=== PATIENT | female | born 1935 | race Caucasian/White ===

== ENCOUNTER 2017-12-25 15:22 | Inpatient (IN) | payer MEDICARE ==
[~2017-12-25] VITALS: Ht 167.6 cm; Wt 95.1 kg
[2017-12-25 15:54] VITALS: BP 116/55; PULSE 72; RESP 16; TEMP 98.3; O2SAT 95
[2017-12-25 17:12] LABS: AUTOMATED NEUTROPHIL # 6.8 TH/MM3 (1.8-7.7); BASOPHIL # 0.1 TH/MM3 (0-0.2); BASOPHIL % 1.2 % (0.0-2.0); EOSINOPHIL # 0.3 TH/MM3 (0-0.4); EOSINOPHIL % 3.4 % (0.0-4.0); HEMATOCRIT 27.4 % (35.0-46.0); HEMOGLOBIN 8.7 GM/DL (11.6-15.3); LYMPH % 16.3 % (9.0-44.0); LYMPHOCYTE # 1.5 TH/MM3 (1.0-4.8); MEAN CORPUSCULAR HEMOGLOBIN 26.4 PG (27.0-34.0); MEAN CORPUSCULAR HGB CONC 31.8 % (32.0-36.0); MEAN PLATELET VOLUME 8.1 FL (7.0-11.0); MONO % 7.1 % (0.0-8.0); MONOCYTE # 0.7 TH/MM3 (0-0.9); PLATELET COUNT 542 TH/MM3 (150-450); RED CELL DISTRIBUTION WIDTH 16.1 % (11.6-17.2); WHITE BLOOD COUNT 9.4 TH/MM3 (4.0-11.0)
[2017-12-25 17:21] LABS: INTERNATIONAL NORMALIZED RATIO 1.3 RATIO; PROTHROMBIN TIME - PATIENT 12.8 SEC (9.8-11.6)
[2017-12-25 17:23] LABS: ALBUMIN 2.5 GM/DL (3.4-5.0); ALT (GPT) 22 U/L (10-53); AST (GOT) 25 U/L (15-37); BICARBONATE 31.3 MEQ/L (21.0-32.0); BLOOD UREA NITROGEN 21 MG/DL (7-18); CHLORIDE 102 MEQ/L (98-107); CREATININE 0.85 MG/DL (0.50-1.00); GLOMERULAR FILTRATION RATE 64 ML/MIN (>89); GLUCOSE,RANDOM 144 MG/DL (74-106); SODIUM (NA) 140 MEQ/L (136-145)
[2017-12-25 17:26] LABS: ALKALINE PHOSPHATASE 79 U/L (45-117); TOTAL BILIRUBIN ADULT 0.3 MG/DL (0.2-1.0); TOTAL PROTEIN 7.2 GM/DL (6.4-8.2)
--- NOTE | 2017-12-25 17:28 | RADRPT ---
EXAM DATE/TIME: 12/25/2017 16:51 [facility] COMPARISON: No previous studies available for comparison. INDICATIONS : Non healing discolored foot and ankle post surgery 12/04/2017. MEDICAL HISTORY : None. SURGICAL HISTORY : None. ENCOUNTER: Initial ACUITY: 4 - 6 days PAIN SCORE: 7/10 LOCATION: Left foot and ankle FINDINGS: Prominent plantar calcaneal spur is noted. Hardware is noted within the distal tibia and fibula. Mild degenerative changes are noted involving the first metatarsophalangeal joint. There is no acute frac ture or dislocation. CONCLUSION: 1. No acute fracture or dislocation. 2. Mild degenerative changes involving the first metatarsophalangeal joint. 3. Prominent plantar calcaneal spur. Wilmer Estes MD on December 25, 2017 at 17:23 Board Certified Radiologist. This report was verified electronically.
--- NOTE | 2017-12-25 17:31 | RADRPT ---
EXAM DATE/TIME: 12/25/2017 16:59 [facility] COMPARISON: FOOT LEFT COMPLETE ([id number]), December 25, 2017, 16:51. INDICATIONS : Non healing and discolored left foot and ankle post op 12/04/2017. MEDICAL HISTORY : None. SURGICAL HISTORY : None. ENCOUNTER: Initial ACUITY: 4 - 6 days PAIN SCORE: 8/10 LOCATION: Left foot and ankle FINDINGS: A posterior malleolar fracture of the distal tibia is identified. Extensive hardware is noted within the distal tibia and fibula status post ORIF. Prominent plantar calcaneal spur is noted. CONCLUSION: 1. Posterior malleolar fracture of the distal tibia. 2. Prominent plantar calcaneal spur. Wilmer Estes MD on December 25, 2017 at 17:25 Board Certified Radiologist. This report was verified electronically.
--- NOTE | 2017-12-25 17:41 | PD ---
HPI Chief Complaint: Skin Problem Time Seen by Provider: 15:58 Travel History International Travel<30 days: No Contact w/Intl Traveler<30days: No Traveled to known affect area: No History of Present Illness HPI The patient is a 82-year-old female who presents to emergency department for evaluation of wounds to the left ankle and left foot. The patient is from [place], [place], recently fractured her ankle with possible dislocation. The patient was seen in the hospital in [place] where she underwent surgery. The patient was then discharged to a rehabilitation center. While in the rehabilitation center was noted the patient had some black skin changes to the dorsal aspect as well as the medial plantar surface of the foot and over the heel of the left foot. The patient was seen by her orthopedic surgeon who recommended she follow-up with plastic surgery for possible debridement. The patient was scheduled to see a plastic surgeon on January 02 in [place], [place], but the family did not want to wait until then. Therefore, the sign the patient out of her rehabilitation center during to [place], [place] to see a plastic surgeon. The patient does not have a local primary. He does note subjective fevers, denies any drainage from the wounds on the foot. PFSH Past Medical History Narrative Medical Anemia, paroxysmal atrial fibrillation, coronary artery disease, hypertension, hyperlipidemia Hx Anticoagulant Therapy: Yes (ELIQUPAULA ASA) Past Surgical History Narrative Surgical Left ankle surgery, left knee surgery, cholecystectomy, appendectomy, cystocele surgery, rectocele surgery, back surgery, previous stent placement Social History Tobacco Use: No Allergies-Medications Reported Meds & Prescriptions Reported Meds & Active Scripts Active Reported Torsemide 20 Mg Tab 20 Mg PO DAILY Pravastatin 20 Mg Tab 20 Mg PO DAILY Potassium Chloride ER (Potassium Chloride) 10 Meq Tab 10 Meq PO DAILY Hydrocodone-Acetaminophen 5-325 mg Tab 2 Tab PO Q4H PRN Metoprolol Tartrate 50 Mg Tab 50 Mg PO BID Lisinopril 40 Mg Tab 40 Mg PO DAILY Levothyroxine (Levothyroxine Sodium) 150 Mcg Tab 150 Mcg PO DAILY Gabapentin 600 Mg Tab 600 Mg PO HS Gabapentin 300 Mg Cap 300 Mg PO DAILY Eliquis (Apixaban) 5 Mg Tab 5 Mg PO BID Colace (Docusate Sodium) 100 Mg Capsule 100 Mg PO HS Aspirin EC (Aspirin) 81 Mg Tabdr 81 Mg PO DAILY Amlodipine (Amlodipine Besylate) 10 Mg Tab 10 Mg PO DAILY Review of Systems Except as stated in HPI: all other systems reviewed are Neg General / Constitutional: Positive: Fever Cardiovascular: No: Chest Pain or Discomfort Respiratory: No: Shortness of Breath Gastrointestinal: No: Nausea, Vomiting, Abdominal Pain Musculoskeletal: Positive: Edema, Pain Skin: Positive Other (As noted in the history of present illness) Neurologic: No: Paresthesia, Sensory Disturbance Physical Exam Narrative GENERAL: Awake, alert, pleasant 82-year-old female who appears her stated age and is in no acute respiratory distress. SKIN: Focused skin assessment warm/dry. HEAD: Atraumatic. Normocephalic. EYES: No injection or drainage. 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 ENT: No nasal bleeding or discharge. Mucous membranes pink and moist. NECK: Trachea midline. No JVD. CARDIOVASCULAR: Regular rate and rhythm. No murmur appreciated. RESPIRATORY: No accessory muscle use. Clear to auscultation. Breath sounds equal bilaterally. GASTROINTESTINAL: Abdomen soft, non-tender, nondistended. MUSCULOSKELETAL: The left lower extremity initially had a splint in place. This was removed. The patient does have surgical scar noted over the lateral aspect left ankle. There was some black eschar, dry, no weeping over the dorsal aspect left foot, medial plantar surface of the foot, as well as the heel. There is no drainage or surrounding erythema, there is mild edema of the left foot. Positive dorsalis pedal pulse Via Doppler. Well-healed scar of the anterior aspect of the left knee. NEUROLOGICAL: Awake and alert. No obvious cranial nerve deficits. Motor grossly within normal limits. Normal speech. Nonfocal. PSYCHIATRIC: Appropriate mood and affect; insight and judgment normal. Data Data Last Documented VS Vital Signs Date Time Temp Pulse Resp B/P (MAP) Pulse Ox O2 Delivery O2 Flow Rate FiO2 12/25/17 15:54 98.3 72 16 116/55 (75) 95 Orders Orders Sepsis Workup Initiated (12/25/17 ) Complete Blood Count With Diff (12/25/17 16:10) Comprehensive Metabolic Panel (12/25/17 16:10) Prothrombin Time / Inr (Pt) (12/25/17 16:10) Act Partial Throm Time (Ptt) (12/25/17 16:10) Lactic Acid Sepsis Protocol (12/25/17 16:10) Urinalysis - C+S If Indicated (12/25/17 16:10) Blood Culture (12/25/17 16:10) Blood Glucose (12/25/17 16:10) Ecg Monitoring (12/25/17 16:10) Iv Access Insert/Monitor (12/25/17 16:10) Oximetry (12/25/17 16:10) Oxygen Administration (12/25/17 16:10) Foot, Complete ([id number]) (12/25/17 ) Ankle, Limited (Ap&Lat) (12/25/17 ) Consult Podiatry (12/25/17 ) (Hub Use Only)Inp Phy Cons/Ref (12/25/17 ) Place In Observation (12/25/17 ) Vital Signs (Adult) Q4H (12/25/17 18:46) Activity Oob With Assistance (12/25/17 18:46) Manager Transfer / Telemetry .CONTINUOUS (12/25/17 18:46) Diet Heart Healthy (12/25/17 Dinner) Basic Metabolic Panel (Bmp) (12/26/17 06:00) Complete Blood Count With Diff (12/26/17 06:00) Arterial Segmt Dopp Ltd Patti (12/25/17 ) Admit Order (Ed Use Only) (12/25/17 18:51) Labs Laboratory Tests Test 12/25/17 16:35 12/25/17 17:26 White Blood Count 9.4 TH/MM3 Red Blood Count 3.30 MIL/MM3 Hemoglobin 8.7 GM/DL Hematocrit 27.4 % Mean Corpuscular Volume 83.0 FL Mean Corpuscular Hemoglobin 26.4 PG Mean Corpuscular Hemoglobin Concent 31.8 % Red Cell Distribution Width 16.1 % Platelet Count 542 TH/MM3 Mean Platelet Volume 8.1 FL Neutrophils (%) (Auto) 72.0 % Lymphocytes (%) (Auto) 16.3 % Monocytes (%) (Auto) 7.1 % Eosinophils (%) (Auto) 3.4 % Basophils (%) (Auto) 1.2 % Neutrophils # (Auto) 6.8 TH/MM3 Lymphocytes # (Auto) 1.5 TH/MM3 Monocytes # (Auto) 0.7 TH/MM3 Eosinophils # (Auto) 0.3 TH/MM3 Basophils # (Auto) 0.1 TH/MM3 CBC Comment DIFF FINAL Differential Comment Prothrombin Time 12.8 SEC Prothromb Time International Ratio 1.3 RATIO Activated Partial Thromboplast Time 27.6 SEC Blood Urea Nitrogen 21 MG/DL Creatinine 0.85 MG/DL Random Glucose 144 MG/DL Total Protein 7.2 GM/DL Albumin 2.5 GM/DL Calcium Level 9.0 MG/DL Alkaline Phosphatase 79 U/L Aspartate Amino Transf (AST/SGOT) 25 U/L Alanine Aminotransferase (ALT/SGPT) 22 U/L Total Bilirubin 0.3 MG/DL Sodium Level 140 MEQ/L Potassium Level 4.1 MEQ/L Chloride Level 102 MEQ/L Carbon Dioxide Level 31.3 MEQ/L Anion Gap 7 MEQ/L Estimat Glomerular Filtration Rate 64 ML/MIN Lactic Acid Level 1.6 mmol/L Urine Color YELLOW Urine Turbidity CLEAR Urine pH 5.5 Urine Specific [place] 1.012 Urine Protein NEG mg/dL Urine Glucose (UA) NEG mg/dL Urine Ketones NEG mg/dL Urine Occult Blood NEG Urine Nitrite NEG Urine Bilirubin NEG Urine Urobilinogen LESS THAN 2.0 MG/DL Urine Leukocyte Esterase SMALL Urine RBC LESS THAN 1 /hpf Urine WBC 4 /hpf Urine Squamous Epithelial Cells 3 /hpf Urine Transitional Epithelial Cells 1 /hpf Urine Hyaline Casts 3 /lpf Urine Mucus FEW /lpf Microscopic Urinalysis Comment CATH-CULT NOT IND MDM Medical Decision Making Medical Screen Exam Complete: Yes Emergency Medical Condition: Yes Medical Record Reviewed: Yes Interpretation(s) Laboratory Tests Test 12/25/17 16:35 12/25/17 17:26 White Blood Count 9.4 TH/MM3 Red Blood Count 3.30 MIL/MM3 Hemoglobin 8.7 GM/DL Hematocrit 27.4 % Mean Corpuscular Volume 83.0 FL Mean Corpuscular Hemoglobin 26.4 PG Mean Corpuscular Hemoglobin Concent 31.8 % Red Cell Distribution Width 16.1 % Platelet Count 542 TH/MM3 Mean Platelet Volume 8.1 FL Neutrophils (%) (Auto) 72.0 % Lymphocytes (%) (Auto) 16.3 % Monocytes (%) (Auto) 7.1 % Eosinophils (%) (Auto) 3.4 % Basophils (%) (Auto) 1.2 % Neutrophils # (Auto) 6.8 TH/MM3 Lymphocytes # (Auto) 1.5 TH/MM3 Monocytes # (Auto) 0.7 TH/MM3 Eosinophils # (Auto) 0.3 TH/MM3 Basophils # (Auto) 0.1 TH/MM3 CBC Comment DIFF FINAL Differential Comment Prothrombin Time 12.8 SEC Prothromb Time International Ratio 1.3 RATIO Activated Partial Thromboplast Time 27.6 SEC Blood Urea Nitrogen 21 MG/DL Creatinine 0.85 MG/DL Random Glucose 144 MG/DL Total Protein 7.2 GM/DL Albumin 2.5 GM/DL Calcium Level 9.0 MG/DL Alkaline Phosphatase 79 U/L Aspartate Amino Transf (AST/SGOT) 25 U/L Alanine Aminotransferase (ALT/SGPT) 22 U/L Total Bilirubin 0.3 MG/DL Sodium Level 140 MEQ/L Potassium Level 4.1 MEQ/L Chloride Level 102 MEQ/L Carbon Dioxide Level 31.3 MEQ/L Anion Gap 7 MEQ/L Estimat Glomerular Filtration Rate 64 ML/MIN Lactic Acid Level 1.6 mmol/L Last Impressions Foot X-Ray 12/25/17 0000 Signed Impressions: Service Date/Time: Monday, December 25, 2017 16:51 - CONCLUSION: 1. No acute fracture or dislocation. 2. Mild degenerative changes involving the first metatarsophalangeal joint. 3. Prominent plantar calcaneal spur. Wilmer Estes MD Ankle X-Ray 12/25/17 0000 Signed Impressions: Service Date/Time: Monday, December 25, 2017 16:59 - CONCLUSION: 1. Posterior malleolar fracture of the distal tibia. 2. Prominent plantar calcaneal spur. Wilmer Estes MD Differential Diagnosis Differential diagnosis includes postoperative complication, dry gangrene, wet gangrene, cellulitis, abscess, fracture blister complication, infected hardware. Narrative Course IV was established, labs are drawn and sent, and the patient was placed on cardiac telemetry monitoring and continuous pulse oximetry monitoring. X-ray of the left ankle and foot was obtained. Lactic acid, CBC, blood culture were sent to lab. I did discuss the patient with the on-call plastic surgeon, Dr. Anne. Dr. Lal recommends consultation with podiatry as it is inferior to the knee. I did discuss the patient with Dr. Cifuentes, who states she will evaluate the patient in the emergency department. I did have a discussion with the family at bedside regarding podiatry evaluation the possibility of outpatient versus inpatient treatment. The patient's white count is unremarkable. Lactic acid is normal. I discussed the patient with kick press setter after the kick press setter examined the patient. She requested PATTI to evaluate vascular status. It is after 6 PM, therefore, patient will be 23 hour observation to obtain arterial brachial index to evaluate neurovascular status. Consult has been placed with kick press setter. I discussed the patient with medicine who agrees with 23 hour observation. Physician Communication Physician Communication I discussed the patient with Dr. Aguayo who agrees with 23 hour observation. Diagnosis Primary Impression: Postoperative complication Qualified Codes: L76.82 - Other postprocedural complications of skin and subcutaneous tissue Admitting Information Admitting Physician Requests: Observation Condition: Stable Benny Sanchez MD Dec 25, 2017 17:41
[2017-12-25] MEDS ORDERED: PRAV20TA2 PO (17:45)
[2017-12-25] MEDS ORDERED: GABA600T PO (17:45)
[2017-12-25] MEDS ORDERED: POTA10TA2 PO (17:45)
[2017-12-25] MEDS ORDERED: LISI40TA PO (17:45)
[2017-12-25] MEDS ORDERED: COLA100C5 PO (17:45)
[2017-12-25] MEDS ORDERED: APIX5TAB PO (17:45)
[2017-12-25] MEDS ORDERED: METO50TA PO (17:45)
[2017-12-25] MEDS ORDERED: GABA300C5 PO (17:45)
[2017-12-25] MEDS ORDERED: HYDR-3516 PO (17:45)
[2017-12-25] MEDS ORDERED: LEVO150T7 PO (17:45)
[2017-12-25] MEDS ORDERED: TORS20TA PO (17:45)
[2017-12-25] MEDS ORDERED: AMLO10TA2 PO (17:45)
[2017-12-25] MEDS ORDERED: ASPI81TA23 PO (17:45)
[2017-12-25 18:21] LABS: BILIRUBIN, URINE NEG (NEG); BLOOD, URINE NEG (NEG); GLUCOSE,URINE NEG (NEG); HYALINE CAST, URINE 3 /lpf (RARE); KETONE, URINE NEG (NEG); MUCUS URINE FEW /lpf (OCC); NITRITE,URINE NEG (NEG); PH, URINE 5.5 (5.0-8.5); SQUAMOUS EPITHELIAL CELL URINE 3 /hpf (0-5); TRANSITIONAL EPI CELLS, URINE 1 /hpf; URINE COLOR YELLOW (YELLW/STRAW); URINE LEUKOCYTE ESTERASE SMALL (NEG)
[2017-12-25 18:54] VITALS: BP 158/70; PULSE 78; RESP 19; O2SAT 95
--- NOTE | 2017-12-25 20:46 | HHI.HP ---
[facility] Service [facility] ([place], [place])ists Primary Care Physician Non-Staff Admission Diagnosis Postoperative complication, rule out eschar versus infection Diagnoses: Travel History International Travel<30 Days: No Contact w/Intl Traveler <30 Da: No Traveled to Known Affected Are: No History of Present Illness 82-year-old female with a past medical history significant for atrial fibrillation, anticoagulated on Eliquis, hypertension, hyperlipidemia, hypothyroidism, CAD and CHF (no recent echo) presents to the emergency department for evaluation of left ankle and heel wounds. The patient is status post tib/fib fracture with repair on 12/04/[address] Morales in [place]. She was placed in a splint following the procedure and has been compliant with nonweightbearing. The patient reports that one week ago she was seen in the office in follow-up in the splint was removed revealing left ankle, heel and foot areas of black eschar. Plastic surgery was consulted however the patient does not have an appointment until 01/02. She was seen again in clinic today and the decision was made between the physician, the patient's daughter and the patient to come to the emergency department for further evaluation, wound care and placement. The patient denies any pain to the wounds. She describes her left ankle is having a dull ache which is relieved with by mouth medication. She is participating in physical therapy. She denies any chest pain or shortness of breath. No abdominal pain. No nausea/vomiting/diarrhea. No weakness. No focal deficits. Review of Systems Except as stated in HPI: all other systems reviewed are Neg Past Family Social History Past Medical History Atrial fibrillation anticoagulated on Eliquis Hypertension Hyperlipidemia Hypothyroidism CAD CHF Past Surgical History Cardiac catheterization with stent placement 1 Perineal repair Pacemaker placement for bradycardia Left knee replacement Left tib/fib repair L3 to L5 fusion Right Achilles repair Cholecystectomy Reported Medications Reported Meds & Active Scripts Active Reported Torsemide 20 Mg Tab 20 Mg PO DAILY Pravastatin 20 Mg Tab 20 Mg PO DAILY Potassium Chloride ER (Potassium Chloride) 10 Meq Tab 10 Meq PO DAILY Hydrocodone-Acetaminophen 5-325 mg Tab 2 Tab PO Q4H PRN Metoprolol Tartrate 50 Mg Tab 50 Mg PO BID Lisinopril 40 Mg Tab 40 Mg PO DAILY Levothyroxine (Levothyroxine Sodium) 150 Mcg Tab 150 Mcg PO DAILY Gabapentin 600 Mg Tab 600 Mg PO HS Gabapentin 300 Mg Cap 300 Mg PO DAILY Eliquis (Apixaban) 5 Mg Tab 5 Mg PO BID Colace (Docusate Sodium) 100 Mg Capsule 100 Mg PO HS Aspirin EC (Aspirin) 81 Mg Tabdr 81 Mg PO DAILY Amlodipine (Amlodipine Besylate) 10 Mg Tab 10 Mg PO DAILY Allergies: Coded Allergies: Tetracyclic Antidepressants (Verified Allergy, Unknown, Hives, 12/25/17) Family History Both parents with diabetes mellitus Social History Remote history of tobacco. Occasional alcohol. Denies illicit drugs. Physical Exam Vital Signs Vital Signs Date Time Temp Pulse Resp B/P (MAP) Pulse Ox O2 Delivery O2 Flow Rate FiO2 12/25/17 18:54 78 19 158/70 (99) 95 Room Air 12/25/17 15:54 98.3 72 16 116/55 (75) 95 Physical Exam GENERAL: female sitting up in bed SKIN: Areas of black eschar on the left heel, plantar surface of left foot and left ankle. Neurovascularly intact with dopplerable dorsalis pedis pulse. HEAD: Atraumatic. Normocephalic. No temporal or scalp tenderness. EYES: Pupils equal round and reactive. Extraocular motions intact. No scleral icterus. No injection or drainage. ENT: Nose without bleeding, purulent drainage or septal hematoma. Throat without erythema, tonsillar hypertrophy or exudate. Uvula midline. Airway patent. NECK: Trachea midline. No JVD or lymphadenopathy. Supple, nontender, no meningeal signs. CARDIOVASCULAR: Regular rate and rhythm without murmurs, gallops, or rubs. RESPIRATORY: Clear to auscultation. Breath sounds equal bilaterally. No wheezes , rales, or rhonchi. GASTROINTESTINAL: Abdomen soft, non-tender, nondistended. No hepato-splenomegaly , or palpable masses. No guarding. MUSCULOSKELETAL: Extremities without clubbing, cyanosis, or edema. No joint tenderness, effusion, or edema noted. No calf tenderness. NEUROLOGICAL: Awake and alert. Cranial nerves II through XII intact. Motor and sensory grossly within normal limits. Normal speech. Laboratory Laboratory Tests Test 12/25/17 16:35 12/25/17 17:26 White Blood Count 9.4 Red Blood Count 3.30 Hemoglobin 8.7 Hematocrit 27.4 Mean Corpuscular Volume 83.0 Mean Corpuscular Hemoglobin 26.4 Mean Corpuscular Hemoglobin Concent 31.8 Red Cell Distribution Width 16.1 Platelet Count 542 Mean Platelet Volume 8.1 Neutrophils (%) (Auto) 72.0 Lymphocytes (%) (Auto) 16.3 Monocytes (%) (Auto) 7.1 Eosinophils (%) (Auto) 3.4 Basophils (%) (Auto) 1.2 Neutrophils # (Auto) 6.8 Lymphocytes # (Auto) 1.5 Monocytes # (Auto) 0.7 Eosinophils # (Auto) 0.3 Basophils # (Auto) 0.1 CBC Comment DIFF FINAL Differential Comment Prothrombin Time 12.8 Prothromb Time International Ratio 1.3 Activated Partial Thromboplast Time 27.6 Blood Urea Nitrogen 21 Creatinine 0.85 Random Glucose 144 Total Protein 7.2 Albumin 2.5 Calcium Level 9.0 Alkaline Phosphatase 79 Aspartate Amino Transf (AST/SGOT) 25 Alanine Aminotransferase (ALT/SGPT) 22 Total Bilirubin 0.3 Sodium Level 140 Potassium Level 4.1 Chloride Level 102 Carbon Dioxide Level 31.3 Anion Gap 7 Estimat Glomerular Filtration Rate 64 Lactic Acid Level 1.6 Urine Color YELLOW Urine Turbidity CLEAR Urine pH 5.5 Urine Specific [place] 1.012 Urine Protein NEG Urine Glucose (UA) NEG Urine Ketones NEG Urine Occult Blood NEG Urine Nitrite NEG Urine Bilirubin NEG Urine Urobilinogen LESS THAN 2.0 Urine Leukocyte Esterase SMALL Urine RBC LESS THAN 1 Urine WBC 4 Urine Squamous Epithelial Cells 3 Urine Transitional Epithelial Cells 1 Urine Hyaline Casts 3 Urine Mucus FEW Microscopic Urinalysis Comment CATH-CULT NOT IND Date/Time Source Procedure Growth Status 12/25/17 16:35 Blood Peripheral Aerobic Blood Culture Pending Received 12/25/17 16:35 Blood Peripheral Anaerobic Blood Culture Pending Received Result Diagram: 12/25/17 1635 12/25/17 1635 Caprini VTE Risk Assessment Caprini VTE Risk Assessment: Mod/High Risk (score >= 2) Caprini Risk Assessment Model Point Value = 1 Point Value = 2 Point Value = 3 Point Value = 5 Age 41-60 Minor surgery BMI > 25 kg/m2 Swollen legs Varicose veins or History of unexplained or recurrent spontaneous Oral contraceptives or hormone replacement Sepsis (< 1 month) Serious lung disease, including pneumonia (< 1 month) Abnormal pulmonary function Acute myocardial infarction Congestive heart failure (< 1 month) History of inflammatory bowel disease Medical patient at bed rest Age 61-74 Arthroscopic surgery Major open surgery (> 45 min) Laparoscopic surgery (> 45 min) Malignancy Confined to bed (> 72 hours) Immobilizing plaster cast Central venous access Age >= 75 History of VTE Family history of VTE Factor V Leiden Prothrombin [id number] Lupus anticoagulant Anticardiolipin antibodies Elevated serum homocysteine Heparin-induced thrombocytopenia Other congenital or acquired thrombophilia Stroke (< 1 month) Elective arthroplasty Hip, pelvis, or leg fracture Acute spinal cord injury (< 1 month) Prophylaxis Regimen Total Risk Factor Score Risk Level Prophylaxis Regimen 0-1 Low Early ambulation 2 Moderate Order ONE of the following: *Sequential Compression Device (SCD) *Heparin 5000 units SQ BID 3-4 Higher Order ONE of the following medications: *Heparin 5000 units SQ TID *Enoxaparin/Lovenox 40 mg SQ daily (WT < 150 kg, CrCl > 30 mL/min) *Enoxaparin/Lovenox 30 mg SQ daily (WT < 150 kg, CrCl > 10-29 mL/min) *Enoxaparin/Lovenox 30 mg SQ BID (WT < 150 kg, CrCl > 30 mL/min) AND/OR *Sequential Compression Device (SCD) 5 or more Highest Order ONE of the following medications: *Heparin 5000 units SQ TID (Preferred with Epidurals) *Enoxaparin/Lovenox 40 mg SQ daily (WT < 150 kg, CrCl > 30 mL/min) *Enoxaparin/Lovenox 30 mg SQ daily (WT < 150 kg, CrCl > 10-29 mL/min) *Enoxaparin/Lovenox 30 mg SQ BID (WT < 150 kg, CrCl > 30 mL/min) AND *Sequential Compression Device (SCD) Assessment and Plan Assessment and Plan Assessment/plan: 1. Post surgical wounds status post splinting Podiatry consulted, appreciate recommendations JINNY pending PT Wound care consulted Case management consulted to assist with placement as patient is nonweightbearing and unable to care for herself 2. Atrial fibrillation Continue home medications Continue anticoagulation with ELiquis 3. Hypertension/hyperlipidemia/CAD/CHF Continue home medications FEN Heart healthy diet Electrolytes: monitor and replete prn Cece Hernandez MD Dec 25, 2017 20:46
[2017-12-25 21:50] VITALS: BP 139/63; PULSE 67; RESP 16; TEMP 97.5; O2SAT 96
[2017-12-25] MEDS: METOPROLOL TARTRATE 50 MG TAB PO SCH (22:12)
[2017-12-25] MEDS: GABAPENTIN 300 MG CAP PO SCH (22:12)
[2017-12-25] MEDS: APIXABAN 5 MG TABLET PO SCH (22:12)
[2017-12-25] MEDS: ACETAMINOPHEN/HYDROcodone 325 MG/7.5 MG TAB PO PRN (22:13)
--- NOTE | 2017-12-25 22:48 | PD.CONS ---
History of Present Illness Service Foot and Ankle Surgery/Podiatry Consult Requested By Dr. Sanchez Reason for Consult Left Lower Extremity Eschar Primary Care Physician Diagnoses: History of Present Illness Podiatry consulted for 82-year-old female with past medical history significant for atrial fibrillation, anticoagulated on Eliquis, hypertension, hyperlipidemia , hypothyroidism, CAD and CHF for evaluation of left ankle and heel ulcerations. Patient states she is status post fracture repair by orthopedic surgeon in [place]. States she was placed in a cast/posterior splint following the surgery and has been compliant with nonweightbearing. States his splint was never removed and once it was removed and in the office revealed a nonhealing left ankle/heel and foot eschar. Patient was concerned that she was unable to secure a plastic surgery follow-up until January 02 therefore decision was made by her and her daughters to present to the emergency department for further evaluation, wound care recommendations, and placement. Patient denies any pain, denies any nausea vomiting fevers or chills. Review of Systems Constitutional: DENIES: Fatigue, Fever Ears, nose, mouth, throat: DENIES: Tinnitus Respiratory: DENIES: Cough, Wheezing Cardiovascular: DENIES: Chest pain Gastrointestinal: DENIES: Abdominal pain Musculoskeletal: DENIES: Joint pain Past Family Social History Allergies: Coded Allergies: Tetracyclic Antidepressants (Verified Allergy, Unknown, Hives, 12/25/17) Past Medical History as per HPI Active Ordered Medications Current Medications Medications (Trade) Dose Ordered Sig/Temitope Route Start Time Stop Time Status Last Admin ([place] 7.5-325 Mg) 1 tab Q4H PRN PO 12/25/17 20:45 12/25/17 22:13 (Norvasc) 10 mg DAILY PO 12/26/17 09:00 (Eliquis) 5 mg BID PO 12/25/17 21:00 12/25/17 22:12 (Ecotrin Ec) 81 mg DAILY PO 12/26/17 09:00 (Neurontin) 300 mg DAILY PO 12/26/17 09:00 (Neurontin) 600 mg HS PO 12/25/17 21:00 12/25/17 22:12 (Synthroid) 150 mcg DAILY@0600 PO 12/26/17 06:00 (Lopressor) 50 mg BID PO 12/25/17 21:00 12/25/17 22:12 (KCl) 10 meq DAILY PO 12/26/17 09:00 (Pravachol) 20 mg DAILY PO 12/26/17 09:00 (Demadex) 20 mg DAILY PO 12/26/17 09:00 (Prinivil) 40 mg DAILY PO 12/26/17 09:00 Physical Exam Vital Signs Vital Signs Date Time Temp Pulse Resp B/P (MAP) Pulse Ox O2 Delivery O2 Flow Rate FiO2 12/25/17 21:50 97.5 67 16 139/63 (88) 96 12/25/17 21:32 12/25/17 18:54 78 19 158/70 (99) 95 Room Air 12/25/17 15:54 98.3 72 16 116/55 (75) 95 Physical Exam GENERAL: This is a well-nourished, well-developed patient, in no apparent distress. SKIN: No rashes, ecchymoses or lesions. Cool and dry. HEAD: Atraumatic. Normocephalic. No temporal or scalp tenderness. EYES: Pupils equal round and reactive. Extraocular motions intact. No scleral icterus. No injection or drainage. ENT: Nose without bleeding, purulent drainage or septal hematoma. Throat without erythema, tonsillar hypertrophy or exudate. Uvula midline. Airway patent. NECK: Trachea midline. No JVD or lymphadenopathy. Supple, nontender, no meningeal signs. CARDIOVASCULAR: Regular rate and rhythm without murmurs, gallops, or rubs. RESPIRATORY: Clear to auscultation. Breath sounds equal bilaterally. No wheezes , rales, or rhonchi. GASTROINTESTINAL: Abdomen soft, non-tender, nondistended. No hepato-splenomegaly , or palpable masses. No guarding. MUSCULOSKELETAL: Extremities without clubbing, cyanosis, or edema. No joint tenderness, effusion, or edema noted. No calf tenderness. Negative Homans sign bilaterally. NEUROLOGICAL: Awake and alert. Cranial nerves II through XII intact. Motor and sensory grossly within normal limits. Five out of 5 muscle strength in all muscle groups. Normal speech. Laboratory Laboratory Tests Test 12/25/17 16:35 12/25/17 17:26 White Blood Count 9.4 Red Blood Count 3.30 Hemoglobin 8.7 Hematocrit 27.4 Mean Corpuscular Volume 83.0 Mean Corpuscular Hemoglobin 26.4 Mean Corpuscular Hemoglobin Concent 31.8 Red Cell Distribution Width 16.1 Platelet Count 542 Mean Platelet Volume 8.1 Neutrophils (%) (Auto) 72.0 Lymphocytes (%) (Auto) 16.3 Monocytes (%) (Auto) 7.1 Eosinophils (%) (Auto) 3.4 Basophils (%) (Auto) 1.2 Neutrophils # (Auto) 6.8 Lymphocytes # (Auto) 1.5 Monocytes # (Auto) 0.7 Eosinophils # (Auto) 0.3 Basophils # (Auto) 0.1 CBC Comment DIFF FINAL Differential Comment Prothrombin Time 12.8 Prothromb Time International Ratio 1.3 Activated Partial Thromboplast Time 27.6 Blood Urea Nitrogen 21 Creatinine 0.85 Random Glucose 144 Total Protein 7.2 Albumin 2.5 Calcium Level 9.0 Alkaline Phosphatase 79 Aspartate Amino Transf (AST/SGOT) 25 Alanine Aminotransferase (ALT/SGPT) 22 Total Bilirubin 0.3 Sodium Level 140 Potassium Level 4.1 Chloride Level 102 Carbon Dioxide Level 31.3 Anion Gap 7 Estimat Glomerular Filtration Rate 64 Lactic Acid Level 1.6 Urine Color YELLOW Urine Turbidity CLEAR Urine pH 5.5 Urine Specific [place] 1.012 Urine Protein NEG Urine Glucose (UA) NEG Urine Ketones NEG Urine Occult Blood NEG Urine Nitrite NEG Urine Bilirubin NEG Urine Urobilinogen LESS THAN 2.0 Urine Leukocyte Esterase SMALL Urine RBC LESS THAN 1 Urine WBC 4 Urine Squamous Epithelial Cells 3 Urine Transitional Epithelial Cells 1 Urine Hyaline Casts 3 Urine Mucus FEW Microscopic Urinalysis Comment CATH-CULT NOT IND Date/Time Source Procedure Growth Status 12/25/17 16:35 Blood Peripheral Aerobic Blood Culture Pending Received 12/25/17 16:35 Blood Peripheral Anaerobic Blood Culture Pending Received Result Diagram: 12/25/17 1635 12/25/17 1635 Imaging Last Impressions Foot X-Ray 12/25/17 0000 Signed Impressions: Service Date/Time: Monday, December 25, 2017 16:51 - CONCLUSION: 1. No acute fracture or dislocation. 2. Mild degenerative changes involving the first metatarsophalangeal joint. 3. Prominent plantar calcaneal spur. Wilmer Estes MD Ankle X-Ray 12/25/17 0000 Signed Impressions: Service Date/Time: Monday, December 25, 2017 16:59 - CONCLUSION: 1. Posterior malleolar fracture of the distal tibia. 2. Prominent plantar calcaneal spur. Wilmer Estes MD Assessment and Plan Assessment and Plan 82 year old female with left foot/heel/anterior ankle eschar Patient examined and evaluated with all questions answered Eschar to anterior ankle demarcating - no acute infection noted Patient will need santyl applied to eschar once demarcation complete Dry sterile dressing consisting of 4x4s, cast padding and light michelle recommended until santyl can be started ABIs to be performed if normal OK to discharge patient She will follow up within 1 week of discharge or find appropriate follow up in [place] with podiatry or plastics Xrays reviewed Lavern Cifuentes DPM Dec 25, 2017 22:48
[2017-12-25 23:18] VITALS: PULSE 59
[2017-12-26] VITALS: BP 124/63; PULSE 66; RESP 18; TEMP 98.9; O2SAT 95
[2017-12-26 05:19] VITALS: BP 135/80; PULSE 88; RESP 18; TEMP 97.8; O2SAT 95
[2017-12-26] MEDS: LEVOTHYROXINE SODIUM 150 MCG TAB PO SCH (05:23)
--- NOTE | 2017-12-26 07:36 | PD.WCN.NOT ---
Wound Consult Additional Information: Patient not seen for L foot/ankle wound management consult. Patient was seen by Podiatry Doctor Esau for same area. Doctor Esau wrote wound care recommendations in her note. Please defer to podiatry for wound care orders for L foot/ ankle. Wound care inpatient is signing off. Nery Madrigal [facility] Dec 26, 2017 07:36
[2017-12-26] MEDS: LISINOPRIL 20 MG TAB PO SCH (08:42)
[2017-12-26] MEDS: APIXABAN 5 MG TABLET PO SCH ×2 (08:57→22:22)
[2017-12-26] MEDS: METOPROLOL TARTRATE 50 MG TAB PO SCH ×2 (08:57→22:22)
[2017-12-26] MEDS: TORSEMIDE 20 MG TAB PO SCH (08:58)
[2017-12-26] MEDS: GABAPENTIN 300 MG CAP PO SCH ×2 (08:58→22:22)
[2017-12-26] MEDS: POTASSIUM CHLORIDE 10 MEQ CONTROLLED RELEASE TAB PO SCH (08:58)
[2017-12-26] MEDS: ASPIRIN EC 81 MG TABEC PO SCH (08:58)
[2017-12-26] MEDS: PRAVASTATIN SOD 20 MG TAB PO SCH (08:59)
[2017-12-26 09:08] VITALS: BP 144/66; PULSE 82; RESP 20; TEMP 98.1; O2SAT 95
--- NOTE | 2017-12-26 09:52 | PD.PN.STU ---
Subjective Remarks Patient reports no new concerns. She says her pain is well controlled. Able to participate in physical therapy. denies chest pain, shortness of breath, weakness, nausea/vomiting/diarrhea. Objective Vitals Vital Signs Date Time Temp Pulse Resp B/P (MAP) Pulse Ox O2 Delivery O2 Flow Rate FiO2 12/26/17 09:08 98.1 82 20 144/66 (92) 95 12/26/17 05:19 97.8 88 18 135/80 (98) 95 12/26/17 00:00 98.9 66 18 124/63 (83) 95 12/25/17 23:18 59 12/25/17 21:50 97.5 67 16 139/63 (88) 96 12/25/17 21:32 12/25/17 18:54 78 19 158/70 (99) 95 Room Air 12/25/17 15:54 98.3 72 16 116/55 (75) 95 Result Diagram: 12/25/17 1635 12/25/17 1635 Objective Remarks general: No acute distress Cardiac: Normal rate and rhythm. Systolic ejection murmur best heard right upper sternal border. No gallops. Pulses equal and palpable bilaterally at dorsalis pedis and radial artery. Pulm: Clear bilaterally throughout. No rhonchi, wheezes, or rales. Skin: area of black eschar on the left heel, plantar surgace of the left foot and ankle. A/P Assessment and Plan 1. post surgical wound status post splinting. Podiatry consulted and recommend outpatient management. PT recommends in patient rehab placement. Case management consulted for placement. 2. A fib - continue on home medications, anticoagulated with Eliquis. 3. HTN/hyperlipidemia/CAD/CHF - continue home medications. Chely Burgess M3 Dec 26, 2017 09:52
[2017-12-26 10:53] LABS: BASOPHIL # 0.1 TH/MM3 (0-0.2); EOSINOPHIL # 0.4 TH/MM3 (0-0.4); EOSINOPHIL % 3.9 % (0.0-4.0); HEMATOCRIT 28.8 % (35.0-46.0); HEMOGLOBIN 9.2 GM/DL (11.6-15.3); LYMPHOCYTE # 1.2 TH/MM3 (1.0-4.8); MEAN CELL VOLUME 81.6 FL (80.0-100.0); MEAN CORPUSCULAR HEMOGLOBIN 26.1 PG (27.0-34.0); MEAN PLATELET VOLUME 8.3 FL (7.0-11.0); MONO % 5.6 % (0.0-8.0); MONOCYTE # 0.5 TH/MM3 (0-0.9); NEUT % 76.5 % (16.0-70.0); PLATELET COUNT 523 TH/MM3 (150-450); RED BLOOD COUNT 3.53 MIL/MM3 (4.00-5.30); RED CELL DISTRIBUTION WIDTH 16.3 % (11.6-17.2); WHITE BLOOD COUNT 9.2 TH/MM3 (4.0-11.0)
[2017-12-26 11:37] LABS: BICARBONATE 31.4 MEQ/L (21.0-32.0); CALCIUM 9.3 MG/DL (8.5-10.1); CREATININE 0.77 MG/DL (0.50-1.00)
[2017-12-26 12:23] VITALS: BP 108/59; PULSE 79; RESP 20; TEMP 98.3; O2SAT 95
--- NOTE | 2017-12-26 13:08 | RADRPT ---
EXAM DATE/TIME: 12/26/2017 12:38 [facility] COMPARISON: No previous studies available for comparison. INDICATIONS : Rales on exam. MEDICAL HISTORY : None. SURGICAL HISTORY : Pacemaker. ENCOUNTER: Initial ACUITY: 1 day PAIN SCORE: 0/10 LOCATION: Bilateral chest FINDINGS: Portable upright AP view of the chest demonstrates a normal-sized cardiac silhouette with calcificati on of the aorta. Left chest wall cardiac pacing device is present. No pleural effusion, airspace cons olidation, or pneumothorax is visualized. The bones and soft tissues demonstrate no acute finding. Th ere are degenerative changes of the thoracic spine. CONCLUSION: No acute cardiopulmonary abnormality is identified. Adonay Michael MD on December 26, 2017 at 13:04 Board Certified Radiologist. This report was verified electronically.
--- NOTE | 2017-12-26 14:03 | RADRPT ---
EXAM DATE/TIME: 12/26/2017 10:29 [facility] COMPARISON: No previous studies available for comparison. INDICATIONS : Left Leg Ulcer, DrJd Hood TECHNIQUE: Four-cuff ankle and brachial pressures were obtained. Pulse cuff waveform tracings of the ankles were recorded, and ankle-brachial indices were calculated. PRESSURES (mmHg): Brachial (arm): Right IV SITE Left 130 Ankle: Right 109 Left 54 JINNY: Right 0.84 Left 0.42 TBI: Right 0.33 Left 0.00 PULSED CUFF WAVEFORMS: Amplitude blunting of the right ankle and left toe wave forms CONCLUSION: 1. Abnormal JINNY bilaterally, left worse than right. 2. Abnormal TBI bilaterally with no detectable flow on the left. 3. CTA abdomen and runoff could be performed for anatomic characterization if clinically warranted. Octavio Bravo MD on December 26, 2017 at 13:59 Board Certified Radiologist. This report was verified electronically.
--- NOTE | 2017-12-26 16:25 | HHI.PR ---
Subjective Remarks Denies cp/sob Afebrile States pain is well controlled. Patient has been able to participate in physical therapy. Objective Vitals Vital Signs Date Time Temp Pulse Resp B/P (MAP) Pulse Ox O2 Delivery O2 Flow Rate FiO2 12/26/17 12:23 98.3 79 20 108/59 (75) 95 12/26/17 09:08 98.1 82 20 144/66 (92) 95 12/26/17 05:19 97.8 88 18 135/80 (98) 95 12/26/17 00:00 98.9 66 18 124/63 (83) 95 12/25/17 23:18 59 12/25/17 21:50 97.5 67 16 139/63 (88) 96 12/25/17 21:32 12/25/17 18:54 78 19 158/70 (99) 95 Room Air Result Diagram: 12/26/17 1002 12/26/17 1002 Imaging Last Impressions Chest X-Ray 12/26/17 0000 Signed Impressions: Service Date/Time: December 12:38 - CONCLUSION: No acute cardiopulmonary abnormality is identified. Adonay Michael MD Foot X-Ray 12/25/17 0000 Signed Impressions: Service Date/Time: Monday, December 25, 2017 16:51 - CONCLUSION: 1. No acute fracture or dislocation. 2. Mild degenerative changes involving the first metatarsophalangeal joint. 3. Prominent plantar calcaneal spur. Wilmer Estes MD Ankle X-Ray 12/25/17 0000 Signed Impressions: Service Date/Time: Monday, December 25, 2017 16:59 - CONCLUSION: 1. Posterior malleolar fracture of the distal tibia. 2. Prominent plantar calcaneal spur. Wilmer Estes MD Objective Remarks general: No acute distress Cardiac: Normal rate and rhythm. Systolic ejection murmur best heard right upper sternal border. No gallops. Pulses equal and palpable bilaterally at dorsalis pedis and radial artery. Pulm: Clear bilaterally throughout. No rhonchi, wheezes, or rales. Skin: area of black eschar on the left heel, plantar surgace of the left foot and ankle. Medications and IVs Current Medications Medications (Trade) Dose Ordered Sig/Temitope Route Start Time Stop Time Status Last Admin ([place] 7.5-325 Mg) 1 tab Q4H PRN PO 12/25/17 20:45 12/25/17 22:13 (Norvasc) 10 mg DAILY PO 12/26/17 09:00 12/26/17 08:59 (Eliquis) 5 mg BID PO 12/25/17 21:00 12/26/17 08:57 (Ecotrin Ec) 81 mg DAILY PO 12/26/17 09:00 12/26/17 08:58 (Neurontin) 300 mg DAILY PO 12/26/17 09:00 12/26/17 08:58 (Neurontin) 600 mg HS PO 12/25/17 21:00 12/25/17 22:12 (Synthroid) 150 mcg DAILY@0600 PO 12/26/17 06:00 12/26/17 05:23 (Lopressor) 50 mg BID PO 12/25/17 21:00 12/26/17 08:57 (KCl) 10 meq DAILY PO 12/26/17 09:00 12/26/17 08:58 (Pravachol) 20 mg DAILY PO 12/26/17 09:00 12/26/17 08:59 (Demadex) 20 mg DAILY PO 12/26/17 09:00 12/26/17 08:58 (Prinivil) 40 mg DAILY PO 12/26/17 09:00 12/26/17 08:42 A/P Problem List: (1) Postoperative complication ICD Code: T81.9XXA - Unspecified complication of procedure, initial encounter Status: Acute Assessment and Plan 1. Postsurgical wound status post splinting. Podiatry consulted. Recommended wound care. Because the case with Dr. Canada states ABIs are abnormal and the cardiovascular surgery should be consulted. Recommended Dr. Moran. I will order a CTA of the aorta with runoff. Wound care recommendations provided by Dr. Cifuentes. 2. Chronic atrial fibrillation I will hold Eliquis and start the patient on heparin. Check EKG. 3. Hypertension/hyperlipidemia/CAD/chronic CHF -unknown if systolic or diastolic. Continue home medications. BP seems to be stable, patient is chest pain-free there are no signs of volume overload. Discharge Planning Continue to monitor in the observation unit. Vascular surgery consulted. Order CTA of the aorta with runoff. Problem Qualifiers (1) Postoperative complication: Qualified Codes: L76.82 - Other postprocedural complications of skin and subcutaneous tissue Thierno Holder MD Dec 26, 2017 16:25
[2017-12-26 16:40] VITALS: BP 139/63; PULSE 71; RESP 20; TEMP 98.1; O2SAT 93
--- NOTE | 2017-12-26 17:48 | PD.VS.CON ---
History of Present Illness Chief Complaint: LEFT foot necrosis, PAD Consult Requested by: Dr. 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 Prior to that, no claudication or symptoms of PAD. She was very active and played golf, etc. She went to her orthopedic surgeon a week ago who "didn't like the way the wound looked" and tried to get her to see a plastic surgeon but couldn't be seen until 01/02 and the appearance of the foot worsened. The patient and her children came to [place] for more prompt evaluation and treatment. Nonambulatory since the fracture but clearly was prior to that. 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 Family History [place] Home Medications Reported Medications Torsemide (Torsemide) 20 Mg Tab, 20 MG PO DAILY, #30 TAB 0 Refills 12/25/17 Pravastatin (Pravastatin) 20 Mg Tab, 20 MG PO DAILY for Cholesterol Management, #30 TAB 0 Refills 12/25/17 Potassium Chloride ER (Potassium Chloride ER) 10 Meq Tab, 10 MEQ PO DAILY for Electrolyte Replacement, #30 TAB 0 Refills 12/25/17 Hydrocodone-Acetaminophen (Hydrocodone-Acetaminophen) 5-325 mg Tab, 2 TAB PO Q4H Y for PAIN, TAB 0 Refills 12/25/17 Metoprolol Tartrate (Metoprolol Tartrate) 50 Mg Tab, 50 MG PO BID, #60 TAB 0 Refills 12/25/17 Lisinopril (Lisinopril) 40 Mg Tab, 40 MG PO DAILY for Blood Pressure Management , #30 TAB 0 Refills 12/25/17 Levothyroxine (Levothyroxine) 150 Mcg Tab, 150 MCG PO DAILY for Thyroid, #30 TAB 0 Refills 12/25/17 Gabapentin (Gabapentin) 600 Mg Tab, 600 MG PO HS, #30 TAB 0 Refills 12/25/17 Gabapentin (Gabapentin) 300 Mg Cap, 300 MG PO DAILY, #60 CAP 0 Refills 12/25/17 Apixaban (Eliquis) 5 Mg Tab, 5 MG PO BID for Blood Clot Prevention, #60 TAB 0 Refills 12/25/17 Docusate Sodium (Colace) 100 Mg Capsule, 100 MG PO HS for Prevent Constipation, #30 CAP 0 Refills 12/25/[address] (Aspirin EC) 81 Mg Tabdr, 81 MG PO DAILY, TAB 0 Refills 12/25/17 Amlodipine (Amlodipine) 10 Mg Tab, 10 MG PO DAILY for Blood Pressure Management , #30 TAB 0 Refills 12/25/17 Coded Allergies: Tetracyclic Antidepressants (Verified Allergy, Unknown, Hives, 12/25/17) Review of Systems Constitutional: DENIES: Diaphoretic episodes, Fatigue, Fever, Weight gain, Weight loss, Chills, Dizziness, Change in appetite, Night Sweats Cardiovascular: DENIES: Chest pain, Palpitations, Syncope, Dyspnea on Exertion , PND, Lower Extremity Edema, Orthopnea, Claudication Musculoskeletal: COMPLAINS OF: Joint pain, Muscle aches Physical Exam Vitals/I&O Date Time Temp Pulse Resp B/P (MAP) Pulse Ox O2 Delivery O2 Flow Rate FiO2 12/26/17 16:40 98.1 71 20 139/63 (88) 93 12/26/17 12:23 98.3 79 20 108/59 (75) 95 12/26/17 09:08 98.1 82 20 144/66 (92) 95 12/26/17 05:19 97.8 88 18 135/80 (98) 95 12/26/17 00:00 98.9 66 18 124/63 (83) 95 12/25/17 23:18 59 12/25/17 21:50 97.5 67 16 139/63 (88) 96 12/25/17 21:32 12/25/17 18:54 78 19 158/70 (99) 95 Room Air Neuro: alert, oriented, pleasant. HEENT: NC/AT; wears glasses Neck: no JVD Heart: reg rate Lungs: nonlabored breathing Abdomen: nontender Vascular: palpable femoral pulses B no popliteal pulses no pedal pulses Extremities: extensive eschar L foot Laboratory Tests Test 12/26/17 10:02 White Blood Count 9.2 Red Blood Count 3.53 Hemoglobin 9.2 Hematocrit 28.8 Mean Corpuscular Volume 81.6 Mean Corpuscular Hemoglobin 26.1 Mean Corpuscular Hemoglobin Concent 32.0 Red Cell Distribution Width 16.3 Platelet Count 523 Mean Platelet Volume 8.3 Neutrophils (%) (Auto) 76.5 Lymphocytes (%) (Auto) 13.0 Monocytes (%) (Auto) 5.6 Eosinophils (%) (Auto) 3.9 Basophils (%) (Auto) 1.0 Neutrophils # (Auto) 7.0 Lymphocytes # (Auto) 1.2 Monocytes # (Auto) 0.5 Eosinophils # (Auto) 0.4 Basophils # (Auto) 0.1 CBC Comment DIFF FINAL Differential Comment Hematology Comments Blood Urea Nitrogen 18 Creatinine 0.77 Random Glucose 108 Calcium Level 9.3 Sodium Level 139 Potassium Level 4.4 Chloride Level 102 Carbon Dioxide Level 31.4 Anion Gap 6 Estimat Glomerular Filtration Rate 72 Date/Time Source Procedure Growth Status 12/25/17 16:35 Blood Peripheral Aerobic Blood Culture - Preliminary NO GROWTH IN 1 DAY Resulted 12/25/17 16:35 Blood Peripheral Anaerobic Blood Culture - Preliminary NO GROWTH IN 1 DAY Resulted Last 48 hours Impressions Chest X-Ray 12/26/17 0000 Signed Impressions: Service Date/Time: December 12:38 - CONCLUSION: No acute cardiopulmonary abnormality is identified. Adonya Michael MD Foot X-Ray 12/25/17 0000 Signed Impressions: Service Date/Time: Monday, December 25, 2017 16:51 - CONCLUSION: 1. No acute fracture or dislocation. 2. Mild degenerative changes involving the first metatarsophalangeal joint. 3. Prominent plantar calcaneal spur. Wilmer Estes MD Ankle X-Ray 12/25/17 0000 Signed Impressions: Service Date/Time: Monday, December 25, 2017 16:59 - CONCLUSION: 1. Posterior malleolar fracture of the distal tibia. 2. Prominent plantar calcaneal spur. Wilmer Estes MD Assessment and Plan Plan L LE wounds and severe PAD. All infra-inguinal by physical examination 1. No need for CTA given no hemodynamically significant inflow disease. 2. Will schedule for Angiogram and potential endovascular intervention on Saturday. 3. LE vein survey tomorrow for possible surgical bypass. 4. Wound care per Dr. Cifuentes. Wilmer Moran MD [facility] at [place] [phone] Wilmer Moran MD Dec 26, 2017 17:48
--- NOTE | 2017-12-26 19:13 | RADRPT ---
EXAM DATE/TIME: 12/26/2017 18:14 [facility] COMPARISON: No previous studies available for comparison. INDICATIONS : Pre op arterial bypass. MEDICAL HISTORY : Hypothyroidism. Hypercholesterolemia. Hypertension. Congestive heart failure. Neuropathy. Coronary ar jannet disease. Peripheral arterial disease. Anticoagulant therapy. Afib. Anemia. GERD. SURGICAL HISTORY : Tonsillectomy.Cholecystectomy. Appendectomy.Coronary artery stent. Pacemaker. Back surgery. Left ankl e surgery. Knee surgery. ENCOUNTER: Initial ACUITY: 1 day PAIN SCORE: 5/10 LOCATION: Bilateral legs. TECHNIQUE: Venous ultrasound of the left and right leg was performed from the inguinal ligament to the proximal calf. Real-time, color Doppler and spectral tracing, compression and augmentation techniques were us ed. FINDINGS: RIGHT LEG: There is normal compressibility of the deep venous system from the inguinal region to the proximal ca lf. No echogenic clot is seen in the lumen of the common femoral, femoral, popliteal, and posterior tibial veins. There is a normal response of the venous system to proximal and distal augmentation an d respiration. LEFT LEG: There is normal compressibility of the deep venous system from the inguinal region to the proximal ca lf. No echogenic clot is seen in the lumen of the common femoral, femoral, popliteal, and posterior tibial veins. There is a normal response of the venous system to proximal and distal augmentation an d respiration. CONCLUSION: Negative exam with no evidence of deep venous thrombosis. Raghavendra Perez MD on December 26, 2017 at 19:06 Board Certified Radiologist. This report was verified electronically.
--- NOTE | 2017-12-26 19:13 | RADRPT ---
EXAM DATE/TIME: 12/26/2017 18:21 [facility] COMPARISON: No previous studies available for comparison. INDICATIONS : Pre op arterial bypass. MEDICAL HISTORY : Hypothyroidism. Hypercholesterolemia. Hypertension. Congestive heart failure. Neuropathy. Coronary ar jannet disease. Peripheral arterial disease. Anticoagulant therapy. Afib. Anemia. GERD. SURGICAL HISTORY : Tonsillectomy. Cholecystectomy. Appendectomy. Coronary artery stent. Pacemaker. Back surgery. Left an kle surgery. Knee surgery. ENCOUNTER: Initial ACUITY: 1 day PAIN SCORE: 5/10 LOCATION: Bilateral legs. GREATER SAPHENOUS VEIN THIGH: PROXIMAL: Right 5 mm Left 6 mm MID: Right 4 mm Left 6 mm DISTAL: Right 3 mm Left 6 mm CALF: PROXIMAL: Right 3 mm Left 4 mm MID: Right 2 mm Left 3 mm DISTAL: Right 2 mm Left 3 mm FINDINGS: The venous system of the lower extremities are patent by color Doppler imaging. Measurements of the leg veins (in mm) are listed above. CONCLUSION: Venous mapping study as described. Raghavendra Perez MD on December 26, 2017 at 19:10 Board Certified Radiologist. This report was verified electronically.
[2017-12-26 19:44] VITALS: BP 141/64; PULSE 72; RESP 16; TEMP 98.9; O2SAT 95
--- NOTE | 2017-12-26 20:36 | HHI.PR ---
Subjective Remarks Patient seen bedside. Relates no pain. Is comfortably resting. Objective Vital Signs Date Time Temp Pulse Resp B/P (MAP) Pulse Ox O2 Delivery O2 Flow Rate FiO2 12/26/17 19:44 98.9 72 16 141/64 (89) 95 12/26/17 16:40 98.1 71 20 139/63 (88) 93 12/26/17 12:23 98.3 79 20 108/59 (75) 95 12/26/17 09:08 98.1 82 20 144/66 (92) 95 12/26/17 05:19 97.8 88 18 135/80 (98) 95 12/26/17 00:00 98.9 66 18 124/63 (83) 95 12/25/17 23:18 59 12/25/17 21:50 97.5 67 16 139/63 (88) 96 12/25/17 21:32 Result Diagram: 12/26/17 1002 12/26/17 1002 Imaging Last Impressions Lower Extremity Ultrasound 12/26/17 0000 Signed Impressions: Service Date/Time: December 18:14 - CONCLUSION: Negative exam with no evidence of deep venous thrombosis. Raghavendra Perez MD Chest X-Ray 12/26/17 0000 Signed Impressions: Service Date/Time: December 12:38 - CONCLUSION: No acute cardiopulmonary abnormality is identified. Adonay Michael MD Foot X-Ray 12/25/17 0000 Signed Impressions: Service Date/Time: Monday, December 25, 2017 16:51 - CONCLUSION: 1. No acute fracture or dislocation. 2. Mild degenerative changes involving the first metatarsophalangeal joint. 3. Prominent plantar calcaneal spur. Wilmer Estes MD Ankle X-Ray 12/25/17 0000 Signed Impressions: Service Date/Time: Monday, December 25, 2017 16:59 - CONCLUSION: 1. Posterior malleolar fracture of the distal tibia. 2. Prominent plantar calcaneal spur. Wilmer Estes MD Objective Remarks Lower extremity physical exam: Vascular: Dorsalis pedis nonpalpable, posterior tibial nonpalpable. Capillary refill time within normal limits to digits 5 bilateral foot. Edema present left foot Neuro: Gross sensation intact to bilateral lower extremity. Pinpoint sensation decreased. No hyperalgesia noted to bilateral lower extremity Dermatology: Anterior ankle ulceration noted with spread to dorsum of foot with demarcation still pending, heel eschar noted to posterior heel, eschar noted to plantar metatarsal head with demarcation still pending. No fluctuance or crepitance noted to necrotic areas. No purulent drainage noted to necrotic areas. Left foot cool to touch, left digits 5 cold to touch. No ascending erythema or lymphangitis. Musculoskeletal: Tender to palpation to left foot at areas of necrosis Medications and IVs Current Medications Medications (Trade) Dose Ordered Sig/Temitope Route Start Time Stop Time Status Last Admin ([place] 7.5-325 Mg) 1 tab Q4H PRN PO 12/25/17 20:45 12/25/17 22:13 (Norvasc) 10 mg DAILY PO 12/26/17 09:00 12/26/17 08:59 (Eliquis) 5 mg BID PO 12/25/17 21:00 12/26/17 08:57 (Ecotrin Ec) 81 mg DAILY PO 12/26/17 09:00 12/26/17 08:58 (Neurontin) 300 mg DAILY PO 12/26/17 09:00 12/26/17 08:58 (Neurontin) 600 mg HS PO 12/25/17 21:00 12/25/17 22:12 (Synthroid) 150 mcg DAILY@0600 PO 12/26/17 06:00 12/26/17 05:23 (Lopressor) 50 mg BID PO 12/25/17 21:00 12/26/17 08:57 (KCl) 10 meq DAILY PO 12/26/17 09:00 12/26/17 08:58 (Pravachol) 20 mg DAILY PO 12/26/17 09:00 12/26/17 08:59 (Demadex) 20 mg DAILY PO 12/26/17 09:00 12/26/17 08:58 (Prinivil) 40 mg DAILY PO 12/26/17 09:00 12/26/17 08:42 Assessment and Plan Assessment and Plan 82 year old female with left foot/heel/anterior ankle eschar Patient examined and evaluated with all questions answered Discussed with Dr. Moran, patient to OR on Saturday for angiogram - per Dr. Moran no need for CTA Eschar to anterior ankle demarcating - no acute infection noted Patient will need santyl applied to eschar once demarcation complete For now wound care orders are place - DSD to anterior ankle, dorsum of foot, Santyl ONLY to heel Will follow patient and monitor progress Lavern Cifuentes DPM Dec 26, 2017 20:36
[2017-12-26] MEDS: COLLAGENASE OINT 30 GM TUBE TOPICAL SCH (22:23)
[2017-12-27] VITALS (9 sets, daily range): BP systolic 124–163; BP diastolic 58–74; PULSE 60–83; RESP 16–20; TEMP 97–99.5; O2SAT 92–98
[2017-12-27] MEDS: ACETAMINOPHEN/HYDROcodone 325 MG/7.5 MG TAB PO PRN ×2 (00:16→19:35)
[2017-12-27] MEDS: LEVOTHYROXINE SODIUM 150 MCG TAB PO SCH (05:50)
--- NOTE | 2017-12-27 09:31 | PD.PN.STU ---
Subjective Remarks Status Hospital day 3 for poor wound healing and PAD post left ankle surgery. Patient reports pain well controlled and good sleep. She denies chest pain, shortness of breath, abdominal pain, nausea/vomiting. Objective Vitals Vital Signs Date Time Temp Pulse Resp B/P (MAP) Pulse Ox O2 Delivery O2 Flow Rate FiO2 12/27/17 08:22 98.1 63 20 138/60 (86) 92 12/27/17 04:00 97.0 63 18 144/64 (90) 93 12/27/17 02:35 71 12/27/17 00:00 99.5 65 18 124/58 (80) 92 12/26/17 19:44 98.9 72 16 141/64 (89) 95 12/26/17 16:40 98.1 71 20 139/63 (88) 93 12/26/17 12:23 98.3 79 20 108/59 (75) 95 I/O 12/26/17 12/26/17 12/26/17 12/27/17 12/27/17 12/27/17 07:00 15:00 23:00 07:00 15:00 23:00 Intake Total 120 ml Balance 120 ml Intake Oral 120 ml # Voids 5 2 Result Diagram: 12/26/17 1002 12/26/17 1002 Objective Remarks General: no acute distress Cardiac: regular rate and rhythm without gallops or rubs. 2/6 systolic murmur appreciated left lower sternal border. Pulm: Clear breath sounds throughout bilaterally without rhonchi, wheezes or rales. Extremities: Left lower foot and ankle bandaged with dressings. No edema noted above level of dressing or in right leg. A/P Assessment and Plan 1. post surgical wound status post splinting. Podiatry consulted and recommend outpatient management. PT recommends in patient rehab placement. Case management consulted for placement. 12/27 Dr Moran plans to schedule angiogram, LE vein survey with consideration for endovascular intervention on saturday. he does not recommend CTA. wound car per Dr. Cifuentes 2. A fib - Last Eliquis dose given at 22:22 12/26/17, transition to Heparin today. 3. HTN/hyperlipidemia/CAD/CHF - continue home medications. 4. Normal chest xray - counselled patient on continuing incentive spirometry for prevention of atelectasis with extended hospital stay. Chely Burgess Dec 27, 2017 09:31
[2017-12-27] MEDS: LISINOPRIL 20 MG TAB PO SCH ×2 (10:25→11:24)
[2017-12-27] MEDS: TORSEMIDE 20 MG TAB PO SCH ×2 (10:26→11:24)
[2017-12-27] MEDS: POTASSIUM CHLORIDE 10 MEQ CONTROLLED RELEASE TAB PO SCH (11:23)
[2017-12-27] MEDS: METOPROLOL TARTRATE 50 MG TAB PO SCH ×2 (11:24→21:59)
[2017-12-27] MEDS: ASPIRIN EC 81 MG TABEC PO SCH (11:25)
[2017-12-27] MEDS: GABAPENTIN 300 MG CAP PO SCH ×2 (11:25→21:58)
[2017-12-27] MEDS: PRAVASTATIN SOD 20 MG TAB PO SCH (11:26)
[2017-12-27] MEDS: COLLAGENASE OINT 30 GM TUBE TOPICAL SCH (11:26)
--- NOTE | 2017-12-27 13:13 | HHI.PR ---
Subjective Remarks Pain is well controlled, patient had a good sleep. The patient denies chest pain, shortness of breath, abdominal pain, nausea vomiting. Denies fevers or chills Objective Vitals Vital Signs Date Time Temp Pulse Resp B/P (MAP) Pulse Ox O2 Delivery O2 Flow Rate FiO2 12/27/17 12:08 97.9 60 18 128/62 (84) 98 12/27/17 08:22 98.1 63 20 138/60 (86) 92 12/27/17 04:00 97.0 63 18 144/64 (90) 93 12/27/17 02:35 71 12/27/17 00:00 99.5 65 18 124/58 (80) 92 12/26/17 19:44 98.9 72 16 141/64 (89) 95 12/26/17 16:40 98.1 71 20 139/63 (88) 93 I/O 12/26/17 12/26/17 12/26/17 12/27/17 12/27/17 12/27/17 07:00 15:00 23:00 07:00 15:00 23:00 Intake Total 120 ml Balance 120 ml Intake Oral 120 ml # Voids 5 2 Result Diagram: 12/26/17 1002 12/26/17 1002 Imaging Last Impressions Lower Extremity Ultrasound 12/26/17 0000 Signed Impressions: Service Date/Time: December 18:14 - CONCLUSION: Negative exam with no evidence of deep venous thrombosis. Raghavendra Perez MD Chest X-Ray 12/26/17 0000 Signed Impressions: Service Date/Time: December 12:38 - CONCLUSION: No acute cardiopulmonary abnormality is identified. Adonay Michael MD Foot X-Ray 12/25/17 0000 Signed Impressions: Service Date/Time: Monday, December 25, 2017 16:51 - CONCLUSION: 1. No acute fracture or dislocation. 2. Mild degenerative changes involving the first metatarsophalangeal joint. 3. Prominent plantar calcaneal spur. Wilmer Estes MD Ankle X-Ray 12/25/17 0000 Signed Impressions: Service Date/Time: Monday, December 25, 2017 16:59 - CONCLUSION: 1. Posterior malleolar fracture of the distal tibia. 2. Prominent plantar calcaneal spur. Wilmer Estes MD Objective Remarks general: No acute distress Cardiac: Normal rate and rhythm. Systolic ejection murmur best heard right upper sternal border. No gallops. Pulses equal and palpable bilaterally at dorsalis pedis and radial artery. Pulm: Clear bilaterally throughout. No rhonchi, wheezes, or rales. Skin: area of black eschar on the left heel, plantar surgace of the left foot and ankle. Medications and IVs Current Medications Medications (Trade) Dose Ordered Sig/Temitope Route Start Time Stop Time Status Last Admin ([place] 7.5-325 Mg) 1 tab Q4H PRN PO 12/25/17 20:45 12/27/17 00:16 (Norvasc) 10 mg DAILY PO 12/26/17 09:00 12/27/17 11:24 (Eliquis) 5 mg BID PO 12/25/17 21:00 12/26/17 22:22 (Ecotrin Ec) 81 mg DAILY PO 12/26/17 09:00 12/27/17 11:25 (Neurontin) 300 mg DAILY PO 12/26/17 09:00 12/27/17 11:25 (Neurontin) 600 mg HS PO 12/25/17 21:00 12/26/17 22:22 (Synthroid) 150 mcg DAILY@0600 PO 12/26/17 06:00 12/27/17 05:50 (Lopressor) 50 mg BID PO 12/25/17 21:00 12/27/17 11:24 (KCl) 10 meq DAILY PO 12/26/17 09:00 12/27/17 11:23 (Pravachol) 20 mg DAILY PO 12/26/17 09:00 12/27/17 11:26 (Demadex) 20 mg DAILY PO 12/26/17 09:00 12/27/17 11:24 (Prinivil) 40 mg DAILY PO 12/26/17 09:00 12/27/17 11:24 (Santyl Oint) 1 applic DAILY TOPICAL 12/26/17 20:45 12/27/17 11:26 A/P Problem List: (1) Postoperative complication ICD Code: T81.9XXA - Unspecified complication of procedure, initial encounter Status: Acute Assessment and Plan 1. Postsurgical wound status post splinting. Podiatry consulted. Recommended wound care. Because the case with Dr. [place] states ABIs are abnormal and the cardiovascular surgery should be consulted. Recommended Dr. Moran. I will order a CTA of the aorta with runoff. Wound care recommendations provided by Dr. Cifuentes. 12/27 Dr Moran plans to schedule angiogram, LE vein survey with consideration for endovascular intervention on saturday. he does not recommend CTA. wound car per Dr. Cifuentes 2. Chronic atrial fibrillation I will hold Eliquis and start the patient on heparin. Check EKG. 3. Hypertension/hyperlipidemia/CAD/chronic CHF -unknown if systolic or diastolic. Continue home medications. BP seems to be stable, patient is chest pain-free there are no signs of volume overload. Discharge Planning Admitting patient. Patient for angiogram and possible revascularization on Saturday. Problem Qualifiers (1) Postoperative complication: Qualified Codes: L76.82 - Other postprocedural complications of skin and subcutaneous tissue Thierno Holder MD Dec 27, 2017 13:13
[2017-12-27] MEDS ORDERED: HEPARIN-D5W 25,000 U/250 ML 250 ML IV PRN (13:15)
[2017-12-27 15:10] LABS: HEMOGLOBIN 8.5 GM/DL (11.6-15.3); MEAN CELL VOLUME 82.9 FL (80.0-100.0); MEAN CORPUSCULAR HGB CONC 31.4 % (32.0-36.0); PLATELET COUNT 493 TH/MM3 (150-450); RED BLOOD COUNT 3.25 MIL/MM3 (4.00-5.30); RED CELL DISTRIBUTION WIDTH 16.6 % (11.6-17.2); WHITE BLOOD COUNT 9.1 TH/MM3 (4.0-11.0)
[2017-12-27 15:23] LABS: INTERNATIONAL NORMALIZED RATIO 1.3 RATIO; PROTHROMBIN TIME - PATIENT 12.7 SEC (9.8-11.6)
[2017-12-28] VITALS (7 sets, daily range): BP systolic 122–149; BP diastolic 58–72; PULSE 64–82; RESP 16–20; TEMP 97.2–98.6; O2SAT 90–96
[2017-12-28] MEDS: ACETAMINOPHEN/HYDROcodone 325 MG/7.5 MG TAB PO PRN (03:05)
[2017-12-28] MEDS: LEVOTHYROXINE SODIUM 150 MCG TAB PO SCH (05:44)
--- NOTE | 2017-12-28 08:53 | HHI.PR ---
Subjective Remarks in no acute distress. denies pain. no fever. no new complaints. Objective Vitals Vital Signs Date Time Temp Pulse Resp B/P (MAP) Pulse Ox O2 Delivery O2 Flow Rate FiO2 12/28/17 03:59 98.4 71 16 149/66 (93) 93 12/27/17 23:05 99.0 83 16 163/74 (103) 94 12/27/17 20:30 60 12/27/17 19:36 98.7 72 18 148/64 (92) 95 12/27/17 16:28 97.9 68 18 128/62 (84) 98 12/27/17 12:08 97.9 60 18 128/62 (84) 98 I/O 12/27/17 12/27/17 12/27/17 12/28/17 12/28/17 12/28/17 07:00 15:00 23:00 07:00 15:00 23:00 Intake Total 120 ml Balance 120 ml Intake Oral 120 ml # Voids 2 1 Result Diagram: 12/27/17 1434 12/26/17 1002 Imaging Last Impressions Lower Extremity Ultrasound 12/26/17 0000 Signed Impressions: Service Date/Time: December 18:14 - CONCLUSION: Negative exam with no evidence of deep venous thrombosis. Raghavendra Perez MD Chest X-Ray 12/26/17 0000 Signed Impressions: Service Date/Time: December 12:38 - CONCLUSION: No acute cardiopulmonary abnormality is identified. Adonay Michael MD Foot X-Ray 12/25/17 0000 Signed Impressions: Service Date/Time: Monday, December 25, 2017 16:51 - CONCLUSION: 1. No acute fracture or dislocation. 2. Mild degenerative changes involving the first metatarsophalangeal joint. 3. Prominent plantar calcaneal spur. Wilmer Estes MD Ankle X-Ray 12/25/17 0000 Signed Impressions: Service Date/Time: Monday, December 25, 2017 16:59 - CONCLUSION: 1. Posterior malleolar fracture of the distal tibia. 2. Prominent plantar calcaneal spur. Wilmer Estes MD Objective Remarks GENERAL: This is a well-nourished, well-developed patient, in no apparent distress. CARDIOVASCULAR: Regular rate and regular rhythm without murmurs, gallops, or rubs. RESPIRATORY: Clear to auscultation. Breath sounds equal bilaterally. No wheezes , rales, or rhonchi. GASTROINTESTINAL: Abdomen soft, non-tender, nondistended. Normal, active bowel sounds MUSCULOSKELETAL: left foot covered with clean dressing. NEURO: Alert & Oriented x4 to person, place, time, situation. Moves all ext x4 Medications and IVs Inpatient Medications Acetaminophen/ Hydrocodone Bitart ([place] 7.5-325 Mg) 1 tab Q4H PRN PO pain 6- 10 Last administered on 12/28/17 03:05; Start 12/25/17 at 20:45 Amlodipine Besylate (Norvasc) 10 mg DAILY PO Last administered on 12/27/17 11: 24; Start 12/26/17 at 09:00 Apixaban (Eliquis) 5 mg BID PO Last administered on 12/26/17 22:22; Start 08/03 at 21:00; Stop 12/27/17 at 13:51; Status DC Aspirin (Ecotrin Ec) 81 mg DAILY PO Last administered on 12/27/17 11:25; Start 12/26/17 at 09:00 Collagenase (Santyl Oint) 1 applic DAILY TOPICAL Last administered on 11:26; Start 12/26/17 at 20:45 Gabapentin (Neurontin) 600 mg HS PO Last administered on 12/27/17 21:58; Start 12/25/17 at 21:00 Heparin Sodium/ Dextrose 250 ml @ 10 mls/hr TITRATE PRN IV Coagulation Management Last administered on 12/27/17 16:31; Start 12/27/17 at 13:15 Levothyroxine Sodium (Synthroid) 150 mcg DAILY@0600 PO Last administered on 05:44; Start 12/26/17 at 06:00 Lisinopril (Prinivil) 40 mg DAILY PO Last administered on 12/27/17 11:24; Start 12/26/17 at 09:00 Metoprolol Tartrate (Lopressor) 50 mg BID PO Last administered on 12/27/17 21: 59; Start 12/25/17 at 21:00 Potassium Chloride (KCl) 10 meq DAILY PO Last administered on 4/13/18at 11:23; Start 12/26/17 at 09:00 Pravastatin Sodium (Pravachol) 20 mg DAILY PO Last administered on 12/27/17at 11 :26; Start 12/26/17 at 09:00 Torsemide (Demadex) 20 mg DAILY PO Last administered on 12/27/17at 11:24; Start 12/26/17 at 09:00 A/P Problem List: (1) Postoperative complication ICD Code: T81.9XXA - Unspecified complication of procedure, initial encounter Status: Acute Assessment and Plan A/P 1. Postsurgical wound status post splinting. Podiatry consulted. Recommended wound care. vascular surgery consulted; schedule for angiogram, LE vein survey with consideration for endovascular intervention on Saturday. he does not recommend CTA. wound car per Dr. Cifuentes 2. Chronic atrial fibrillation Eliquis on hold and started the patient on heparin. 3. Hypertension/hyperlipidemia/CAD/chronic CHF -unknown if systolic or diastolic. Continue home medications. BP seems to be stable, patient is chest pain-free there are no signs of volume overload. DVT prophylaxis; on Heparin drip. Discharge Planning awaiting angiogram- dc planning when cleared by podiatry and vascular surgery. Problem Qualifiers (1) Postoperative complication: Qualified Codes: L76.82 - Other postprocedural complications of skin and subcutaneous tissue Allie Sebastian MD Dec 28, 2017 08:53
[2017-12-28] MEDS: ASPIRIN EC 81 MG TABEC PO SCH (09:02)
[2017-12-28] MEDS: METOPROLOL TARTRATE 50 MG TAB PO SCH ×2 (09:02→20:38)
[2017-12-28] MEDS: TORSEMIDE 20 MG TAB PO SCH (09:03)
[2017-12-28] MEDS: GABAPENTIN 300 MG CAP PO SCH ×2 (09:03→20:38)
[2017-12-28] MEDS: PRAVASTATIN SOD 20 MG TAB PO SCH (09:03)
[2017-12-28] MEDS: POTASSIUM CHLORIDE 10 MEQ CONTROLLED RELEASE TAB PO SCH (09:03)
[2017-12-28] MEDS: COLLAGENASE OINT 30 GM TUBE TOPICAL SCH (09:04)
[2017-12-28] MEDS ORDERED: SENNOSIDES 8.6 MG TAB PO PRN (15:00)
[2017-12-28] MEDS ORDERED: BISACODYL 10 MG SUPP RECTAL PRN (15:00)
[2017-12-28] MEDS ORDERED: LACTULOSE SYRUP 20 GM/30 ML CUP PO ONE (15:00)
[2017-12-28] MEDS ORDERED: MAGNESIUM HYDROXIDE SUSP 30 ML CUP PO PRN (15:00)
[2017-12-28] MEDS: DOCUSATE SODIUM 50 MG/SENNA 8.6 MG TAB PO SCH ×2 (15:59→20:38)
[2017-12-28] MEDS ORDERED: LACTULOSE SYRUP 20 GM/30 ML CUP PO PRN (21:00)
[2017-12-29] VITALS (10 sets, daily range): BP systolic 95–153; BP diastolic 58–68; PULSE 59–84; RESP 18–20; TEMP 97.8–98.3; O2SAT 90–98
[2017-12-29] MEDS: ACETAMINOPHEN/HYDROcodone 325 MG/7.5 MG TAB PO PRN ×3 (01:23→23:31)
[2017-12-29] MEDS: LEVOTHYROXINE SODIUM 150 MCG TAB PO SCH ×2 (07:23→22:25)
[2017-12-29] MEDS: LISINOPRIL 20 MG TAB PO SCH (07:56)
[2017-12-29] MEDS: TORSEMIDE 20 MG TAB PO SCH (07:56)
[2017-12-29] MEDS: GABAPENTIN 300 MG CAP PO SCH ×2 (07:56→22:24)
[2017-12-29] MEDS: ASPIRIN EC 81 MG TABEC PO SCH (07:57)
[2017-12-29] MEDS: PRAVASTATIN SOD 20 MG TAB PO SCH (07:57)
[2017-12-29] MEDS: POTASSIUM CHLORIDE 10 MEQ CONTROLLED RELEASE TAB PO SCH (07:57)
[2017-12-29] MEDS: DOCUSATE SODIUM 50 MG/SENNA 8.6 MG TAB PO SCH ×2 (07:57→21:00)
[2017-12-29] MEDS: METOPROLOL TARTRATE 50 MG TAB PO SCH ×2 (07:57→22:25)
[2017-12-29] MEDS: COLLAGENASE OINT 30 GM TUBE TOPICAL SCH (07:58)
--- NOTE | 2017-12-29 09:42 | HHI.PR ---
Subjective Remarks in no acute distress. pain is controlled. no new complaints. Objective Vitals Vital Signs Date Time Temp Pulse Resp B/P (MAP) Pulse Ox O2 Delivery O2 Flow Rate FiO2 12/29/17 08:09 98.2 68 18 148/60 (89) 96 12/29/17 04:28 70 12/29/17 03:56 97.8 65 18 130/62 (84) 95 12/29/17 00:00 63 12/28/17 23:59 97.8 64 18 142/66 (91) 91 12/28/17 20:00 64 12/28/17 19:29 98.6 74 18 122/58 (79) 95 12/28/17 16:00 97.6 67 20 139/61 (87) 90 12/28/17 12:00 97.2 82 20 128/72 (90) 96 I/O 12/28/17 12/28/17 12/28/17 12/29/17 12/29/17 12/29/17 07:00 15:00 23:00 07:00 15:00 23:00 Intake Total 250 ml 920 ml Output Total 200 ml 650 ml Balance 50 ml 270 ml Intake Oral 250 ml 400 ml IV Total 520 ml Output Urine Total 200 ml 650 ml # Voids 4 1 # Bowel Movements 1 Result Diagram: 12/27/17 1434 12/26/17 1002 Imaging Last Impressions Lower Extremity Ultrasound 12/26/17 0000 Signed Impressions: Service Date/Time: December 18:14 - CONCLUSION: Negative exam with no evidence of deep venous thrombosis. Raghavendra Perez MD Chest X-Ray 12/26/17 0000 Signed Impressions: Service Date/Time: December 12:38 - CONCLUSION: No acute cardiopulmonary abnormality is identified. Adonay Michael MD Foot X-Ray 12/25/17 0000 Signed Impressions: Service Date/Time: Monday, December 25, 2017 16:51 - CONCLUSION: 1. No acute fracture or dislocation. 2. Mild degenerative changes involving the first metatarsophalangeal joint. 3. Prominent plantar calcaneal spur. Wilmer Estes MD Ankle X-Ray 12/25/17 0000 Signed Impressions: Service Date/Time: Monday, December 25, 2017 16:59 - CONCLUSION: 1. Posterior malleolar fracture of the distal tibia. 2. Prominent plantar calcaneal spur. Wilmer Estes MD Objective Remarks GENERAL: This is a well-nourished, well-developed patient, in no apparent distress. CARDIOVASCULAR: Regular rate and regular rhythm without murmurs, gallops, or rubs. RESPIRATORY: Clear to auscultation. Breath sounds equal bilaterally. No wheezes , rales, or rhonchi. GASTROINTESTINAL: Abdomen soft, non-tender, nondistended. Normal, active bowel sounds MUSCULOSKELETAL: left foot covered with clean dressing. NEURO: Alert & Oriented x4 to person, place, time, situation. Moves all ext x4 Medications and IVs Inpatient Medications Acetaminophen/ Hydrocodone Bitart ([place] 7.5-325 Mg) 1 tab Q4H PRN PO pain 6- 10 Last administered on 12/29/17 01:23; Start 12/25/17 at 20:45 Amlodipine Besylate (Norvasc) 10 mg DAILY PO Last administered on 12/29/17 07: 56; Start 12/26/17 at 09:00 Apixaban (Eliquis) 5 mg BID PO Last administered on 12/26/17 22:22; Start 08/03 at 21:00; Stop 12/27/17 at 13:51; Status DC Aspirin (Ecotrin Ec) 81 mg DAILY PO Last administered on 12/29/17 07:57; Start 12/26/17 at 09:00 Bisacodyl (Dulcolax Supp) 10 mg DAILY PRN RECTAL SEVERE CONSITIPATION; Start at 15:00 Collagenase (Santyl Oint) 1 applic DAILY TOPICAL Last administered on 07:58; Start 12/26/17 at 20:45 Gabapentin (Neurontin) 600 mg HS PO Last administered on 12/28/17 20:38; Start 12/25/17 at 21:00 Heparin Sodium/ Dextrose 250 ml @ 10 mls/hr TITRATE PRN IV Coagulation Management Last administered on 12/27/17 16:31; Start 12/27/17 at 13:15 Lactulose (Lactulose Liq) 30 ml ONCE ONCE PO Last administered on 12/28/17 15 :59; Start 12/28/17 at 15:00; Stop 12/28/17 at 15:01; Status DC Levothyroxine Sodium (Synthroid) 150 mcg DAILY@0600 PO Last administered on 07:23; Start 12/26/17 at 06:00 Lisinopril (Prinivil) 40 mg DAILY PO Last administered on 12/29/17at 07:56; Start 12/26/17 at 09:00 Magnesium Hydroxide (Milk Of Magnesia Liq) 30 ml Q12H PRN PO Mild constipation ; Start 12/28/17 at 15:00 Metoprolol Tartrate (Lopressor) 50 mg BID PO Last administered on 12/29/17 07: 57; Start 12/25/17 at 21:00 Potassium Chloride (KCl) 10 meq DAILY PO Last administered on 12/29/17 07:57; Start 12/26/17 at 09:00 Pravastatin Sodium (Pravachol) 20 mg DAILY PO Last administered on 12/29/17 07 :57; Start 12/26/17 at 09:00 Senna/Docusate Sodium ([place]iral[place]-Colace) 1 tab BID PO Last administered on 07:57; Start 12/28/17 at 15:00 Sennosides (Senokot) 17.2 mg Q12H PRN PO Moderate constipation; Start 12/28/17 at 15:00 Torsemide (Demadex) 20 mg DAILY PO Last administered on 12/29/17 07:56; Start 12/26/17 at 09:00 A/P Problem List: (1) Postoperative complication ICD Code: T81.9XXA - Unspecified complication of procedure, initial encounter Status: Acute Assessment and Plan A/P 1. Postsurgical wound status post splinting. Podiatry consulted. Recommended wound care. vascular surgery consulted; schedule for angiogram, LE vein survey with consideration for endovascular intervention on Saturday. he does not recommend CTA. wound car per Dr. Cifuentes 2. Chronic atrial fibrillation Eliquis on hold and started the patient on heparin. 3. Hypertension/hyperlipidemia/CAD/chronic CHF -unknown if systolic or diastolic. Continue home medications. BP seems to be stable, patient is chest pain-free there are no signs of volume overload. DVT prophylaxis; on Heparin drip. Discharge Planning awaiting angiogram- dc planning when cleared by podiatry and vascular surgery. Problem Qualifiers (1) Postoperative complication: Qualified Codes: L76.82 - Other postprocedural complications of skin and subcutaneous tissue Allie Sebastian MD Dec 29, 2017 09:42
[2017-12-30] VITALS: BP 140/63; PULSE 70; RESP 18; TEMP 98.1; O2SAT 93
[2017-12-30 04:00] VITALS: BP 139/67; PULSE 72; RESP 18; TEMP 98.1; O2SAT 94
[2017-12-30] MEDS: LISINOPRIL 20 MG TAB PO SCH (07:48)
[2017-12-30] MEDS: TORSEMIDE 20 MG TAB PO SCH (07:48)
[2017-12-30] MEDS: PRAVASTATIN SOD 20 MG TAB PO SCH (07:48)
[2017-12-30] MEDS: GABAPENTIN 300 MG CAP PO SCH ×2 (07:49→20:49)
[2017-12-30] MEDS: METOPROLOL TARTRATE 50 MG TAB PO SCH ×2 (07:49→20:49)
[2017-12-30] MEDS: POTASSIUM CHLORIDE 10 MEQ CONTROLLED RELEASE TAB PO SCH (07:49)
[2017-12-30] MEDS: ACETAMINOPHEN/HYDROcodone 325 MG/7.5 MG TAB PO PRN (07:49)
[2017-12-30] MEDS: ASPIRIN EC 81 MG TABEC PO SCH (07:49)
[2017-12-30] MEDS: COLLAGENASE OINT 30 GM TUBE TOPICAL SCH (07:50)
[2017-12-30] MEDS: DOCUSATE SODIUM 50 MG/SENNA 8.6 MG TAB PO SCH ×2 (07:50→20:49)
[2017-12-30 07:54] LABS: HEMATOCRIT 28.2 % (35.0-46.0); HEMOGLOBIN 8.9 GM/DL (11.6-15.3); MEAN CELL VOLUME 81.6 FL (80.0-100.0); MEAN CORPUSCULAR HEMOGLOBIN 25.8 PG (27.0-34.0); MEAN CORPUSCULAR HGB CONC 31.6 % (32.0-36.0); MEAN PLATELET VOLUME 8.9 FL (7.0-11.0); PLATELET COUNT 408 TH/MM3 (150-450); RED BLOOD COUNT 3.45 MIL/MM3 (4.00-5.30); RED CELL DISTRIBUTION WIDTH 16.9 % (11.6-17.2); WHITE BLOOD COUNT 10.9 TH/MM3 (4.0-11.0)
[2017-12-30 08:00] VITALS: BP 125/59; PULSE 61; RESP 20; TEMP 98.4; O2SAT 95
[2017-12-30 12:00] VITALS: BP 107/60; PULSE 79; RESP 18; TEMP 98.1; O2SAT 95
--- NOTE | 2017-12-30 12:31 | HHI.PR ---
Subjective Remarks Follow-up PAD. Awaiting endovascular procedure today does not have any new complaints discussed with nursing Objective Vitals Vital Signs Date Time Temp Pulse Resp B/P (MAP) Pulse Ox O2 Delivery O2 Flow Rate FiO2 12/30/17 08:00 98.4 61 20 125/59 (81) 95 12/30/17 04:00 98.1 72 18 139/67 (91) 94 12/30/17 00:00 98.1 70 18 140/63 (88) 93 12/29/17 23:48 59 12/29/17 20:00 98.3 84 20 153/68 (96) 93 12/29/17 16:00 97.9 84 18 138/65 (89) 90 12/29/17 15:01 97.9 62 18 121/62 (81) 98 I/O 12/29/17 12/29/17 12/29/17 12/30/17 12/30/17 12/30/17 07:00 15:00 23:00 07:00 15:00 23:00 Intake Total 750 ml 0 ml 0 ml Output Total 400 ml Balance 350 ml 0 ml 0 ml Intake Oral 500 ml 0 ml 0 ml IV Total 250 ml Output Urine Total 400 ml # Voids 1 4 # Bowel Movements 1 0 Result Diagram: 12/30/17 0650 12/26/17 1002 Imaging Last Impressions Lower Extremity Ultrasound 12/26/17 0000 Signed Impressions: Service Date/Time: December 18:14 - CONCLUSION: Negative exam with no evidence of deep venous thrombosis. Raghavendra Perez MD Chest X-Ray 12/26/17 0000 Signed Impressions: Service Date/Time: December 12:38 - CONCLUSION: No acute cardiopulmonary abnormality is identified. Adonay Michael MD Foot X-Ray 12/25/17 0000 Signed Impressions: Service Date/Time: Monday, December 25, 2017 16:51 - CONCLUSION: 1. No acute fracture or dislocation. 2. Mild degenerative changes involving the first metatarsophalangeal joint. 3. Prominent plantar calcaneal spur. Wilmer Estes MD Ankle X-Ray 12/25/17 0000 Signed Impressions: Service Date/Time: Monday, December 25, 2017 16:59 - CONCLUSION: 1. Posterior malleolar fracture of the distal tibia. 2. Prominent plantar calcaneal spur. Wilmer Estes MD Objective Remarks GENERAL: This is a well-nourished, well-developed patient, in no apparent distress. CARDIOVASCULAR: Regular rate and regular rhythm without murmurs, gallops, or rubs. RESPIRATORY: Clear to auscultation. Breath sounds equal bilaterally. No wheezes , rales, or rhonchi. GASTROINTESTINAL: Abdomen soft, non-tender, nondistended. Normal, active bowel sounds MUSCULOSKELETAL: left foot covered with clean dressing. NEURO: Alert & Oriented x4 to person, place, time, situation. Moves all ext x4 A/P Problem List: (1) PAD (peripheral artery disease) ICD Code: I73.9 - Peripheral vascular disease, unspecified Assessment and Plan 1. Postsurgical wound status post splinting. PAD Podiatry consulted. Recommended wound care. Vascular surgery consulted; F or angiogram, LE vein survey with consideration for endovascular intervention today. he does not recommend CTA. wound car per Dr. Cifuentes 2. Chronic atrial fibrillation Eliquis on hold and started the patient on heparin. 3. Hypertension/hyperlipidemia/CAD/chronic CHF -unknown if systolic or diastolic. Continue home medications. BP seems to be stable, patient is chest pain-free there are no signs of volume overload. 4. Hyperglycemia. Obtain A1c DVT prophylaxis; on Heparin drip. Check CBC and BMP tomorrow morning Markie Rodriguez MD Dec 30, 2017 12:31
[2017-12-30] MEDS ORDERED: HYDR-3580 PO (12:32)
[2017-12-30] MEDS ORDERED: HEPARIN-NS/PF FLUSH BAG 1,000 ML IV FLUSH ONE (12:45)
[2017-12-30] MEDS ORDERED: MIDAZOLAM HCL 2 MG/2 ML VIAL ONE (12:46)
[2017-12-30] MEDS ORDERED: LIDOCAINE HCL 1% PF 30 ML VIAL ONE (12:53)
--- NOTE | 2017-12-30 13:18 | HHI.PR ---
cc: Wilmer Moran MD Immediate Post Op Note Procedure Date: Dec 30, 2017 Pre Op Diagnosis: L LE tissue loss, PAD Post Op Diagnosis: Same Surgeon: Wilmer Moran Snowmaker(s): none Procedure: Aortogram w/ L LE angiogram Findings: 1. L MARRIAGE PERFORMER significant occlusive disease 2. L SFA occlusion with AK popliteal reconstitution Additional Information: will need L groin reconstruction and L LE distal bypass Complications: none 4F sheath removed in kiln labourer Specimen(s) removed: none Estimated blood loss: 10mL Anesthesia: MAC Drains: None Patient to: Other (DOCU) Patient Condition: Good Date/Time of Procedure: SEE SURGICAL CARE RECORD Wilmer Moran MD Dec 30, 2017 13:18
--- NOTE | 2017-12-30 13:30 | CATHPROC ---
[employer] HIS Report Study Information Study Number Admission Scheduled Start Study Start [id number] Dec 27 2017 1:06PM 12/30/2017 Dec 30 2017 12:29PM [place] Service Cath Endovascular Study Admit Source Facility Department Emergency department [facility] - Slot Machine Repairer Physician and Clinical Staff Initial Wilmer Bridges Occupational Analyst Dmitri Castillo,RN Recorder Lee Pelaez,RT(R) Recorder Renetta Horner BSN Scrub Johny Acosta,RT(R) Procedures Performed Procedure Location (Site) Vessel Name Abdominal Angiogram Abd Aorta (A3) Aorta Wire insertion Fem Art (right) Femoral Art Equipment Time Assistant Clinical Director Description Size Mfg Part Number Used/Scraped [id number] 12:57 ANGIO-DYNAMICS OMNI FLUSH 65CM CATHETER FR 4 Used *[id number] INTRODUCER SET, 12:31 [employer] FR 5 [id number] *[id number] Used MICROPUNCTURE STIFF [id number] 12:31 [employer] PACK, CCL CUSTOM * Used *[id number] TUBING, PRESSURE INJECTION [id number] 12:31 NAMIC PACER 72" Used 72" *[id number] 12:31 NYCOMED OMNIPAQUE, 300 MG, 150ML 150ML [id number] Used 12:31 NYCOMED OMNIPAQUE, 300 MG, 50ML 50ML [id number] Used [id number] 12:31 LOM[employer]I [employer] BLANKET,WARM AIR CCL * Used *[id number] 12:57 TERUMO MEDICAL SHEATH, FR4 TERUMO (10CM) FR 4 Used *[id number] CATHETER, FR4 GUIDE ANGLED 13:03 TERUMO MEDICAL/ALEXA FR 4 [id number] *[id number] Used 120CM WIRE, ANGLED GLIDE .035 [id number] 12:31 TERUMO MEDICAL/ALEXA 260CM Used 260CM *[id number] Labs CPK-MB (ng/ML) 0.50-3.60 Not Drawn Medication Medication Total Dose (Bolus/Oral) Medication Total Dosage/Unit 1% XYLOCAINE 20 mL FENTANYL 25 mcg VERSED 0.5 mg Medications (Bolus/Oral) Medication Time Given Dosage/Unit Administered By Reason VERSED 12/30/2017 12:50:16 PM 0.5 mg Dmitri Castillo 0.5 mg VERSED given in lab by Dmitri Castillo RN via Peripheral IV. Ordered by Wilmer Moran. FENTANYL 12/30/2017 12:51:37 PM 25 mcg Dmitri Castillo 25 mcg FENTANYL given in lab by Dmitri Castillo RN via Peripheral IV. Ordered by Wilmer Moran. 1% XYLOCAINE 12/30/2017 12:54:40 PM 20 mL Wilmer Moran 20 mL 1% XYLOCAINE given in lab by Wilmer Moran in Right Groin via Subcutaneous. Medication (Drip) Medication Time Given Dosage/Unit Concentration/Unit Diluent (ml) Solution IV Solutions 12/30/2017 12:50:43 PM 0 mL (IV) 500 NaCl .9 IV Solutions given in lab by Dmitri Castillo RN in Left Antecubital via Peripheral IV. Pump/Drip Flow = 20 ml/hr using NaCl .9. Initial Case Assessment Cardiovascular HR Rhythm NIBP Chest Pain 59 Paced 134/59 0 Edema Present Skin color Skin None Normal Warm Dry Circulatory - Right Pulses Femoral 2 Scale (0,1,2,3,4,d) Circulatory - Left Pulses Femoral 2 Scale (0,1,2,3,4,d) Neurological State Oriented to time-place- Alert Moves all extremities person Respiration - General Respiration Rate SpO2 (%) O2 (lpm) (B/min) 9 92 0 Final Case Assessment Cardiovascular HR Rhythm NIBP Chest Pain 60 Paced 127/48 0 Edema Present Skin color Skin None Normal Warm Dry Circulatory - Right Pulses Femoral 2 Scale (0,1,2,3,4,d) Circulatory - Left Pulses Femoral 2 Scale (0,1,2,3,4,d) Neurological State Oriented to time-place- Alert Moves all extremities person Respiration - General Respiration Rate SpO2 (%) O2 (lpm) (B/min) 16 97 0 Chronological Log Time Study Chronological Log 12:35:55 MD arrived. 12:38:14 Patient arrived via Bed. Vitals capture started with the following parameters, Patient=Adult, Interval=5 min, Initial Pr ozbcab=527 mmHg, 12:47:20 Deflation Rate=5 mmHg, Cuff placed on Right Ankle 12:48:36 HR=61 bpm, MZJP=191/59 mmhg, SpO2=94.0 %, Resp=11 B/min, Pain=0, Riccardo=10, Belle=2 12:50:15 Patient Name, D.O.B, / Armband Verified By R.N. 12:50:16 0.5 mg VERSED given in lab by Dmitri Castillo RN via Peripheral IV. Ordered by Tay Moran 12:50:16 Pre-op and post- op instructions given; patient acknowledges understanding of instructions. 12:50:18 Verbal Stimulation=2 Physical Stimulation=2 Airway=2 Respiration=2 TOTAL=8. (0=absent, 1=li mited, 2=present) 12:50:23 Presedation assessment performed by Slot Machine Repairer RN. 12:50:25 Patient has been NPO for More than 6Hrs. 12:50:26 Skin Breakdown- Left foot bandaged. Necrotic lateral foot. 12:50:27 Patient Warmer Placed on the Table. 12:50:30 Shaheen Prominences Protected 12:50:42 A # 20 IV was noted in the Antecubital (left). Grade = 0 IV Solutions given in lab by Dmitri Castillo RN in Left Antecubital via Peripheral IV. Pump/Drip Flow = 20 ml/hr using 12:50:43 NaCl .9. 12:50:44 History and physical on the chart or being dictated. Assessment: Initial Case, HR=59 BPM, Rhythm=Paced, BDJG=256/59 mmhg, Chest Pain=0, Edema=None, Color=Normal, Skin = Warm, Dry Right Pulses: Femoral=2 12:50:45 Left Pulses: Femoral=2 Neurological: State=Alert, Ox3, FRANCIS Respiration: Resp=9 B/min, SpO2=92 %, O2=0 lpm 12:50:51 Bilateral groins prepped with 2% chlorhexidine, and draped after a 3 minute waiting time. 12:51:37 25 mcg FENTANYL given in lab by Dmitri Castillo RN via Peripheral IV. Ordered by Kalen Moran 12:53:06 HR=59 bpm, HWWC=592/48 mmhg, SpO2=89.0 %, Resp=7 B/min, Pain=0, Riccardo=10, Belle=2 Time Out. Correct patient, correct procedure, correct physician, power injector loaded, or not loaded with contrast with 12:54:37 surgical team present. Time Out Concurred by MD and individual staff in procedure. 12:54:38 Case Start 12:54:40 20 mL 1% XYLOCAINE given in lab by Wilmer Moran in Right Groin via Subcutaneous. 12:55:36 Reference ECG taken 12:56:01 Access site was Right Femoral Artery. A INTRODUCER SET, MICROPUNCTURE STIFF FR 5 was advanced into the Fem Art (right) using the Perc utaneous 12:56:08 technique. A SHEATH, FR4 TERUMO (10CM) FR 4 was exchanged in the Fem Art (right). This was necessary in or navarro to 12:56:28 accomodate a larger catheter. A OMNI FLUSH 65CM CATHETER FR 4 was advanced over a wire. OMNIPAQUE, 300 MG, 150ML 150ML was us ed for 12:57:11 injections. 12:58:05 HR=59 bpm, UOEV=909/49 mmhg, SpO2=94 %, Resp=15 B/min, Pain=0, Riccardo=10, Belle=2 13:00:00 Through a OMNI FLUSH 65CM CATHETER FR 4, The Abdominal Aorta was injected with 10 cc's of c ontrast. 13:00:50 A wire was inserted via Fem Art (right). 13:03:02 HR=60 bpm, GRGQ=583/47 mmhg, SpO2=95.0 %, Resp=12 B/min, Pain=0, Riccardo=10, Belle=2 After removing the current catheter a CATHETER, FR4 GUIDE ANGLED 120CM FR 4 was advanced over a WIRE, 13:07:33 ANGLED GLIDE .035 260CM 260CM. 13:08:01 HR=59 bpm, KRRM=005/51 mmhg, SpO2=99.0 %, Resp=11 B/min, Pain=0, Riccardo=10, Belle=2 13:08:29 Wire removed Through a CATHETER, FR4 GUIDE ANGLED 120CM FR 4, The Femoral Run-off was injected with 5 cc's p er second with 13:08:53 multiple views down the extremity. 13:13:04 HR=59 bpm, YKVJ=076/48 mmhg, SpO2=98.0 %, Resp=12 B/min, Pain=0, Riccardo=10, Belle=2 13:15:27 Case End 13:15:34 Sheath removed; pressure applied to access site. Assessment: Final Case, HR=60 BPM, Rhythm=Paced, AUCB=354/48 mmhg, Chest Pain=0, Edema=None, Color=Normal, Skin = Warm, Dry Right Pulses: Femoral=2 13:15:46 Left Pulses: Femoral=2 Neurological: State=Alert, Ox3, FRANCIS Respiration: Resp=16 B/min, SpO2=97 %, O2=0 lpm 13:16:22 No case complications noted. 13:16:24 Cine recording checked. 13:16:26 Bedside Report will be given. 13:18:05 HR=59 bpm, OKQX=898/53 mmhg, SpO2=98.0 %, Resp=12 B/min, Pain=0, Riccardo=10, Belle=2 13:23:02 HR=64 bpm, LWOL=951/73 mmhg, SpO2=96.0 %, Resp=10 B/min, Pain=0, Riccardo=10, Belle=2 13:28:05 HR=59 bpm, ZBYY=143/56 mmhg, SpO2=93.0 %, Resp=15 B/min, Pain=0, Riccardo=10, Belle=2 13:29:49 Vitals capture stopped. 13:30:13 Sterile dressing applied to site End Study - Contrast Media Used In Study Contrast Total Opened (mL) Total Used (mL) Total Wasted (mL) Omnipaque 40 40 0 End Study - Radiation Exposure Fluoro Time (minutes) 7.0 End Study - Sheaths Sheaths Pulled By Sheath Hold Time (min) Johny Acosta 15 End Study - Patient Disposition Complications Transferred To No Slot Machine Repairer Holding
[2017-12-30] MEDS ORDERED: IOHEXOL 350 MG/ML 50 ML BTL (for Cath Lab) OTHER ONE (13:50)
[2017-12-30 16:00] VITALS: BP 138/63; PULSE 64; RESP 19; TEMP 98; O2SAT 95
--- NOTE | 2017-12-30 19:14 | MP ---
cc: Wilmer Moran MD DATE OF OPERATION: 12/30/17 PREOPERATIVE DIAGNOSIS: Left lower extremity tissue loss, peripheral vascular disease. POSTOPERATIVE DIAGNOSIS: Left lower extremity tissue loss, peripheral vascular disease. PROCEDURE PERFORMED: Aortogram with left lower extremity angiogram. ATTENDING SURGEON: Wilmer Moran MD ANESTHESIA: Local with sedation. INDICATION: Ms. Costello is an 82-year-old lady with left lower extremity peripheral occlusive disease and tissue loss. She is taken to the operating room for angiographic evaluation and treatment. There is no prior catheter-based imaging available for review. DESCRIPTION OF PROCEDURE: Informed consent was obtained from the patient. She was taken to the operating room and placed supine on the operating table. An appropriate timeout was taken to ensure the patient's identity, operative site and planned procedure. The administration of antibiotic was not necessary as this is a clean procedure without implantation of any foreign object. Everyone in the room agreed with timeout and we proceeded. Her bilateral groins were prepped and draped. Right groin was anesthetized with 1% lidocaine. A 21-gauge micropuncture needle was used to access the right common femoral artery. This was exchanged using Seldinger technique for a micropuncture sheath, through which was 0.035 Glidewire was introduced and the micropuncture sheath was exchanged for a 4-Vietnamese sheath. A VCF catheter was placed over the wire and through the sheath and aortogram and pelvic arteriogram was obtained. The Glidewire and VCF catheter were then navigated down to the left common femoral artery and a left lower extremity arteriogram was obtained. Wire, catheter and sheath removed. Pressure was held for hemostasis. There were no complications. I was present and scrubbed for the entire procedure. INTERPRETATION OF IMAGES: The patient has patent infrarenal aorta, common iliac arteries, external iliac arteries and hypogastric arteries bilaterally. There is no hemodynamically significant stenosis in any of these. The left common femoral artery has a hemodynamically significant appearing stenosis. The superficial femoral artery is occluded and very calcified with profunda-based collaterals reconstituting in the above-knee popliteal artery and there is 3-vessel runoff to the foot. MD NIVIA Milian/DELON , 07:00 PM , 07:13 PM DILCIA
[2017-12-30 20:00] VITALS: BP 119/56; PULSE 78; RESP 18; TEMP 98.8; O2SAT 92
[2017-12-30] MEDS ORDERED: ENOXAPARIN SODIUM 40 MG/0.4 ML SYRINGE SQ SCH (20:00)
[2017-12-31] VITALS (7 sets, daily range): BP systolic 120–150; BP diastolic 58–67; PULSE 63–76; RESP 16–20; TEMP 97.9–100; O2SAT 91–96
[2017-12-31] MEDS: LEVOTHYROXINE SODIUM 150 MCG TAB PO SCH (05:33)
[2017-12-31 06:37] LABS: BICARBONATE 29.6 MEQ/L (21.0-32.0); BLOOD UREA NITROGEN 18 MG/DL (7-18); CHLORIDE 104 MEQ/L (98-107); CREATININE 0.83 MG/DL (0.50-1.00); GLOMERULAR FILTRATION RATE 66 ML/MIN (>89); GLUCOSE,RANDOM 98 MG/DL (74-106); MAGNESIUM 1.8 MG/DL (1.5-2.5); SODIUM (NA) 142 MEQ/L (136-145)
[2017-12-31 06:47] LABS: AUTOMATED NEUTROPHIL # 5.6 TH/MM3 (1.8-7.7); BASOPHIL # 0.1 TH/MM3 (0-0.2); BASOPHIL % 0.9 % (0.0-2.0); EOSINOPHIL # 0.3 TH/MM3 (0-0.4); EOSINOPHIL % 3.4 % (0.0-4.0); HEMATOCRIT 25.8 % (35.0-46.0); HEMOGLOBIN 8.2 GM/DL (11.6-15.3); LYMPH % 24.7 % (9.0-44.0); LYMPHOCYTE # 2.2 TH/MM3 (1.0-4.8); MEAN CELL VOLUME 80.5 FL (80.0-100.0); MEAN CORPUSCULAR HEMOGLOBIN 25.6 PG (27.0-34.0); MEAN CORPUSCULAR HGB CONC 31.8 % (32.0-36.0); MEAN PLATELET VOLUME 8.7 FL (7.0-11.0); MONO % 8.2 % (0.0-8.0); MONOCYTE # 0.7 TH/MM3 (0-0.9); NEUT % 62.8 % (16.0-70.0); PLATELET COUNT 386 TH/MM3 (150-450); RED BLOOD COUNT 3.21 MIL/MM3 (4.00-5.30); RED CELL DISTRIBUTION WIDTH 16.9 % (11.6-17.2); WHITE BLOOD COUNT 8.9 TH/MM3 (4.0-11.0)
[2017-12-31] MEDS: METOPROLOL TARTRATE 50 MG TAB PO SCH (07:46)
[2017-12-31] MEDS: GABAPENTIN 300 MG CAP PO SCH (07:46)
[2017-12-31] MEDS: ASPIRIN EC 81 MG TABEC PO SCH (07:46)
[2017-12-31] MEDS: PRAVASTATIN SOD 20 MG TAB PO SCH (07:46)
[2017-12-31] MEDS: POTASSIUM CHLORIDE 10 MEQ CONTROLLED RELEASE TAB PO SCH (07:46)
[2017-12-31] MEDS: DOCUSATE SODIUM 50 MG/SENNA 8.6 MG TAB PO SCH (07:46)
[2017-12-31] MEDS: LISINOPRIL 20 MG TAB PO SCH (07:46)
[2017-12-31] MEDS: TORSEMIDE 20 MG TAB PO SCH (07:46)
[2017-12-31] MEDS: COLLAGENASE OINT 30 GM TUBE TOPICAL SCH (07:47)
--- NOTE | 2017-12-31 10:52 | PD.VS.PN ---
Subjective POD #: 1 Procedure(s): Aortogram w/ L LE angiogram Subjective/Hospital Course Pt doing well this am w/o complaints Objective Vitals/I&O Date Time Temp Pulse Resp B/P (MAP) Pulse Ox O2 Delivery O2 Flow Rate FiO2 12/31/17 04:00 97.9 63 16 144/63 (90) 92 12/31/17 00:00 100.0 73 18 136/60 (85) 93 12/30/17 20:00 98.8 78 18 119/56 (77) 92 12/30/17 16:00 98.0 64 19 138/63 (88) 95 12/30/17 13:37 93 Nasal Cannula 2.00 12/30/17 12:00 98.1 79 18 107/60 (76) 95 12/31/17 12/31/17 12/31/17 07:00 15:00 23:00 Output Total 350 ml Balance -350 ml Exam: GENERAL: A&0X3,GCS15, NAD SKIN: LE Warm and dry w/ motor intact Non palpable L DP L foot w/ eschar (stable) Laboratory Laboratory Tests Test 12/31/17 05:32 12/31/17 05:36 White Blood Count 8.9 Red Blood Count 3.21 Hemoglobin 8.2 Hematocrit 25.8 Mean Corpuscular Volume 80.5 Mean Corpuscular Hemoglobin 25.6 Mean Corpuscular Hemoglobin Concent 31.8 Red Cell Distribution Width 16.9 Platelet Count 386 Mean Platelet Volume 8.7 Neutrophils (%) (Auto) 62.8 Lymphocytes (%) (Auto) 24.7 Monocytes (%) (Auto) 8.2 Eosinophils (%) (Auto) 3.4 Basophils (%) (Auto) 0.9 Neutrophils # (Auto) 5.6 Lymphocytes # (Auto) 2.2 Monocytes # (Auto) 0.7 Eosinophils # (Auto) 0.3 Basophils # (Auto) 0.1 CBC Comment DIFF FINAL Differential Comment Hematology Comments Blood Urea Nitrogen 18 Creatinine 0.83 Random Glucose 98 Calcium Level 9.0 Magnesium Level 1.8 Sodium Level 142 Potassium Level 4.1 Chloride Level 104 Carbon Dioxide Level 29.6 Anion Gap 8 Estimat Glomerular Filtration Rate 66 Date/Time Source Procedure Growth Status 12/25/17 16:35 Blood Peripheral Aerobic Blood Culture - Final NO GROWTH IN 5 DAYS Complete 12/25/17 16:35 Blood Peripheral Anaerobic Blood Culture - Final NO GROWTH IN 5 DAYS Complete Assessment and Plan Assessment: (1) PAD (peripheral artery disease) Plan 82/F w/ a hx of L LE wounds and severe PAD L foot wounds stable LE warm w/ motor intact Pt s/p Aortogram w/ L LE angiogram (pod 1) Pt w/ 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 Moran on Saturday (01/06/18) for a L LE distal bypass Continue PT/OOB to chair Continue wound care per Podiatry Ashley Starr [facility] [phone] Ashley Starr [facility] Dec 31, 2017 10:52
[2017-12-31] MEDS ORDERED: ENOX40P SQ (11:37)
--- NOTE | 2017-12-31 11:38 | HHI.PR ---
Subjective Remarks Dw PAD. Needs bypass scheduled Saturday dw CV surgery stable for dc dw RN Objective Vitals Vital Signs Date Time Temp Pulse Resp B/P (MAP) Pulse Ox O2 Delivery O2 Flow Rate FiO2 12/31/17 04:00 97.9 63 16 144/63 (90) 92 12/31/17 00:00 100.0 73 18 136/60 (85) 93 12/30/17 20:00 98.8 78 18 119/56 (77) 92 12/30/17 16:00 98.0 64 19 138/63 (88) 95 12/30/17 13:37 93 Nasal Cannula 2.00 12/30/17 12:00 98.1 79 18 107/60 (76) 95 I/O 12/30/17 12/30/17 12/30/17 12/31/17 12/31/17 12/31/17 07:00 15:00 23:00 07:00 15:00 23:00 Intake Total 0 ml 0 ml 240 ml Output Total 1200 ml 350 ml Balance 0 ml 0 ml -960 ml -350 ml Intake Oral 0 ml 0 ml 240 ml Output Urine Total 1200 ml 350 ml # Voids 4 # Bowel Movements 0 Result Diagram: 12/31/17 0532 12/31/17 0536 Imaging Last Impressions Lower Extremity Ultrasound 12/26/17 0000 Signed Impressions: Service Date/Time: December 18:14 - CONCLUSION: Negative exam with no evidence of deep venous thrombosis. Raghavendra Perez MD Chest X-Ray 12/26/17 0000 Signed Impressions: Service Date/Time: December 12:38 - CONCLUSION: No acute cardiopulmonary abnormality is identified. dAonay Michael MD Foot X-Ray 12/25/17 0000 Signed Impressions: Service Date/Time: Monday, December 25, 2017 16:51 - CONCLUSION: 1. No acute fracture or dislocation. 2. Mild degenerative changes involving the first metatarsophalangeal joint. 3. Prominent plantar calcaneal spur. Wilmer Estes MD Ankle X-Ray 12/25/17 0000 Signed Impressions: Service Date/Time: Monday, December 25, 2017 16:59 - CONCLUSION: 1. Posterior malleolar fracture of the distal tibia. 2. Prominent plantar calcaneal spur. Wilmer Estes MD Objective Remarks GENERAL: This is a well-nourished, well-developed patient, in no apparent distress. CARDIOVASCULAR: Regular rate and regular rhythm without murmurs, gallops, or rubs. RESPIRATORY: Clear to auscultation. Breath sounds equal bilaterally. No wheezes , rales, or rhonchi. GASTROINTESTINAL: Abdomen soft, non-tender, nondistended. Normal, active bowel sounds MUSCULOSKELETAL: left foot eschar covered with clean dressing. NEURO: Alert & Oriented x4 to person, place, time, situation. Moves all ext x4 Procedures Aortogram with left lower extremity angiogram. A/P Problem List: (1) PAD (peripheral artery disease) ICD Code: I73.9 - Peripheral vascular disease, unspecified Assessment and Plan 1. Postsurgical wound status post splinting. PAD Podiatry consulted. Recommended wound care. S/p angiogram - need for distal bypass for revascularization scheduled this coming Saturday wound care per Dr. Cifuentes 2. Chronic atrial fibrillation Eliquis on hold and started the patient on Lovenox 3. Hypertension/hyperlipidemia/CAD/chronic CHF -unknown if systolic or diastolic. Continue home medications. BP seems to be stable, patient is chest pain-free there are no signs of volume overload. 4. Hyperglycemia. A1c 6.3 DVT prophylaxis; on Lovenox Discharge Planning Stable for discharge Markie Rodriguez MD Dec 31, 2017 11:38
--- NOTE | 2017-12-31 11:38 | HHI.DCPOC ---
Discharge Care Plan Diagnosis: (1) PAD (peripheral artery disease) (2) Postoperative complication Your Health Problems Are: Difficulty with ADL Exercise Tolerance Goals to Promote Your Health * To prevent worsening of your condition and complications * To maintain your health at the optimal level Directions to Meet Your Goals Take your medications as prescribed Follow your dietary instruction Follow activity as directed Keep your appointments as scheduled Take your immunizations and boosters as scheduled If your symptoms worsen call your PCP, if no PCP go to Urgent Care Center or Emergency Room Smoking is Dangerous to Your Health. Avoid second hand smoke Call the 24-hour hour crisis hotline for domestic abuse at Markie Rodriguez MD Dec 31, 2017 11:38
[2017-12-31] MEDS ORDERED: ENOXAPARIN SODIUM 100 MG/ML SYRINGE SQ SCH (12:00)
--- NOTE | 2017-12-31 12:33 | HHI.PR ---
Objective Vitals Vital Signs Date Time Temp Pulse Resp B/P (MAP) Pulse Ox O2 Delivery O2 Flow Rate FiO2 12/31/17 11:39 92 12/31/17 04:00 97.9 63 16 144/63 (90) 92 12/31/17 00:00 100.0 73 18 136/60 (85) 93 12/30/17 20:00 98.8 78 18 119/56 (77) 92 12/30/17 16:00 98.0 64 19 138/63 (88) 95 12/30/17 13:37 93 Nasal Cannula 2.00 I/O 12/30/17 12/30/17 12/30/17 12/31/17 12/31/17 12/31/17 07:00 15:00 23:00 07:00 15:00 23:00 Intake Total 0 ml 0 ml 240 ml Output Total 1200 ml 350 ml Balance 0 ml 0 ml -960 ml -350 ml Intake Oral 0 ml 0 ml 240 ml Output Urine Total 1200 ml 350 ml # Voids 4 # Bowel Movements 0 Result Diagram: 12/31/17 0532 12/31/17 0536 Imaging Last Impressions Lower Extremity Ultrasound 12/26/17 0000 Signed Impressions: Service Date/Time: December 18:14 - CONCLUSION: Negative exam with no evidence of deep venous thrombosis. Raghavendra Perez MD Chest X-Ray 12/26/17 0000 Signed Impressions: Service Date/Time: December 12:38 - CONCLUSION: No acute cardiopulmonary abnormality is identified. Adonay Michael MD Foot X-Ray 12/25/17 0000 Signed Impressions: Service Date/Time: Monday, December 25, 2017 16:51 - CONCLUSION: 1. No acute fracture or dislocation. 2. Mild degenerative changes involving the first metatarsophalangeal joint. 3. Prominent plantar calcaneal spur. Wilmer Estes MD Ankle X-Ray 12/25/17 0000 Signed Impressions: Service Date/Time: Monday, December 25, 2017 16:59 - CONCLUSION: 1. Posterior malleolar fracture of the distal tibia. 2. Prominent plantar calcaneal spur. Wilmer Estes MD Objective Remarks GENERAL: This is a well-nourished, well-developed patient, in no apparent distress. CARDIOVASCULAR: Regular rate and regular rhythm without murmurs, gallops, or rubs. RESPIRATORY: Clear to auscultation. Breath sounds equal bilaterally. No wheezes , rales, or rhonchi. GASTROINTESTINAL: Abdomen soft, non-tender, nondistended. Normal, active bowel sounds MUSCULOSKELETAL: left foot covered with clean dressing. NEURO: Alert & Oriented x4 to person, place, time, situation. Moves all ext x4 A/P Problem List: (1) PAD (peripheral artery disease) ICD Code: I73.9 - Peripheral vascular disease, unspecified Assessment and Plan 1. Postsurgical wound status post splinting. PAD Podiatry consulted. Recommended wound care. Vascular surgery consulted; F or angiogram, LE vein survey with consideration for endovascular intervention today. he does not recommend CTA. wound car per Dr. Cifuentes 2. Chronic atrial fibrillation Eliquis on hold and started the patient on heparin. 3. Hypertension/hyperlipidemia/CAD/chronic CHF -unknown if systolic or diastolic. Continue home medications. BP seems to be stable, patient is chest pain-free there are no signs of volume overload. 4. Hyperglycemia. Obtain A1c DVT prophylaxis; on Heparin drip. Check CBC and BMP tomorrow morning Markie Rodriguez MD Dec 31, 2017 12:33
[2017-12-31 15:45] LABS: HEMOGLOBIN A1C 6.3 % (4.3-6.0)
--- NOTE | 2017-12-31 18:05 | HHI.DS ---
Discharge Summary Admission Date Dec 27, 2017 at 13:06 Discharge Date: Dec 31, 2017 Admitting Diagnosis Postoperative complication, rule out eschar versus infection (1) PAD (peripheral artery disease) ICD Code: I73.9 - Peripheral vascular disease, unspecified Diagnosis: Principal Procedures Aortogram with left lower extremity angiogram. Brief History - From Admission 82-year-old female with a past medical history significant for atrial fibrillation, anticoagulated on Eliquis, hypertension, hyperlipidemia, hypothyroidism, CAD and CHF (no recent echo) presents to the emergency department for evaluation of left ankle and heel wounds. The patient is status post tib/fib fracture with repair on 12/04/[address] Morales in [place]. She was placed in a splint following the procedure and has been compliant with nonweightbearing. The patient reports that one week ago she was seen in the office in follow-up in the splint was removed revealing left ankle, heel and foot areas of black eschar. Plastic surgery was consulted however the patient does not have an appointment until 01/02. She was seen again in clinic today and the decision was made between the physician, the patient's daughter and the patient to come to the emergency department for further evaluation, wound care and placement. The patient denies any pain to the wounds. She describes her left ankle is having a dull ache which is relieved with by mouth medication. She is participating in physical therapy. She denies any chest pain or shortness of breath. No abdominal pain. No nausea/vomiting/diarrhea. No weakness. No focal deficits. CBC/BMP: 12/31/17 0532 12/31/17 0536 Significant Findings Laboratory Tests Test 12/28/17 18:38 12/29/17 04:47 12/29/17 11:52 12/29/17 17:28 Activated Partial Thromboplast Time 39.0 SEC (24.3-30.1) 44.2 SEC (24.3-30.1) 32.5 SEC (24.3-30.1) 40.8 SEC (24.3-30.1) Test 12/30/17 00:06 12/30/17 06:50 12/31/17 05:32 12/31/17 05:36 Activated Partial Thromboplast Time 46.8 SEC (24.3-30.1) Red Blood Count 3.45 MIL/MM3 (4.00-5.30) 3.21 MIL/MM3 (4.00-5.30) Hemoglobin 8.9 GM/DL (11.6-15.3) 8.2 GM/DL (11.6-15.3) Hematocrit 28.2 % (35.0-46.0) 25.8 % (35.0-46.0) Mean Corpuscular Hemoglobin 25.8 PG (27.0-34.0) 25.6 PG (27.0-34.0) Mean Corpuscular Hemoglobin Concent 31.6 % (32.0-36.0) 31.8 % (32.0-36.0) Monocytes (%) (Auto) 8.2 % (0.0-8.0) Estimat Glomerular Filtration Rate 66 ML/MIN (>89) Hemoglobin A1c 6.3 % (4.3-6.0) Imaging Last Impressions Lower Extremity Ultrasound 12/26/17 0000 Signed Impressions: Service Date/Time: December 18:14 - CONCLUSION: Negative exam with no evidence of deep venous thrombosis. Raghavendra Perez MD Chest X-Ray 12/26/17 0000 Signed Impressions: Service Date/Time: December 12:38 - CONCLUSION: No acute cardiopulmonary abnormality is identified. Adonay Michael MD Foot X-Ray 12/25/17 0000 Signed Impressions: Service Date/Time: Monday, December 25, 2017 16:51 - CONCLUSION: 1. No acute fracture or dislocation. 2. Mild degenerative changes involving the first metatarsophalangeal joint. 3. Prominent plantar calcaneal spur. Wilmer Estes MD Ankle X-Ray 12/25/17 0000 Signed Impressions: Service Date/Time: Monday, December 25, 2017 16:59 - CONCLUSION: 1. Posterior malleolar fracture of the distal tibia. 2. Prominent plantar calcaneal spur. Wilmer Estes MD PE at Discharge GENERAL: This is a well-nourished, well-developed patient, in no apparent distress. CARDIOVASCULAR: Regular rate and regular rhythm without murmurs, gallops, or rubs. RESPIRATORY: Clear to auscultation. Breath sounds equal bilaterally. No wheezes , rales, or rhonchi. GASTROINTESTINAL: Abdomen soft, non-tender, nondistended. Normal, active bowel sounds MUSCULOSKELETAL: left foot eschar covered with clean dressing. NEURO: Alert & Oriented x4 to person, place, time, situation. Moves all ext x4 Hospital Course 1. Postsurgical wound status post splinting. PAD Podiatry consulted. Recommended wound care. S/p angiogram - need for distal bypass for revascularization scheduled this coming Saturday wound care per Dr. Cifuentes 2. Chronic atrial fibrillation Eliquis on hold and started the patient on Lovenox 3. Hypertension/hyperlipidemia/CAD/chronic CHF -unknown if systolic or diastolic. Continue home medications. BP seems to be stable, patient is chest pain-free there are no signs of volume overload. 4. Hyperglycemia. A1c 6.3 DVT prophylaxis; on Lovenox Pt Condition on Discharge: Stable Discharge Disposition: Discharge to SNF Discharge Time: > 30 minutes Discharge Instructions DIET: Follow Instructions for: Heart Healthy Diet Activities you can perform: Regular-No Restrictions Activities to Avoid: Driving Follow up Referrals: PCP Follow-up - 1 Week Podiatry - 1 Week Vascular Surgery - 01/06/18 New Medications: Enoxaparin Inj (Lovenox Inj) 40 Mg/0.4 Ml Syr 95 MG SQ BID for Prevent Blood Clot, #10 INJECTION dc saturday night 01/05 Hydrocodone/Acetaminophen (Hydrocodone-Acetamin 7.5-325) 7.5 Mg-325 Mg Tablet 1 TAB PO Q4H PRN for pain 6-10, #20 TAB Continued Medications: Amlodipine (Amlodipine) 10 Mg Tab 10 MG PO DAILY for Blood Pressure Management, #30 TAB [address] (Aspirin EC) 81 Mg Tabdr 81 MG PO DAILY, TAB 0 Refills Docusate Sodium (Colace) 100 Mg Capsule 100 MG PO HS for Prevent Constipation, #30 CAP 0 Refills Gabapentin (Gabapentin) 300 Mg Cap 300 MG PO DAILY, #60 CAP 0 Refills Gabapentin (Gabapentin) 600 Mg Tab 600 MG PO HS, #30 TAB 0 Refills Levothyroxine (Levothyroxine) 150 Mcg Tab 150 MCG PO DAILY for Thyroid, #30 TAB 0 Refills Lisinopril (Lisinopril) 40 Mg Tab 40 MG PO DAILY for Blood Pressure Management, #30 TAB 0 Refills Metoprolol Tartrate (Metoprolol Tartrate) 50 Mg Tab 50 MG PO BID, #60 TAB 0 Refills Potassium Chloride ER (Potassium Chloride ER) 10 Meq Tab 10 MEQ PO DAILY for Electrolyte Replacement, #30 TAB 0 Refills Pravastatin (Pravastatin) 20 Mg Tab 20 MG PO DAILY for Cholesterol Management, #30 TAB 0 Refills Torsemide (Torsemide) 20 Mg Tab 20 MG PO DAILY, #30 TAB 0 Refills Markie Rodriguez MD Dec 31, 2017 18:04
[2017-12-31] MEDS: ACETAMINOPHEN/HYDROcodone 325 MG/7.5 MG TAB PO PRN (19:02)
== END 2017-12-31 20:08 | DRG 300 ==
LOC: NEPE 15:22 → NEDA 18:53 → NEPGCP 21:30 → OBSVTOIN 12-27 13:06 → N07B 12-29 16:32
PROVIDERS: ADMIT Hospitalist; ATTEND Hospitalist
PROC: B41D1ZZ Fluoroscopy of Aorta and Bilateral Lower Extremity Arteries using Low Osmolar Contrast (ICD-10-PCS; principal; 2017-12-30 13:30)
DX: I70.202 Unspecified atherosclerosis of native arteries of extremities, left leg (principal); L97.329 Non-pressure chronic ulcer of left ankle with unspecified severity; I11.0 Hypertensive heart disease with heart failure; I50.9 Heart failure, unspecified; I48.2 Chronic atrial fibrillation; Z79.02 Long term (current) use of antithrombotics/antiplatelets; Z47.89 Encounter for other orthopedic aftercare; E78.5 Hyperlipidemia, unspecified; I25.10 Atherosclerotic heart disease of native coronary artery without angina pectoris; Z79.82 Long term (current) use of aspirin; E03.9 Hypothyroidism, unspecified; R73.9 Hyperglycemia, unspecified; Z87.891 Personal history of nicotine dependence; Z95.0 Presence of cardiac pacemaker; Z96.652 Presence of left artificial knee joint
CPT/HCPCS: 36246; 71045; 73600; 73630; 75625; 75710; 76937; 80048; 80053; 81001; 83036; 83605; 83735; 85025; 85027; 85610; 85730; 87040; 93922; 93970; 93998; 94150; 99152; 99153; 99285; C1769; C1887; C1893; G0378; G8987-GP; G8988-GP; J1644; J1650; J2250; J3010; Q9967

== ENCOUNTER 2018-01-06 11:16 | Inpatient (IN) | payer MEDICARE ==
[~2018-01-06] VITALS: Ht 168.9 cm; Wt 95.0 kg
[~2018-01-06 11:16] MED LIST: AMLO10TA2 PO; APIX5TAB PO; ASPI81TA23 PO; COLA100C5 PO; ENOX40P SQ; GABA300C5 PO; GABA600T PO; HYDR-3516 PO; HYDR-3580 PO; LEVO150T7 PO; LISI40TA PO; METO50TA PO; POTA10TA2 PO; PRAV20TA2 PO; TORS20TA PO
[2018-01-06] MEDS ORDERED: GLYCOPYRROLATE 1 MG/5 ML SYRINGE IV PUSH ONE (12:00)
[2018-01-06] MEDS ORDERED: PROPOFOL 200 MG/20 ML AMP IV ONE (12:00)
[2018-01-06] MEDS ORDERED: LACTATED RINGER'S 1000 ML INJ 1,000 ML IV ONE (12:00)
[2018-01-06] MEDS ORDERED: LIDOCAINE HCL 1% PF 5 ML SYRINGE OTHER ONE (12:00)
[2018-01-06] MEDS ORDERED: ePHEDrine/NS 25 MG/5 ML SYRINGE IV ONE (12:00)
[2018-01-06] MEDS ORDERED: INSULIN HUMAN REGULAR 1,000 UNITS/10 ML VIAL SQ PRN (12:00)
[2018-01-06] MEDS ORDERED: NEOSTIGMINE 5 MG/5 ML SYRINGE IV PUSH ONE (12:00)
[2018-01-06] MEDS ORDERED: METOPROLOL TARTRATE 25 MG TAB PO PRN (12:00)
[2018-01-06] MEDS ORDERED: LACTATED RINGER'S 1000 ML IV PRN (12:00)
[2018-01-06] MEDS ORDERED: SODIUM CHLORID 0.9% 500 ML IV PRN (12:00)
[2018-01-06] MEDS ORDERED: CHLORHEXIDINE GLUCONATE 2 % 1 PACK (2 CLOTHS) TOPICAL PRN (12:00)
[2018-01-06] MEDS ORDERED: ROCURONIUM INJ 50 MG/5 ML SYRINGE IV PUSH ONE (12:00)
[2018-01-06] MEDS ORDERED: POVIDONE IODINE 5% (ANTISEPSIS KIT) 4 APPLICATIONS EACH NARE PRN (12:00)
[2018-01-06] MEDS ORDERED: LISI40TA PO (12:06)
[2018-01-06] MEDS ORDERED: MILKSUS PO (12:06)
--- NOTE | 2018-01-06 13:42 | PD.VS.PN ---
Pre-operative Note Pre-operative diagnosis: LEFT leg tissue loss, PAD Planned procedure: L LE bypass Interval History: Pt has been feeling well, no new changes in health that would preclude OR. Labs: Hct 26 plt 386 cr 0.8 Blood: T&C 2U Imaging: Angio reviewed Orders: NPO Ancef 2g IV OCTOR Post-operative destination: PACU then CPCU Operative site marked: Yes Consent: Informed consent has been obtained from Sruthi Costello. I have explained the procedure in detail and discussed the risks, benefits, and potential complications. All questions have been answered. Patient contact information: Daughter [phone] Wilmer Moran MD Jan 06, 2018 13:42
[2018-01-06] MEDS ORDERED: BUPIVACAINE HCL PF 0.5% 30 ML VIAL ONE (13:55)
[2018-01-06] MEDS ORDERED: HEPARIN-NS/PF INJ 500 ML ONE (13:55)
[2018-01-06] MEDS ORDERED: HEPARIN SODIUM - IV 10,000 UNITS/10 ML VIAL ONE ×2 (13:55→15:20)
[2018-01-06] MEDS ORDERED: ceFAZolin 2 GM PREMIX 50 ML ONE (13:55)
[2018-01-06] MEDS ORDERED: THROMBIN (TOPICAL) 20,000 UNIT SPRAY KIT ONE (13:55)
[2018-01-06] MEDS ORDERED: PROTAMINE SULFATE 50 MG/5 ML VIAL ONE ×2 (13:55→15:20)
[2018-01-06] MEDS ORDERED: fentaNYL CITRATE 250 MCG/5 ML AMP ONE (15:13)
--- NOTE | 2018-01-06 17:28 | HHI.PR ---
cc: Wilmer Moran MD Immediate Post Op Note Procedure Date: Jan 06, 2018 Pre Op Diagnosis: LEFT leg tissue loss, PAD Post Op Diagnosis: LEFT leg tissue loss, PAD Surgeon: Wilmer Moran Physical Instructor(s): Adonay Shankar Procedure: 1. LEFT profunda endarterectomy and patch angioplasty 2. LEFT SECOND HELPER-pop bypass with 8mm PTFE Findings: significant calcific occlusive disease Additional Information: good distal AT signal at end of case Complications: none Specimen(s) removed: none for pathology Estimated blood loss: 150mL Anesthesia: General Drains: None Fluids: 1700mL IVF Urinary Output (mLs): 750 Patient to: PACU Patient Condition: Good Implant/Devices: SEE IMPLANT LOG (if applicable) Date/Time of Procedure: SEE SURGICAL CARE RECORD Wilmer Moran MD Jan 06, 2018 17:28
[2018-01-06] MEDS ORDERED: SENNOSIDES 8.6 MG TAB PO PRN (17:30)
[2018-01-06] MEDS ORDERED: BISACODYL 10 MG SUPP RECTAL PRN (17:30)
[2018-01-06] MEDS ORDERED: HYDROmorphone HCL 2 MG TAB PO PRN (17:30)
[2018-01-06] MEDS ORDERED: LACTULOSE SYRUP 20 GM/30 ML CUP PO PRN (17:30)
[2018-01-06] MEDS ORDERED: MAGNESIUM HYDROXIDE SUSP 30 ML CUP PO PRN ×2 (17:30)
[2018-01-06] MEDS ORDERED: DO NOT ADM ANY ANTICOAGULANT DRUGS PRN (17:45)
[2018-01-06] MEDS ORDERED: *morphine SULFATE 8 MG/ML PERIprocedure ONLY ONE (17:51)
[2018-01-06] MEDS ORDERED: *MEPERIDINE 25 MG INJ VIAL PERIprocedural Use ONLY ONE (18:00)
[2018-01-06] MEDS ORDERED: *morphine SULFATE 4 MG/ML PERIprocedure ONLY ONE (18:15)
--- NOTE | 2018-01-06 18:21 | RADRPT ---
EXAM DATE/TIME: 01/06/2018 19:05 [facility] COMPARISON: No previous studies available for comparison. INDICATIONS : Evaluate central line placement MEDICAL HISTORY : Cardiovascular disease. SURGICAL HISTORY : Pacemaker. ENCOUNTER: Initial ACUITY: 1 day PAIN SCORE: 0/10 LOCATION: chest FINDINGS: There is a new right subclavian central venous catheter with tip at the atriocaval junction. No pneum othorax. No infiltrate or effusion. Mild cardiomegaly is stable. Cardiac pacer again noted. CONCLUSION: Right subclavian central venous catheter has tip at the atriocaval junction. No pneumothorax or other acute complication. Adonay Monroe MD on January 06, 2018 at 18:18 Board Certified Radiologist. This report was verified electronically.
[2018-01-06] MEDS ORDERED: *HYDROmorphone PF 0.5 MG/0.5 ML PERIprocedure ONLY ONE (18:23)
[2018-01-06 19:00] VITALS: BP 182/76; PULSE 74; RESP 18; TEMP 98.4; O2SAT 99
--- NOTE | 2018-01-06 19:43 | MP ---
cc: Wilmer Moran MD DATE OF OPERATION: 01/06/18 PREOPERATIVE DIAGNOSIS: Left lower extremity tissue loss and peripheral vascular disease. POSTOPERATIVE DIAGNOSIS: Left lower extremity tissue loss and peripheral vascular disease. PROCEDURE PERFORMED: 1. Left profunda endarterectomy and patch angioplasty. 2. Left femoral to above-knee popliteal artery bypass with 8 mm ring PTFE. ATTENDING SURGEON: Wilmer Moran MD ANESTHESIA: General. INDICATION: Ms. Costello is an 82-year-old lady who has extensive left foot tissue loss. She has nonpalpable pedal pulses and taken to the operating room for distal bypass. DESCRIPTION OF PROCEDURE: Informed consent was obtained from the patient. She was taken to the operating room and placed supine on the operating table. An appropriate timeout was taken to ensure the patient's identity, operative site and planned procedure. The administration of 2 grams of Ancef was initiated prior to skin incision and will be discontinued after single preoperative dose. Everyone in the room agreed with timeout and we proceeded. She was prepped from her nipples to her toes. A vertical incision was made in the patient's left groin, carried down through subcutaneous tissue with electrocautery. The common femoral artery, profunda and superficial femoral artery were all dissected free. The profunda was noted to be quite enlarged with a calcific plaque at the proximal aspect of it. The SFA was occluded and the common femoral artery was noted to be patent. A separate incision made just above the knee on the medial aspect of the leg, carried down through subcutaneous tissue with electrocautery. The above-knee popliteal artery was identified and encircled with a vessel loop. A tunnel was then created between these two. An 8 mm ring PTFE was passed through the tunnel, taking caution not to twist it. The patient was systemically heparinized and throughout the remainder of the case, ACT was kept greater than 250. Proximal control of the common femoral artery and distal control of the profunda and SFA were obtained with profunda clamps, and the longitudinal arteriotomy was made going from the common femoral artery extending down onto the profunda for several centimeters. The profunda was endarterectomized without difficulty, and a bovine pericardial patch was brought up onto the field and sewn on using running 5-0 Prolene suture. At the completion, it was flushed and noted to be hemostatic and repair sutures were made. The clamps were reapplied and the patch was incised with an 11 blade, extended with Ugo scissors. The PTFE was then spatulated and sewn end-to-side to the patch with running 5-0 Prolene suture. At the completion, it was flushed and noted to be hemostatic. A Cyril Softjaw clamp was placed on the patch and the clamp was released with a palpable pulse through the profunda. Proximal and distal control of the above-knee popliteal artery was obtained with profunda clamps and a longitudinal arteriotomy was made with an 11 blade, extended with [place] scissors. The PTFE was cut to an appropriate length, spatulated and sewn end-to-side with running 5-0 Prolene suture. At the completion, it was flushed and noted to be hemostatic. There was a nice multiphasic Doppler signal in the distal anterior tibial artery. The wounds were made hemostatic, infiltrated with Marcaine and closed with 2-0 Polysorb, 3-0 Polysorb and 4-0 Monocryl. The sponge and needle counts were correct at the end of the case. I was present and scrubbed and performed the entire procedure. MD NIVIA Milian/DELON , 06:04 PM , 07:42 PM DILCIA
[2018-01-06] MEDS: ATORVASTATIN 40 MG TAB PO SCH (21:00)
[2018-01-06] MEDS ORDERED: NON-FORMULARY DRUG (Lisinopril 40 MG) PO SCH (21:00)
[2018-01-06] MEDS: FAMOTIDINE 20 MG TAB PO SCH (21:00)
[2018-01-06] MEDS: METOPROLOL TARTRATE 50 MG TAB PO SCH (21:00)
[2018-01-06] MEDS: GABAPENTIN 300 MG CAP PO SCH (21:00)
[2018-01-06] MEDS: DOCUSATE SODIUM 100 MG CAP PO SCH (21:00)
[2018-01-06] MEDS: LISINOPRIL 20 MG TAB PO SCH (21:00)
[2018-01-06] MEDS: DOCUSATE SODIUM 50 MG/SENNA 8.6 MG TAB PO SCH (21:00)
[2018-01-06 23:00] VITALS: BP 134/51; PULSE 64; PULSE 74; RESP 20; TEMP 98.6; O2SAT 98
--- NOTE | 2018-01-06 23:52 | EKG ---
Date Performed: 01/06/2018 Time Performed: 12:01:58 PTAGE: 82 years EKG: ELECTRONIC VENTRICULAR PACEMAKER ABNORMAL RHYTHM ECG NO PREVIOUS TRACING DOCTOR: Danie Powers Interpretating Date/Time 01/06/2018 23:51:23
[2018-01-07] VITALS (13 sets, daily range): BP systolic 99–140; BP diastolic 48–64; PULSE 59–80; RESP 12–18; TEMP 98.2–100.6; O2SAT 92–99
[2018-01-07 04:40] LABS: HEMATOCRIT 23.7 % (35.0-46.0); HEMOGLOBIN 7.5 GM/DL (11.6-15.3); MEAN CELL VOLUME 80.3 FL (80.0-100.0); MEAN CORPUSCULAR HEMOGLOBIN 25.5 PG (27.0-34.0); MEAN CORPUSCULAR HGB CONC 31.8 % (32.0-36.0); PLATELET COUNT 279 TH/MM3 (150-450); RED BLOOD COUNT 2.95 MIL/MM3 (4.00-5.30); RED CELL DISTRIBUTION WIDTH 17.5 % (11.6-17.2); WHITE BLOOD COUNT 8.2 TH/MM3 (4.0-11.0)
[2018-01-07 04:57] LABS: BICARBONATE 32.9 MEQ/L (21.0-32.0); CALCIUM 8.3 MG/DL (8.5-10.1); CREATININE 0.7 MG/DL (0.50-1.00)
--- NOTE | 2018-01-07 07:59 | PD.VS.PN ---
Subjective POD #: 1 Procedure(s): L groin reconstruction and fem-AK pop bypass Subjective/Hospital Course Feels great; pain controlled benny po Objective Vitals/I&O Date Time Temp Pulse Resp B/P (MAP) Pulse Ox O2 Delivery O2 Flow Rate FiO2 01/07/18 03:00 64 01/07/18 03:00 98.2 63 18 99/48 (65) 99 01/06/18 23:00 74 01/06/18 23:00 98.6 64 20 134/51 (78) 98 01/06/18 19:00 98.4 74 18 182/76 (111) 99 01/06/18 18:30 72 12 162/69 (100) 92 Nasal Cannula 4 01/06/18 18:15 60 16 158/79 (105) 94 Nasal Cannula 4 01/06/18 18:00 60 24 146/93 (110) 98 Nasal Cannula 4 01/06/18 17:43 97.4 82 12 96/53 (67) 98 Nasal Cannula 4 01/06/18 12:00 99.3 84 22 101/49 (66) 98 01/07/18 01/07/18 01/07/18 07:00 15:00 23:00 Intake Total 480 ml Output Total 400 ml Balance 80 ml Exam: resting comfortably L groin soft Pulses: Strong distal AT Doppler signal Laboratory Laboratory Tests Test 01/07/18 04:28 White Blood Count 8.2 Red Blood Count 2.95 Hemoglobin 7.5 Hematocrit 23.7 Mean Corpuscular Volume 80.3 Mean Corpuscular Hemoglobin 25.5 Mean Corpuscular Hemoglobin Concent 31.8 Red Cell Distribution Width 17.5 Platelet Count 279 Mean Platelet Volume 8.0 Blood Urea Nitrogen 13 Creatinine 0.70 Random Glucose 102 Calcium Level 8.3 Sodium Level 143 Potassium Level 4.4 Chloride Level 105 Carbon Dioxide Level 32.9 Anion Gap 5 Estimat Glomerular Filtration Rate 80 Assessment and Plan Plan POD#1 s/p L groin reconstruction and bypass 1. D/C belcher 2. Normalize 3. PT consult/OOB ad sunny 4. Podiatry for wound care Discharge Planning 2-3 days to rehab; case management consulted Wilmer Moran MD Jan 07, 2018 07:59
[2018-01-07] MEDS: ASPIRIN 81 MG CHEW TAB PO SCH (08:22)
[2018-01-07] MEDS: LISINOPRIL 20 MG TAB PO SCH ×2 (08:23→20:47)
[2018-01-07] MEDS: GABAPENTIN 300 MG CAP PO SCH ×2 (08:24→20:46)
[2018-01-07] MEDS: TORSEMIDE 20 MG TAB PO SCH (08:25)
[2018-01-07] MEDS: DOCUSATE SODIUM 50 MG/SENNA 8.6 MG TAB PO SCH ×2 (08:25→20:46)
[2018-01-07] MEDS: POTASSIUM CHLORIDE 10 MEQ CONTROLLED RELEASE TAB PO SCH (08:25)
[2018-01-07] MEDS: METOPROLOL TARTRATE 50 MG TAB PO SCH ×2 (08:26→20:47)
[2018-01-07] MEDS: FAMOTIDINE 20 MG TAB PO SCH ×2 (08:26→20:46)
[2018-01-07] MEDS: LEVOTHYROXINE SODIUM 150 MCG TAB PO SCH (15:56)
--- NOTE | 2018-01-07 16:16 | MB ---
cc: Danie Powers DO DATE: 01/07/2018 REASON FOR CONSULTATION: Pacemaker followup. HISTORY OF PRESENT ILLNESS: Sruthi Costello is a pleasant 82-year-old female who presented for planned left fem-pop bypass by Dr. Moran. This originally started with a bimalleolar ankle fracture in November. At that time, she had surgical repair and was placed in a splint and developed a large ulcer on the anterior part of the ankle. She was then seen by Dr. Moran and was found to have significant vascular stenosis and recommended further intervention. She underwent a left profunda endarterectomy with patch angioplasty and left PUBLIC AREA SUPERVISOR to popliteal bypass on 01/06/2018. Postoperatively, she has done well. I was asked to see her as she was concerned for her pacemaker. Apparently, pacemaker was placed for previous bradycardia. This was placed sometime in the year 2015, per the patient. Her biggest concern was that the pacemaker was scheduled to be checked yesterday in the office of her travel freight and passenger agent, but was not done. She was concerned that because it was not checked it would be malfunctioning and asked Dr. Moran that her concern was it was malfunctioning and she needed to see a travel freight and passenger agent. On telemetry, she shows sinus rhythm with occasional paced beats, but no dysfunction. PAST MEDICAL HISTORY: 1. Atrial fibrillation. 2. Hypertension. 3. Hyperlipidemia. 4. Hypothyroidism. 5. Coronary artery disease. 6. Congestive heart failure of unknown type. PAST SURGICAL HISTORY: 1. Cardiac catheterization with 1 stent placed to unknown coronary anatomy. 2. Medtronic permanent pacemaker placed for bradycardia. 3. Left knee replacement. 4. Left tib-fib ORIF. 5. L3 through L5 fusion. 6. Right Achilles tendon repair. 7. Cholecystectomy. 8. Left profunda endarterectomy and patch angioplasty with left PUBLIC AREA SUPERVISOR fem-pop bypass with an 8 mm PTFE graft. ALLERGIES: TETRACYCLIC ANTIDEPRESSANT. MEDICATIONS: 1. Eliquis 5 mg b.i.d. 2. Pravastatin 20 mg daily. 3. Metoprolol tartrate 50 mg b.i.d. 4. Norvasc 10 mg daily. 5. Lisinopril 40 mg b.i.d. 6. Aspirin 81 mg daily. 7. Hydrocodone/acetaminophen 7.5/325 every 4 hours as needed for pain. 8. Gabapentin 300 mg daily, 600 mg at night. 9. Potassium 10 mEq daily. 10. Lasix 20 mg daily. 11. Colace 100 mg every night. 12. Synthroid 150 mcg daily. FAMILY HISTORY: Denies premature coronary artery disease or sudden cardiac within the family. SOCIAL HISTORY: The patient has a remote history of tobacco, but none in recent past. Denies alcohol or drug abuse. REVIEW OF SYSTEMS: Fourteen systems were reviewed including osteopathic pertinent positives and negatives above, otherwise negative. PHYSICAL EXAMINATION: VITAL SIGNS: Temperature 99.8, heart rate 73, blood pressure 140/64, respirations 18, pulse oximetry 96% on 2 liters. GENERAL: The patient appears well in no acute distress, alert, awake and oriented x 3. HEENT: Extraocular muscles intact. Mucous membranes moist. NECK: Supple. No JVD at 45 degrees. No carotid bruits heard bilaterally. Carotid upstroke is brisk in nature. HEART: Regular rate and rhythm. Positive first and second heart sounds with a 2/6 crescendo decrescendo which was early to mid peaking in nature. LUNGS: Clear to auscultation bilaterally. No wheezes, rales or rhonchi. ABDOMEN: Soft, nontender, nondistended. No organomegaly noted. EXTREMITIES: Show no clubbing, cyanosis or edema. Right lower extremity with palpable pulses. Left lower extremity with palpable, although minimal pulses. NEUROLOGIC: No focal deficits. SKIN: Warm, dry and intact. OSTEOPATHIC: No kyphoscoliosis, lordosis or paraspinal tender points. LABORATORY DATA: Hemoglobin 7.5, hematocrit 27.3, platelets 279. Potassium 4.4, BUN 13, creatinine 0.7. Electrocardiogram (01/06/2018 at 12:01) V paced at 75 beats per minute, possible underlying atrial fibrillation. ASSESSMENT: 1. History of Medtronic pacemaker placement for bradycardia, per the patient. No current dysfunction noted. 2. Peripheral artery disease, status post left profunda endarterectomy with patch angioplasty as well as left PUBLIC AREA SUPERVISOR to popliteal bypass with 8 mm PTFE graft. 3. Left foot ulcer. 4. History of left bimalleolar fracture. 5. Atrial fibrillation. 6. Hypertension. 7. Hyperlipidemia. 8. Coronary artery disease with history of stent placement to unknown coronary anatomy. 9. Probable mild to moderate aortic stenosis by exam. RECOMMENDATIONS: 1. Ms. Costello underwent a vascular surgery as above and will be managed by Dr. Moran. 2. As far as her pacemaker goes, does not appear that there is any dysfunction at this time, it was more that the patient was concerned that it was supposed to be checked yesterday in the outpatient office. This can be done whenever she is discharged. 3. If going back to [place], she can followup with her primary travel freight and passenger agent there, but if moving to this area, she can followup with myself for further pacemaker checks. 4. As far as her atrial fibrillation goes, this appears to be controlled. She will continue on Eliquis 5 mg b.i.d. for anticoagulation. 5. By exam, she has mild to moderate aortic stenosis. She does not believe that she has had an echo done in the outpatient setting by her travel freight and passenger agent, with the pacemaker placement by her travel freight and passenger agent, but I find this overall hard to believe. Once again, if she follows up with her travel freight and passenger agent this can be done in the outpatient setting. There are no acute reasons at this time for an echocardiogram and this can be followed up in the outpatient setting whether she has had this before or if she needs a new echocardiogram to evaluate. 6. We will continue to follow with further recommendations based on the hospital course. Thank you for allowing me to see Sruthi Costello. If there are any questions, please do not hesitate to call. Danie Powers DO VGP/TL , 03:27 PM , 04:15 PM
--- NOTE | 2018-01-07 16:26 | RADRPT ---
EXAM DATE/TIME: 01/07/2018 16:02 [facility] COMPARISON: ANKLE LEFT LIMITED (AP&LAT), December 25, 2017, 16:59. INDICATIONS : Evaluate fracture. Post surgery 13 days ago. MEDICAL HISTORY : Hypothyroidism. Hypercholesterolemia. Hypertension. Congestive heart failure. Neuropathy. Coronary ar jannet disease. Peripheral arterial disease. Anticoagulant therapy. Afib. Anemia. GERD. SURGICAL HISTORY : Tonsillectomy.Cholecystectomy. Appendectomy.Coronary artery stent. Pacemaker. Back surgery. Left ankl e surgery. Knee surgery. ENCOUNTER: Subsequent ACUITY: 2 weeks PAIN SCORE: 6/10 LOCATION: Left Ankle FINDINGS: 3 views left ankle. Internal fixation hardware again seen in the distal tibia and fibula. Alignment i s anatomic. No acute fracture identified. The previously noted fracture fragment at the posterior mar gin of the distal tibia is not seen on the current exam. Prominent plantar calcaneal spur. CONCLUSION: Internal fixation hardware in the distal tibia and fibula. Near-anatomic alignment. No acute fracture identified. Bernard Sahni MD on January 07, 2018 at 16:22 Board Certified Radiologist. This report was verified electronically.
--- NOTE | 2018-01-07 16:47 | RADRPT ---
EXAM DATE/TIME: 01/07/2018 16:33 [facility] COMPARISON: No previous studies available for comparison. INDICATIONS : Stroke alert, Right sided weakness RADIATION DOSE: 56.35 CTDIvol (mGy) This report was called by Dr. Sahni to Dr. Pérez at 4: 44pm MEDICAL HISTORY : None SURGICAL HISTORY : None. ENCOUNTER: Initial ACUITY: 1 day PAIN SCALE: Non-responsive LOCATION: cranial TECHNIQUE: Multiple contiguous axial images were obtained of the head. Using automated exposure control and adj ustment of the mA and/or kV according to patient size, radiation dose was kept as low as reasonably a chievable to obtain optimal diagnostic quality images. DICOM format image data is available electro nically for review and comparison. FINDINGS: CEREBRUM: The ventricles are normal for age. No evidence of midline shift, mass lesion, hemorrhage, or infarct ion . No extra-axial fluid collections are seen. POSTERIOR FOSSA: The cerebellum and brainstem are intact. The 4th ventricle is midline. The cerebellopontine angle i s unremarkable. EXTRACRANIAL: The visualized portion of the orbits is intact. SKULL: The calvaria is intact. No evidence of skull fracture. CONCLUSION: No acute intracranial findings. Bernard Sahni MD on January 07, 2018 at 16:41 Board Certified Radiologist. This report was verified electronically.
[2018-01-07 17:13] LABS: AUTOMATED NEUTROPHIL # 7.8 TH/MM3 (1.8-7.7); BASOPHIL # 0.1 TH/MM3 (0-0.2); BASOPHIL % 0.8 % (0.0-2.0); EOSINOPHIL # 0.1 TH/MM3 (0-0.4); EOSINOPHIL % 0.6 % (0.0-4.0); HEMATOCRIT 27.6 % (35.0-46.0); HEMOGLOBIN 8.7 GM/DL (11.6-15.3); LYMPH % 13.8 % (9.0-44.0); LYMPHOCYTE # 1.4 TH/MM3 (1.0-4.8); MEAN CELL VOLUME 78.8 FL (80.0-100.0); MEAN CORPUSCULAR HEMOGLOBIN 24.7 PG (27.0-34.0); MEAN CORPUSCULAR HGB CONC 31.3 % (32.0-36.0); MEAN PLATELET VOLUME 8.6 FL (7.0-11.0); MONO % 9.4 % (0.0-8.0); NEUT % 75.4 % (16.0-70.0); PLATELET COUNT 345 TH/MM3 (150-450); RED BLOOD COUNT 3.51 MIL/MM3 (4.00-5.30); RED CELL DISTRIBUTION WIDTH 17.9 % (11.6-17.2); WHITE BLOOD COUNT 10.4 TH/MM3 (4.0-11.0)
--- NOTE | 2018-01-07 17:27 | RADRPT ---
EXAM DATE/TIME: 01/07/2018 16:48 [facility] COMPARISON: No previous studies available for comparison. INDICATIONS : Right arm weakness IV CONTRAST: 70 cc Omnipaque 350 (iohexol) IV ; Cumulative dose for multiple exams. RADIATION DOSE: 9.84 CTDIvol (mGy) ; Combined studies MEDICAL HISTORY : Unable to obtain SURGICAL HISTORY : Artery surgery on left leg ENCOUNTER: Initial ACUITY: 1 day PAIN SCALE: 0/10 LOCATION: cranial TECHNIQUE: Volumetric scanning was performed using a multi-row detector CT scanner. The data was post processed with a variety of visualization algorithms including full volume maximum intensity projection, multi -planar sliding thin slab reformation, curved planar reformation, and surface rendering techniques. Using automated exposure control and adjustment of the mA and/or kV according to patient size, radiat ion dose was kept as low as reasonably achievable to obtain optimal diagnostic quality images. DICO M format image data is available electronically for review and comparison. FINDINGS: There is excellent visualization of the major intracranial arteries out to the second-order branch ve ssels. There is no evidence for aneurysm, vessel truncation or stenosis, and no evidence for vascula r malformation. Anatomic variant of the standing rock of [place]. Markedly atretic or absent right P1 segment with the right posterior cerebral artery supplied predominantly by the right posterior communicating artery. Left po sterior commuting artery is extremely diminutive as is the anterior artery CONCLUSION: 1. Intracranial vessels are all patent without embolic event to explain current clinical symptoms. No aneurysmal disease. 2. Anatomic variant of the standing rock of Ray[place] as detailed above. 3. Results were called to Dr. Coto at the time of this dictation Octavio Bravo MD on January 07, 2018 at 17:20 Board Certified Radiologist. This report was verified electronically.
[2018-01-07] MEDS ORDERED: IOHEXOL 350 MG/ML 10 ML VIAL (for RAD DIAG) IVCONTRAST ONE (17:32)
[2018-01-07 17:44] LABS: INTERNATIONAL NORMALIZED RATIO 1.3 RATIO; PROTHROMBIN TIME - PATIENT 12.7 SEC (9.8-11.6); TROPONIN I 0.21 NG/ML (0.02-0.05)
--- NOTE | 2018-01-07 17:52 | RADRPT ---
EXAM DATE/TIME: 01/07/2018 16:48 [facility] COMPARISON: No previous studies available for comparison. INDICATIONS : Right side weakness IV CONTRAST: 70 cc Omnipaque 350 (iohexol) IV ; Cumulative dose for multiple exams. RADIATION DOSE: 9.84 CTDIvol (mGy) ; Combined studies MEDICAL HISTORY : Unable to obtain SURGICAL HISTORY : Artery surgery left leg ENCOUNTER: Initial ACUITY: 1 day PAIN SCALE: 0/10 LOCATION: CTA neck Elevated flow velocities and ICA/CCA ratios have been found to correlate with increased degrees of vessel stenosis, calculated as percentage of diameter relative to a normal segment of distal ICA/CCA. TECHNIQUE: Volumetric scanning was performed using a multirow detector CT scanner. The data was post processed with a variety of visualization algorithms including full-volume maximum intensity projection, multip lanar sliding thin-slab reformation, curved-planar reformation, and surface-rendering techniques. Us ing automated exposure control and adjustment of the mA and/or kV according to patient size, radiatio n dose was kept as low as reasonably achievable to obtain optimal diagnostic quality images. DICOM f ormat image data is available electronically for review and comparison. FINDINGS: AORTIC ARCH: There is a three-vessel origin of the great vessels from the aorta. Scattered atherosclerotic calcifi cation of the arch but no evidence of ostial narrowing. RIGHT CAROTID: The common carotid artery is intact. Some calcification of the bulb extending up into the internal wi th no significant stenosis. The external carotid artery is intact. LEFT CAROTID: The common carotid artery is intact. Some calcification of the bulb extending up into the internal wi th no significant stenosis. The external carotid artery is intact. VERTEBRALS: The vertebral arteries have a symmetric diameter. No stenotic lesions are seen. CONCLUSION: 1. Scattered vascular calcification in the arch and both carotid bulbs with no significant stenosis. 2. Vertebral arteries are symmetric. Octavio Bravo MD on January 07, 2018 at 17:45 Board Certified Radiologist. This report was verified electronically.
[2018-01-07] MEDS: ENOXAPARIN SODIUM 30 MG/0.3 ML SYRINGE SQ SCH (18:12)
--- NOTE | 2018-01-07 18:42 | PD.CONS ---
History of Present Illness Service Neurology Consult Requested By vascular surgery Reason for Consult stroke alert Primary Care Physician No Primary Care Physician History of Present Illness 82-year-old female with afib, s/p left fem-pop bypass who developed sudden dyspnea with O2 desats to 71%, twitching and speech changes per rn. she was placed on O2 sent for ct scan. her symptoms have improved. has been receiving opiates for pain. her eliquis has been held due to surgery and scheduled to be placed back on tonight. currently, denies any hx of tia/stroke/dyspnea/cp/vision loss/focal weakness. no hilton. cta's no LVO. ct brain naicp. Review of Systems Except as stated in HPI: all other systems reviewed are Neg Past Family Social History Past Medical History Atrial fibrillation anticoagulated on Eliquis Hypertension Hyperlipidemia Hypothyroidism CAD CHF Past Surgical History Pacemaker placement for bradycardia Left knee replacement Left tib/fib repair L3 to L5 fusion Right Achilles repair Reported Medications Reported Meds & Active Scripts Active reviewed per mar Allergies: Coded Allergies: Tetracyclic Antidepressants (Verified Allergy, Unknown, Hives, 12/25/17) Family History Both parents with diabetes mellitus Social History Remote history of tobacco. Occasional alcohol. Denies illicit drugs. Review of Systems All other ROS: ROS reviewed as documented in chart Past Family Social History Allergies: Coded Allergies: tetracycline (Verified Allergy, Intermediate, ulcerations to palm and hands, 01/06/18) Tetracyclic Antidepressants (Verified Allergy, Unknown, Hives, 12/25/17) Active Ordered Medications Current Medications Medications (Trade) Dose Ordered Sig/Temitope Route Start Time Stop Time Status Last Admin Lactated Ringer's 1,000 ml @ 30 mls/hr Q24H PRN IV 01/06/18 12:00 01/09/18 11:59 01/06/18 12:35 Sodium Chloride 500 ml @ 30 mls/hr [id number] PRN IV 01/06/18 12:00 01/09/18 11:59 (Lopressor) 25 mg LEAD CARE MANAGER PRN PO 01/06/18 12:00 01/09/18 11:59 01/06/18 12:45 (Betadine 5% Antisepsis Kit) 1 applic LEAD CARE MANAGER PRN EACH NARE 01/06/18 12:00 01/09/18 11:59 01/06/18 12:34 (Chlorhexidine 2% Cloth) 3 pack LEAD CARE MANAGER PRN TOPICAL 01/06/18 12:00 01/09/18 11:59 01/06/18 11:30 (NovoLIN R INJ) See Protocol Table ... LEAD CARE MANAGER PRN SQ 01/06/18 12:00 01/09/18 11:59 (Aspirin Chew) 81 mg DAILY PO 01/07/18 09:00 01/07/18 08:22 (Pepcid) 20 mg BID PO 01/06/18 21:00 01/07/18 08:26 (Lipitor) 40 mg HS PO 01/06/18 21:00 01/06/18 21:00 (Roxicodone) 5 mg Q4H PRN PO 01/06/18 17:30 01/07/18 08:25 (Dilaudid) 2 mg Q4H PRN PO 01/06/18 17:30 01/06/18 19:48 (Lovenox Inj) 30 mg Q24H SQ 01/07/18 17:00 01/07/18 18:12 (Nirali-Colace) 1 tab BID PO 01/06/18 21:00 01/07/18 08:25 (Milk Of Magnesia Liq) 30 ml Q12H PRN PO 01/06/18 17:30 (Senokot) 17.2 mg Q12H PRN PO 01/06/18 17:30 (Dulcolax Supp) 10 mg DAILY PRN RECTAL 01/06/18 17:30 (Lactulose Liq) 30 ml DAILY PRN PO 01/06/18 17:30 (Norvasc) 10 mg DAILY PO 01/07/18 09:00 01/07/18 11:12 (Colace) 100 mg HS PO 01/06/18 21:00 01/06/18 21:00 (Neurontin) 300 mg DAILY PO 01/07/18 09:00 01/07/18 08:24 (Neurontin) 600 mg HS PO 01/06/18 21:00 01/06/18 21:00 (Synthroid) 150 mcg DAILY@0600 PO 01/07/18 06:00 (Lopressor) 50 mg BID PO 01/06/18 21:00 01/07/18 08:26 (KCl) 10 meq DAILY PO 01/07/18 09:00 01/07/18 08:25 (Demadex) 20 mg DAILY PO 01/07/18 09:00 01/07/18 08:25 (Prinivil) 40 mg BID PO 01/06/18 21:00 01/07/18 08:23 (Eliquis) 5 mg BID PO 01/07/18 21:00 Exam I&O / VS 01/07/18 01/07/18 01/08/18 15:00 23:00 07:00 Intake Total 460 ml Output Total 900 ml Balance -440 ml Intake Oral 460 ml Output Urine Total 900 ml # Bowel Movements 0 Vital Signs Date Time Temp Pulse Resp B/P (MAP) Pulse Ox O2 Delivery O2 Flow Rate FiO2 01/07/18 17:33 77 01/07/18 16:15 92 Nasal Cannula 3.00 01/07/18 15:00 99.6 01/07/18 15:00 73 01/07/18 11:00 99.8 73 18 140/64 (89) 92 01/07/18 11:00 64 01/07/18 10:02 20 01/07/18 08:00 99.9 80 16 129/60 (83) 96 01/07/18 07:00 60 01/07/18 03:00 64 01/07/18 03:00 98.2 63 18 99/48 (65) 99 01/06/18 23:00 74 01/06/18 23:00 98.6 64 20 134/51 (78) 98 01/06/18 19:00 98.4 74 18 182/76 (111) 99 General: Alert and Oriented, No acute distress Respiratory: Non-labored respirations Neurologic: Alert, Oriented, CN II-XII intact, Normal DTR's Psychiatric: Cooperative, Appropriate mood & affect Exam Comments alerts, ox 3. occasional dysnomia, pres Trump, able to recollect recent medical events, eomi, no neglect, face sym, ou 3-2mm, [place] to gravity, left le bandaged Review/Management Diagnosis/Plan: (1) Hypoxia ICD Codes: R09.02 - Hypoxemia Status: Acute Plan: vascular surgery to further evaluate; is receiving opiates OAC is being resumed tonight this could have been cause of decompensation (2) TIA (transient ischemic attack) ICD Codes: G45.9 - Transient cerebral ischemic attack, unspecified Status: Acute Plan: possible tia vs acute hypoxia 2/2 opiods recs resume eliquis would d/c dilaudid limit opiods f/u eeg (3) Afib ICD Codes: I48.91 - Unspecified atrial fibrillation Plan: cardio following (4) Pacemaker ICD Codes: Z95.0 - Presence of cardiac pacemaker Status: Chronic Plan: cardio following Problem Qualifiers (1) Afib: Qualified Codes: I48.2 - Chronic atrial fibrillation Paul Coto MD Jan 07, 2018 18:42
[2018-01-07] MEDS: DOCUSATE SODIUM 100 MG CAP PO SCH (20:46)
[2018-01-07] MEDS: APIXABAN 5 MG TABLET PO SCH (20:47)
[2018-01-07] MEDS: ATORVASTATIN 40 MG TAB PO SCH (20:47)
[2018-01-08] VITALS (22 sets, daily range): BP systolic 94–132; BP diastolic 49–59; PULSE 56–86; RESP 12–20; TEMP 99.6–100.6; O2SAT 93–98
[2018-01-08] MEDS: LACTATED RINGER'S 1000 ML INJ 1,000 ML IV SCH ×2 (02:00→17:22)
[2018-01-08] MEDS: LEVOTHYROXINE SODIUM 150 MCG TAB PO SCH (05:40)
[2018-01-08] MEDS: LISINOPRIL 20 MG TAB PO SCH (09:00)
--- NOTE | 2018-01-08 09:04 | EKG ---
Date Performed: 01/07/2018 Time Performed: 18:03:56 PTAGE: 82 years EKG: Atrial fibrillation with PVC(s) --- Suspect arm lead reversal - only aVF, V1-V6 analyzed -- - IV conduction defect Extensive ST-T changes suggest myocardial infarct Low QRS voltages in precordi al leads Abnormal ECG PREVIOUS TRACING : 01/06/2018 12.01 DOCTOR: Francis Montana Interpretating Date/Time 01/08/2018 09:03:34
[2018-01-08] MEDS: FAMOTIDINE 20 MG TAB PO SCH ×2 (09:47→20:13)
[2018-01-08] MEDS: APIXABAN 5 MG TABLET PO SCH ×2 (09:47→20:12)
[2018-01-08] MEDS: ASPIRIN 81 MG CHEW TAB PO SCH (09:47)
[2018-01-08] MEDS: TORSEMIDE 20 MG TAB PO SCH (09:47)
--- NOTE | 2018-01-08 09:47 | PD.VS.PN ---
Subjective POD #: 2 Procedure(s): L groin reconstruction and fem-AK pop bypass Subjective/Hospital Course Afebrile 82/F Pt A&OX3 Pt S/P Left groin reconstruction/ Fem-AK pop bypass On 10/09/17 around 1600 pt was found to have dyspnea with O2 Sats in the 70's ( pt was immediately placed on 02) Nurse reported pt was twitching and had developed a new onset of speech changes Stroke alert was called Pt's symptoms resolved shortly after alert was called This am pt is alert w/o any neurological deficits Pt denied headache Pt without unilateral weakness or speech deficit Pt does however endorse post operative L LE groin discomfort Pt c/o difficulty urinating post cath removal Objective Vitals/I&O Date Time Temp Pulse Resp B/P (MAP) Pulse Ox O2 Delivery O2 Flow Rate FiO2 01/08/18 09:00 61 01/08/18 08:00 74 01/08/18 07:00 100.1 68 19 112/56 (74) 94 01/08/18 07:00 60 01/08/18 06:00 60 01/08/18 05:00 62 01/08/18 04:00 60 01/08/18 03:00 58 01/08/18 03:00 99.9 80 12 110/56 (74) 93 01/08/18 02:00 56 01/08/18 01:00 82 01/08/18 00:00 60 01/07/18 23:00 100.6 63 12 106/52 (70) 95 01/07/18 23:00 59 01/07/18 22:00 60 01/07/18 21:17 94 Nasal Cannula 2.00 01/07/18 21:00 64 01/07/18 20:00 62 01/07/18 19:00 64 01/07/18 19:00 100.0 65 12 111/54 (73) 95 01/07/18 17:33 77 01/07/18 16:15 92 Nasal Cannula 3.00 01/07/18 15:00 99.6 01/07/18 15:00 73 01/07/18 11:00 99.8 73 18 140/64 (89) 92 01/07/18 11:00 64 01/07/18 10:02 20 01/08/18 01/08/18 01/08/18 07:00 15:00 23:00 Intake Total 657 ml Output Total 550 ml Balance 107 ml Exam: GENERAL: A&OX3,NAD,GCS 15 SKIN: LE Warm and dry w/ motor intact Incision to Left LE intact w/o R/D/S/O Prevena wound vac intact to Left groin w/o swelling or hematoma Dressing to L LE I/C/D Laboratory Laboratory Tests Test 01/07/18 16:45 01/07/18 21:10 01/07/18 22:36 01/08/18 04:40 White Blood Count 10.4 Red Blood Count 3.51 Hemoglobin 8.7 Bedside Hemoglobin 9.9 Hematocrit 27.6 Bedside Hematocrit 29.0 Mean Corpuscular Volume 78.8 Mean Corpuscular Hemoglobin 24.7 Mean Corpuscular Hemoglobin Concent 31.3 Red Cell Distribution Width 17.9 Platelet Count 345 Mean Platelet Volume 8.6 Neutrophils (%) (Auto) 75.4 Lymphocytes (%) (Auto) 13.8 Monocytes (%) (Auto) 9.4 Eosinophils (%) (Auto) 0.6 Basophils (%) (Auto) 0.8 Neutrophils # (Auto) 7.8 Lymphocytes # (Auto) 1.4 Monocytes # (Auto) 1.0 Eosinophils # (Auto) 0.1 Basophils # (Auto) 0.1 CBC Comment DIFF FINAL Differential Comment Prothrombin Time 12.7 Prothromb Time International Ratio 1.3 Activated Partial Thromboplast Time 30.6 Fibrinogen 499 Bedside Sodium 135 Bedside Potassium 4.3 Bedside Chloride 96 Bedside Blood Urea Nitrogen 14 Bedside Creatinine 0.9 Bedside Glucose 129 Total Creatine Kinase 128 Troponin I 0.21 0.17 0.13 Blood Gas Puncture Site LT RADIAL Blood Gas Patient Temperature 98.6 Blood Gas HCO3 29 Blood Gas Base Excess 4.9 Blood Gas Oxygen Saturation 92 Arterial Blood pH 7.45 Arterial Blood Partial Pressure CO2 42 Arterial Blood Partial Pressure O2 73 Arterial Blood Oxygen Content 10.7 Arterial Blood Carboxyhemoglobin 2.1 Arterial Blood Methemoglobin 1.3 Blood Gas Hemoglobin 8.2 Oxygen Delivery Device NASAL CANNULA Blood Gas Liter Flow 1 Assessment and Plan Assessment: (1) PAD (peripheral artery disease) (2) TIA (transient ischemic attack) Status: Acute (3) Hypoxia Status: Acute Plan POD#2 s/p L groin reconstruction and bypass S/P stoke alert Pt w/o any neurological deficits Reviewed imaging/lab reports LE warm with motor intact Plan If pt unable to void in 2 hours, reinsert Reynolds cath Continue PT/OOB Continue wound care per podiatry D/C Joanna Continue anticoagulation therapy (Eliquis) Ashley Starr NP [facility] [phone] Discharge Planning 2-3 days to rehab; case management consulted Ashley Starr Jan 08, 2018 09:47
[2018-01-08] MEDS: POTASSIUM CHLORIDE 10 MEQ CONTROLLED RELEASE TAB PO SCH (09:48)
[2018-01-08] MEDS: DOCUSATE SODIUM 50 MG/SENNA 8.6 MG TAB PO SCH ×2 (09:48→20:13)
[2018-01-08] MEDS: GABAPENTIN 300 MG CAP PO SCH ×2 (09:48→20:13)
[2018-01-08] MEDS: METOPROLOL TARTRATE 50 MG TAB PO SCH ×2 (09:49→20:13)
--- NOTE | 2018-01-08 14:53 | MG ---
cc: Arthur Cunningham MD, PhD TEST NUMBER: [id number] TECHNIQUE: This is a 17-channel EEG. DESCRIPTION: The background rhythm shows initially a symmetrical alpha rhythm, frequency of 8 Hz. During drowsiness, there is slowing in the theta range at 6 Hz. This is maintained throughout the rest of the tracing. Occasional muscle artifact identified. There are no epileptiform features present. Photic stimulation results in a modest driving response. INTERPRETATION: Abnormal study consistent with mild to moderate encephalopathy, given the mild degree of slowing. Arthur Cunningham MD, PhD TELMA/SB , 02:40 PM , 02:53 PM
[2018-01-08] MEDS: ENOXAPARIN SODIUM 30 MG/0.3 ML SYRINGE SQ SCH (17:22)
--- NOTE | 2018-01-08 18:21 | PD.POD ---
Subjective Podiatric Problems Ankle xrays evaluated, increased cancellous and cortical bone healing noted across fracture lines. If the patient can comfortable ambulate in a CAM boot, and there is no rubbing or irritation to the eschars she may begin to WB in a CAM boot. The eschars will still need to be well padded and wrapped to insure no friction or irritation. If the CAM boot shows any signs of aggravating the skin she will need to remain NWbing in the posterior splint. Past Med/Surg/Social History Social History Smoking Status: Former Smoker Objective Vital Signs Vital Signs Date Time Temp Pulse Resp B/P (MAP) Pulse Ox O2 Delivery O2 Flow Rate FiO2 01/08/18 18:00 86 01/08/18 17:34 98 Nasal Cannula 2.00 01/08/18 17:00 73 01/08/18 16:00 62 01/08/18 15:00 66 01/08/18 15:00 100.5 70 19 97/49 (65) 98 01/08/18 14:00 61 01/08/18 13:00 73 01/08/18 12:00 64 01/08/18 11:00 99.6 68 20 94/54 (67) 95 01/08/18 11:00 59 01/08/18 11:00 20 01/08/18 10:00 65 01/08/18 09:00 61 01/08/18 08:00 74 01/08/18 07:00 100.1 68 19 112/56 (74) 94 01/08/18 07:00 60 01/08/18 06:00 60 01/08/18 05:00 62 01/08/18 04:00 60 01/08/18 03:00 58 01/08/18 03:00 99.9 80 12 110/56 (74) 93 01/08/18 02:00 56 01/08/18 01:00 82 01/08/18 00:00 60 01/07/18 23:00 100.6 63 12 106/52 (70) 95 01/07/18 23:00 59 01/07/18 22:00 60 01/07/18 21:17 94 Nasal Cannula 2.00 01/07/18 21:00 64 01/07/18 20:00 62 01/07/18 19:00 64 01/07/18 19:00 100.0 65 12 111/54 (55) 68 Coded Allergies: tetracycline (Verified Allergy, Intermediate, ulcerations to palm and hands, 01/06/18) Tetracyclic Antidepressants (Verified Allergy, Unknown, Hives, 12/25/17) Montse May DPM Jan 08, 2018 18:20
[2018-01-08] MEDS: ATORVASTATIN 40 MG TAB PO SCH (20:13)
[2018-01-08] MEDS: DOCUSATE SODIUM 100 MG CAP PO SCH (20:13)
--- NOTE | 2018-01-08 21:37 | PD.CARD.PN ---
Subjective Subjective Remarks Patient was seen this afternoon, late entry note Events yesterday noted Today, awake with no complaints Objective Medications Current Medications Medications (Trade) Dose Ordered Sig/Temitope Route Start Time Stop Time Status Last Admin Lactated Ringer's 1,000 ml @ 30 mls/hr Q24H PRN IV 01/06/18 12:00 01/09/18 11:59 01/06/18 12:35 Sodium Chloride 500 ml @ 30 mls/hr [id number] PRN IV 01/06/18 12:00 01/09/18 11:59 (Lopressor) 25 mg BOOM BOSS PRN PO 01/06/18 12:00 01/09/18 11:59 01/06/18 12:45 (Betadine 5% Antisepsis Kit) 1 applic BOOM BOSS PRN EACH NARE 01/06/18 12:00 01/09/18 11:59 01/06/18 12:34 (Chlorhexidine 2% Cloth) 3 pack BOOM BOSS PRN TOPICAL 01/06/18 12:00 01/09/18 11:59 01/06/18 11:30 (NovoLIN R INJ) See Protocol Table ... BOOM BOSS PRN SQ 01/06/18 12:00 01/09/18 11:59 (Aspirin Chew) 81 mg DAILY PO 01/07/18 09:00 01/08/18 09:47 (Pepcid) 20 mg BID PO 01/06/18 21:00 01/08/18 20:13 (Lipitor) 40 mg HS PO 01/06/18 21:00 01/08/18 20:13 (Roxicodone) 5 mg Q4H PRN PO 01/06/18 17:30 01/08/18 20:14 (Lovenox Inj) 30 mg Q24H SQ 01/07/18 17:00 01/08/18 17:22 (Nirali-Colace) 1 tab BID PO 01/06/18 21:00 01/08/18 20:13 (Milk Of Magnesia Liq) 30 ml Q12H PRN PO 01/06/18 17:30 (Senokot) 17.2 mg Q12H PRN PO 01/06/18 17:30 (Dulcolax Supp) 10 mg DAILY PRN RECTAL 01/06/18 17:30 (Lactulose Liq) 30 ml DAILY PRN PO 01/06/18 17:30 (Norvasc) 10 mg DAILY PO 01/07/18 09:00 01/08/18 09:48 (Colace) 100 mg HS PO 01/06/18 21:00 01/08/18 20:13 (Neurontin) 300 mg DAILY PO 01/07/18 09:00 01/08/18 09:48 (Neurontin) 600 mg HS PO 01/06/18 21:00 01/08/18 20:13 (Synthroid) 150 mcg DAILY@0600 PO 01/07/18 06:00 01/08/18 05:40 (Lopressor) 50 mg BID PO 01/06/18 21:00 01/08/18 20:13 (KCl) 10 meq DAILY PO 01/07/18 09:00 01/08/18 09:48 (Demadex) 20 mg DAILY PO 01/07/18 09:00 01/08/18 09:47 (Eliquis) 5 mg BID PO 01/07/18 21:00 01/08/18 20:12 Lactated Ringer's 1,000 ml @ 63 mls/hr [id number] IV 01/08/18 02:00 01/08/18 17:22 (Prinivil) 40 mg DAILY PO 01/09/18 09:00 Vital Signs / I&O Vital Signs Date Time Temp Pulse Resp B/P (MAP) Pulse Ox O2 Delivery O2 Flow Rate FiO2 01/08/18 18:00 86 01/08/18 17:34 98 Nasal Cannula 2.00 01/08/18 17:00 73 01/08/18 16:00 62 01/08/18 15:00 66 01/08/18 15:00 100.5 70 19 97/49 (65) 98 01/08/18 14:00 61 01/08/18 13:00 73 01/08/18 12:00 64 01/08/18 11:00 99.6 68 20 94/54 (67) 95 01/08/18 11:00 59 01/08/18 11:00 20 01/08/18 10:00 65 01/08/18 09:00 61 01/08/18 08:00 74 01/08/18 07:00 100.1 68 19 112/56 (74) 94 01/08/18 07:00 60 01/08/18 06:00 60 01/08/18 05:00 62 01/08/18 04:00 60 01/08/18 03:00 58 01/08/18 03:00 99.9 80 12 110/56 (74) 93 01/08/18 02:00 56 01/08/18 01:00 82 01/08/18 00:00 60 01/07/18 23:00 100.6 63 12 106/52 (70) 95 01/07/18 23:00 59 01/07/18 22:00 60 I/O 01/07/18 01/07/18 01/07/18 01/08/18 01/08/18 01/08/18 07:00 15:00 23:00 07:00 15:00 23:00 Intake Total 480 ml 460 ml 657 ml 820 ml Output Total 400 ml 900 ml 550 ml 500 ml Balance 80 ml -440 ml 107 ml 320 ml Intake Oral 480 ml 460 ml 480 ml 360 ml IV Total 177 ml 460 ml Output Urine Total 400 ml 900 ml 550 ml 500 ml Bladder Scan Volume Amount 300 ml # Bowel Movements 0 0 0 Physical Exam GENERAL: NAD, AAOx3 SKIN: Warm and dry. HEAD: Atraumatic. Normocephalic. EYES: Pupils equal and round. No scleral icterus. No injection or drainage. ENT: No nasal bleeding or discharge. Mucous membranes pink and moist. NECK: Trachea midline. No JVD. CARDIOVASCULAR: Regular rate and rhythm. PPM left chest wall RESPIRATORY: No accessory muscle use. Clear to auscultation. Breath sounds equal bilaterally. GASTROINTESTINAL: Abdomen soft, non-tender, nondistended. Hepatic and splenic margins not palpable. MUSCULOSKELETAL: Extremities without clubbing, cyanosis, or edema. No obvious deformities. NEUROLOGICAL: Awake and alert. No obvious cranial nerve deficits. Motor grossly within normal limits. Five out of 5 muscle strength in the arms and legs. Normal speech. PSYCHIATRIC: Appropriate mood and affect; insight and judgment normal. Laboratory Laboratory Tests Test 01/07/18 22:36 01/08/18 04:40 Troponin I 0.17 NG/ML 0.13 NG/ML Assessment and Plan Problem List: (1) PAD (peripheral artery disease) ICD Codes: I73.9 - Peripheral vascular disease, unspecified (2) Afib ICD Codes: I48.91 - Unspecified atrial fibrillation (3) Pacemaker ICD Codes: Z95.0 - Presence of cardiac pacemaker Status: Chronic (4) TIA (transient ischemic attack) ICD Codes: G45.9 - Transient cerebral ischemic attack, unspecified Status: Acute (5) Hypoxia ICD Codes: R09.02 - Hypoxemia Status: Acute Assessment and Plan 1) PAD s/p Left profunda endarterectomy and patch angioplasty with left PROCESS DEVELOPMENT MANAGER fem- pop bypass with an 8 mm PTFE graft. 2) Questionable TIA vs over-medicated hypoxia Evaluated by neurology 3) Minimal troponin spill Decreasing Atypical for ND, no symptoms... Most likely Type 2 troponin spill secondary to hypoxia Would not work up further at this time, no sings of ACS, and especially if concern for TIA 4) Patient concern for PPM Suppose to have it check later this week by her dope weigh operator Discussed with patient, ok to reschedule in the next few weeks No dysfunction noted on telemetry 5) Afib Eliquis 5mg BID 6) Mild to moderate No concern at this time, can be worked up in the outpatient setting Problem Qualifiers (1) Afib: Qualified Codes: I48.2 - Chronic atrial fibrillation Danie Powers DO Jan 08, 2018 21:37
[2018-01-09] VITALS (19 sets, daily range): BP systolic 116–163; BP diastolic 55–62; PULSE 60–84; RESP 16–20; TEMP 98.7–99.4; O2SAT 93–98
[2018-01-09] MEDS: LEVOTHYROXINE SODIUM 150 MCG TAB PO SCH (05:27)
[2018-01-09] MEDS: DOCUSATE SODIUM 50 MG/SENNA 8.6 MG TAB PO SCH ×2 (09:46→21:18)
[2018-01-09] MEDS: TORSEMIDE 20 MG TAB PO SCH (09:46)
[2018-01-09] MEDS: POTASSIUM CHLORIDE 10 MEQ CONTROLLED RELEASE TAB PO SCH (09:47)
[2018-01-09] MEDS: METOPROLOL TARTRATE 50 MG TAB PO SCH ×2 (09:47→21:19)
[2018-01-09] MEDS: GABAPENTIN 300 MG CAP PO SCH ×2 (09:47→21:18)
[2018-01-09] MEDS: APIXABAN 5 MG TABLET PO SCH ×2 (09:47→21:18)
[2018-01-09] MEDS: FAMOTIDINE 20 MG TAB PO SCH ×2 (09:48→21:18)
[2018-01-09] MEDS: LISINOPRIL 20 MG TAB PO SCH (09:48)
[2018-01-09] MEDS: ASPIRIN 81 MG CHEW TAB PO SCH (09:49)
--- NOTE | 2018-01-09 11:34 | PD.VS.PN ---
Subjective POD #: 3 Procedure(s): L groin reconstruction and fem-AK pop bypass Subjective/Hospital Course Pt looks great this morning; OOB TC and she says that she "feels like herself" again. voiding benny po pain controlled foot ok Objective Vitals/I&O Date Time Temp Pulse Resp B/P (MAP) Pulse Ox O2 Delivery O2 Flow Rate FiO2 01/09/18 06:00 62 01/09/18 04:00 99.1 70 20 125/60 (81) 97 01/09/18 04:00 70 01/09/18 02:00 66 01/09/18 00:00 99.4 81 20 163/60 (94) 96 01/09/18 00:00 81 01/08/18 22:00 62 01/08/18 20:00 100.6 82 20 132/59 (83) 96 01/08/18 20:00 82 01/08/18 18:00 86 01/08/18 17:34 98 Nasal Cannula 2.00 01/08/18 17:00 73 01/08/18 16:00 62 01/08/18 15:00 66 01/08/18 15:00 100.5 70 19 97/49 (65) 98 01/08/18 14:00 61 01/08/18 13:00 73 01/08/18 12:00 64 01/09/18 01/09/18 01/09/18 07:00 15:00 23:00 Intake Total 300 ml Balance 300 ml Exam: L leg warm foot wrapped Incisions: L AK incision ok Assessment and Plan Assessment: (1) PAD (peripheral artery disease) (2) TIA (transient ischemic attack) Status: Acute (3) Hypoxia Status: Acute Plan POD#3 s/p L groin reconstruction and bypass Looks great 1. HL IVF 2. OOB/PT 3. Dry dressing to foot and will arrange f/u with podiatry 4. Appreciate cardiology assistance Discharge Planning tomorrow to rehab D/C CVL prior to discharge Wilmer Moran MD Jan 09, 2018 11:34
--- NOTE | 2018-01-09 11:50 | PD.CARD.PN ---
Subjective Subjective Remarks Feels herself today No complaints Objective Medications Current Medications Medications (Trade) Dose Ordered Sig/Temitope Route Start Time Stop Time Status Last Admin Sodium Chloride 500 ml @ 30 mls/hr [id number] PRN IV 01/06/18 12:00 01/09/18 11:59 (Lopressor) 25 mg SOCK FOLDER PRN PO 01/06/18 12:00 01/09/18 11:59 01/06/18 12:45 (Betadine 5% Antisepsis Kit) 1 applic SOCK FOLDER PRN EACH NARE 01/06/18 12:00 01/09/18 11:59 01/06/18 12:34 (Chlorhexidine 2% Cloth) 3 pack SOCK FOLDER PRN TOPICAL 01/06/18 12:00 01/09/18 11:59 01/06/18 11:30 (NovoLIN R INJ) See Protocol Table ... SOCK FOLDER PRN SQ 01/06/18 12:00 01/09/18 11:59 (Aspirin Chew) 81 mg DAILY PO 01/07/18 09:00 01/09/18 09:49 (Pepcid) 20 mg BID PO 01/06/18 21:00 01/09/18 09:48 (Lipitor) 40 mg HS PO 01/06/18 21:00 01/08/18 20:13 (Roxicodone) 5 mg Q4H PRN PO 01/06/18 17:30 01/08/18 20:14 (Lovenox Inj) 30 mg Q24H SQ 01/07/18 17:00 01/08/18 17:22 (Nirali-Colace) 1 tab BID PO 01/06/18 21:00 01/09/18 09:46 (Milk Of Magnesia Liq) 30 ml Q12H PRN PO 01/06/18 17:30 (Senokot) 17.2 mg Q12H PRN PO 01/06/18 17:30 (Dulcolax Supp) 10 mg DAILY PRN RECTAL 01/06/18 17:30 (Lactulose Liq) 30 ml DAILY PRN PO 01/06/18 17:30 (Norvasc) 10 mg DAILY PO 01/07/18 09:00 01/08/18 09:48 (Colace) 100 mg HS PO 01/06/18 21:00 01/08/18 20:13 (Neurontin) 300 mg DAILY PO 01/07/18 09:00 01/09/18 09:47 (Neurontin) 600 mg HS PO 01/06/18 21:00 01/08/18 20:13 (Synthroid) 150 mcg DAILY@0600 PO 01/07/18 06:00 01/09/18 05:27 (Lopressor) 50 mg BID PO 01/06/18 21:00 01/09/18 09:47 (KCl) 10 meq DAILY PO 01/07/18 09:00 01/09/18 09:47 (Demadex) 20 mg DAILY PO 01/07/18 09:00 01/09/18 09:46 (Eliquis) 5 mg BID PO 01/07/18 21:00 01/09/18 09:47 (Prinivil) 40 mg DAILY PO 01/09/18 09:00 01/09/18 09:48 Vital Signs / I&O Vital Signs Date Time Temp Pulse Resp B/P (MAP) Pulse Ox O2 Delivery O2 Flow Rate FiO2 01/09/18 06:00 62 01/09/18 04:00 99.1 70 20 125/60 (81) 97 01/09/18 04:00 70 01/09/18 02:00 66 01/09/18 00:00 99.4 81 20 163/60 (94) 96 01/09/18 00:00 81 01/08/18 22:00 62 01/08/18 20:00 100.6 82 20 132/59 (83) 96 01/08/18 20:00 82 01/08/18 18:00 86 01/08/18 17:34 98 Nasal Cannula 2.00 01/08/18 17:00 73 01/08/18 16:00 62 01/08/18 15:00 66 01/08/18 15:00 100.5 70 19 97/49 (65) 98 01/08/18 14:00 61 01/08/18 13:00 73 01/08/18 12:00 64 I/O 01/08/18 01/08/18 01/08/18 01/09/18 01/09/18 01/09/18 07:00 15:00 23:00 07:00 15:00 23:00 Intake Total 657 ml 820 ml 300 ml Output Total 550 ml 500 ml Balance 107 ml 320 ml 300 ml Intake Oral 480 ml 360 ml 300 ml IV Total 177 ml 460 ml Output Urine Total 550 ml 500 ml Bladder Scan Volume Amount 300 ml # Voids 2 # Bowel Movements 0 0 Physical Exam GENERAL: NAD, AAOx3 SKIN: Warm and dry. HEAD: Atraumatic. Normocephalic. EYES: Pupils equal and round. No scleral icterus. No injection or drainage. ENT: No nasal bleeding or discharge. Mucous membranes pink and moist. NECK: Trachea midline. No JVD. CARDIOVASCULAR: Regular rate and rhythm. PPM left chest wall RESPIRATORY: No accessory muscle use. Clear to auscultation. Breath sounds equal bilaterally. GASTROINTESTINAL: Abdomen soft, non-tender, nondistended. Hepatic and splenic margins not palpable. MUSCULOSKELETAL: Extremities without clubbing, cyanosis, or edema. No obvious deformities. NEUROLOGICAL: Awake and alert. No obvious cranial nerve deficits. Motor grossly within normal limits. Five out of 5 muscle strength in the arms and legs. Normal speech. PSYCHIATRIC: Appropriate mood and affect; insight and judgment normal. Assessment and Plan Problem List: (1) PAD (peripheral artery disease) ICD Codes: I73.9 - Peripheral vascular disease, unspecified (2) Afib ICD Codes: I48.91 - Unspecified atrial fibrillation (3) Pacemaker ICD Codes: Z95.0 - Presence of cardiac pacemaker Status: Chronic (4) TIA (transient ischemic attack) ICD Codes: G45.9 - Transient cerebral ischemic attack, unspecified Status: Acute (5) Hypoxia ICD Codes: R09.02 - Hypoxemia Status: Acute Assessment and Plan 1) PAD s/p Left profunda endarterectomy and patch angioplasty with left YE[employer] fem- pop bypass with an 8 mm PTFE graft. 2) Questionable TIA vs over-medicated hypoxia Evaluated by neurology 3) Minimal troponin spill Decreasing Atypical for [place], no symptoms... Most likely Type 2 troponin spill secondary to hypoxia Would not work up further at this time, no signs of ACS, and especially if concern for TIA 4) Patient concern for PPM Suppose to have it checked later this week by her oven equipment repairer Discussed with patient, ok to reschedule in the next few weeks No dysfunction noted on telemetry 5) Afib Eliquis 5mg BID 6) Mild to moderate No concern at this time, can be worked up in the outpatient setting 7) No further cardiovascular work up needed at this time Problem Qualifiers (1) Afib: Qualified Codes: I48.2 - Chronic atrial fibrillation Danie Powers DO Jan 09, 2018 11:50
[2018-01-09] MEDS: ENOXAPARIN SODIUM 30 MG/0.3 ML SYRINGE SQ SCH (18:23)
[2018-01-09] MEDS: ATORVASTATIN 40 MG TAB PO SCH (21:18)
[2018-01-09] MEDS: DOCUSATE SODIUM 100 MG CAP PO SCH (21:18)
[2018-01-10] VITALS (8 sets, daily range): BP systolic 111–134; BP diastolic 58–60; PULSE 60–89; RESP 16–20; TEMP 98.6–98.8; O2SAT 89–93
[2018-01-10] MEDS: LEVOTHYROXINE SODIUM 150 MCG TAB PO SCH (05:26)
--- NOTE | 2018-01-10 08:54 | PD.VS.PN ---
Subjective POD #: 4 Procedure(s): L groin reconstruction and fem-AK pop bypass Subjective/Hospital Course looks great working with PT benny po foot ok Objective Vitals/I&O Date Time Temp Pulse Resp B/P (MAP) Pulse Ox O2 Delivery O2 Flow Rate FiO2 01/10/18 08:00 62 01/10/18 07:00 71 01/10/18 07:00 93 Room Air 01/10/18 07:00 98.8 71 16 114/58 (76) 93 01/10/18 04:00 62 01/10/18 04:00 98.8 86 20 134/60 (84) 93 01/10/18 00:00 Nasal Cannula 2.00 01/10/18 00:00 70 01/10/18 00:00 98.6 64 18 128/59 (82) 89 01/09/18 20:33 94 21 01/09/18 20:00 62 01/09/18 20:00 99.4 71 18 122/62 (82) 95 01/09/18 20:00 Room Air 01/09/18 18:00 70 01/09/18 17:00 64 01/09/18 16:00 64 01/09/18 15:30 61 01/09/18 15:30 98.7 61 16 116/56 (76) 95 01/09/18 15:00 60 01/09/18 14:00 60 01/09/18 13:00 68 01/09/18 12:50 93 21 01/09/18 12:00 60 01/09/18 12:00 98.8 84 20 117/55 (75) 98 01/09/18 11:00 68 01/09/18 10:00 80 01/09/18 09:00 62 01/10/18 01/10/18 01/10/18 07:00 15:00 23:00 Intake Total 480 ml Output Total 650 ml Balance -170 ml Exam: L groin incision and lower thigh incision ok +Doppler signal in foot Assessment and Plan Assessment: (1) PAD (peripheral artery disease) (2) TIA (transient ischemic attack) Status: Acute (3) Hypoxia Status: Acute Plan POD#4 s/p L groin reconstruction and bypass Looks great 1. D/C CVL 2. D/C to rehab Discharge Planning today Wilmer Moran MD Jan 10, 2018 08:54
--- NOTE | 2018-01-10 08:59 | PD.VS.DC ---
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 Non palpable pedal pulses. Presents for revascularization in an effort to heal wound. Procedure(s): L groin reconstruction and fem-AK pop bypass Significant Findings Laboratory Tests Test 01/07/18 16:45 01/07/18 21:10 01/07/18 22:36 01/08/18 04:40 Red Blood Count 3.51 MIL/MM3 (4.00-5.30) Hemoglobin 8.7 GM/DL (11.6-15.3) Bedside Hemoglobin 9.9 G/DL (11.6-15.3) Hematocrit 27.6 % (35.0-46.0) Bedside Hematocrit 29.0 % (35.0-46.0) Mean Corpuscular Volume 78.8 FL (80.0-100.0) Mean Corpuscular Hemoglobin 24.7 PG (27.0-34.0) Mean Corpuscular Hemoglobin Concent 31.3 % (32.0-36.0) Red Cell Distribution Width 17.9 % (11.6-17.2) Neutrophils (%) (Auto) 75.4 % (16.0-70.0) Monocytes (%) (Auto) 9.4 % (0.0-8.0) Neutrophils # (Auto) 7.8 TH/MM3 (1.8-7.7) Monocytes # (Auto) 1.0 TH/MM3 (0-0.9) Prothrombin Time 12.7 SEC (9.8-11.6) Activated Partial Thromboplast Time 30.6 SEC (24.3-30.1) Fibrinogen 499 mg/dL (227-377) Bedside Sodium 135 MMOL/L (137-144) Bedside Chloride 96 MMOL/L (102-111) Bedside Glucose 129 MG/DL (68-110) Troponin I 0.21 NG/ML (0.02-0.05) 0.17 NG/ML (0.02-0.05) 0.13 NG/ML (0.02-0.05) Blood Gas HCO3 29 mmol/L (22-26) Blood Gas Base Excess 4.9 mmol/L (-2-2) Arterial Blood pH 7.45 (7.380-7.420) Arterial Blood Oxygen Content 10.7 Vol % (12.0-20.0) Blood Gas Hemoglobin 8.2 G/DL (12.0-16.0) Hospital Course: She was admitted post-operatively after L groin reconstruction and bypass. She did well and then had an episode of confused and R sided weakness. Head CT, CTA and neck CTA all negative. She rapidly returned to normal. By POD#3, she was ambulating with PT, her foot wound was stable and her surgical incisions looked good. She had Doppler signals B LE. Discharge Condition: Good Discharge Disposition: Discharge to [facility] Any questions or concerns: Call [facility] [phone] Wilmer Moran MD Jan 10, 2018 08:59
[2018-01-10] MEDS: GABAPENTIN 300 MG CAP PO SCH (10:30)
[2018-01-10] MEDS: APIXABAN 5 MG TABLET PO SCH (10:31)
[2018-01-10] MEDS: TORSEMIDE 20 MG TAB PO SCH (10:31)
[2018-01-10] MEDS: METOPROLOL TARTRATE 50 MG TAB PO SCH (10:31)
[2018-01-10] MEDS: ASPIRIN 81 MG CHEW TAB PO SCH (10:32)
[2018-01-10] MEDS: FAMOTIDINE 20 MG TAB PO SCH (10:32)
[2018-01-10] MEDS: DOCUSATE SODIUM 50 MG/SENNA 8.6 MG TAB PO SCH (10:32)
[2018-01-10] MEDS: POTASSIUM CHLORIDE 10 MEQ CONTROLLED RELEASE TAB PO SCH (10:32)
[2018-01-10] MEDS: LISINOPRIL 20 MG TAB PO SCH (10:32)
--- NOTE | 2018-01-10 11:13 | PD.CARD.PN ---
Subjective Subjective Remarks Feels herself today No complaints Objective Medications Current Medications Medications (Trade) Dose Ordered Sig/Temitope Route Start Time Stop Time Status Last Admin (Aspirin Chew) 81 mg DAILY PO 01/07/18 09:00 01/10/18 10:32 (Pepcid) 20 mg BID PO 01/06/18 21:00 01/10/18 10:32 (Lipitor) 40 mg HS PO 01/06/18 21:00 01/09/18 21:18 (Roxicodone) 5 mg Q4H PRN PO 01/06/18 17:30 01/10/18 10:30 (Lovenox Inj) 30 mg Q24H SQ 01/07/18 17:00 01/09/18 18:23 (Nirali-Colace) 1 tab BID PO 01/06/18 21:00 01/10/18 10:32 (Milk Of Magnesia Liq) 30 ml Q12H PRN PO 01/06/18 17:30 (Senokot) 17.2 mg Q12H PRN PO 01/06/18 17:30 (Dulcolax Supp) 10 mg DAILY PRN RECTAL 01/06/18 17:30 (Lactulose Liq) 30 ml DAILY PRN PO 01/06/18 17:30 (Colace) 100 mg HS PO 01/06/18 21:00 01/09/18 21:18 (Neurontin) 300 mg DAILY PO 01/07/18 09:00 01/10/18 10:30 (Neurontin) 600 mg HS PO 01/06/18 21:00 01/09/18 21:18 (Synthroid) 150 mcg DAILY@0600 PO 01/07/18 06:00 01/10/18 05:26 (Lopressor) 50 mg BID PO 01/06/18 21:00 01/10/18 10:31 (KCl) 10 meq DAILY PO 01/07/18 09:00 01/10/18 10:32 (Demadex) 20 mg DAILY PO 01/07/18 09:00 01/10/18 10:31 (Eliquis) 5 mg BID PO 01/07/18 21:00 01/10/18 10:31 (Prinivil) 40 mg DAILY PO 01/09/18 09:00 01/10/18 10:32 (Norvasc) 10 mg HS PO 01/09/18 21:00 01/09/18 21:18 Vital Signs / I&O Vital Signs Date Time Temp Pulse Resp B/P (MAP) Pulse Ox O2 Delivery O2 Flow Rate FiO2 01/10/18 08:00 62 01/10/18 07:00 71 01/10/18 07:00 93 Room Air 01/10/18 07:00 98.8 71 16 114/58 (76) 93 01/10/18 04:00 62 01/10/18 04:00 98.8 86 20 134/60 (84) 93 01/10/18 00:00 Nasal Cannula 2.00 01/10/18 00:00 70 01/10/18 00:00 98.6 64 18 128/59 (82) 89 01/09/18 20:33 94 21 01/09/18 20:00 62 01/09/18 20:00 99.4 71 18 122/62 (82) 95 01/09/18 20:00 Room Air 01/09/18 18:00 70 01/09/18 17:00 64 01/09/18 16:00 64 01/09/18 15:30 61 01/09/18 15:30 98.7 61 16 116/56 (76) 95 01/09/18 15:00 60 01/09/18 14:00 60 01/09/18 13:00 68 01/09/18 12:50 93 21 01/09/18 12:00 60 01/09/18 12:00 98.8 84 20 117/55 (75) 98 I/O 01/09/18 01/09/18 01/09/18 01/10/18 01/10/18 01/10/18 07:00 15:00 23:00 07:00 15:00 23:00 Intake Total 300 ml 221 ml 1261 ml 480 ml Output Total 700 ml 650 ml Balance 300 ml 221 ml 561 ml -170 ml Intake Oral 300 ml 720 ml 480 ml IV Total 221 ml 541 ml Output Urine Total 700 ml 650 ml # Voids 2 1 # Bowel Movements 0 1 1 Physical Exam GENERAL: NAD, AAOx3 SKIN: Warm and dry. HEAD: Atraumatic. Normocephalic. EYES: Pupils equal and round. No scleral icterus. No injection or drainage. ENT: No nasal bleeding or discharge. Mucous membranes pink and moist. NECK: Trachea midline. No JVD. CARDIOVASCULAR: Regular rate and rhythm. PPM left chest wall RESPIRATORY: No accessory muscle use. Clear to auscultation. Breath sounds equal bilaterally. GASTROINTESTINAL: Abdomen soft, non-tender, nondistended. Hepatic and splenic margins not palpable. MUSCULOSKELETAL: Extremities without clubbing, cyanosis, or edema. No obvious deformities. NEUROLOGICAL: Awake and alert. No obvious cranial nerve deficits. Motor grossly within normal limits. Five out of 5 muscle strength in the arms and legs. Normal speech. PSYCHIATRIC: Appropriate mood and affect; insight and judgment normal. Assessment and Plan Problem List: (1) PAD (peripheral artery disease) ICD Codes: I73.9 - Peripheral vascular disease, unspecified (2) Afib ICD Codes: I48.91 - Unspecified atrial fibrillation (3) Pacemaker ICD Codes: Z95.0 - Presence of cardiac pacemaker Status: Chronic (4) TIA (transient ischemic attack) ICD Codes: G45.9 - Transient cerebral ischemic attack, unspecified Status: Acute (5) Hypoxia ICD Codes: R09.02 - Hypoxemia Status: Acute Assessment and Plan 1) PAD s/p Left profunda endarterectomy and patch angioplasty with left [employer]POR[employer]ER fem- pop bypass with an 8 mm PTFE graft. 2) Questionable TIA vs over-medicated hypoxia Evaluated by neurology 3) Minimal troponin spill Decreasing Atypical for [place], no symptoms... Most likely Type 2 troponin spill secondary to hypoxia Would not work up further at this time, no signs of ACS, and especially if concern for TIA 4) Patient concern for PPM Suppose to have it checked later this week by her electrotherapist Discussed with patient, ok to reschedule in the next few weeks No dysfunction noted on telemetry 5) Afib Eliquis 5mg BID 6) Mild to moderate No concern at this time, can be worked up in the outpatient setting 7) No further cardiovascular work up needed at this time Cardiovascularly stable for discharge Given a card for follow up if staying in the area, or can follow up with her electrotherapist in [place] Problem Qualifiers (1) Afib: Qualified Codes: I48.2 - Chronic atrial fibrillation Danie Powers DO Jan 10, 2018 11:13
== END 2018-01-10 14:25 | DRG 253 ==
LOC: HSDI 11:16 → HCPC 18:50
PROVIDERS: ADMIT Surgery; ATTEND Surgery
PROC: 04UL0KZ Supplement Left Femoral Artery with Nonautologous Tissue Substitute, Open Approach (ICD-10-PCS; 2018-01-06)
PROC: 041L0JL Bypass Left Femoral Artery to Popliteal Artery with Synthetic Substitute, Open Approach (ICD-10-PCS; principal; 2018-01-06 14:23)
PROC: 04CL0ZZ Extirpation of Matter from Left Femoral Artery, Open Approach (ICD-10-PCS; 2018-01-06 14:23)
DX: I70.202 Unspecified atherosclerosis of native arteries of extremities, left leg (principal); G45.9 Transient cerebral ischemic attack, unspecified; I11.0 Hypertensive heart disease with heart failure; I50.9 Heart failure, unspecified; I48.2 Chronic atrial fibrillation; L97.529 Non-pressure chronic ulcer of other part of left foot with unspecified severity; I35.0 Nonrheumatic aortic (valve) stenosis; E78.5 Hyperlipidemia, unspecified; E03.9 Hypothyroidism, unspecified; I25.10 Atherosclerotic heart disease of native coronary artery without angina pectoris; Z95.5 Presence of coronary angioplasty implant and graft; R09.02 Hypoxemia; S82.842D Displaced bimalleolar fracture of left lower leg, subsequent encounter for closed fracture with routine healing; I95.2 Hypotension due to drugs; T40.2X5A Adverse effect of other opioids, initial encounter; Y92.230 Patient room in hospital as the place of occurrence of the external cause; Z79.01 Long term (current) use of anticoagulants; Z87.891 Personal history of nicotine dependence; Z88.1 Allergy status to other antibiotic agents; Z95.0 Presence of cardiac pacemaker; Z96.652 Presence of left artificial knee joint; Z98.1 Arthrodesis status
CPT/HCPCS: 36600; 70450; 70496; 70498; 71045; 73610; 80048; 82550; 82805; 84484; 85025; 85027; 85384; 85610; 85730; 86850; 86900; 86901; 86920; 93005; 94150; 95819; C1768; J0690; J1170; J1644; J1650; J2175; J2270; J2710; J2720; J3010; J7120; Q9967

== ENCOUNTER 2018-01-17 20:40 | Inpatient (IN) | payer MEDICARE ==
[~2018-01-17] VITALS: Ht 169.2 cm; Wt 97.5 kg
[~2018-01-17 20:40] MED LIST changes: -ENOX40P SQ; -HYDR-3516 PO; +MILKSUS PO
[2018-01-17 20:58] VITALS: BP 116/58; PULSE 61; RESP 16; TEMP 99.2; O2SAT 91; O2SAT 94
[2018-01-17 21:24] VITALS: PULSE 79; RESP 16; O2SAT 94
--- NOTE | 2018-01-17 21:26 | HHI.HP ---
HPI Service [facility] Hospitalists Primary Care Physician Non-Staff Admission Diagnosis acute osteomyelitis left foot, sepsis, recent arterial surgery Diagnoses: (1) Sepsis Diagnosis: Principal (2) Left foot infection Diagnosis: Principal (3) Osteomyelitis Diagnosis: Principal (4) PAD (peripheral artery disease) Diagnosis: Principal Travel History International Travel<30 Days: No Contact w/Intl Traveler <30 Da: No Traveled to Known Affected Are: No History of Present Illness This is an 82-year-old female with a PMH of A. fib on Eliquis, HTN, Hyperlipidemia, PAD s/p Left Fem-Pop Bypass 01/06/[address] Moran, Previous Left Tib-Fib Repair 12/04/17 in [place], w/ significant tissue injury after splint removal, has been following w/ Dr. Cifuentes as outpatient. Per patient she was seen in office today by Dr. Cifuentes, had debridement of eschar in office and states she was ordered "debridement cream". Upon pt's return to SNF, she was noted to have AMS and was sent to [facility], ultimately tx from ER to ER. Labs from w/ WBC 17, Left Foot X-ray w/ skin ulcer noted at plantar aspect of left foot w/ cortical irregularity, possibly osteomyelitiss. CT Head w/ no acute findings, s/p Vanc 1gm and Zosyn 4.5gm prior to arrival, all imaging/ reports/labs reviewed by me. Dr. Moran consulted by ER physician upon arrival to [place], will evaluate in am. Pt now back to baseline mental status w/ no persistent AMS. Repeat labs pending, MRI Foot pending. Review of Systems Except as stated in HPI: all other systems reviewed are Neg ROS: 14 point review of systems otherwise negative. Past Family Social History Past Medical History PMH: A. fib on Eliquis, HTN, Hyperlipidemia, PAD s/p Left Fem-Pop Bypass by Dr. Moran, Previous Left Tib-Fib Repair 12/04/17 in [place] Past Surgical History PAST SURGICAL HISTORY: Appendectomy, Cholecystectomy, Left Knee Replacement, T Spine Yong, Pacemaker, Cardiac Stent, Bladder Tuck, Tonsillectomy, Tib-fib Repair Allergies: Coded Allergies: tetracycline (Verified Allergy, Intermediate, ulcerations to palm and hands, 01/06/18) Tetracyclic Antidepressants (Verified Allergy, Unknown, Hives, 12/25/17) Family History PAST FAMILY HISTORY: Reviewed. No h/o DM or CAD Social History PAST SOCIAL HISTORY: Negative for alcohol, tobacco or drugs. Physical Exam Vital Signs Vital Signs Date Time Temp Pulse Resp B/P (MAP) Pulse Ox O2 Delivery O2 Flow Rate FiO2 01/17/18 21:24 79 16 94 Nasal Cannula 4.00 01/17/18 21:06 64 16 94 Nasal Cannula 4.00 01/17/18 20:58 99.2 61 16 116/58 (23) 94 Physical Exam PE: GENERAL: Pleasant elderly white female in no acute distress. HEENT: PERRLA, EOMI. No scleral icterus or conjunctival pallor. No lid lag or facial droop. CARDIOVASCULAR: Regular rate and rhythm. No obvious murmurs to auscultation. No chest tenderness to palpation. RESPIRATORY: No obvious rhonchi or wheezing. Clear to auscultation. Breath sounds equal bilaterally. GASTROINTESTINAL: Abdomen soft, non-tender, nondistended. BS normal. Left groin w/ some erythema/dehiscence. MUSCULOSKELETAL: Extremities without clubbing, cyanosis, or edema. No obvious deformities. Left foot w/ eschar plantar aspect, left great toe, +erythema/ edema. NEUROLOGICAL: Awake, alert and oriented x4. No focal neurologic deficits. Moving both upper and lower extremities spontaneously. Caprini VTE Risk Assessment Caprini VTE Risk Assessment: Mod/High Risk (score >= 2) Caprini Risk Assessment Model Point Value = 1 Point Value = 2 Point Value = 3 Point Value = 5 Age 41-60 Minor surgery BMI > 25 kg/m2 Swollen legs Varicose veins or History of unexplained or recurrent spontaneous Oral contraceptives or hormone replacement Sepsis (< 1 month) Serious lung disease, including pneumonia (< 1 month) Abnormal pulmonary function Acute myocardial infarction Congestive heart failure (< 1 month) History of inflammatory bowel disease Medical patient at bed rest Age 61-74 Arthroscopic surgery Major open surgery (> 45 min) Laparoscopic surgery (> 45 min) Malignancy Confined to bed (> 72 hours) Immobilizing plaster cast Central venous access Age >= 75 History of VTE Family history of VTE Factor V Leiden Prothrombin [id number] Lupus anticoagulant Anticardiolipin antibodies Elevated serum homocysteine Heparin-induced thrombocytopenia Other congenital or acquired thrombophilia Stroke (< 1 month) Elective arthroplasty Hip, pelvis, or leg fracture Acute spinal cord injury (< 1 month) Prophylaxis Regimen Total Risk Factor Score Risk Level Prophylaxis Regimen 0-1 Low Early ambulation 2 Moderate Order ONE of the following: *Sequential Compression Device (SCD) *Heparin 5000 units SQ BID 3-4 Higher Order ONE of the following medications: *Heparin 5000 units SQ TID *Enoxaparin/Lovenox 40 mg SQ daily (WT < 150 kg, CrCl > 30 mL/min) *Enoxaparin/Lovenox 30 mg SQ daily (WT < 150 kg, CrCl > 10-29 mL/min) *Enoxaparin/Lovenox 30 mg SQ BID (WT < 150 kg, CrCl > 30 mL/min) AND/OR *Sequential Compression Device (SCD) 5 or more Highest Order ONE of the following medications: *Heparin 5000 units SQ TID (Preferred with Epidurals) *Enoxaparin/Lovenox 40 mg SQ daily (WT < 150 kg, CrCl > 30 mL/min) *Enoxaparin/Lovenox 30 mg SQ daily (WT < 150 kg, CrCl > 10-29 mL/min) *Enoxaparin/Lovenox 30 mg SQ BID (WT < 150 kg, CrCl > 30 mL/min) AND *Sequential Compression Device (SCD) Assessment and Plan Problem List: (1) Sepsis ICD Code: A41.9 - Sepsis, unspecified organism Status: Acute (2) Osteomyelitis ICD Code: M86.9 - Osteomyelitis, unspecified Status: Acute (3) Left foot infection ICD Code: L08.9 - Local infection of the skin and subcutaneous tissue, unspecified (4) PAD (peripheral artery disease) ICD Code: I73.9 - Peripheral vascular disease, unspecified (5) Afib ICD Code: I48.91 - Unspecified atrial fibrillation Assessment and Plan A/P: 1. Sepsis: Temp [address] [facility], WBC 17, Source-Left Foot Infection, labs/records from [facility] reviewed by me. S/p Vanc/Zosyn prior to arrival, will continue IV Abx, follow up cultures. 2. Left Foot Infection: following w/ Dr. Cifuentes as outpatient, +necrotic foot lesions w/ overlying cellulitis, Consult Dr. Cifuentes, continue w/ IV Abx as above, follow up cultures, consult Wound Management. 3. Osteomyelitis: Foot X-ray from [facility] w/ findings suspicious for osteomyelitis, MRI ordered, however spoke w/ aircraft systems technician who contacted [employer], pt's device is NOT MRI compatible. Will continue w/ IV Abx as above, consult Dr. Cifuentes for further recommendations. 4. PAD: S/p Left Fem-Pop Bypass by Dr. Moran, mild erythema at groin, continue w/ IV abx, Dr. Moran consulted by ER physician, will evaluate in am. 5. A-fib: Chronic. On Eliquis, will continue. 6. DVT Prophylaxis: Eliquis 7. Social work for DC planning as needed. 8. Case discussed at length with the ER physician, lab/record/imaging reviewed by dc Physician Certification 2 Midnight Certification Type: Admission for Inpatient Services Order for Inpatient Services The services are ordered in accordance with Medicare regulations or non- Medicare payer requirements, as applicable. In the case of services not specified as inpatient-only, they are appropriately provided as inpatient services in accordance with the 2-midnight benchmark. Estimated LOS (days): 2 days is the estimated time the patient will need to remain in the hospital, assuming treatment plan goals are met and no additional complications. Post-Hospital Plan: Not yet determined Problem Qualifiers (1) Sepsis: Qualified Codes: A41.9 - Sepsis, unspecified organism (2) Osteomyelitis: Qualified Codes: M86.9 - Osteomyelitis, unspecified Lakshmi Kumar MD January 17, 2018 21:26
[2018-01-17] MEDS ORDERED: Vancomycin Consult Pharmacy 1 EA OTHER SCH (21:30)
[2018-01-17] MEDS ORDERED: ACETAMINOPHEN/HYDROcodone 325 MG/10 MG TAB PO PRN (21:30)
[2018-01-17] MEDS ORDERED: LACTULOSE SYRUP 20 GM/30 ML CUP PO PRN (21:30)
[2018-01-17] MEDS ORDERED: ONDANSETRON HCL 4 MG/2 ML VIAL IVP PRN (21:30)
[2018-01-17] MEDS ORDERED: MAGNESIUM HYDROXIDE SUSP 30 ML CUP PO PRN (21:30)
[2018-01-17] MEDS ORDERED: BISACODYL 10 MG SUPP RECTAL PRN (21:30)
--- NOTE | 2018-01-17 21:41 | PD ---
HPI Chief Complaint: Altered Mental Status Time Seen by Provider: 20:53 Travel History International Travel<30 days: No Contact w/Intl Traveler<30days: No Traveled to known affect area: No History of Present Illness HPI 82-year-old female that presents to the ED for evaluation of sepsis. Patient was transfer from [facility] for evaluation of sepsis. Patient was transferred here at the request of Dr. Moran as apparently patient had recent surgery on her left leg. Patient has a significant history of a fracture to her left leg that require splinting and apparently when the to get this cast and noted that she had necrotic tissue on her foot and she came here for evaluation of that. She had surgery by Dr. Moran and was evaluated by Dr. Abreu for podiatry. She has been doing well but had to had another surgery just a week ago. She has been doing well since and was discharged to rehab and went to Dr. Abreu at this morning to get wound care. She apparently had an episode of altered mental status and was found to have a 102 fever. Patient was taken by ambulance to [facility]. Unclear why, as patient states that she wanted to come here as her surgeons are here. Did a full workup for the sepsis and found that she might have osteomyelitis of her left foot with a leukocytosis in the 17,000 range and a fever of 102. Otherwise unremarkable exam. She had CAT scans of the head as well as the abdomen that showed no sign of acute disease alert and some chronic changes from recent surgery. Physician at [facility] contacted Dr. Moran who wanted the patient moved here. Patient complains of nothing to me. She appears to be capable of answering questions appropriately. She denies any pain at this time. No numbness, tingling, weakness. No falls or injuries. She denies any cough or runny nose. No urinary symptoms. PFSH Past Medical History Hx Anticoagulant Therapy: Yes (ELIQUIS ASA) Anemia: Yes Atrial Fibrillation: Yes Blood Disorders: No Heart Rhythm Problems: Yes (a fib) Cancer: No Cardiovascular Problems: Yes High Cholesterol: Yes Chest Pain: Yes Congestive Heart Failure: Yes Coronary Artery Disease: Yes Diabetes: No Endocrine: No Gastrointestinal Disorders: Yes (GERD) Genitourinary: Yes (UTI) Hepatitis: No Hiatal Hernia: No Hypertension: Yes Immune Disorder: No Implanted Vascular Access Dvce: Yes Musculoskeletal: No Neurologic: Yes (NEUROPATHY) Psychiatric: No Reproductive: No Respiratory: No Thyroid Disease: Yes (hypothyroid) Past Surgical History Abdominal Surgery: Yes (APPENDECTOMY, CHOLECYSTECTOMY) AICD: No Appendectomy: Yes Body Medical Devices: L knee replacement, T4/5 josh, pacemaker, stent Cardiac Surgery: Yes (CATH 09/01 ,CARDIAC STENT 2004) Cholecystectomy: Yes Genitourinary Surgery: Yes (BLADDER TACK) Joint Replacement: Yes (LEFT KNEE) Oral Surgery: Yes (TONSILLECTOMY) Pacemaker: Yes (MEDTRONIC) Tonsillectomy: Yes Other Surgery: Yes (tib/fib repair) Social History Alcohol Use: No Tobacco Use: No Substance Use: No Allergies-Medications (Allergen,Severity, Reaction): Coded Allergies: tetracycline (Verified Allergy, Intermediate, ulcerations to palm and hands, 01/06/18) Tetracyclic Antidepressants (Verified Allergy, Unknown, Hives, 12/25/17) Reported Meds & Prescriptions Reported Meds & Active Scripts Active Hydrocodone-Acetamin 7.5-325 (Hydrocodone/Acetaminophen) 7.5 Mg-325 Mg Tablet 1 Tab PO Q4H PRN Reported Milk of Magnesia Liq (Magnesium Hydroxide) 400 Mg/5 Ml Susp 30 Ml PO Q6H PRN Lisinopril 40 Mg Tab 40 Mg PO BID Torsemide 20 Mg Tab 20 Mg PO DAILY Pravastatin 20 Mg Tab 20 Mg PO DAILY Potassium Chloride ER (Potassium Chloride) 10 Meq Tab 10 Meq PO DAILY Metoprolol Tartrate 50 Mg Tab 50 Mg PO BID Levothyroxine (Levothyroxine Sodium) 150 Mcg Tab 150 Mcg PO DAILY Gabapentin 600 Mg Tab 600 Mg PO HS Gabapentin 300 Mg Cap 300 Mg PO DAILY Eliquis (Apixaban) 5 Mg Tab 5 Mg PO BID Colace (Docusate Sodium) 100 Mg Capsule 100 Mg PO HS Aspirin EC (Aspirin) 81 Mg Tabdr 81 Mg PO DAILY Amlodipine (Amlodipine Besylate) 10 Mg Tab 10 Mg PO DAILY Review of Systems Except as stated in HPI: all other systems reviewed are Neg Physical Exam Narrative GENERAL: SKIN: Warm and dry. HEAD: Atraumatic. Normocephalic. EYES: Pupils equal and round. No scleral icterus. No injection or drainage. ENT: No nasal bleeding or discharge. Mucous membranes pink and moist. Tongue is midline. No uvula deviation. NECK: Trachea midline. No JVD. CARDIOVASCULAR: Regular rate and rhythm. No murmurs, S3, S4. RESPIRATORY: No accessory muscle use. Clear to auscultation. Breath sounds equal bilaterally. GASTROINTESTINAL: Abdomen soft, non-tender, nondistended. Hepatic and splenic margins not palpable. MUSCULOSKELETAL: Extremities without clubbing, cyanosis, or edema. No obvious deformities. Patient has full range of motion of the upper and lower extremities with exception of the left foot. Patient is able to move it but she has a lot of pain on the distal aspect of the foot. Patient has necrotic wounds to the left foot more noticeable on the medial aspect. Also the left great toe. A lot of erythema and redness noted. Slightly tender to touch but minimal. Patient does have a surgical wound to the left groin that appears to be slightly erythematous but likely from wound changes as well as slight dehiscence of 1 of the suture sites. No obvious purulence noted on the area however. NEUROLOGICAL: Awake and alert. No obvious cranial nerve deficits. Motor grossly within normal limits. Five out of 5 muscle strength in the arms and legs. Normal speech. PSYCHIATRIC: Appropriate mood and affect; insight and judgment normal. Data Data Last Documented VS Vital Signs Date Time Temp Pulse Resp B/P (MAP) Pulse Ox O2 Delivery O2 Flow Rate FiO2 01/17/18 21:06 64 16 94 Nasal Cannula 4.00 01/17/18 20:58 99.2 116/58 (77) Orders Orders Complete Blood Count With Diff (01/17/18 21:03) Comprehensive Metabolic Panel (01/17/18 21:03) Blood Culture (01/17/18 21:03) Iv Access Insert/Monitor (01/17/18 21:03) Ecg Monitoring (01/17/18 21:03) Oximetry (01/17/18 21:03) Lactic Acid Sepsis Protocol (01/17/18 21:03) Admit Order (Ed Use Only) (01/17/18 21:21) [facility] Medical Decision Making Medical Screen Exam Complete: Yes Emergency Medical Condition: Yes Medical Record Reviewed: Yes Differential Diagnosis Sepsis versus osteomyelitis versus postsurgical complication versus necrotic tissue versus infected wound Narrative Course 82-year-old female that presents to the ED for evaluation of possible osteomyelitis. Patient was properly examined and was found to have signs and symptoms consistent with sepsis likely from ostium myelitis from the left foot wound. Patient apparently was altered and had a fever was evaluated and had a full workup at [facility] and transferred here for further evaluation. I reviewed the records and patient did have a leukocytosis of 17 with a left shift as well as what appears to be changes to the foot and ankle were concerning for osteomyelitis per x-ray report at [facility]. Lactic acid was within normal limits. Case was discussed with Dr. Moran who wants us to admit the patient to medicine and consult to him and podiatry. This was discussed with the patient who is in agreement with plan. MRI was ordered for the foot by me. Consults were placed by me. Case discussed with Dr. Kumar who agrees to admission. Sepsis Criteria SIRS Criteria (2 or more): Temp > 100.9 or < 96.8, WBC > 66593, < 4000 or > 10 % bands Sepsis Criteria (SIRS+source): Infect source susp/known Diagnosis Primary Impression: Osteomyelitis Qualified Codes: M86.9 - Osteomyelitis, unspecified Additional Impressions: Sepsis Qualified Codes: A41.9 - Sepsis, unspecified organism PAD (peripheral artery disease) Admitting Information Admitting Physician Requests: Admit Rolly Lopez January 17, 2018 21:41
[2018-01-17 22:16] LABS: AUTOMATED NEUTROPHIL # 18.2 TH/MM3 (1.8-7.7); BASOPHIL # 0.1 TH/MM3 (0-0.2); BASOPHIL % 0.7 % (0.0-2.0); EOSINOPHIL % 0.1 % (0.0-4.0); HEMATOCRIT 23.4 % (35.0-46.0); HEMOGLOBIN 7.3 GM/DL (11.6-15.3); LYMPH % 7.3 % (9.0-44.0); LYMPHOCYTE # 1.5 TH/MM3 (1.0-4.8); MEAN CELL VOLUME 76.6 FL (80.0-100.0); MEAN CORPUSCULAR HEMOGLOBIN 24.1 PG (27.0-34.0); MEAN CORPUSCULAR HGB CONC 31.4 % (32.0-36.0); MEAN PLATELET VOLUME 8.5 FL (7.0-11.0); MONO % 6.3 % (0.0-8.0); MONOCYTE # 1.3 TH/MM3 (0-0.9); NEUT % 85.6 % (16.0-70.0); PLATELET COUNT 353 TH/MM3 (150-450); RED BLOOD COUNT 3.05 MIL/MM3 (4.00-5.30); RED CELL DISTRIBUTION WIDTH 18.2 % (11.6-17.2); WHITE BLOOD COUNT 21.2 TH/MM3 (4.0-11.0)
[2018-01-17 22:34] LABS: ALBUMIN 2.1 GM/DL (3.4-5.0); ALT (GPT) 16 U/L (10-53); AST (GOT) 29 U/L (15-37); BICARBONATE 29.6 MEQ/L (21.0-32.0); BLOOD UREA NITROGEN 15 MG/DL (7-18); CALCIUM 8.1 MG/DL (8.5-10.1); CHLORIDE 102 MEQ/L (98-107); CREATININE 0.97 MG/DL (0.50-1.00); GLOMERULAR FILTRATION RATE 55 ML/MIN (>89); GLUCOSE,RANDOM 136 MG/DL (74-106); SODIUM (NA) 139 MEQ/L (136-145)
[2018-01-17 22:36] LABS: ALKALINE PHOSPHATASE 68 U/L (45-117); TOTAL BILIRUBIN ADULT 0.5 MG/DL (0.2-1.0)
[2018-01-18] VITALS (9 sets, daily range): BP systolic 90–164; BP diastolic 52–73; PULSE 61–87; RESP 18–20; TEMP 97.8–102.4; O2SAT 93–100
[2018-01-18] MEDS: PIPERACIL-TAZO 4.5 GM PREMIX 100 ML IV SCH ×5 (00:47→21:37)
[2018-01-18] MEDS: SODIUM CHLOR 0.9% 1000 ML INJ 1,000 ML IV SCH ×3 (00:47→16:00)
[2018-01-18] MEDS ORDERED: VANCOMYCIN 1,500 MG/NS 500 ML IV ONE ×2 (06:00)
[2018-01-18 07:41] LABS: AUTOMATED NEUTROPHIL # 13.9 TH/MM3 (1.8-7.7); BASOPHIL # 0.1 TH/MM3 (0-0.2); BASOPHIL % 0.4 % (0.0-2.0); EOSINOPHIL # 0.1 TH/MM3 (0-0.4); EOSINOPHIL % 0.4 % (0.0-4.0); HEMATOCRIT 22.9 % (35.0-46.0); HEMOGLOBIN 7.2 GM/DL (11.6-15.3); LYMPH % 6.7 % (9.0-44.0); LYMPHOCYTE # 1.1 TH/MM3 (1.0-4.8); MEAN CELL VOLUME 76.7 FL (80.0-100.0); MEAN CORPUSCULAR HGB CONC 31.3 % (32.0-36.0); MEAN PLATELET VOLUME 8.5 FL (7.0-11.0); MONO % 6.8 % (0.0-8.0); MONOCYTE # 1.1 TH/MM3 (0-0.9); NEUT % 85.7 % (16.0-70.0); PLATELET COUNT 326 TH/MM3 (150-450); RED BLOOD COUNT 2.99 MIL/MM3 (4.00-5.30); RED CELL DISTRIBUTION WIDTH 18.3 % (11.6-17.2); WHITE BLOOD COUNT 16.2 TH/MM3 (4.0-11.0)
[2018-01-18 08:04] LABS: ALT (GPT) 13 U/L (10-53); AST (GOT) 16 U/L (15-37); BICARBONATE 31.9 MEQ/L (21.0-32.0); BLOOD UREA NITROGEN 14 MG/DL (7-18); CALCIUM 8.2 MG/DL (8.5-10.1); CHLORIDE 104 MEQ/L (98-107); CREATININE 0.85 MG/DL (0.50-1.00); GLOMERULAR FILTRATION RATE 64 ML/MIN (>89); GLUCOSE,RANDOM 123 MG/DL (74-106); SODIUM (NA) 142 MEQ/L (136-145)
[2018-01-18 08:06] LABS: ALKALINE PHOSPHATASE 69 U/L (45-117); TOTAL BILIRUBIN ADULT 0.4 MG/DL (0.2-1.0); TOTAL PROTEIN 5.8 GM/DL (6.4-8.2)
[2018-01-18] MEDS: ACETAMINOPHEN 325 MG TAB PO PRN (08:26)
[2018-01-18] MEDS: METOPROLOL TARTRATE 50 MG TAB PO SCH ×2 (08:27→20:26)
[2018-01-18] MEDS: PRAVASTATIN SOD 20 MG TAB PO SCH (08:29)
[2018-01-18] MEDS: DOCUSATE SODIUM 50 MG/SENNA 8.6 MG TAB PO SCH ×2 (08:29→20:27)
[2018-01-18] MEDS: APIXABAN 5 MG TABLET PO SCH ×2 (08:29→20:27)
[2018-01-18] MEDS: SODIUM CHLORIDE 0.9% FLUSH 10 ML FLUSH IV FLUSH SCH ×2 (08:30→20:27)
[2018-01-18] MEDS: ACETAMINOPHEN/HYDROcodone 325 MG/5 MG TAB PO PRN ×2 (08:48→21:38)
[2018-01-18] MEDS ORDERED: HEPARIN SODIUM - SQ 10,000 UNITS/ML VIAL SQ SCH (09:00)
--- NOTE | 2018-01-18 09:41 | HHI.PR ---
Subjective Remarks Patient seen and examined this morning. T-max 102.4 this morning. Family is at bedside. She denies any chest pain or difficulty breathing. Does have a pacemaker, so unable to get MRI. Able to lift left lower extremity against gravity, unable to wiggle toes. Has been seen evaluated by podiatry. Objective Vital Signs Date Time Temp Pulse Resp B/P (MAP) Pulse Ox O2 Delivery O2 Flow Rate FiO2 01/18/18 08:00 102.4 69 18 118/56 (76) 93 01/18/18 06:06 64 01/18/18 04:00 72 20 164/70 (101) 99 01/18/18 00:00 99.3 84 20 161/70 (100) 96 01/17/18 21:24 79 16 94 Nasal Cannula 4.00 01/17/18 21:06 64 16 94 Nasal Cannula 4.00 01/17/18 20:58 99.2 61 16 116/58 (77) 94 I/O 01/17/18 01/17/18 01/17/18 01/18/18 01/18/18 01/18/18 07:00 15:00 23:00 07:00 15:00 23:00 Intake Total 680 ml 515 ml Balance 680 ml 515 ml Intake Oral 480 ml IV Total 200 ml 515 ml # Voids 2 # Bowel Movements 0 Result Diagram: 01/18/18 0716 01/18/18 0716 Objective Remarks GENERAL: Well-appearing, no acute distress SKIN: Soft tissue necrosis of left foot and ankle. HEAD: Normocephalic. EYES: No scleral icterus. No injection or drainage. NECK: Supple, trachea midline. No JVD or lymphadenopathy. CARDIOVASCULAR: Irregular rhythm RESPIRATORY: Breath sounds equal bilaterally. No accessory muscle use. GASTROINTESTINAL: Abdomen soft, non-tender, nondistended. MUSCULOSKELETAL: able to lift left lower foot against gravity, unable to wiggle toes. A/P Problem List: (1) Afib ICD Code: I48.91 - Unspecified atrial fibrillation (2) PAD (peripheral artery disease) ICD Code: I73.9 - Peripheral vascular disease, unspecified (3) Left foot infection ICD Code: L08.9 - Local infection of the skin and subcutaneous tissue, unspecified (4) Osteomyelitis ICD Code: M86.9 - Osteomyelitis, unspecified Status: Acute (5) Sepsis ICD Code: A41.9 - Sepsis, unspecified organism Status: Acute Assessment and Plan This is a 82-year-old female patient with a medical history significant for Eliquis, hypertension, hyperlipidemia, peripheral artery disease status post left femoropopliteal bypass on January 06 who presented initially to [facility] and transferred to [facility]. Labs at [facility] were significant for white blood cell count of 17, left foot x-ray which showed a skin ulcer noted on the plantar aspect of the left foot with cortical irregularity and possibly possible osteomyelitis. Left foot infection with sepsis Tachycardic and febrile on admission. CRP 14. Currently on vancomycin and Zosyn DR. Cifuentes, podiatry was consulted Wound care consulted CT foot ordered to r/o osteo per podiatry reccs Blood cultures pending Peripheral artery disease Dr. Enrique was consulted: can be OOB and WBAT on food, given extent of necrosis of food, she is at high risk of amputation despite clinically patent bypass Continue patient's statin A. fib Continue patient's home Eliquis and metoprolol Hypothyroidism Continue patient's levothyroxine Hypertension Patient currently on amlodipine and lisinopril. Patient's blood pressure is low so we will hold these until her blood pressure stabilizes Anemia Hemoglobin 7.2 Baseline appears to be around 8 MCV 76 dictating microcytic anemia Watch closely and transfuse as necessary hemoccult ordered heparin for dvt proph Discharge Planning D/C pending further workup Problem Qualifiers (1) Osteomyelitis: Qualified Codes: M86.9 - Osteomyelitis, unspecified (2) Sepsis: Qualified Codes: A41.9 - Sepsis, unspecified organism Racheal Garcia MD January 18, 2018 09:41
--- NOTE | 2018-01-18 09:57 | PD.VS.PN ---
Subjective Subjective/Hospital Course Pt well known to me s/p L groin reconstruction and fem-pop bypass on 01/06. HAs extensive soft tissue necrosis of L foot. Readm last night with fevers and transient mental status changes CT from OSH shows fluid in L groin incision c/w post-operative changes pt feels better this morning Objective Vitals/I&O Date Time Temp Pulse Resp B/P (MAP) Pulse Ox O2 Delivery O2 Flow Rate FiO2 01/18/18 08:00 102.4 69 18 118/56 (76) 93 01/18/18 06:06 64 01/18/18 04:00 72 20 164/70 (101) 99 01/18/18 00:00 99.3 84 20 161/70 (100) 96 01/17/18 21:24 79 16 94 Nasal Cannula 4.00 01/17/18 21:06 64 16 94 Nasal Cannula 4.00 01/17/18 20:58 99.2 61 16 116/58 (77) 94 01/18/18 01/18/18 01/18/18 07:00 15:00 23:00 Intake Total 680 ml 515 ml Balance 680 ml 515 ml Physical Exam resting comfortably. Alert and oriented x 4 L groin with superficial maceration and breakdown but no hematoma/seroma and no infection L thigh incision c/d/i Foot with extensive necrosis + PT signal in foot Laboratory Laboratory Tests Test 01/17/18 21:50 01/18/18 07:16 White Blood Count 21.2 16.2 Red Blood Count 3.05 2.99 Hemoglobin 7.3 7.2 Hematocrit 23.4 22.9 Mean Corpuscular Volume 76.6 76.7 Mean Corpuscular Hemoglobin 24.1 24.0 Mean Corpuscular Hemoglobin Concent 31.4 31.3 Red Cell Distribution Width 18.2 18.3 Platelet Count 353 326 Mean Platelet Volume 8.5 8.5 Neutrophils (%) (Auto) 85.6 85.7 Lymphocytes (%) (Auto) 7.3 6.7 Monocytes (%) (Auto) 6.3 6.8 Eosinophils (%) (Auto) 0.1 0.4 Basophils (%) (Auto) 0.7 0.4 Neutrophils # (Auto) 18.2 13.9 Lymphocytes # (Auto) 1.5 1.1 Monocytes # (Auto) 1.3 1.1 Eosinophils # (Auto) 0.0 0.1 Basophils # (Auto) 0.1 0.1 CBC Comment DIFF FINAL DIFF FINAL Differential Comment Erythrocyte Sedimentation Rate GREATER THAN 140 Blood Urea Nitrogen 15 14 Creatinine 0.97 0.85 Random Glucose 136 123 Total Protein 6.0 5.8 Albumin 2.1 2.0 Calcium Level 8.1 8.2 Alkaline Phosphatase 68 69 Aspartate Amino Transf (AST/SGOT) 29 16 Alanine Aminotransferase (ALT/SGPT) 16 13 Total Bilirubin 0.5 0.4 Sodium Level 139 142 Potassium Level 4.6 4.2 Chloride Level 102 104 Carbon Dioxide Level 29.6 31.9 Anion Gap 7 6 Estimat Glomerular Filtration Rate 55 64 Lactic Acid Level 1.1 C-Reactive Protein 14.00 Date/Time Source Procedure Growth Status 01/17/18 21:50 Blood Peripheral Aerobic Blood Culture Pending Received 01/17/18 21:50 Blood Peripheral Anaerobic Blood Culture Pending Received Imaging Outside [place] CT reviewed - no infection in groin, only post-operative changes Assessment and Plan Plan Successful groin reconstruction and bypass, good signal at foot; only minimal groin breakdown 1, Dry gauze to L groin BID 2. From a vascular surgery standpoint, can be OOB and WBAT on foot but I defer to podiatry on that. Dr. Cifuentes consulted 3. Antibiotics/osteo work-up per podiatry. Given extent of tissue necrosis of foot, she is at high risk of amputation despite clinically patent bypass Wilmer Moran MD FACS RPVI test consultant [facility] - Heart [facility] Vascular Surgery at [facility] [phone] Wilmer Moran MD January 18, 2018 09:57
[2018-01-18] MEDS: SENNOSIDES 8.6 MG TAB PO PRN (10:40)
--- NOTE | 2018-01-18 17:31 | PD.CONS ---
History of Present Illness Service Foot and Ankle Surgery/Podiatry Consult Requested By Reason for Consult Right foot necrosis with possible osteomyelitis Primary Care Physician Unknown Diagnoses: History of Present Illness Podiatry consulted for this 82-year-old female with past medical history of A. fib on Eliquis, hypertension, hyperlipidemia, PAD status post left femoropopliteal bypass 01/06/[address] Moran, previous left tib-fib repair in [place] as an outpatient she was seen in the office with significant tissue injury after splint removal for right foot possible OM and necrosis. Patient has been following with myself Dr. Cifuentes on Saturday and there was noted to be no purulent drainage, increased erythema, or clinical signs of infection. Patient's daughters are bedside and they stated when she left the office she suddenly had a loss for words and was unsteady and unstable. She was taken to the hospital for altered mental status. Daughters are convinced her mother had a TIA because she has had one in the past and these were she experienced. They report a recent UTI over the past 2 weeks. Patient seen bedside she denies any nausea vomiting fevers or chills. Patient is unable to MRI secondary to pacemaker. Review of Systems Constitutional: DENIES: Fatigue, Fever Eyes: DENIES: Blurred vision Ears, nose, mouth, throat: COMPLAINS OF: Hearing loss Cardiovascular: DENIES: Chest pain, Palpitations, Syncope Gastrointestinal: DENIES: Abdominal pain Psychiatric: DENIES: Anxiety, Confusion Past Family Social History Allergies: Coded Allergies: tetracycline (Verified Allergy, Intermediate, ulcerations to palm and hands, 01/06/18) Tetracyclic Antidepressants (Verified Allergy, Unknown, Hives, 12/25/17) MRI PRECAUTION (Verified Adverse Reaction, Severe, IMPLANTED DEVICE, ) [employer] Model #[id number] Serial # [id number] [place] 1) Serial #[id number] Model # 5076-45 [place] 2) Serial #[id number] Model # 5076-52 Implant Date 05/28/16 Past Medical History As dictated in HPI Active Ordered Medications Current Medications Medications (Trade) Dose Ordered Sig/Temitope Route Start Time Stop Time Status Last Admin Pharmacy Profile Note 0 ml @ 0 mls/hr UNSCH OTHER 01/17/18 21:30 Piperacillin Sod/ Tazobactam Sod 100 ml @ 200 mls/hr Q6H IV 01/17/18 22:00 01/18/18 16:40 Sodium Chloride 1,000 ml @ 100 mls/hr Q10H IV 01/17/18 21:23 01/18/18 00:47 (NS Flush) 2 ml UNSCH PRN IV FLUSH 01/17/18 21:30 (NS Flush) 2 ml BID IV FLUSH 01/18/18 09:00 (Zofran Inj) 4 mg Q6H PRN IVP 01/17/18 21:30 (Tylenol) 650 mg Q6H PRN PO 01/17/18 21:30 01/18/18 08:26 ([place] 5-325 Mg) 1 tab Q4H PRN PO 01/17/18 21:30 01/18/18 08:48 (Nirali-Colace) 1 tab BID PO 01/18/18 09:00 01/18/18 08:29 (Milk Of Magnesia Liq) 30 ml Q12H PRN PO 01/17/18 21:30 (Senokot) 17.2 mg Q12H PRN PO 01/17/18 21:30 01/18/18 10:40 (Dulcolax Supp) 10 mg DAILY PRN RECTAL 01/17/18 21:30 (Lactulose Liq) 30 ml DAILY PRN PO 01/17/18 21:30 (Lopressor) 50 mg BID PO 01/18/18 09:00 01/18/18 08:27 (Pravachol) 20 mg DAILY PO 01/18/18 09:00 01/18/18 08:29 (Morphine Inj) 2 mg Q3H PRN IV PUSH 01/17/18 22:30 (Eliquis) 5 mg BID PO 01/18/18 09:00 01/18/18 08:29 (Synthroid) 150 mcg DAILY@0600 PO 01/19/18 06:00 Vancomycin HCl 1750 mg/Sodium Chloride 517.5 ml @ 257.5 mls/ hr Q24H IV 01/19/18 06:00 ([facility] Ordered Lab Info) SPECIFIC LAB TO BE SHIRA... ONCE ONCE .XX 01/21/18 05:45 01/21/18 05:46 (Santyl Oint) 1 applic DAILY TOPICAL 01/19/18 09:00 Physical Exam Vital Signs Vital Signs Date Time Temp Pulse Resp B/P (MAP) Pulse Ox O2 Delivery O2 Flow Rate FiO2 01/18/18 16:00 97.8 87 18 109/57 (74) 99 01/18/18 12:00 98.8 73 18 90/52 (65) 98 01/18/18 08:00 102.4 69 18 118/56 (76) 93 01/18/18 06:06 64 01/18/18 04:00 72 20 164/70 (101) 99 01/18/18 00:00 99.3 84 20 161/70 (100) 96 01/17/18 21:24 79 16 94 Nasal Cannula 4.00 01/17/18 21:06 64 16 94 Nasal Cannula 4.00 01/17/18 20:58 99.2 61 16 116/58 (77) 94 Physical Exam GENERAL: This is a well-nourished, well-developed patient, in no apparent distress. SKIN: Multiple areas of necrosis noted to left foot HEAD: Atraumatic. EYES: Pupils equal round and reactive. ENT: Airway patent. NECK: Trachea midline. RESPIRATORY: Nonlabored breathing. MUSCULOSKELETAL:. Negative Homans sign bilaterally. NEUROLOGICAL: Awake and alert. Normal speech. Lower extremity physical exam: Vascular: Dorsalis pedis nonpalpable, posterior tibial nonpalpable secondary to edema. Capillary refill time within normal limits to digits 5 bilateral foot. Edema present left foot and ankle Neuro: Gross sensation intact to bilateral lower extremity. Pinpoint sensation decreased. No hyperalgesia noted to bilateral lower extremity Dermatology: Normal temperature and turgor to bilateral lower extremity. Multiple areas of eschar noted to left foot including anterior ankle, heel, plantar sub-met one, lateral fifth metatarsal head. No associated erythema or drainage noted. No acute signs of infection to left foot. Musculoskeletal: Tender to palpation to left foot and areas of necrosis. Laboratory Laboratory Tests Test 01/17/18 21:50 01/18/18 07:16 White Blood Count 21.2 16.2 Red Blood Count 3.05 2.99 Hemoglobin 7.3 7.2 Hematocrit 23.4 22.9 Mean Corpuscular Volume 76.6 76.7 Mean Corpuscular Hemoglobin 24.1 24.0 Mean Corpuscular Hemoglobin Concent 31.4 31.3 Red Cell Distribution Width 18.2 18.3 Platelet Count 353 326 Mean Platelet Volume 8.5 8.5 Neutrophils (%) (Auto) 85.6 85.7 Lymphocytes (%) (Auto) 7.3 6.7 Monocytes (%) (Auto) 6.3 6.8 Eosinophils (%) (Auto) 0.1 0.4 Basophils (%) (Auto) 0.7 0.4 Neutrophils # (Auto) 18.2 13.9 Lymphocytes # (Auto) 1.5 1.1 Monocytes # (Auto) 1.3 1.1 Eosinophils # (Auto) 0.0 0.1 Basophils # (Auto) 0.1 0.1 CBC Comment DIFF FINAL DIFF FINAL Differential Comment Erythrocyte Sedimentation Rate GREATER THAN 140 Blood Urea Nitrogen 15 14 Creatinine 0.97 0.85 Random Glucose 136 123 Total Protein 6.0 5.8 Albumin 2.1 2.0 Calcium Level 8.1 8.2 Alkaline Phosphatase 68 69 Aspartate Amino Transf (AST/SGOT) 29 16 Alanine Aminotransferase (ALT/SGPT) 16 13 Total Bilirubin 0.5 0.4 Sodium Level 139 142 Potassium Level 4.6 4.2 Chloride Level 102 104 Carbon Dioxide Level 29.6 31.9 Anion Gap 7 6 Estimat Glomerular Filtration Rate 55 64 Lactic Acid Level 1.1 C-Reactive Protein 14.00 Date/Time Source Procedure Growth Status 01/17/18 21:50 Blood Peripheral Aerobic Blood Culture - Preliminary NO GROWTH IN 1 DAY Resulted 01/17/18 21:50 Blood Peripheral Anaerobic Blood Culture - Preliminary NO GROWTH IN 1 DAY Resulted Result Diagram: 01/18/18 0716 01/18/18 0716 Assessment and Plan Assessment and Plan 82-year-old female with the left foot and eschars and necrosis with possible OM noted on x-ray from [facility] Patient examined evaluated with all questions answered CT left lower extremity to be performed to rule out osteomyelitis If there are areas of suspicion will obtain bone biopsy and attempt limb salvage with IV antibiotics 6 weeks/per infectious disease Santyl and moist to dry dressing to be applied to left foot to all areas of necrosis daily Appreciate vascular input At this point will attempt limb salvage pending CT scan Lavern Cifuentes DPM January 18, 2018 17:31
[2018-01-18] MEDS ORDERED: IOHEXOL 350 MG/ML 10 ML VIAL (for RAD DIAG) IVCONTRAST ONE (20:51)
--- NOTE | 2018-01-18 21:57 | RADRPT ---
EXAM DATE/TIME: 01/18/2018 20:51 [facility] COMPARISON: ANKLE LEFT COMPLETE ([id number]), January 07, 2018, 16:02. INDICATIONS : Evaluate for osteomyelitis. IV CONTRAST: 95 cc Omnipaque 350 (iohexol) IV RADIATION DOSE: 11.40 CTDIvol (mGy) MEDICAL HISTORY : Cardiovascular disease. Hypertension. Gastroesophageal reflux disease. SURGICAL HISTORY : Appendectomy. Cholecystectomy. ENCOUNTER: Initial ACUITY: 1 day PAIN SCALE: 8/10 LOCATION: Left foot TECHNIQUE: Volumetric scanning of the foot was performed. Using automated exposure control and adjustment of th e mA and/or kV according to patient size, radiation dose was kept as low as reasonably achievable to obtain optimal diagnostic quality images. DICOM format image data is available electronically for re view and comparison. FINDINGS: Hardware is noted within the distal fibula and tibia status post ORIF. Prominent plantar calcaneal sp ur is again noted. Small Achilles calcaneal spur is also noted. Diffuse soft tissue swelling is noted . No acute fracture or dislocation is noted. Old healing posterior malleolar fracture is noted. Scatt ered areas of osteopenia are noted throughout the foot and are nonspecific. Bone scan, white blood ce ll scan and/or MRI with contrast would be more sensitive to rule out osteomyelitis if clinically carson cated. CONCLUSION: 1. Diffuse soft tissue swelling. 2. No acute fracture or dislocation. 3. Scattered areas of osteopenia are noted throughout the foot and are nonspecific. Bone scan, white blood cell scan and/or MRI with contrast would be more sensitive to rule out osteomyelitis if clinica lly indicated. 4. Plantar and Achilles calcaneal spurring. 5. Old healing posterior malleolar fracture. Wilmer Estes MD on January 18, 2018 at 21:49 Board Certified Radiologist. This report was verified electronically.
[2018-01-19] VITALS (8 sets, daily range): BP systolic 124–138; BP diastolic 60–99; PULSE 56–78; RESP 17–19; TEMP 98–99.4; O2SAT 92–98
[2018-01-19] MEDS: PIPERACIL-TAZO 4.5 GM PREMIX 100 ML IV SCH ×4 (04:33→21:20)
[2018-01-19] MEDS: SODIUM CHLOR 0.9% 1000 ML INJ 1,000 ML IV SCH ×2 (04:33→13:23)
[2018-01-19] MEDS: LEVOTHYROXINE SODIUM 150 MCG TAB PO SCH (06:08)
[2018-01-19] MEDS: VANCOMYCIN INJ 1,750 MG in SODIUM CHLORID 0.9% 500 ML INJ 500 ML IV SCH (06:11)
--- NOTE | 2018-01-19 07:37 | PD.VS.PN ---
Subjective Subjective/Hospital Course No acute events overnight no more disoriented thought feels well and even her foot feels better no definite osteo on CT Objective Vitals/I&O Date Time Temp Pulse Resp B/P (MAP) Pulse Ox O2 Delivery O2 Flow Rate FiO2 01/19/18 04:00 98.6 72 19 124/66 (85) 98 01/19/18 03:56 59 01/19/18 00:00 98.1 78 19 132/60 (84) 98 01/18/18 23:57 61 01/18/18 20:02 66 01/18/18 20:00 99.0 75 19 114/73 (87) 100 01/18/18 16:00 97.8 87 18 109/57 (74) 99 01/18/18 12:00 98.8 73 18 90/52 (65) 98 01/18/18 08:00 102.4 69 18 118/56 (76) 93 01/19/18 01/19/18 01/19/18 07:00 15:00 23:00 Intake Total 240 ml Balance 240 ml Physical Exam resting comfortably groin stable lower thigh incision ok foot wrapped Laboratory Date/Time Source Procedure Growth Status 01/17/18 21:50 Blood Peripheral Aerobic Blood Culture - Preliminary NO GROWTH IN 1 DAY Resulted 01/17/18 21:50 Blood Peripheral Anaerobic Blood Culture - Preliminary NO GROWTH IN 1 DAY Resulted Imaging Last 48 hours Impressions Lower Extremity CT 01/18/18 0000 Signed Impressions: Service Date/Time: Thursday, January 18, 2018 20:51 - CONCLUSION: 1. Diffuse soft tissue swelling. 2. No acute fracture or dislocation. 3. Scattered areas of osteopenia are noted throughout the foot and are nonspecific. Bone scan, white blood cell scan and/or MRI with contrast would be more sensitive to rule out osteomyelitis if clinically indicated. 4. Plantar and Achilles calcaneal spurring. 5. Old healing posterior malleolar fracture. Wilmer Estes MD Assessment and Plan Plan Successful groin reconstruction and bypass, good signal at foot; only minimal groin breakdown 1, Dry gauze to L groin BID 2. From a vascular surgery standpoint, can be OOB and WBAT; defer to Dr. Cifuentes re: activity with foot 3. Can be followed up as outpatient from vascular surgery standpoint Wilmer Moran MD January 19, 2018 07:37
[2018-01-19 08:02] LABS: AUTOMATED NEUTROPHIL # 11.5 TH/MM3 (1.8-7.7); BASOPHIL # 0.1 TH/MM3 (0-0.2); BASOPHIL % 0.6 % (0.0-2.0); EOSINOPHIL # 0.3 TH/MM3 (0-0.4); EOSINOPHIL % 1.9 % (0.0-4.0); HEMATOCRIT 23.3 % (35.0-46.0); LYMPH % 8.2 % (9.0-44.0); LYMPHOCYTE # 1.1 TH/MM3 (1.0-4.8); MEAN CELL VOLUME 76.8 FL (80.0-100.0); MEAN CORPUSCULAR HEMOGLOBIN 23.3 PG (27.0-34.0); MEAN CORPUSCULAR HGB CONC 30.3 % (32.0-36.0); MEAN PLATELET VOLUME 8.8 FL (7.0-11.0); MONO % 5.2 % (0.0-8.0); MONOCYTE # 0.7 TH/MM3 (0-0.9); NEUT % 84.1 % (16.0-70.0); PLATELET COUNT 305 TH/MM3 (150-450); RED BLOOD COUNT 3.03 MIL/MM3 (4.00-5.30); RED CELL DISTRIBUTION WIDTH 18.3 % (11.6-17.2); WHITE BLOOD COUNT 13.7 TH/MM3 (4.0-11.0)
[2018-01-19 08:27] LABS: BICARBONATE 29.3 MEQ/L (21.0-32.0); CALCIUM 8.4 MG/DL (8.5-10.1); CREATININE 0.77 MG/DL (0.50-1.00)
[2018-01-19] MEDS: COLLAGENASE OINT 30 GM TUBE TOPICAL SCH (09:00)
[2018-01-19] MEDS ORDERED: TORSEMIDE 20 MG TAB PO SCH (09:00)
[2018-01-19] MEDS: PRAVASTATIN SOD 20 MG TAB PO SCH (09:00)
[2018-01-19] MEDS: SODIUM CHLORIDE 0.9% FLUSH 10 ML FLUSH IV FLUSH SCH ×2 (09:00→21:21)
[2018-01-19] MEDS: APIXABAN 5 MG TABLET PO SCH ×2 (09:00→21:20)
[2018-01-19] MEDS: METOPROLOL TARTRATE 50 MG TAB PO SCH ×2 (09:00→21:20)
[2018-01-19] MEDS: DOCUSATE SODIUM 50 MG/SENNA 8.6 MG TAB PO SCH ×2 (09:00→21:20)
--- NOTE | 2018-01-19 09:08 | HHI.PR ---
Subjective Remarks Patient seen and examined this morning. Patient is currently afebrile. Reports she feels winded when she gets up to go to the bathroom and comes back. She denies CP or difficulty breathing at rest. Objective Vital Signs Date Time Temp Pulse Resp B/P (MAP) Pulse Ox O2 Delivery O2 Flow Rate FiO2 01/19/18 08:00 98.0 67 19 132/61 (84) 98 01/19/18 04:00 98.6 72 19 124/66 (85) 98 01/19/18 03:56 59 01/19/18 00:00 98.1 78 19 132/60 (84) 98 01/18/18 23:57 61 01/18/18 20:02 66 01/18/18 20:00 99.0 75 19 114/73 (87) 100 01/18/18 16:00 97.8 87 18 109/57 (74) 99 01/18/18 12:00 98.8 73 18 90/52 (65) 98 I/O 01/18/18 01/18/18 01/18/18 01/19/18 01/19/18 01/19/18 07:00 15:00 23:00 07:00 15:00 23:00 Intake Total 680 ml 515 ml 1060 ml 240 ml Output Total 1200 ml Balance 680 ml 515 ml -140 ml 240 ml Intake Oral 480 ml 960 ml 240 ml IV Total 200 ml 515 ml 100 ml Output Urine Total 1200 ml # Voids 2 3 # Bowel Movements 0 0 Result Diagram: 01/19/18 0624 01/19/18 0624 Imaging Last Impressions Lower Extremity CT 01/18/18 0000 Signed Impressions: Service Date/Time: Thursday, January 18, 2018 20:51 - CONCLUSION: 1. Diffuse soft tissue swelling. 2. No acute fracture or dislocation. 3. Scattered areas of osteopenia are noted throughout the foot and are nonspecific. Bone scan, white blood cell scan and/or MRI with contrast would be more sensitive to rule out osteomyelitis if clinically indicated. 4. Plantar and Achilles calcaneal spurring. 5. Old healing posterior malleolar fracture. Wilmer Estes MD Objective Remarks GENERAL: Well-appearing, no acute distress SKIN: Soft tissue necrosis of left foot and ankle. HEAD: Normocephalic. EYES: No scleral icterus. No injection or drainage. NECK: Supple, trachea midline. No JVD or lymphadenopathy. CARDIOVASCULAR: Irregular rhythm RESPIRATORY: Breath sounds equal bilaterally. No accessory muscle use. GASTROINTESTINAL: Abdomen soft, non-tender, nondistended. MUSCULOSKELETAL: able to lift left lower foot against gravity, unable to wiggle toes. A/P Problem List: (1) Afib ICD Code: I48.91 - Unspecified atrial fibrillation (2) PAD (peripheral artery disease) ICD Code: I73.9 - Peripheral vascular disease, unspecified (3) Left foot infection ICD Code: L08.9 - Local infection of the skin and subcutaneous tissue, unspecified (4) Osteomyelitis ICD Code: M86.9 - Osteomyelitis, unspecified Status: Acute (5) Sepsis ICD Code: A41.9 - Sepsis, unspecified organism Status: Acute Assessment and Plan This is a 82-year-old female patient with a medical history significant for Eliquis, hypertension, hyperlipidemia, peripheral artery disease status post left femoropopliteal bypass on January 06 who presented initially to [facility] and transferred to [facility]. Labs at [facility] were significant for white blood cell count of 17, left foot x-ray which showed a skin ulcer noted on the plantar aspect of the left foot with cortical irregularity and possibly possible osteomyelitis. Left foot infection with sepsis Tachycardic and febrile on admission. CRP 14. Currently on vancomycin and Zosyn DR. Cifuentes, podiatry was consulted, will do bone biopsy pending images Wound care consulted CT foot ordered to r/o osteo per podiatry reccs: cannot rule out osteo. Patient cannot have MRI due to pacemaker. Bone scan ordered. ID consulted Blood cultures negative to date. Peripheral artery disease Dr. Enrique was consulted: can be OOB and WBAT on foot, given extent of necrosis of foot, she is at high risk of amputation despite clinically patent bypass Continue patient's statin A. fib Continue patient's home Eliquis and metoprolol Hypothyroidism Continue patient's levothyroxine Hypertension Patient currently on amlodipine and lisinopril. Patient's blood pressure is low so we will hold these until her blood pressure stabilizes Anemia Hemoglobin 7.0 Baseline appears to be around 8 MCV 76 dictating microcytic anemia Watch closely and transfuse as necessary hemoccult ordered dvt proph currently on eliquis Discharge Planning D/C pending further workup Problem Qualifiers (1) Osteomyelitis: Qualified Codes: M86.9 - Osteomyelitis, unspecified (2) Sepsis: Qualified Codes: A41.9 - Sepsis, unspecified organism Racheal Garcia MD January 19, 2018 09:08
--- NOTE | 2018-01-19 12:07 | PD.ID.CON ---
History of Present Illness Service Infectious disease Consult Requested By Hospitalist service Reason for Consult Evaluation and management of possible left foot osteomyelitis Primary Care Physician Unknown Diagnoses: History of Present Illness Patient seen and examined on behalf of Dr. Britton This is a 82-year-old female with a past medical history significant for A. fib on Eliquis, CAD s/p cardiac stent, bradycardia status post pacemaker implantation, hypertension, hyperlipidemia and hypothyroidism who fell at home resulting in an open compound fracture of the left tib-fib and underwent ORIF in [place]. Postoperatively, patient was evaluated 2 weeks following her surgery in the surgeon's office and was noted to have significant necrosis of the left foot/ankle with concern for possible osteomyelitis. Patient was scheduled to see plastic surgeon as an outpatient but prior to that appointment she was reevaluated in the surgeon's office was found to have worsening necrosis of the foot and patient's family brought her to [facility] where she was admitted on 12/25/17. Patient was seen in consultation by Dr. Cifuentes who in turn consulted vascular surgery due to concern for arterial disease. Patient was found to have severe PAD and underwent a left femoropopliteal bypass 01/06/[address] Moran. During that hospitalization, patient developed twitching and speech changes and was seen in consultation by neurology for TIA vs over medicated hypoxia. Patient was discharged on 2017 to rehab facility. While at the rehab facility patient was treated for urinary tract infection. Patient continued to be followed by Dr. Cifuentes and underwent debridement in her office. While at the rehab facility two days ago, patient developed altered mental status with difficulty recalling words and gait instability and was sent to [facility] where patient was found to be septic and imaging left foot was done showing cortical irregularity possible osteomyelitis. CT the head obtained at that time showed no acute findings. Patient was transferred to [facility] ED and was admitted with sepsis and left foot infection and started on IV vancomycin and Zosyn. Patient has been seen by Dr. Moran and Dr. Cifuentes. Patient is not able to have an MRI done secondary to pacemaker (per [employer], patient device is not MRI compatible). She has undergone a CT of the foot which shows diffuse soft tissue swelling, scattered areas of osteopenia, no acute fracture dislocation and old healing posterior malleolus fracture. MRI or white blood cell scan has been recommended for further evaluation of possible osteomyelitis. Infectious disease consultation has been requested for evaluation and management of possible osteomyelitis left foot. Patient seen and examined. Patient reports exertional shortness of breath. She denies any fever or chills. She denies any nausea, vomiting or abdominal pain. She denies any hematuria, dysuria or diarrhea. She does states she has problems with constipation but had a good bowel movement this morning. Her daughter is at the bedside who assists with history. Per herself and the daughter, patient's mentation has returned to baseline. (Azeb Belle) Review of Systems Except as stated in HPI: all other systems reviewed are Neg (Azeb Belle) Past Family Social History Allergies: Coded Allergies: tetracycline (Verified Allergy, Intermediate, ulcerations to palm and hands, 01/06/18) Tetracyclic Antidepressants (Verified Allergy, Unknown, Hives, 12/25/17) MRI PRECAUTION (Verified Adverse Reaction, Severe, IMPLANTED DEVICE, ) [employer] Model #[id number] Serial # [id number] [place] 1) Serial #[id number] Model # 5076-45 [place] 2) Serial #[id number] Model # 5076-52 Implant Date 05/28/16 Past Medical History PAD s/p Left Fem-Pop Bypass 01/06/[address] Moran Atrial fibrillation anticoagulated on Eliquis Hypertension Hyperlipidemia Hypothyroidism CAD s/p cardiac stent Mild to moderate CHF Past Surgical History Left Fem-Pop Bypass 01/06/[address] Moran Left Tib-Fib Repair 12/04/17 in [place] Cardiac catheterization with stent placement 1 Perineal repair Pacemaker placement for bradycardia (per [employer], patient device is not MRI compatible) Left knee replacement L3 to L5 fusion with instrumentation Right Achilles repair Cholecystectomy Tonsillectomy Appendectomy Reported Medications Hydrocodone-Acetamin 7.5-325 (Hydrocodone/Acetaminophen) 7.5 Mg-325 Mg Tablet 1 Tab PO Q4H PRN Milk of Magnesia Liq (Magnesium Hydroxide) 400 Mg/5 Ml Susp 30 Ml PO Q6H PRN Lisinopril 40 Mg Tab 40 Mg PO BID Torsemide 20 Mg Tab 20 Mg PO DAILY Pravastatin 20 Mg Tab 20 Mg PO DAILY Potassium Chloride ER (Potassium Chloride) 10 Meq Tab 10 Meq PO DAILY Metoprolol Tartrate 50 Mg Tab 50 Mg PO BID Levothyroxine (Levothyroxine Sodium) 150 Mcg Tab 150 Mcg PO DAILY Gabapentin 600 Mg Tab 600 Mg PO HS Gabapentin 300 Mg Cap 300 Mg PO DAILY Eliquis (Apixaban) 5 Mg Tab 5 Mg PO BID Colace (Docusate Sodium) 100 Mg Capsule 100 Mg PO HS Aspirin EC (Aspirin) 81 Mg Tabdr 81 Mg PO DAILY Amlodipine (Amlodipine Besylate) 10 Mg Tab 10 Mg PO DAILY Active Ordered Medications IV Vancomycin IV Zosyn Current Medications Medications (Trade) Dose Ordered Sig/Temitope Route Start Time Stop Time Status Last Admin Pharmacy Profile Note 0 ml @ 0 mls/hr UNSCH OTHER 01/17/18 21:30 Piperacillin Sod/ Tazobactam Sod 100 ml @ 200 mls/hr Q6H IV 01/17/18 22:00 01/19/18 09:46 Sodium Chloride 1,000 ml @ 100 mls/hr Q10H IV 01/17/18 21:23 01/19/18 04:33 (NS Flush) 2 ml UNSCH PRN IV FLUSH 01/17/18 21:30 (NS Flush) 2 ml BID IV FLUSH 01/18/18 09:00 01/18/18 20:27 (Zofran Inj) 4 mg Q6H PRN IVP 01/17/18 21:30 (Tylenol) 650 mg Q6H PRN PO 01/17/18 21:30 01/18/18 08:26 ([place] 5-325 Mg) 1 tab Q4H PRN PO 01/17/18 21:30 01/18/18 21:38 (Nirali-Colace) 1 tab BID PO 01/18/18 09:00 01/19/18 09:00 (Milk Of Magnesia Liq) 30 ml Q12H PRN PO 01/17/18 21:30 (Senokot) 17.2 mg Q12H PRN PO 01/17/18 21:30 01/18/18 10:40 (Dulcolax Supp) 10 mg DAILY PRN RECTAL 01/17/18 21:30 (Lactulose Liq) 30 ml DAILY PRN PO 01/17/18 21:30 (Lopressor) 50 mg BID PO 01/18/18 09:00 5/6/18 09:00 (Pravachol) 20 mg DAILY PO 01/18/18 09:00 01/19/18 09:00 (Morphine Inj) 2 mg Q3H PRN IV PUSH 01/17/18 22:30 (Eliquis) 5 mg BID PO 01/18/18 09:00 01/19/18 09:00 (Synthroid) 150 mcg DAILY@0600 PO 01/19/18 06:00 01/19/18 06:08 Vancomycin HCl 1750 mg/Sodium Chloride 517.5 ml @ 257.5 mls/ hr Q24H IV 01/19/18 06:00 01/19/18 06:11 ([facility] Ordered Lab Info) SPECIFIC LAB TO BE SHIRA... ONCE ONCE .XX 01/21/18 05:45 01/21/18 05:46 (Santyl Oint) 1 applic DAILY TOPICAL 01/19/18 09:00 01/19/18 09:00 Family History CAD Cancer Social History Patient has remote history of tobacco use but quit smoking 25 years ago. Prior to quitting, patient had been smoking a pack a day since she was a teenager. She reports rare alcohol consumption. She denies any illicit drug use. (Azeb Belle) Physical Exam Vital Signs Vital Signs Date Time Temp Pulse Resp B/P (MAP) Pulse Ox O2 Delivery O2 Flow Rate FiO2 01/19/18 08:00 98.0 67 19 132/61 (84) 98 01/19/18 04:00 98.6 72 19 124/66 (85) 98 01/19/18 03:56 59 01/19/18 00:00 98.1 78 19 132/60 (84) 98 01/18/18 23:57 61 01/18/18 20:02 66 01/18/18 20:00 99.0 75 19 114/73 (87) 100 01/18/18 16:00 97.8 87 18 109/57 (74) 99 01/18/18 12:00 98.8 73 18 90/52 (65) 98 Physical Exam GENERAL: This is a well-nourished, well-developed overweight female patient, in no apparent distress. Awake and alert. Appears comfortable. Daughter is at the bedside. SKIN: Cool and dry. + surgical incision left groin with small opening and scant amount of yellowish drainage noted on dressing HEAD: Atraumatic. Normocephalic. No temporal or scalp tenderness. EYES: Pupils equal round and reactive. Extraocular motions intact. No scleral icterus. No injection or drainage. ENT: Nose without bleeding or purulent drainage. Throat without erythema, tonsillar hypertrophy or exudate. Uvula midline. Airway patent. NECK: Trachea midline. No JVD or lymphadenopathy. Supple, nontender, no meningeal signs. CARDIOVASCULAR: Regular rate and rhythm without murmurs, gallops, or rubs. s/p pacemaker insertion left anterior chest wall. RESPIRATORY: Clear to auscultation. Breath sounds equal bilaterally. No wheezes , rales, or rhonchi. GASTROINTESTINAL: Abdomen soft, non-tender, nondistended. No hepato-splenomegaly , or palpable masses. No guarding. MUSCULOSKELETAL: Extremities without clubbing or cyanosis. +Trace BLE edema. Left foot/ankle in soft dressing, C/D/I. Multiple Eschars on dorsum of left foot. Left heel eschar. Left great toe with eschar on tip. No calf tenderness. NEUROLOGICAL: Awake and alert. Cranial nerves II through XII grossly intact. Motor and sensory grossly within normal limits. Grossly nonfocal. Normal speech. PSYCHIATRIC: Appropriate mood and affect. Normal judgment and insight. PIV with no e/o infection Laboratory Laboratory Tests Test 01/19/18 06:24 White Blood Count 13.7 Red Blood Count 3.03 Hemoglobin 7.0 Hematocrit 23.3 Mean Corpuscular Volume 76.8 Mean Corpuscular Hemoglobin 23.3 Mean Corpuscular Hemoglobin Concent 30.3 Red Cell Distribution Width 18.3 Platelet Count 305 Mean Platelet Volume 8.8 Neutrophils (%) (Auto) 84.1 Lymphocytes (%) (Auto) 8.2 Monocytes (%) (Auto) 5.2 Eosinophils (%) (Auto) 1.9 Basophils (%) (Auto) 0.6 Neutrophils # (Auto) 11.5 Lymphocytes # (Auto) 1.1 Monocytes # (Auto) 0.7 Eosinophils # (Auto) 0.3 Basophils # (Auto) 0.1 CBC Comment DIFF FINAL Differential Comment Blood Urea Nitrogen 15 Creatinine 0.77 Random Glucose 90 Calcium Level 8.4 Sodium Level 141 Potassium Level 3.9 Chloride Level 107 Carbon Dioxide Level 29.3 Anion Gap 5 Estimat Glomerular Filtration Rate 72 Date/Time Source Procedure Growth Status 01/17/18 21:50 Blood Peripheral Aerobic Blood Culture - Preliminary NO GROWTH IN 2 DAYS Resulted 01/17/18 21:50 Blood Peripheral Anaerobic Blood Culture - Preliminary NO GROWTH IN 2 DAYS Resulted 01/19/18 08:45 Stool Stool Stool Occult Blood (DEEPIKA) Pending Received (Azeb Belle) Result Diagram: 01/19/18 0624 01/19/18 0624 Imaging Last Impressions Lower Extremity CT 01/18/18 0000 Signed Impressions: Service Date/Time: Thursday, January 18, 2018 20:51 - CONCLUSION: 1. Diffuse soft tissue swelling. 2. No acute fracture or dislocation. 3. Scattered areas of osteopenia are noted throughout the foot and are nonspecific. Bone scan, white blood cell scan and/or MRI with contrast would be more sensitive to rule out osteomyelitis if clinically indicated. 4. Plantar and Achilles calcaneal spurring. 5. Old healing posterior malleolar fracture. Wilmer Estes MD (Azeb Belle) Assessment and Plan Assessment and Plan Sepsis with temp 102.4, WBC 21.2 and source of left foot/ankle infection/ cellulitis -lactic acid WNL -blood cultures with no growth x 2 days Left foot/ankle cellulitis, concern for underlying osteomyelitis Hx of left tib/fib repair 12/04/18 in [place], hardware in place -CRP 14, ESR 140 -podiatry following Leukocytosis likely secondary to active infection/sepsis -white count trending down Acute metabolic encephalopathy suspect secondary to sepsis, possible TIA, improved -family believes she had a TIA but denies any slurred speech, facial droop, focal weakness PAD s/p left fem-pop bypass by Dr. Moran 01/06/18 -evaluated by Dr. Moran this admission - successful groin reconstruction and bypass, high risk of amputation despite clinically patent bypass, can be followed as outpatient from vascular standpoint Atrial fibrillation on Eliquis Hypertension Dyslipidemia CHF Anemia, hypochromic, microcytic -stool hemoccult pending RECOMMENDATIONS: Continue on IV Zosyn and Vancomycin follow up on final blood culture results follow up on CT plus 3 phase bone scan results obtain wound culture left groin Monitor for clinical improvement Will discuss further with Dr. Cifuentes (Azeb Belle) Assessment and Plan The exam, history, and the medical decision-making described in the above note were completed with the assistance of the mid-level provider. I reviewed and agree with the findings presented. I attest that I had a [id number] encounter with the patient on the same day, and personally performed and documented my assessment and findings in the medical record. Sitting in a chair daughter showed pics of wound from last few weeks. Noted historical facts. Has hardware in left leg where she has eschars Patient reports she is a nurse. Daughter DROP WIRER. Exam: Multiple Eschars on dorsum of left foot. Left heel eschar Left great toe with eschar on tip. A/P Sepsis Left foot with possible osteomyelitis Hardware in place Acute metabolic encephalopathy: sepsis, TIA. dw : CT foot plus 3 phase Bone scan. Depending on results will need bone biopsy. Follow cultures Follow clinically. (Tati Britton MD) Azeb Belle January 19, 2018 12:07 Tati Britton MD January 19, 2018 20:19
[2018-01-19] MEDS: ACETAMINOPHEN/HYDROcodone 325 MG/5 MG TAB PO PRN ×2 (12:55→21:22)
[2018-01-20] VITALS: BP 118/65; PULSE 61; RESP 18; TEMP 99; O2SAT 96
[2018-01-20 00:12] VITALS: PULSE 59
[2018-01-20] MEDS: SODIUM CHLOR 0.9% 1000 ML INJ 1,000 ML IV SCH ×3 (01:48→19:23)
[2018-01-20] MEDS: ACETAMINOPHEN/HYDROcodone 325 MG/5 MG TAB PO PRN ×3 (01:49→20:42)
[2018-01-20] MEDS: PIPERACIL-TAZO 4.5 GM PREMIX 100 ML IV SCH ×4 (04:39→22:45)
[2018-01-20] MEDS: LEVOTHYROXINE SODIUM 150 MCG TAB PO SCH (05:10)
[2018-01-20] MEDS: VANCOMYCIN INJ 1,750 MG in SODIUM CHLORID 0.9% 500 ML INJ 500 ML IV SCH (05:11)
[2018-01-20 07:50] LABS: AUTOMATED NEUTROPHIL # 9.3 TH/MM3 (1.8-7.7); BASOPHIL # 0.1 TH/MM3 (0-0.2); BASOPHIL % 0.9 % (0.0-2.0); EOSINOPHIL # 0.5 TH/MM3 (0-0.4); EOSINOPHIL % 3.8 % (0.0-4.0); HEMATOCRIT 23.3 % (35.0-46.0); HEMOGLOBIN 7.1 GM/DL (11.6-15.3); LYMPH % 11.4 % (9.0-44.0); LYMPHOCYTE # 1.3 TH/MM3 (1.0-4.8); MEAN CELL VOLUME 77.2 FL (80.0-100.0); MEAN CORPUSCULAR HEMOGLOBIN 23.6 PG (27.0-34.0); MEAN CORPUSCULAR HGB CONC 30.6 % (32.0-36.0); MEAN PLATELET VOLUME 8.6 FL (7.0-11.0); MONOCYTE # 0.6 TH/MM3 (0-0.9); NEUT % 78.9 % (16.0-70.0); PLATELET COUNT 349 TH/MM3 (150-450); RED BLOOD COUNT 3.02 MIL/MM3 (4.00-5.30); RED CELL DISTRIBUTION WIDTH 17.9 % (11.6-17.2); WHITE BLOOD COUNT 11.7 TH/MM3 (4.0-11.0)
[2018-01-20 08:00] VITALS: BP 159/67; PULSE 51; RESP 17; TEMP 97.8; O2SAT 94
[2018-01-20] MEDS: SODIUM CHLORIDE 0.9% FLUSH 10 ML FLUSH IV FLUSH SCH ×2 (08:06→20:41)
[2018-01-20 08:12] LABS: BICARBONATE 25.9 MEQ/L (21.0-32.0); CALCIUM 8.4 MG/DL (8.5-10.1); CREATININE 0.66 MG/DL (0.50-1.00)
[2018-01-20] MEDS: DOCUSATE SODIUM 50 MG/SENNA 8.6 MG TAB PO SCH ×2 (08:51→20:40)
[2018-01-20] MEDS: APIXABAN 5 MG TABLET PO SCH ×2 (08:51→20:40)
[2018-01-20] MEDS: METOPROLOL TARTRATE 50 MG TAB PO SCH (08:51)
[2018-01-20] MEDS: PRAVASTATIN SOD 20 MG TAB PO SCH (08:51)
[2018-01-20] MEDS: COLLAGENASE OINT 30 GM TUBE TOPICAL SCH (08:54)
--- NOTE | 2018-01-20 10:25 | HHI.IDPN ---
Subjective Subjective Remarks Patient seen and examined on behalf of Dr. Britton This is a 82-year-old female with a past medical history significant for A. fib on Eliquis, CAD s/p cardiac stent, bradycardia status post pacemaker implantation, hypertension, hyperlipidemia and hypothyroidism who fell at home resulting in an open compound fracture of the left tib-fib and underwent ORIF in [place]. Postoperatively, patient was evaluated 2 weeks following her surgery in the surgeon's office and was noted to have significant necrosis of the left foot/ankle with concern for possible osteomyelitis. Patient was scheduled to see plastic surgeon as an outpatient but prior to that appointment she was reevaluated in the surgeon's office was found to have worsening necrosis of the foot and patient's family brought her to [facility] where she was admitted on 12/25/17. Patient was seen in consultation by Dr. Cifuentes who in turn consulted vascular surgery due to concern for arterial disease. Patient was found to have severe PAD and underwent a left femoropopliteal bypass 01/06/[address] Moran. During that hospitalization, patient developed twitching and speech changes and was seen in consultation by neurology for TIA vs over medicated hypoxia. Patient was discharged on 2017 to rehab facility. While at the rehab facility patient was treated for urinary tract infection. Patient continued to be followed by Dr. Cifuentes and underwent debridement in her office. While at the rehab facility two days ago, patient developed altered mental status with difficulty recalling words and gait instability and was sent to [facility] where patient was found to be septic and imaging left foot was done showing cortical irregularity possible osteomyelitis. CT the head obtained at that time showed no acute findings. Patient was transferred to [facility] ED and was admitted with sepsis and left foot infection and started on IV vancomycin and Zosyn. Patient has been seen by Dr. Moran and Dr. Cifuentes. Patient is not able to have an MRI done secondary to pacemaker (per [employer], patient device is not MRI compatible). She has undergone a CT of the foot which shows diffuse soft tissue swelling, scattered areas of osteopenia, no acute fracture dislocation and old healing posterior malleolus fracture. MRI or white blood cell scan has been recommended for further evaluation of possible osteomyelitis. Infectious disease consultation has been requested for evaluation and management of possible osteomyelitis left foot. Patient seen and examined. Patient reports exertional shortness of breath. She denies any fever or chills. She denies any nausea, vomiting or abdominal pain. She denies any hematuria, dysuria or diarrhea. She does states she has problems with constipation but had a good bowel movement this morning. Her daughter is at the bedside who assists with history. Per herself and the daughter, patient's mentation has returned to baseline. Overnight events noted Notes reviewed daughter at the bedside patient c/o increased shortness of breath mild cough with clear sputum production that patient attributes to post nasal drip reports increasing edema in her arms and abdomen reports early satiety no fever no chest pain but reports occasional palpitations no rash no dysuria but reports decreased UOP and dark concentrated urine no diarrhea, reports good BM yesterday afebrile BCX neg x 2 days Hemoccult neg Awaiting bone scan results Antibiotics IV Vancomycin IV Zosyn Current Medications Medications (Trade) Dose Ordered Sig/Temitope Route Start Time Stop Time Status Last Admin Pharmacy Profile Note 0 ml @ 0 mls/hr UNSCH OTHER 01/17/18 21:30 Piperacillin Sod/ Tazobactam Sod 100 ml @ 200 mls/hr Q6H IV 01/17/18 22:00 01/20/18 08:50 Sodium Chloride 1,000 ml @ 100 mls/hr Q10H IV 01/17/18 21:23 01/20/18 01:48 (NS Flush) 2 ml UNSCH PRN IV FLUSH 01/17/18 21:30 (NS Flush) 2 ml BID IV FLUSH 01/18/18 09:00 01/19/18 21:21 (Zofran Inj) 4 mg Q6H PRN IVP 01/17/18 21:30 (Tylenol) 650 mg Q6H PRN PO 01/17/18 21:30 01/18/18 08:26 ([place] 5-325 Mg) 1 tab Q4H PRN PO 01/17/18 21:30 01/20/18 01:49 (Nirali-Colace) 1 tab BID PO 01/18/18 09:00 01/20/18 08:51 (Milk Of Magnesia Liq) 30 ml Q12H PRN PO 01/17/18 21:30 (Senokot) 17.2 mg Q12H PRN PO 01/17/18 21:30 01/18/18 10:40 (Dulcolax Supp) 10 mg DAILY PRN RECTAL 01/17/18 21:30 (Lactulose Liq) 30 ml DAILY PRN PO 01/17/18 21:30 (Lopressor) 50 mg BID PO 01/18/18 09:00 01/20/18 08:51 (Pravachol) 20 mg DAILY PO 01/18/18 09:00 01/20/18 08:51 (Morphine Inj) 2 mg Q3H PRN IV PUSH 01/17/18 22:30 (Eliquis) 5 mg BID PO 01/18/18 09:00 01/20/18 08:51 (Synthroid) 150 mcg DAILY@0600 PO 01/19/18 06:00 01/20/18 05:10 Vancomycin HCl 1750 mg/Sodium Chloride 517.5 ml @ 257.5 mls/ hr Q24H IV 01/19/18 06:00 01/20/18 05:11 ([facility] Ordered Lab Info) SPECIFIC LAB TO BE .. ONCE ONCE .XX 01/21/18 05:45 01/21/18 05:46 (Santyl Oint) 1 applic DAILY TOPICAL 01/19/18 09:00 01/20/18 08:54 Lines PIV with no e/o infection Past Medical History PAD s/p Left Fem-Pop Bypass 01/06/[address] Moran Atrial fibrillation anticoagulated on Eliquis Hypertension Hyperlipidemia Hypothyroidism CAD s/p cardiac stent Mild to moderate CHF (Azeb Belle) Allergies: Coded Allergies: tetracycline (Verified Allergy, Intermediate, ulcerations to palm and hands, 01/06/18) Tetracyclic Antidepressants (Verified Allergy, Unknown, Hives, 12/25/17) MRI PRECAUTION (Verified Adverse Reaction, Severe, IMPLANTED DEVICE, ) wizboo Model #[id number] Serial # [id number] [place] 1) Serial #[id number] Model # 5076-45 [place] 2) Serial #[id number] Model # 5076-52 Implant Date 05/28/16 Objective . Vital Signs Date Time Temp Pulse Resp B/P (MAP) Pulse Ox O2 Delivery O2 Flow Rate FiO2 01/20/18 00:12 59 01/20/18 00:00 99.0 61 18 118/65 (82) 96 01/19/18 20:00 99.4 74 17 138/99 (112) 92 01/19/18 19:57 56 01/19/18 17:20 Nasal Cannula 3.00 01/19/18 16:00 98.0 65 19 125/76 (92) 94 01/19/18 12:00 98.0 75 19 138/64 (88) 96 . Laboratory Tests Test 01/19/18 06:24 01/20/18 07:04 White Blood Count 13.7 TH/MM3 11.7 TH/MM3 Red Blood Count 3.03 MIL/MM3 3.02 MIL/MM3 Hemoglobin 7.0 GM/DL 7.1 GM/DL Hematocrit 23.3 % 23.3 % Mean Corpuscular Volume 76.8 FL 77.2 FL Mean Corpuscular Hemoglobin 23.3 PG 23.6 PG Mean Corpuscular Hemoglobin Concent 30.3 % 30.6 % Red Cell Distribution Width 18.3 % 17.9 % Platelet Count 305 TH/MM3 349 TH/MM3 Mean Platelet Volume 8.8 FL 8.6 FL Neutrophils (%) (Auto) 84.1 % 78.9 % Lymphocytes (%) (Auto) 8.2 % 11.4 % Monocytes (%) (Auto) 5.2 % 5.0 % Eosinophils (%) (Auto) 1.9 % 3.8 % Basophils (%) (Auto) 0.6 % 0.9 % Neutrophils # (Auto) 11.5 TH/MM3 9.3 TH/MM3 Lymphocytes # (Auto) 1.1 TH/MM3 1.3 TH/MM3 Monocytes # (Auto) 0.7 TH/MM3 0.6 TH/MM3 Eosinophils # (Auto) 0.3 TH/MM3 0.5 TH/MM3 Basophils # (Auto) 0.1 TH/MM3 0.1 TH/MM3 CBC Comment DIFF FINAL DIFF FINAL Differential Comment Laboratory Tests Test 01/19/18 06:24 01/20/18 07:04 Blood Urea Nitrogen 15 MG/DL 11 MG/DL Creatinine 0.77 MG/DL 0.66 MG/DL Random Glucose 90 MG/DL 99 MG/DL Calcium Level 8.4 MG/DL 8.4 MG/DL Sodium Level 141 MEQ/L 141 MEQ/L Potassium Level 3.9 MEQ/L 3.9 MEQ/L Chloride Level 107 MEQ/L 108 MEQ/L Carbon Dioxide Level 29.3 MEQ/L 25.9 MEQ/L Anion Gap 5 MEQ/L 7 MEQ/L Estimat Glomerular Filtration Rate 72 ML/MIN 86 ML/MIN Microbiology Date/Time Source Procedure Growth Status 01/17/18 21:50 Blood Peripheral Aerobic Blood Culture - Preliminary NO GROWTH IN 2 DAYS Resulted 01/17/18 21:50 Blood Peripheral Anaerobic Blood Culture - Preliminary NO GROWTH IN 2 DAYS Resulted 01/17/18 21:45 Blood Peripheral Aerobic Blood Culture - Preliminary NO GROWTH IN 2 DAYS Resulted 01/17/18 21:45 Blood Peripheral Anaerobic Blood Culture - Preliminary NO GROWTH IN 2 DAYS Resulted 01/19/18 08:45 Stool Stool Stool Occult Blood (DEEPIKA) - Final HEMOCCULT NEGATIVE Complete Imaging Last Impressions Lower Extremity CT 01/18/18 0000 Signed Impressions: Service Date/Time: Thursday, January 18, 2018 20:51 - CONCLUSION: 1. Diffuse soft tissue swelling. 2. No acute fracture or dislocation. 3. Scattered areas of osteopenia are noted throughout the foot and are nonspecific. Bone scan, white blood cell scan and/or MRI with contrast would be more sensitive to rule out osteomyelitis if clinically indicated. 4. Plantar and Achilles calcaneal spurring. 5. Old healing posterior malleolar fracture. Wilmer Estes MD Physical Exam GENERAL: This is a well-nourished, well-developed overweight female patient, in no apparent distress. Awake and alert. Sitting up in bedside chair on 3LNC. Daughter is at the bedside. SKIN: Cool and dry. + surgical incision left groin with small opening and scant amount of yellowish drainage noted on dressing HEAD: Atraumatic. Normocephalic. No temporal or scalp tenderness. EYES: Pupils equal round and reactive. Extraocular motions intact. No scleral icterus. No injection or drainage. ENT: Nose without bleeding or purulent drainage. Throat without erythema, tonsillar hypertrophy or exudate. Uvula midline. Airway patent. MMM. NECK: Trachea midline. N CARDIOVASCULAR: Bradycardic. +Murmur. s/p pacemaker insertion left anterior chest wall, site clear. RESPIRATORY: Clear to auscultation but diminished. Breath sounds equal bilaterally. No wheezes, rales, or rhonchi. GASTROINTESTINAL: Abdomen soft, non-tender, nondistended. No hepato-splenomegaly , or palpable masses. No guarding. MUSCULOSKELETAL: Extremities without clubbing or cyanosis. Diffuse nonpitting edema noted in BUEs. +Trace RLE edema. 1-2+pitting edema LLE. Left foot/ankle in soft dressing, C/D/I. Exam left foot deferred today. No calf tenderness. NEUROLOGICAL: Awake and alert. Cranial nerves II through XII grossly intact. Motor and sensory grossly within normal limits. Grossly nonfocal. Normal speech. PSYCHIATRIC: Appropriate mood and affect. Normal judgment and insight. PIV with no e/o infection (Azeb Belle) Assessment & Plan Remarks ASSESSMENT: Sepsis with temp 102.4, WBC 21.2 and source of left foot/ankle infection/ cellulitis -on IV Vanco and Zosyn -lactic acid WNL -blood cultures with no growth x 2 days Left foot/ankle cellulitis, concern for underlying osteomyelitis Hx of left tib/fib repair 12/04/18 in [place], hardware in place -CRP 14, ESR 140 -podiatry following -awaiting CT pule 3 phase bone scan results. May need bone bx pending results. Leukocytosis likely secondary to active infection/sepsis -white count trending down Acute metabolic encephalopathy suspect secondary to sepsis, possible TIA, improved -family believes she had a TIA but denies any slurred speech, facial droop, focal weakness PAD s/p left fem-pop bypass by Dr. Moran 01/06/18 -evaluated by Dr. Moran this admission - successful groin reconstruction and bypass, high risk of amputation despite clinically patent bypass, can be followed as outpatient from vascular standpoint Atrial fibrillation on Eliquis Hypertension Bradycardic Dyslipidemia CHF ?acute exacerbation. Patient c/o increased SOB, cough, BUE edema, abdominal fullness, decreased UOP Anemia, hypochromic, microcytic -stool hemoccult negative RECOMMENDATIONS: Continue on IV Zosyn and Vancomycin start on po Lactobacillus at family's request follow up on final blood culture results follow up on CT plus 3 phase bone scan results obtain CXR and BNP strict I&Os, monitor UOP UA ordered doppler US BUE and LLE to r/o DVT obtain wound cx left groin Monitor for clinical improvement Will discuss further with Dr. Cifuentes (Azeb Belle) Remarks The exam, history, and the medical decision-making described in the above note were completed with the assistance of the mid-level provider. I reviewed and agree with the findings presented. I attest that I had a [id number] encounter with the patient on the same day, and personally performed and documented my assessment and findings in the medical record. mary Freeman and family depending on results of Bone scan patient will need bone biopsy. Reports shortness of breath. No cough no CP. No fevers, Normal WBC BCX negative so far. Wound cultures obtained by ID team Add Diflucan for possible access site infection in Left groin. Continue Zosyn IV Continue Vanco IV Strict I/O Reynolds cath 12 Lead EKG: mary Fraga to have these followed by night doc or before she leaves. 2D ECHO (Tati Britton MD) Azeb Belle January 20, 2018 10:25 Tati Britton MD January 20, 2018 17:38
--- NOTE | 2018-01-20 11:35 | RADRPT ---
EXAM DATE/TIME: 01/20/2018 10:28 [facility] COMPARISON: No previous studies available for comparison. INDICATIONS : Left leg edema. MEDICAL HISTORY : Hypothyroidism. Congestive heart failure. Hypercholesterolemia. Neuropathy. Coronary artery diseas e. AFib. GERD. HTN. Chest pain. Anemia. UTI. Anticoagulant therapy, Eliquis & Aspirin. SURGICAL HISTORY : Tonsillectomy. Coronary artery stent. Pacemaker. Cardiac cath. Appendectomy. Cholecystectomy. Nagi padron. Left TKA. Tib/fib repair. ENCOUNTER: Subsequent ACUITY: 2 day PAIN SCORE: 9/10 LOCATION: Left leg. TECHNIQUE: Venous ultrasound of the leg was performed from the inguinal ligament to the proximal calf. Real-danilo e, color Doppler and spectral tracing, compression and augmentation techniques were used. FINDINGS: There is normal compressibility of the deep venous system from the inguinal region to the proximal ca lf. No echogenic clot is seen in the lumen of the common femoral, femoral, popliteal, and posterior tibial veins. There is a normal response of the venous system to proximal and distal augmentation an d respiration. CONCLUSION: No DVT. Adonay Cabrera MD on January 20, 2018 at 11:29 Board Certified Radiologist. This report was verified electronically.
--- NOTE | 2018-01-20 11:36 | RADRPT ---
EXAM DATE/TIME: 01/20/2018 10:42 [facility] COMPARISON: No previous studies available for comparison. INDICATIONS : Bilateral arm edema. MEDICAL HISTORY : Hypothyroidism. Congestive heart failure. Hypercholesterolemia. Neuropathy. Coronary artery disease. AFib. GERD. HTN. Chest pain. Anemia. UTI. Anticoagulant therapy, Eliquis & Aspirin. SURGICAL HISTORY : Tonsillectomy.Coronary artery stent. Pacemaker.Cardiac cath. Appendectomy. Cholecystectomy. Bladder t uck. Left TKA. Tib/fib repair. ENCOUNTER: Initial ACUITY: 2 day PAIN SCORE: 9/10 LOCATION: Bilateral arm. FINDINGS: RIGHT UPPER EXTREMITY: There is spontaneous flow documented in the brachial, basilic, cephalic, axillary, and subclavian vei ns. The vessels are compressible and augmentation response is documented. No filling defects are se en. The flow is phasic with respiration. Direction of flow in the jugular vein is caudal. LEFT UPPER EXTREMITY: There is spontaneous flow documented in the brachial, basilic, cephalic, axillary, and subclavian vei ns. The vessels are compressible and augmentation response is documented. No filling defects are se en. The flow is phasic with respiration. Direction of flow in the jugular vein is caudal. CONCLUSION: No DVT. Adonay Cabrera MD on January 20, 2018 at 11:34 Board Certified Radiologist. This report was verified electronically.
[2018-01-20 12:00] VITALS: BP 135/85; PULSE 52; RESP 17; TEMP 97.9; O2SAT 95
--- NOTE | 2018-01-20 13:50 | RADRPT ---
EXAM DATE/TIME: 01/20/2018 13:03 [facility] COMPARISON: CHEST SINGLE AP, January 06, 2018, 19:05. INDICATIONS : Short of Breath MEDICAL HISTORY : Hypothyroidism. Congestive heart failure. Hypercholesterolemia. NeuropathyCoronary artery disease. AF ib. GERD. HTN. Chest pain. Anemia. UTI. Anticoagulant therapy, SURGICAL HISTORY : Tonsillectomy.Coronary artery stent. Pacemaker.Cardiac cath.Appendectomy. Cholecystectomy. Bladder tu ck. Left TKA. Tib/fib repair. ENCOUNTER: Initial ACUITY: 2 days PAIN SCORE: 9/10 LOCATION: chest FINDINGS: Pacemaker implanted in the left chest. Mild compensated cardiomegaly. No pleural effusion. No cons olidation. No pneumothorax. CONCLUSION: Mild compensated cardiomegaly. Pacemaker on the left. Gallo Armas MD FACR on January 20, 2018 at 13:45 Board Certified Radiologist. This report was verified electronically.
[2018-01-20] MEDS: MORPHINE SULFATE 4 MG/ML INJ IV PUSH PRN (15:15)
--- NOTE | 2018-01-20 15:34 | HHI.PR ---
Subjective Remarks telemetry- occasional paced beat Objective Vitals Vital Signs Date Time Temp Pulse Resp B/P (MAP) Pulse Ox O2 Delivery O2 Flow Rate FiO2 01/20/18 12:00 97.9 52 17 135/85 (102) 95 01/20/18 08:00 97.8 51 17 159/67 (97) 94 01/20/18 00:12 59 01/20/18 00:00 99.0 61 18 118/65 (82) 96 01/19/18 20:00 99.4 74 17 138/99 (112) 92 01/19/18 19:57 56 01/19/18 17:20 Nasal Cannula 3.00 01/19/18 16:00 98.0 65 19 125/76 (92) 94 I/O 01/19/18 01/19/18 01/19/18 01/20/18 01/20/18 01/20/18 07:00 15:00 23:00 07:00 15:00 23:00 Intake Total 1340 ml 1825 ml 240 ml Balance 1340 ml 1825 ml 240 ml Intake Oral 240 ml 1200 ml 240 ml IV Total 1100 ml 625 ml # Voids 3 3 3 # Bowel Movements 2 Result Diagram: 01/20/18 0704 01/20/18 0704 Imaging Last Impressions Upper Extremity Ultrasound 01/20/18 0000 Signed Impressions: Service Date/Time: Saturday, January 20, 2018 10:42 - CONCLUSION: No DVT. Adonay Cabrera MD Lower Extremity Ultrasound 01/20/18 0000 Signed Impressions: Service Date/Time: Saturday, January 20, 2018 10:28 - CONCLUSION: No DVT. Adonay Cabrera MD Chest X-Ray 01/20/18 0000 Signed Impressions: Service Date/Time: Saturday, January 20, 2018 13:03 - CONCLUSION: Mild compensated cardiomegaly. Pacemaker on the left. Gallo Armas MD FACR Lower Extremity CT 01/18/18 0000 Signed Impressions: Service Date/Time: Thursday, January 18, 2018 20:51 - CONCLUSION: 1. Diffuse soft tissue swelling. 2. No acute fracture or dislocation. 3. Scattered areas of osteopenia are noted throughout the foot and are nonspecific. Bone scan, white blood cell scan and/or MRI with contrast would be more sensitive to rule out osteomyelitis if clinically indicated. 4. Plantar and Achilles calcaneal spurring. 5. Old healing posterior malleolar fracture. Wilmer Estes MD Objective Remarks awake and alert lungs- no rales regular rhythm, telemetry- paced bit abdomen- soft + pretibial edema A/P Problem List: (1) Sepsis ICD Code: A41.9 - Sepsis, unspecified organism Status: Acute (2) Osteomyelitis ICD Code: M86.9 - Osteomyelitis, unspecified Status: Acute (3) Left foot infection ICD Code: L08.9 - Local infection of the skin and subcutaneous tissue, unspecified (4) PAD (peripheral artery disease) ICD Code: I73.9 - Peripheral vascular disease, unspecified (5) Afib ICD Code: I48.91 - Unspecified atrial fibrillation Assessment and Plan This is a 82-year-old female patient with a medical history significant for Eliquis, hypertension, hyperlipidemia, peripheral artery disease status post left femoropopliteal bypass on January 06 who presented initially to [facility] and transferred to [facility]. Labs at [facility] were significant for white blood cell count of 17, left foot x-ray which showed a skin ulcer noted on the plantar aspect of the left foot with cortical irregularity and possibly possible osteomyelitis. Left foot infection with sepsis Tachycardic and febrile on admission. CRP 14. Currently on Zosyn/Vancomycin. dilfucan DR. Cifuentes, podiatry ff Wound care daily ID ff FF BP Blood cultures negative to date. Peripheral artery disease Dr. Enrique was consulted: can be OOB and WBAT on foot, given extent of necrosis of foot, she is at high risk of amputation despite clinically patent bypass Continue patient's statin A. fib- telemetry with occasinally paced beat Recent TIA - rate variable- occasionally in the 50s Continue patient's home Eliquis and metoprolol- decrease metoprolol to 25 mg po bid dose with hold parameter FF up 12 Lekg ordered Hypothyroidism Continue patient's levothyroxine Hypertension Patient currently on amlodipine and lisinopril.- hold for now- with initial borderline BPs. Monitor on BB Patient's blood pressure is low so we will hold these until her blood pressure stabilizes Anemia Hemoglobin 7.0 Baseline appears to be around 8 MCV 76 dictating microcytic anemia Watch closely and transfuse as necessary hemoccult ordered dvt proph currently on eliquis Problem Qualifiers (1) Sepsis: Qualified Codes: A41.9 - Sepsis, unspecified organism (2) Osteomyelitis: Qualified Codes: M86.9 - Osteomyelitis, unspecified Hayden Gandara MD January 20, 2018 15:34
[2018-01-20] MEDS: FLUCONAZOLE 100 MG PREMIX BAG 50 ML IV SCH (17:33)
[2018-01-20 20:00] VITALS: BP 198/82; PULSE 58; RESP 17; TEMP 98.5; O2SAT 93
[2018-01-20 20:30] VITALS: PULSE 89
[2018-01-20] MEDS: METOPROLOL TARTRATE 25 MG TAB PO SCH (20:40)
[2018-01-20] MEDS: LACTOBACILLUS ACIDOPHILUS TAB PO SCH (20:41)
[2018-01-21] VITALS (7 sets, daily range): BP systolic 128–170; BP diastolic 70–84; PULSE 56–97; RESP 18–20; TEMP 97.7–99; O2SAT 94–97
[2018-01-21] MEDS: PIPERACIL-TAZO 4.5 GM PREMIX 100 ML IV SCH ×4 (04:14→21:22)
[2018-01-21] MEDS ORDERED: PHARMACY ORDERED LAB ONE (05:45)
[2018-01-21] MEDS: LEVOTHYROXINE SODIUM 150 MCG TAB PO SCH (05:59)
[2018-01-21] MEDS: SODIUM CHLOR 0.9% 1000 ML INJ 1,000 ML IV SCH (06:01)
[2018-01-21] MEDS: MORPHINE SULFATE 4 MG/ML INJ IV PUSH PRN ×2 (08:11→21:22)
--- NOTE | 2018-01-21 09:47 | HHI.PR ---
Subjective Remarks seen with supportive family at bedside + leg swelling no complains of pain Objective Vitals Vital Signs Date Time Temp Pulse Resp B/P (MAP) Pulse Ox O2 Delivery O2 Flow Rate FiO2 01/21/18 08:00 98.1 56 18 164/76 (105) 94 01/21/18 04:13 97.7 97 20 168/74 (105) 97 01/21/18 00:18 98.4 78 20 154/70 (98) 94 01/21/18 00:00 66 01/20/18 20:30 89 01/20/18 20:00 98.5 58 17 198/82 (120) 93 01/20/18 12:00 97.9 52 17 135/85 (102) 95 I/O 01/20/18 01/20/18 01/20/18 01/21/18 01/21/18 01/21/18 07:00 15:00 23:00 07:00 15:00 23:00 Intake Total 240 ml 637 ml 1315 ml Output Total 840 ml Balance 240 ml 637 ml 475 ml Intake Oral 240 ml 637 ml 380 ml IV Total 935 ml Output Urine Total 840 ml # Voids 3 2 # Bowel Movements 0 0 Result Diagram: 01/20/18 0704 01/20/18 0704 Imaging Last Impressions Upper Extremity Ultrasound 01/20/18 Signed Impressions: Service Date/Time: Saturday, January 20, 2018 10:42 - CONCLUSION: No DVT. Adonay Cabrera MD Tumor Localization 01/20/18 Signed Impressions: Service Date/Time: Saturday, January 20, 2018 11:45 - CONCLUSION: 1. Intense focal uptake at the site of fracture in the distal posterior tibia. Remainder of the uptake is mild and may represent a mild cellulitis, without definite evidence for osteomyelitis. Tray Garcia MD Lower Extremity Ultrasound 01/20/18 0000 Signed Impressions: Service Date/Time: Saturday, January 20, 2018 10:28 - CONCLUSION: No DVT. Adonay Cabrera MD Chest X-Ray 01/20/18 Signed Impressions: Service Date/Time: Saturday, January 20, 2018 13:03 - CONCLUSION: Mild compensated cardiomegaly. Pacemaker on the left. Gallo Armas MD FACR Lower Extremity CT 5/5/18 0000 Signed Impressions: Service Date/Time: Thursday, January 18, 2018 20:51 - CONCLUSION: 1. Diffuse soft tissue swelling. 2. No acute fracture or dislocation. 3. Scattered areas of osteopenia are noted throughout the foot and are nonspecific. Bone scan, white blood cell scan and/or MRI with contrast would be more sensitive to rule out osteomyelitis if clinically indicated. 4. Plantar and Achilles calcaneal spurring. 5. Old healing posterior malleolar fracture. Wilmer Estes MD Last Impressions Upper Extremity Ultrasound 01/20/18 0000 Signed Impressions: Service Date/Time: Saturday, January 20, 2018 10:42 - CONCLUSION: No DVT. Adonay Cabrera MD Lower Extremity Ultrasound 01/20/18 0000 Signed Impressions: Service Date/Time: Saturday, January 20, 2018 10:28 - CONCLUSION: No DVT. Adonay Cabrera MD Chest X-Ray 01/20/18 0000 Signed Impressions: Service Date/Time: Saturday, January 20, 2018 13:03 - CONCLUSION: Mild compensated cardiomegaly. Pacemaker on the left. Gallo Armas MD FACR Lower Extremity CT 01/18/18 0000 Signed Impressions: Service Date/Time: Thursday, January 18, 2018 20:51 - CONCLUSION: 1. Diffuse soft tissue swelling. 2. No acute fracture or dislocation. 3. Scattered areas of osteopenia are noted throughout the foot and are nonspecific. Bone scan, white blood cell scan and/or MRI with contrast would be more sensitive to rule out osteomyelitis if clinically indicated. 4. Plantar and Achilles calcaneal spurring. 5. Old healing posterior malleolar fracture. Wilmer Estes MD Objective Remarks awake and alert lungs- decreased breath sounds, no rales regular rhythm, telemetry- paced abdomen- soft left groin + wound + edema A/P Problem List: (1) Sepsis ICD Code: A41.9 - Sepsis, unspecified organism Status: Acute (2) Osteomyelitis ICD Code: M86.9 - Osteomyelitis, unspecified Status: Acute (3) Left foot infection ICD Code: L08.9 - Local infection of the skin and subcutaneous tissue, unspecified (4) PAD (peripheral artery disease) ICD Code: I73.9 - Peripheral vascular disease, unspecified (5) Afib ICD Code: I48.91 - Unspecified atrial fibrillation Assessment and Plan This is a 82-year-old female patient with a medical history significant for Eliquis, hypertension, hyperlipidemia, peripheral artery disease status post left femoropopliteal bypass on January 06 who presented initially to [facility] and transferred to [facility]. Labs at Hospital were significant for white blood cell count of 17, left foot x-ray which showed a skin ulcer noted on the plantar aspect of the left foot with cortical irregularity and possibly possible osteomyelitis. Sepsis secondary to Left foot infection \\ Tachycardic/hypotensive and febrile on admission. BPs better. CRP 14. Wound care daily ID ff- Dr. Britton - Currently on Zosyn/Vancomycin/ dilfucan Blood cultures negative to date. + uptake in Nuclear scan, possible bone biopsy- Podiatry ff - to decide Peripheral artery disease Dr. Enrique was consulted: - OOB and WBAT on foot, given extent of necrosis of foot, she is at high risk of amputation despite clinically patent bypass Continue patient's statin A. fib- telemetry with occasional paced beat- rate variable Recent TIA Mild fluid overload Hypertension- some SBPs in the 160 - hypotensive on admission- received FLuids and his diuretics was held on admission - rate variable- occasionally in the 50s Continue patient's home Eliquis and metoprolol- decrease metoprolol to 25 mg po bid dose with hold parameter - give Lasix 40 mg IV x 1 today and reevaluate in am- and start scheduled doses - monitor - as OP on torsemide daily- restart eventually- BPs up /hypotension resolved - get a 2 D echo. consult her public address system mechanic- Dr. Powers -DC IVF - restart home Amlodipine 5 mg po daily for additional BP control Hypothyroidism Continue patient's levothyroxine Hypertension Patient was on amlodipine and lisinopril. as OP. held on admission due to hypotension started on BB and amlodipine. monitor and adjust Microcytic Anemia- iron deficiency anemia Hemoglobin stable Baseline appears to be around 8 Watch closely and transfuse as necessary -start Iron sulfate 325 mg po bid dvt proph currently on eliquis d/w family at bedside- that Dr. Paiz will take over tomorrow Problem Qualifiers (1) Sepsis: Qualified Codes: A41.9 - Sepsis, unspecified organism (2) Osteomyelitis: Qualified Codes: M86.9 - Osteomyelitis, unspecified Hayden Gandara MD January 21, 2018 09:47
[2018-01-21] MEDS: APIXABAN 5 MG TABLET PO SCH ×2 (10:00→21:22)
[2018-01-21] MEDS: PRAVASTATIN SOD 20 MG TAB PO SCH (10:00)
[2018-01-21] MEDS: DOCUSATE SODIUM 50 MG/SENNA 8.6 MG TAB PO SCH ×2 (10:00→21:22)
[2018-01-21] MEDS: LACTOBACILLUS ACIDOPHILUS TAB PO SCH ×2 (10:00→21:22)
[2018-01-21] MEDS: VANCOMYCIN INJ 1,750 MG in SODIUM CHLORID 0.9% 500 ML INJ 500 ML IV SCH ×2 (10:00→12:05)
[2018-01-21] MEDS: METOPROLOL TARTRATE 25 MG TAB PO SCH ×2 (10:00→21:22)
[2018-01-21] MEDS: SODIUM CHLORIDE 0.9% FLUSH 10 ML FLUSH IV FLUSH SCH ×2 (10:01→21:23)
[2018-01-21] MEDS: COLLAGENASE OINT 30 GM TUBE TOPICAL SCH (10:01)
--- NOTE | 2018-01-21 10:12 | RADRPT ---
EXAM DATE/TIME: 01/20/2018 11:45 [facility] COMPARISON: No previous studies available for comparison. INDICATIONS : Left foot infection. DOSE: 20.3 mCi Tc99m Ceretec labeled white blood cells IV SPECT IMAGIN hrs, 20 hrs IMAGNG: SPECT/CT imaging with fusion was performed. RADIATION DOSE: 5.32 CTDIvol (mGy) ; Multiple Day Study MEDICAL HISTORY : Hypercholesterolemia. Hypertension. SURGICAL HISTORY : Left femoropopliteal bypass. ENCOUNTER: Initial ACUITY: 1 month PAIN SCALE: 5/10 LOCATION: Left Foot. TECHNIQUE: Following the in vitro labeling of autologous white cells and reinjection, whole body scan was perfor med at the specified times. SPECT imaging was performed at the specified time in sagittal, axial and coronal planes. Attenuation correction was performed with the computed tomography and both the atten uation correction and non-attenuation corrected data sets were reviewed. FINDINGS: There is intense focal uptake around the distal posterior aspect of the tibia at the location of a fr acture. No other intense focal uptake is seen in the ankle or foot. Soft tissue uptake is mild. There is fixation of the distal tibia and fibula. No abnormal fluid collections are seen. CONCLUSION: 1. Intense focal uptake at the site of fracture in the distal posterior tibia. Remainder of the uptak e is mild and may represent a mild cellulitis, without definite evidence for osteomyelitis. Tray Garcia MD on January 21, 2018 at 9:56 Board Certified Radiologist. This report was verified electronically.
[2018-01-21] MEDS ORDERED: FUROSEMIDE 40 MG/4 ML VIAL IV PUSH ONE (10:30)
--- NOTE | 2018-01-21 11:30 | EKG ---
Date Performed: 01/20/2018 Time Performed: 17:38:54 PTAGE: 82 years EKG: PROBABLE ATRIAL FIBRILLATION RIGHT BUNDLE BRANCH BLOCK ELECTRONIC VENTRICULAR PACEMAKER ABN ORMAL RHYTHM ECG PREVIOUS TRACING : 01/07/2018 18.03 DOCTOR: Francis Montana Interpretating Date/Time 01/21/2018 11:29:05
[2018-01-21] MEDS: amLODIPine BESYLATE 5 MG TAB PO SCH (12:23)
--- NOTE | 2018-01-21 13:07 | PD.VS.PN ---
Subjective Subjective/Hospital Course Pt resting comfortably in bed w/ daughters at the BS Pt alert in NAD L LE wounds stable L groin C/D w/o hematoma or swelling Objective Vitals/I&O Date Time Temp Pulse Resp B/P (MAP) Pulse Ox O2 Delivery O2 Flow Rate FiO2 01/21/18 12:00 98.1 75 20 170/73 (105) 95 01/21/18 08:00 98.1 56 18 164/76 (105) 94 01/21/18 04:13 97.7 97 20 168/74 (105) 97 01/21/18 00:18 98.4 78 20 154/70 (98) 94 01/21/18 00:00 66 01/20/18 20:30 89 01/20/18 20:00 98.5 58 17 198/82 (120) 93 01/21/18 01/21/18 01/21/18 07:00 15:00 23:00 Intake Total 1315 ml Output Total 840 ml Balance 475 ml Physical Exam GENERAL: A&OX3,GCS15, NAD SKIN: Left groin incision with mild separation medial aspect of incision White exudate noted no odor Incision to L LE intact w/o R/D/S/O Multiple Left foot wounds with eschar to heel/anterior ankle, lateral aspect of foot. No erythema or drainage noted MUSCULOSKELETAL: L LE edematous Non palpable L DP/PT Multiphasic L PT heard via Doppler LE warm Laboratory Laboratory Tests Test 01/20/18 14:25 Lactic Acid Level 1.4 Date/Time Source Procedure Growth Status 01/17/18 21:50 Blood Peripheral Aerobic Blood Culture - Preliminary NO GROWTH IN 4 DAYS Resulted 01/17/18 21:50 Blood Peripheral Anaerobic Blood Culture - Preliminary NO GROWTH IN 4 DAYS Resulted 01/19/18 08:45 Stool Stool Stool Occult Blood ([facility]KA) - Final HEMOCCULT NEGATIVE Complete 01/20/18 14:00 Wound Groin Gram Stain - Final Resulted 01/20/18 14:00 Wound Groin Wound Culture Pending Resulted Imaging Last 48 hours Impressions Upper Extremity Ultrasound 01/20/18 0000 Signed Impressions: Service Date/Time: Saturday, January 20, 2018 10:42 - CONCLUSION: No DVT. Adonay Cabrera MD Tumor Localization 01/20/18 0000 Signed Impressions: Service Date/Time: Saturday, January 20, 2018 11:45 - CONCLUSION: 1. Intense focal uptake at the site of fracture in the distal posterior tibia. Remainder of the uptake is mild and may represent a mild cellulitis, without definite evidence for osteomyelitis. Tray Garcia MD Lower Extremity Ultrasound 01/20/18 0000 Signed Impressions: Service Date/Time: Saturday, January 20, 2018 10:28 - CONCLUSION: No DVT. Adonay Cabrera MD Chest X-Ray 01/20/18 0000 Signed Impressions: Service Date/Time: Saturday, January 20, 2018 13:03 - CONCLUSION: Mild compensated cardiomegaly. Pacemaker on the left. Gallo Armas MD FACR Assessment and Plan Assessment: (1) PAD (peripheral artery disease) Plan 82/F s/p L groin reconstruction and bypass Pt w/ a strong Doppler signal to L foot Mild (mid section) L groin incision w/ a area Plan Continue to apply a dry gauze to L groin (change BID) From a vascular standpoint may Continue with PT/OOB and WBAT D/C planning with out pt f/u and surveillance Ashley Starr NP [facility] [phone] Discharge Planning D/C planning Ashley Starr [facility] January 21, 2018 13:07
[2018-01-21 14:17] LABS: % SATURATION IRON PROFILE 3.8 % (20-50); IRON (FE) 11 MCG/DL (50-170); TOTAL IRON BINDING CAPACITY 287 MCG/DL (250-450)
[2018-01-21 14:20] LABS: FERRITIN 71 NG/ML (8-252)
--- NOTE | 2018-01-21 14:41 | MB ---
cc: Danie Powers DO DATE: 01/21/2018 REASON FOR CONSULTATION: Congestive heart failure, permanent pacemaker interrogation. HISTORY OF PRESENT ILLNESS: Sruthi Costello is a pleasant 82-year-old female who presented to [facility] Emergency Room upon transfer from [facility] Emergency Room on 01/17/2018. The patient was previously here and underwent a left profunda endarterectomy with patch angioplasty, as well as left REFRIGERATOR ROOM CLERK to popliteal bypass with an 8 mm PTFE graft by Dr. Moran on 01/06/2018. I was asked to see her at that time for evaluation of her pacemaker as she was missing her scheduled interrogation. At that time, we decided we would hold off on it until the outpatient setting. She was also noted to have probable [id number] aortic stenosis by exam and we had discussed doing an echocardiogram in the outpatient setting. Apparently, she was discharged and returning to her short-term nursing facility, she was noted to have an acute mental status change. She was seen in the office by Dr. Cifuentes and had debridement of her left foot. She returned to the SNF and was noted to have an acute mental status change and was sent to [facility] and ultimately transferred ER to ER. She has since been seen by Dr. Moran as well as Infectious Disease for further recommendations. Over the course of her hospitalization, she has been on multiple antibiotics as well as receiving some fluids and appears to have become a little short of breath most likely in some mild heart failure. She also had her diuretics previously held as there was a concern for sepsis. In seeing her, she is currently hemodynamically stable, but states that with any type of activity, she gets short of breath. PAST MEDICAL HISTORY: 1. Atrial fibrillation. 2. Hypertension. 3. Hyperlipidemia. 4. Hypothyroidism. 5. Coronary artery disease. 6. Congestive heart failure of unknown type. 7. Peripheral artery disease. PAST SURGICAL HISTORY: 1. Cardiac catheterization with 1 stent placed to unknown coronary anatomy. 2. Medtronic permanent pacemaker for bradycardia. 3. Left knee replacement. 4. Left tib-fib ORIF. 5. L3 through L5 fusion. 6. Right Achilles tendon repair. 7. Cholecystectomy. 8. Left profunda endarterectomy and patch angioplasty with a left REFRIGERATOR ROOM CLERK fem-pop bypass with an 8 mm PTFE graft. ALLERGIES: 1. TETRACYCLINE. 2. ANTIDEPRESSANTS. MEDICATIONS: 1. Eliquis 5 mg b.i.d. 2. Pravastatin 20 mg daily. 3. Metoprolol tartrate 50 mg b.i.d. 4. Norvasc 10 mg daily. 5. Lisinopril 40 mg b.i.d. 6. Aspirin 81 mg daily. 7. Hydrocodone/acetaminophen 7.5/325 every 4 hours as needed for pain. 8. Gabapentin 300 mg daily and 600 mg at night. 9. Potassium 10 mEq daily. 10. Torsemide 20 mg daily. 11. Synthroid 150 mcg daily. FAMILY HISTORY: Denies premature coronary artery disease or sudden cardiac within the family. SOCIAL HISTORY: The patient has a remote history of tobacco, but none in the recent past. Denies alcohol or drug abuse. REVIEW OF SYSTEMS: Fourteen systems were reviewed including osteopathic. Pertinent positives and negatives above, otherwise negative. PHYSICAL EXAMINATION: VITAL SIGNS: Temperature 98.1, heart rate 56, blood pressure 164/76, respirations 18, pulse oximetry 94% on 3 liters. GENERAL: The patient appears well, in no acute distress, alert, awake and oriented x 3. HEENT: Extraocular muscles intact. Mucous membranes moist. NECK: Supple. No JVD at 45 degrees. No carotid bruits heard bilaterally. Carotid upstroke is brisk in nature. HEART: Regular rate and rhythm. Positive for and second heart sounds with a II/ crescendo decrescendo murmur to the right sternal border, which is early to mid peaking in nature. LUNGS: Clear to auscultation bilaterally. No wheezes, rales or rhonchi. ABDOMEN: Soft, nontender and nondistended. No organomegaly noted. EXTREMITIES: Show no clubbing, cyanosis or edema. Right lower extremity with palpable pulses. Left lower extremity with palpable, although minimal pulses. Left lower extremity with a groin wound looks clean, dry and intact. Left lower extremity is erythematous and warm to touch. Distal part of the extremity is wrapped. NEUROLOGIC: No focal deficits. SKIN: Warm, dry and intact. OSTEOPATHIC: No kyphoscoliosis, lordosis or paraspinal tender points. LABORATORY DATA: Hemoglobin 7.1, hematocrit 23.3, platelets 349. Potassium 3.9, BUN 11, creatinine 0.66. Lactic acid 1.4. Electrocardiogram (01/20/2018 at 1738) probable atrial fibrillation, right bundle branch block, occasional demand pacing. IMPRESSIONS: 1. Sepsis. 2. Possible osteomyelitis. 3. Peripheral artery disease, status post left profunda endarterectomy and patch angioplasty with a left REFRIGERATOR ROOM CLERK fem-pop bypass with an 8 mm PTFE graft (01/06/2018). 4. Atrial fibrillation. 5. History of Medtronic pacemaker placed for bradycardia. 6. Heart failure of unknown type. 7. Probable mild to moderate aortic stenosis by exam. RECOMMENDATIONS: 1. Ms. Costello presented with what looks like sepsis and has been treated appropriately from that standpoint. She will continue on antibiotics per Infectious Disease. 2. Overall, due to her sepsis, she was given fluids as well as has received more fluid due to antibiotics given. At this time, as she is getting over the sepsis, she is now in a fluid overload state and this will need to be diuresed off. 3. As far as her atrial fibrillation goes, it appears to be controlled. She will continue on the Eliquis 5 mg b.i.d. 4. As she also appears to be through her sepsis, we have started back some of her antihypertensives including Norvasc. 5. She is still worried overall about her pacemaker not being interrogated on time and I explained that at this time it shows no dysfunction. If any further concerns, we could always look at it, but most likely this could be followed up in the outpatient setting. 6. As she is in some mild heart failure and does have what appears to be mild to moderate aortic stenosis by clinical exam, we will plan to check a 2-D echo to look at her overall left ventricular function, cardiac structure and possible valvulopathies. 7. Further recommendations will be made based on the hospital course. Thank you for allowing me to see Sruthi Costello. If there are any questions, please do not hesitate to call. Danie Powers, VGP/NGHIA , 01:54 PM , 02:40 PM
--- NOTE | 2018-01-21 14:43 | HHI.IDPN ---
Subjective Subjective Remarks This is a 82-year-old female with a past medical history significant for A. fib on Eliquis, CAD s/p cardiac stent, bradycardia status post pacemaker implantation, hypertension, hyperlipidemia and hypothyroidism who fell at home resulting in an open compound fracture of the left tib-fib and underwent ORIF in [place]. Postoperatively, patient was evaluated 2 weeks following her surgery in the surgeon's office and was noted to have significant necrosis of the left foot/ankle with concern for possible osteomyelitis. Patient was scheduled to see plastic surgeon as an outpatient but prior to that appointment she was reevaluated in the surgeon's office was found to have worsening necrosis of the foot and patient's family brought her to [facility] where she was admitted on 12/25/17. Patient was seen in consultation by Dr. Cifuentes who in turn consulted vascular surgery due to concern for arterial disease. Patient was found to have severe PAD and underwent a left femoropopliteal bypass 01/06/[address] Moran. During that hospitalization, patient developed twitching and speech changes and was seen in consultation by neurology for TIA vs over medicated hypoxia. Patient was discharged on 2017 to rehab facility. While at the rehab facility patient was treated for urinary tract infection. Patient continued to be followed by Dr. Cifuentes and underwent debridement in her office. While at the rehab facility two days ago, patient developed altered mental status with difficulty recalling words and gait instability and was sent to [facility] where patient was found to be septic and imaging left foot was done showing cortical irregularity possible osteomyelitis. CT the head obtained at that time showed no acute findings. Patient was transferred to [facility] ED and was admitted with sepsis and left foot infection and started on IV vancomycin and Zosyn. Patient has been seen by Dr. Moran and Dr. Cifuentes. Patient is not able to have an MRI done secondary to pacemaker (per [employer], patient device is not MRI compatible). She has undergone a CT of the foot which shows diffuse soft tissue swelling, scattered areas of osteopenia, no acute fracture dislocation and old healing posterior malleolus fracture. MRI or white blood cell scan has been recommended for further evaluation of possible osteomyelitis. Infectious disease consultation has been requested for evaluation and management of possible osteomyelitis left foot. Patient seen and examined. Patient reports exertional shortness of breath. She denies any fever or chills. She denies any nausea, vomiting or abdominal pain. She denies any hematuria, dysuria or diarrhea. She does states she has problems with constipation but had a good bowel movement this morning. Her daughter is at the bedside who assists with history. Per herself and the daughter, patient's mentation has returned to baseline. Overnight events noted Notes reviewed daughter at the bedside Breathing better mild cough with clear sputum production that patient attributes to post nasal drip reports increasing edema in her arms and abdomen reports early satiety no fever no chest pain but reports occasional palpitations no rash no dysuria but reports decreased UOP and dark concentrated urine no diarrhea, reports good BM yesterday afebrile BCX neg x 2 days Hemoccult neg Antibiotics IV Vancomycin IV Zosyn Lines PIV with no e/o infection Past Medical History PAD s/p Left Fem-Pop Bypass 01/06/[address] Moran Atrial fibrillation anticoagulated on Eliquis Hypertension Hyperlipidemia Hypothyroidism CAD s/p cardiac stent Mild to moderate CHF Allergies: Coded Allergies: tetracycline (Verified Allergy, Intermediate, ulcerations to palm and hands, 01/06/18) Tetracyclic Antidepressants (Verified Allergy, Unknown, Hives, 12/25/17) MRI PRECAUTION (Verified Adverse Reaction, Severe, IMPLANTED DEVICE, ) [employer] Model #[id number] Serial # [id number] [place] 1) Serial #[id number] Model # 5076-45 Brunson 2) Serial #[id number] Model # 5076-52 Implant Date 05/28/16 Objective . Vital Signs Date Time Temp Pulse Resp B/P (MAP) Pulse Ox O2 Delivery O2 Flow Rate FiO2 01/21/18 12:00 98.1 75 20 170/73 (105) 95 01/21/18 08:00 98.1 56 18 164/76 (105) 94 01/21/18 04:13 97.7 97 20 168/74 (105) 97 01/21/18 00:18 98.4 78 20 154/70 (98) 94 01/21/18 00:00 66 01/20/18 20:30 89 01/20/18 20:00 98.5 58 17 198/82 (120) 93 . Laboratory Tests Test 01/20/18 07:04 White Blood Count 11.7 TH/MM3 Red Blood Count 3.02 MIL/MM3 Hemoglobin 7.1 GM/DL Hematocrit 23.3 % Mean Corpuscular Volume 77.2 FL Mean Corpuscular Hemoglobin 23.6 PG Mean Corpuscular Hemoglobin Concent 30.6 % Red Cell Distribution Width 17.9 % Platelet Count 349 TH/MM3 Mean Platelet Volume 8.6 FL Neutrophils (%) (Auto) 78.9 % Lymphocytes (%) (Auto) 11.4 % Monocytes (%) (Auto) 5.0 % Eosinophils (%) (Auto) 3.8 % Basophils (%) (Auto) 0.9 % Neutrophils # (Auto) 9.3 TH/MM3 Lymphocytes # (Auto) 1.3 TH/MM3 Monocytes # (Auto) 0.6 TH/MM3 Eosinophils # (Auto) 0.5 TH/MM3 Basophils # (Auto) 0.1 TH/MM3 CBC Comment DIFF FINAL Differential Comment Laboratory Tests Test 01/20/18 07:04 01/20/18 14:25 01/21/18 12:35 Blood Urea Nitrogen 11 MG/DL Creatinine 0.66 MG/DL Random Glucose 99 MG/DL Calcium Level 8.4 MG/DL Sodium Level 141 MEQ/L Potassium Level 3.9 MEQ/L Chloride Level 108 MEQ/L Carbon Dioxide Level 25.9 MEQ/L Anion Gap 7 MEQ/L Estimat Glomerular Filtration Rate 86 ML/MIN B-Type Natriuretic Peptide 263 PG/ML Lactic Acid Level 1.4 mmol/L Iron Level 11 MCG/DL Total Iron Binding Capacity 287 MCG/DL Percent Iron Saturation 3.8 % Ferritin 71 NG/ML Microbiology Date/Time Source Procedure Growth Status 01/19/18 08:45 Stool Stool Stool Occult Blood (DEEPIKA) - Final HEMOCCULT NEGATIVE Complete 01/20/18 14:00 Wound Groin Gram Stain - Final Resulted 01/20/18 14:00 Wound Culture - Preliminary S. Aureus Mrsa Resulted Imaging Last Impressions Lower Extremity CT 01/18/18 0000 Signed Impressions: Service Date/Time: Thursday, January 18, 2018 20:51 - CONCLUSION: 1. Diffuse soft tissue swelling. 2. No acute fracture or dislocation. 3. Scattered areas of osteopenia are noted throughout the foot and are nonspecific. Bone scan, white blood cell scan and/or MRI with contrast would be more sensitive to rule out osteomyelitis if clinically indicated. 4. Plantar and Achilles calcaneal spurring. 5. Old healing posterior malleolar fracture. Wilmer Estes MD Physical Exam GENERAL: This is a well-nourished, well-developed overweight female patient, in no apparent distress. Awake and alert. Sitting up in bedside chair on 3LNC. Daughter is at the bedside. SKIN: Cool and dry. + surgical incision left groin with small opening and scant amount of yellowish drainage noted on dressing HEAD: Atraumatic. Normocephalic. No temporal or scalp tenderness. EYES: Pupils equal round and reactive. Extraocular motions intact. No scleral icterus. No injection or drainage. ENT: Nose without bleeding or purulent drainage. Throat without erythema, tonsillar hypertrophy or exudate. Uvula midline. Airway patent. MMM. NECK: Trachea midline. N CARDIOVASCULAR: Bradycardic. +Murmur. s/p pacemaker insertion left anterior chest wall, site clear. RESPIRATORY: Clear to auscultation but diminished. Breath sounds equal bilaterally. No wheezes, rales, or rhonchi. GASTROINTESTINAL: Abdomen soft, non-tender, nondistended. No hepato-splenomegaly , or palpable masses. No guarding. MUSCULOSKELETAL: Extremities without clubbing or cyanosis. Diffuse nonpitting edema noted in BUEs. +Trace RLE edema. 1-2+pitting edema LLE. Left foot/ankle in soft dressing, C/D/I. Exam left foot deferred today. No calf tenderness. NEUROLOGICAL: Awake and alert. Cranial nerves II through XII grossly intact. Motor and sensory grossly within normal limits. Grossly nonfocal. Normal speech. PSYCHIATRIC: Appropriate mood and affect. Normal judgment and insight. PIV with no e/o infection Assessment & Plan Remarks Sepsis with temp 102.4, WBC 21.2 and source of left foot/ankle infection/ cellulitis -lactic acid WNL -blood cultures with no growth x 2 days Left foot/ankle cellulitis, concern for underlying osteomyelitis MRSA left groin wound infection at the site of prior [place] Hx of left tib/fib repair 12/04/18 in [place], hardware in place -CRP 14, ESR 140 -podiatry following Leukocytosis likely secondary to active infection/sepsis -white count trending down Acute metabolic encephalopathy suspect secondary to sepsis, possible TIA, improved -family believes she had a TIA but denies any slurred speech, facial droop, focal weakness PAD s/p left fem-pop bypass by Dr. Moran 01/06/18 -evaluated by Dr. Moran this admission - successful groin reconstruction and bypass, high risk of amputation despite clinically patent bypass, can be followed as outpatient from vascular standpoint Atrial fibrillation on Eliquis Hypertension Dyslipidemia CHF Anemia, hypochromic, microcytic -stool hemoccult pending Recs: dw and family results of Bone scan. Dr. Cifuentes to further discuss bone scan results with radiologist to determine need for bone biopsy. Continue Diflucan for possible access site infection in Left groin. Continue Zosyn IV Continue Vanco IV Strict I/O Reynolds cath Follow 2D ECHO Discussed with vascular surgery no plans for any surgery. Discussed with Dr. Powers if no plans for long-term IV antibiotics consider switching to oral especially due to patient's cardiac condition. to cover for me 01/22 - 01/24, and then weekend ID . Tati Britton MD January 21, 2018 14:43
[2018-01-21] MEDS: FLUCONAZOLE 100 MG PREMIX BAG 50 ML IV SCH (15:40)
[2018-01-21] MEDS: FERROUS SULFATE 325 MG (65 MG ELEMENTAL IRON) TAB PO SCH (17:31)
--- NOTE | 2018-01-21 22:38 | RADRPT ---
EXAM DATE/TIME: 01/21/2018 21:46 [place] COMPARISON: ANKLE LEFT COMPLETE ([id number]), January 07, 2018, 16:02. INDICATIONS : Pain in left ankle. MEDICAL HISTORY : None. SURGICAL HISTORY : ORIF left ankle. ENCOUNTER: Initial ACUITY: 1 day PAIN SCORE: 0/10 LOCATION: Left ankle FINDINGS: There is surgical plate seen along the lateral aspect of the fibula secured by multiple screws. 2 sanjay g screws are seen to extend through the plate, the fibula and into the distal tibial shaft. There are multiple pins seen through the medial malleolus. The hardware appears well placed. The hardware succ essfully reduces the fractures in these regions. New fractures are not seen. The ankle is normally al igned. Calcaneal spurs are seen at the Achilles and plantar aponeurosis attachment sites. There is mi ld soft tissue swelling at the ankle especially medially. CONCLUSION: Chronic bony change with surgical hardware as described above. A new acute bony abnormality is not cl early seen. There is mild soft tissue swelling. Adonay Cabrera MD on January 21, 2018 at 22:33 Board Certified Radiologist. This report was verified electronically.
--- NOTE | 2018-01-21 23:13 | HHI.PR ---
Subjective Remarks Patient seen bedside this evening. Patient reports continued shortness of breath which she attributes to the antibiotics. Denies N,V,F,Ch. Objective Vital Signs Date Time Temp Pulse Resp B/P (MAP) Pulse Ox O2 Delivery O2 Flow Rate FiO2 01/21/18 20:00 99.0 69 18 128/72 (90) 97 01/21/18 16:00 98.6 74 18 162/84 (110) 94 01/21/18 12:00 98.1 75 20 170/73 (105) 95 01/21/18 08:00 98.1 56 18 164/76 (105) 94 01/21/18 04:13 97.7 97 20 168/74 (105) 97 01/21/18 00:18 98.4 78 20 154/70 (98) 94 01/21/18 00:00 66 I/O 01/21/18 01/21/18 01/21/18 01/22/18 01/22/18 01/22/18 07:00 15:00 23:00 07:00 15:00 23:00 Intake Total 1315 ml 300 ml 790 ml Output Total 840 ml 4700 ml Balance 475 ml 300 ml -3910 ml Intake Oral 380 ml 640 ml IV Total 935 ml 300 ml 150 ml Output Urine Total 840 ml 4700 ml # Bowel Movements 0 0 Result Diagram: 01/20/18 0701/20/18 07 Imaging Last Impressions Ankle X-Ray 01/21/18 0000 Signed Impressions: Service Date/Time: Sunday, January 21, 2018 21:46 - CONCLUSION: Chronic bony change with surgical hardware as described above. A new acute bony abnormality is not clearly seen. There is mild soft tissue swelling. Adonay Cabrera MD Upper Extremity Ultrasound 01/20/18 0000 Signed Impressions: Service Date/Time: Saturday, January 20, 2018 10:42 - CONCLUSION: No DVT. Adonay Cabrera MD Tumor Localization 01/20/18 0000 Signed Impressions: Service Date/Time: Saturday, January 20, 2018 11:45 - CONCLUSION: 1. Intense focal uptake at the site of fracture in the distal posterior tibia. Remainder of the uptake is mild and may represent a mild cellulitis, without definite evidence for osteomyelitis. Tray Garcia MD Lower Extremity Ultrasound 01/20/18 0000 Signed Impressions: Service Date/Time: Saturday, January 20, 2018 10:28 - CONCLUSION: No DVT. Adonay Cabrera MD Chest X-Ray 01/20/18 0000 Signed Impressions: Service Date/Time: Saturday, January 20, 2018 13:03 - CONCLUSION: Mild compensated cardiomegaly. Pacemaker on the left. Gallo Armas MD FACR Lower Extremity CT 01/18/18 0000 Signed Impressions: Service Date/Time: Thursday, January 18, 2018 20:51 - CONCLUSION: 1. Diffuse soft tissue swelling. 2. No acute fracture or dislocation. 3. Scattered areas of osteopenia are noted throughout the foot and are nonspecific. Bone scan, white blood cell scan and/or MRI with contrast would be more sensitive to rule out osteomyelitis if clinically indicated. 4. Plantar and Achilles calcaneal spurring. 5. Old healing posterior malleolar fracture. Wilmer Estes MD Objective Remarks Lower extremity physical exam: Vascular: Dorsalis pedis nonpalpable, posterior tibial nonpalpable secondary to edema. Capillary refill time within normal limits to digits 5 bilateral foot. Edema present left foot and ankle Neuro: Gross sensation intact to bilateral lower extremity. Pinpoint sensation decreased. No hyperalgesia noted to bilateral lower extremity Dermatology: Multiple areas of eschar noted to left foot including anterior ankle, heel, plantar sub-met one, lateral fifth metatarsal head. No associated erythema or drainage noted to eschars. New draining sinus noted to lateral aspect of ankle at incision line with purulent drainage upon compression. Mild increase in erythema to area. +Malodor noted to left LE which was not present before. Musculoskeletal: Tender to palpation to left foot and ankle as well as areas of necrosis. NO ROM noted to right ankle. Medications and IVs Last Impressions Ankle X-Ray 01/21/18 0000 Signed Impressions: Service Date/Time: Sunday, January 21, 2018 21:46 - CONCLUSION: Chronic bony change with surgical hardware as described above. A new acute bony abnormality is not clearly seen. There is mild soft tissue swelling. Adonay Cabrera MD Upper Extremity Ultrasound 01/20/18 0000 Signed Impressions: Service Date/Time: Saturday, January 20, 2018 10:42 - CONCLUSION: No DVT. Adonay Cabrera MD Tumor Localization 01/20/18 0000 Signed Impressions: Service Date/Time: Saturday, January 20, 2018 11:45 - CONCLUSION: 1. Intense focal uptake at the site of fracture in the distal posterior tibia. Remainder of the uptake is mild and may represent a mild cellulitis, without definite evidence for osteomyelitis. Tray Garcia MD Lower Extremity Ultrasound 01/20/18 0000 Signed Impressions: Service Date/Time: Saturday, January 20, 2018 10:28 - CONCLUSION: No DVT. Adonay Cabrera MD Chest X-Ray 01/20/18 Signed Impressions: Service Date/Time: Saturday, January 20, 2018 13:03 - CONCLUSION: Mild compensated cardiomegaly. Pacemaker on the left. Gallo Armas MD FACR Lower Extremity CT 01/18/18 0000 Signed Impressions: Service Date/Time: Thursday, January 18, 2018 20:51 - CONCLUSION: 1. Diffuse soft tissue swelling. 2. No acute fracture or dislocation. 3. Scattered areas of osteopenia are noted throughout the foot and are nonspecific. Bone scan, white blood cell scan and/or MRI with contrast would be more sensitive to rule out osteomyelitis if clinically indicated. 4. Plantar and Achilles calcaneal spurring. 5. Old healing posterior malleolar fracture. Wilmer Estes MD Assessment and Plan Assessment and Plan 82-year-old female with the left foot and eschars and necrosis with no definitive OM on bone scan Patient examined evaluated with all questions answered Spoke in great detail to patient concerning bone scan results. Patient understands no definitive OM was noted. Discussed limb salvage versus amputation below the knee with patient as infection is progressing with new draining sinus noted to lateral ankle at site of hardware. Discussed surgical options with patient. She would like to speak with family. She states she would not like to prolong the final outcome but needs to speak with family, regrets I was not there when her family was earlier. Will round in evening and discuss prognosis with family. Discussed degree of soft tissue damage with patient. New lateral draining sinus with purulent drainage. Site irrigated with expulsion of purulent drainage. Santyl and moist to dry dressing to be applied to left foot to all areas of necrosis daily - breakdown of eschars noted Appreciate vascular input, will discuss with Dr. Moran, SUBHASH and hospitalist. Lavern Cifuentes DPWojciech January 21, 2018 23:13
[2018-01-22] VITALS (7 sets, daily range): BP systolic 127–168; BP diastolic 60–75; PULSE 71–110; RESP 18–20; TEMP 96.8–98.9; O2SAT 91–96
[2018-01-22] MEDS: PIPERACIL-TAZO 4.5 GM PREMIX 100 ML IV SCH ×4 (04:40→20:57)
[2018-01-22] MEDS: LEVOTHYROXINE SODIUM 150 MCG TAB PO SCH (04:42)
[2018-01-22 05:11] LABS: AUTOMATED NEUTROPHIL # 8.3 TH/MM3 (1.8-7.7); BASOPHIL # 0.1 TH/MM3 (0-0.2); BASOPHIL % 1.1 % (0.0-2.0); EOSINOPHIL # 0.4 TH/MM3 (0-0.4); EOSINOPHIL % 3.9 % (0.0-4.0); HEMATOCRIT 25.8 % (35.0-46.0); HEMOGLOBIN 8.1 GM/DL (11.6-15.3); LYMPHOCYTE # 1.3 TH/MM3 (1.0-4.8); MEAN CELL VOLUME 75.8 FL (80.0-100.0); MEAN CORPUSCULAR HEMOGLOBIN 23.8 PG (27.0-34.0); MEAN CORPUSCULAR HGB CONC 31.4 % (32.0-36.0); MEAN PLATELET VOLUME 8.2 FL (7.0-11.0); MONO % 6.5 % (0.0-8.0); MONOCYTE # 0.7 TH/MM3 (0-0.9); NEUT % 76.5 % (16.0-70.0); PLATELET COUNT 423 TH/MM3 (150-450); RED CELL DISTRIBUTION WIDTH 18.5 % (11.6-17.2); WHITE BLOOD COUNT 10.9 TH/MM3 (4.0-11.0)
[2018-01-22 05:32] LABS: BICARBONATE 30.2 MEQ/L (21.0-32.0); CALCIUM 9.1 MG/DL (8.5-10.1); CREATININE 0.54 MG/DL (0.50-1.00)
[2018-01-22] MEDS ORDERED: PHARMACY ORDERED LAB ONE (05:45)
[2018-01-22] MEDS: VANCOMYCIN INJ 1,750 MG in SODIUM CHLORID 0.9% 500 ML INJ 500 ML IV SCH (06:08)
[2018-01-22] MEDS: SODIUM CHLORIDE 0.9% FLUSH 10 ML FLUSH IV FLUSH SCH ×2 (09:00→20:58)
[2018-01-22] MEDS: amLODIPine BESYLATE 5 MG TAB PO SCH (09:06)
[2018-01-22] MEDS: APIXABAN 5 MG TABLET PO SCH ×2 (09:06→20:57)
[2018-01-22] MEDS: LACTOBACILLUS ACIDOPHILUS TAB PO SCH ×2 (09:06→20:57)
[2018-01-22] MEDS: METOPROLOL TARTRATE 25 MG TAB PO SCH ×2 (09:06→20:57)
[2018-01-22] MEDS: PRAVASTATIN SOD 20 MG TAB PO SCH (09:06)
[2018-01-22] MEDS: DOCUSATE SODIUM 50 MG/SENNA 8.6 MG TAB PO SCH ×2 (09:06→20:57)
[2018-01-22] MEDS: ACETAMINOPHEN/HYDROcodone 325 MG/5 MG TAB PO PRN ×2 (09:23→20:55)
[2018-01-22] MEDS: COLLAGENASE OINT 30 GM TUBE TOPICAL SCH (11:00)
--- NOTE | 2018-01-22 11:43 | PD.VS.PN ---
Subjective Subjective/Hospital Course Pt resting comfortably in bed w/ daughter and son at the BS Pt alert in NAD denied SOB/CP L LE wounds stable L LE swelling present L groin incision C/D w/o hematoma or swelling (Ashley Starr) Objective Vitals/I&O Date Time Temp Pulse Resp B/P (MAP) Pulse Ox O2 Delivery O2 Flow Rate FiO2 01/22/18 08:00 98.2 71 18 168/74 (105) 95 01/22/18 04:00 97.3 110 20 165/72 (103) 96 01/22/18 00:00 96.8 89 18 160/72 (101) 95 01/21/18 20:00 99.0 69 18 128/72 (90) 97 01/21/18 16:00 98.6 74 18 162/84 (110) 94 01/21/18 12:00 98.1 75 20 170/73 (105) 95 01/22/18 01/22/18 01/22/18 07:00 15:00 23:00 Intake Total 580 ml Output Total 1100 ml Balance -520 ml Physical Exam Left groin incision with mild separation medial aspect of incision White exudate noted no odor Incision to L LE intact w/o R/D/S/O Multiple Left foot wounds with eschar to heel/anterior ankle, lateral aspect of foot. No erythema or drainage noted MUSCULOSKELETAL: L LE edematous Non palpable L DP/PT Biphasic L DP/PT heard via Doppler LE warm (Ashley Starr) Laboratory Laboratory Tests Test 01/21/18 12:35 01/22/18 04:55 Iron Level 11 Total Iron Binding Capacity 287 Percent Iron Saturation 3.8 Ferritin 71 White Blood Count 10.9 Red Blood Count 3.40 Hemoglobin 8.1 Hematocrit 25.8 Mean Corpuscular Volume 75.8 Mean Corpuscular Hemoglobin 23.8 Mean Corpuscular Hemoglobin Concent 31.4 Red Cell Distribution Width 18.5 Platelet Count 423 Mean Platelet Volume 8.2 Neutrophils (%) (Auto) 76.5 Lymphocytes (%) (Auto) 12.0 Monocytes (%) (Auto) 6.5 Eosinophils (%) (Auto) 3.9 Basophils (%) (Auto) 1.1 Neutrophils # (Auto) 8.3 Lymphocytes # (Auto) 1.3 Monocytes # (Auto) 0.7 Eosinophils # (Auto) 0.4 Basophils # (Auto) 0.1 CBC Comment DIFF FINAL Differential Comment Blood Urea Nitrogen 8 Creatinine 0.54 Random Glucose 118 Calcium Level 9.1 Sodium Level 138 Potassium Level 3.6 Chloride Level 101 Carbon Dioxide Level 30.2 Anion Gap 7 Estimat Glomerular Filtration Rate 108 Vancomycin Level Trough 11.9 Date/Time Source Procedure Growth Status 01/17/18 21:50 Blood Peripheral Aerobic Blood Culture - Final NO GROWTH IN 5 DAYS Complete 01/17/18 21:50 Blood Peripheral Anaerobic Blood Culture - Final NO GROWTH IN 5 DAYS Complete 01/19/18 08:45 Stool Stool Stool Occult Blood (DEEPIKA) - Final HEMOCCULT NEGATIVE Complete 01/20/18 14:00 Wound Groin Gram Stain - Final Resulted 01/20/18 14:00 Wound Culture - Preliminary S. Aureus Mrsa Resulted Imaging Last 48 hours Impressions Ankle X-Ray 01/21/18 0000 Signed Impressions: Service Date/Time: Sunday, January 21, 2018 21:46 - CONCLUSION: Chronic bony change with surgical hardware as described above. A new acute bony abnormality is not clearly seen. There is mild soft tissue swelling. Adonay Cabrera MD (Ashley Starr) Assessment and Plan Assessment: (1) PAD (peripheral artery disease) Plan 82/F s/p L groin reconstruction and bypass Pt w/ a strong Doppler signal to L foot Mild (mid section) L groin incision w/ a area L LE Wounds remain stable Plan Discussed potential LEFT BKA with Pt/ FM (daughter/son) Questions answered When pt is ready will schedule as early as next week w/ Dr. Moran Will continue to monitor Continue to apply a dry gauze to L groin (change BID) Ashley Starr [employer] [facility] [phone] (Ashley Starr) Plan Significant tissue loss. Strong Doppler signals. Discussed with Dr. Cifuentes. We both think that the chance of ultimately healing of the wounds is slim. The patient is ready for a BKA and I think this is reasonable. Needs a few days to minimize cardiac symptoms (much better breathing today with Lasix administration.). Continue wound care and tentatively plan for BKA early next week if patient and her family remain agreeable. (Wilmer Moran MD) Ashley Starr January 22, 2018 11:42 Wilmer Moran MD January 22, 2018 12:54
[2018-01-22] MEDS: FERROUS SULFATE 325 MG (65 MG ELEMENTAL IRON) TAB PO SCH ×2 (13:32→16:24)
[2018-01-22] MEDS: SODIUM CHLORIDE 0.9% FLUSH 10 ML FLUSH IV FLUSH PRN ×2 (13:34→17:50)
[2018-01-22] MEDS: FLUCONAZOLE 100 MG PREMIX BAG 50 ML IV SCH (13:34)
--- NOTE | 2018-01-22 16:46 | PD.CARD.PN ---
Subjective Subjective Remarks No events overnight Breathing better today Objective Medications Current Medications Medications (Trade) Dose Ordered Sig/Temitope Route Start Time Stop Time Status Last Admin Pharmacy Profile Note 0 ml @ 0 mls/hr UNSCH OTHER 01/17/18 21:30 Piperacillin Sod/ Tazobactam Sod 100 ml @ 200 mls/hr Q6H IV 01/17/18 22:00 01/22/18 16:25 (NS Flush) 2 ml UNSCH PRN IV FLUSH 01/17/18 21:30 01/22/18 13:34 (NS Flush) 2 ml BID IV FLUSH 01/18/18 09:00 01/21/18 21:23 (Zofran Inj) 4 mg Q6H PRN IVP 01/17/18 21:30 (Tylenol) 650 mg Q6H PRN PO 01/17/18 21:30 01/18/18 08:26 ([place] 5-325 Mg) 1 tab Q4H PRN PO 01/17/18 21:30 01/22/18 09:23 (Nirali-Colace) 1 tab BID PO 01/18/18 09:00 01/22/18 09:06 (Milk Of Magnesia Liq) 30 ml Q12H PRN PO 01/17/18 21:30 (Senokot) 17.2 mg Q12H PRN PO 01/17/18 21:30 01/18/18 10:40 (Dulcolax Supp) 10 mg DAILY PRN RECTAL 01/17/18 21:30 (Lactulose Liq) 30 ml DAILY PRN PO 01/17/18 21:30 (Pravachol) 20 mg DAILY PO 01/18/18 09:00 01/22/18 09:06 (Morphine Inj) 2 mg Q3H PRN IV PUSH 01/17/18 22:30 01/21/18 21:22 (Eliquis) 5 mg BID PO 01/18/18 09:00 01/22/18 09:06 (Synthroid) 150 mcg DAILY@0600 PO 01/19/18 06:00 01/22/18 04:42 (Santyl Oint) 1 applic DAILY TOPICAL 01/19/18 09:00 01/22/18 11:00 (Lactinex) 1 tab Q12HR PO 01/20/18 21:00 01/22/18 09:06 Fluconazole/ Sodium Chloride 50 ml @ 50 mls/hr Q24H IV 01/20/18 15:00 01/22/18 13:34 (Lopressor) 25 mg BID PO 01/20/18 21:00 01/22/18 09:06 (Norvasc) 5 mg DAILY PO 01/21/18 12:15 01/22/18 09:06 (Ferrous Sulfate) 325 mg BID@12,17 PO 01/21/18 17:00 01/22/18 16:24 Vancomycin HCl 2000 mg/Sodium Chloride 520 ml @ 257.5 mls/ hr Q24H IV 01/23/18 06:00 ([facility] Ordered Lab Info) SPECIFIC LAB TO BE DRAWN:VANCOMYCIN TROUGH DATE TO... ONCE ONCE .XX 01/25/18 05:45 01/25/18 05:46 Vital Signs / I&O Vital Signs Date Time Temp Pulse Resp B/P (MAP) Pulse Ox O2 Delivery O2 Flow Rate FiO2 01/22/18 12:00 98.5 79 18 127/60 (82) 91 01/22/18 08:00 98.2 71 18 168/74 (105) 95 01/22/18 04:00 97.3 110 20 165/72 (103) 96 01/22/18 00:00 96.8 89 18 160/72 (101) 95 01/21/18 20:00 99.0 69 18 128/72 (90) 97 I/O 01/21/18 01/21/18 01/21/18 01/22/18 01/22/18 01/22/18 07:00 15:00 23:00 07:00 15:00 23:00 Intake Total 1315 ml 300 ml 890 ml 580 ml Output Total 840 ml 4700 ml 1100 ml Balance 475 ml 300 ml -3810 ml -520 ml Intake Oral 380 ml 640 ml 480 ml IV Total 935 ml 300 ml 250 ml 100 ml Output Urine Total 840 ml 4700 ml 1100 ml # Bowel Movements 0 0 0 Physical Exam GENERAL: NAD, AAOx3 SKIN: Warm and dry. HEAD: Atraumatic. Normocephalic. EYES: Pupils equal and round. No scleral icterus. No injection or drainage. ENT: No nasal bleeding or discharge. Mucous membranes pink and moist. NECK: Trachea midline. No JVD. CARDIOVASCULAR: Regular rate and rhythm. RESPIRATORY: No accessory muscle use. Decreased breath sounds bilaterally GASTROINTESTINAL: Abdomen soft, non-tender, nondistended. Hepatic and splenic margins not palpable. MUSCULOSKELETAL: Left leg wrapped, decreased warmth compared to yesterday NEUROLOGICAL: Awake and alert. No obvious cranial nerve deficits. Motor grossly within normal limits. Five out of 5 muscle strength in the arms and legs. Normal speech. PSYCHIATRIC: Appropriate mood and affect; insight and judgment normal. Laboratory Laboratory Tests Test 01/22/18 04:55 White Blood Count 10.9 TH/MM3 Red Blood Count 3.40 MIL/MM3 Hemoglobin 8.1 GM/DL Hematocrit 25.8 % Mean Corpuscular Volume 75.8 FL Mean Corpuscular Hemoglobin 23.8 PG Mean Corpuscular Hemoglobin Concent 31.4 % Red Cell Distribution Width 18.5 % Platelet Count 423 TH/MM3 Mean Platelet Volume 8.2 FL Neutrophils (%) (Auto) 76.5 % Lymphocytes (%) (Auto) 12.0 % Monocytes (%) (Auto) 6.5 % Eosinophils (%) (Auto) 3.9 % Basophils (%) (Auto) 1.1 % Neutrophils # (Auto) 8.3 TH/MM3 Lymphocytes # (Auto) 1.3 TH/MM3 Monocytes # (Auto) 0.7 TH/MM3 Eosinophils # (Auto) 0.4 TH/MM3 Basophils # (Auto) 0.1 TH/MM3 CBC Comment DIFF FINAL Differential Comment Blood Urea Nitrogen 8 MG/DL Creatinine 0.54 MG/DL Random Glucose 118 MG/DL Calcium Level 9.1 MG/DL Sodium Level 138 MEQ/L Potassium Level 3.6 MEQ/L Chloride Level 101 MEQ/L Carbon Dioxide Level 30.2 MEQ/L Anion Gap 7 MEQ/L Estimat Glomerular Filtration Rate 108 ML/MIN Vancomycin Level Trough 11.9 MCG/ML Assessment and Plan Problem List: (1) Left foot infection ICD Codes: L08.9 - Local infection of the skin and subcutaneous tissue, unspecified (2) Afib ICD Codes: I48.91 - Unspecified atrial fibrillation (3) PAD (peripheral artery disease) ICD Codes: I73.9 - Peripheral vascular disease, unspecified (4) Osteomyelitis ICD Codes: M86.9 - Osteomyelitis, unspecified Status: Acute (5) Sepsis ICD Codes: A41.9 - Sepsis, unspecified organism Status: Acute (6) Pacemaker ICD Codes: Z95.0 - Presence of cardiac pacemaker Status: Chronic (7) Hypoxia ICD Codes: R09.02 - Hypoxemia Status: Acute (8) Acute CHF ICD Codes: I50.9 - Heart failure, unspecified Assessment and Plan 1) Sepsis secondary to foot Possible left BKA by Dr. Moran Agree with optimization of her cardiovascular status Needs further diuresis due to heart failure 2) Afib Controlled Eliquis 5mg BID 3) Discussed her worry over the PPM not being check as scheduled last week No dysfunction noted, can be done over the next few weeks outpatient 4) 2D echo pending By exam, appears to have mild to moderate Should be evaluated by echo to help with planning of surgery CHF most likely due to fluids given for sepsis as well as holding her diuretic Problem Qualifiers (1) Osteomyelitis: Qualified Codes: M86.9 - Osteomyelitis, unspecified (2) Sepsis: Qualified Codes: A41.9 - Sepsis, unspecified organism Danie Powesr DO January 22, 2018 16:46
[2018-01-22] MEDS: FUROSEMIDE 40 MG/4 ML VIAL IV PUSH SCH (17:49)
--- NOTE | 2018-01-22 19:48 | HHI.PR ---
Subjective Remarks Patient states her breathing is better, denies chest pain. The patient denies fevers or chills. Denies abdominal pain, nausea or vomiting. Objective Vitals Vital Signs Date Time Temp Pulse Resp B/P (MAP) Pulse Ox O2 Delivery O2 Flow Rate FiO2 01/22/18 16:00 98.2 72 18 133/75 (94) 96 01/22/18 12:00 98.5 79 18 127/60 (82) 91 01/22/18 08:00 98.2 71 18 168/74 (105) 95 01/22/18 04:00 97.3 110 20 165/72 (103) 96 01/22/18 00:00 96.8 89 18 160/72 (101) 95 01/21/18 20:00 99.0 69 18 128/72 (90) 97 I/O 01/21/18 01/21/18 01/21/18 01/22/18 01/22/18 01/22/18 07:00 15:00 23:00 07:00 15:00 23:00 Intake Total 1315 ml 300 ml 890 ml 580 ml 667.5 ml 1060 ml Output Total 840 ml 4700 ml 1100 ml 2650 ml Balance 475 ml 300 ml -3810 ml -520 ml 667.5 ml -1590 ml Intake Oral 380 ml 640 ml 480 ml 960 ml IV Total 935 ml 300 ml 250 ml 100 ml 667.5 ml 100 ml Output Urine Total 840 ml 4700 ml 1100 ml 2650 ml # Bowel Movements 0 0 0 0 Result Diagram: 01/22/18 0455 01/22/18 0455 Imaging Last Impressions Ankle X-Ray 01/21/18 0000 Signed Impressions: Service Date/Time: Sunday, January 21, 2018 21:46 - CONCLUSION: Chronic bony change with surgical hardware as described above. A new acute bony abnormality is not clearly seen. There is mild soft tissue swelling. Adonay Cabrera MD Upper Extremity Ultrasound 01/20/18 0000 Signed Impressions: Service Date/Time: Saturday, January 20, 2018 10:42 - CONCLUSION: No DVT. Adonay Cabrera MD Tumor Localization 01/20/18 0000 Signed Impressions: Service Date/Time: Saturday, January 20, 2018 11:45 - CONCLUSION: 1. Intense focal uptake at the site of fracture in the distal posterior tibia. Remainder of the uptake is mild and may represent a mild cellulitis, without definite evidence for osteomyelitis. Tray Garcia MD Lower Extremity Ultrasound 01/20/18 0000 Signed Impressions: Service Date/Time: Saturday, January 20, 2018 10:28 - CONCLUSION: No DVT. Adonay Cabrera MD Chest X-Ray 01/20/18 0000 Signed Impressions: Service Date/Time: Saturday, January 20, 2018 13:03 - CONCLUSION: Mild compensated cardiomegaly. Pacemaker on the left. Gallo Armas MD FACR Lower Extremity CT 01/18/18 0000 Signed Impressions: Service Date/Time: Thursday, January 18, 2018 20:51 - CONCLUSION: 1. Diffuse soft tissue swelling. 2. No acute fracture or dislocation. 3. Scattered areas of osteopenia are noted throughout the foot and are nonspecific. Bone scan, white blood cell scan and/or MRI with contrast would be more sensitive to rule out osteomyelitis if clinically indicated. 4. Plantar and Achilles calcaneal spurring. 5. Old healing posterior malleolar fracture. Wilmer Estes MD Objective Remarks awake and alert lungs- decreased breath sounds, no rales regular rhythm, telemetry- paced abdomen- soft left groin + wound + edema A/P Problem List: (1) Sepsis ICD Code: A41.9 - Sepsis, unspecified organism Status: Acute (2) Osteomyelitis ICD Code: M86.9 - Osteomyelitis, unspecified Status: Acute (3) Left foot infection ICD Code: L08.9 - Local infection of the skin and subcutaneous tissue, unspecified (4) PAD (peripheral artery disease) ICD Code: I73.9 - Peripheral vascular disease, unspecified (5) Afib ICD Code: I48.91 - Unspecified atrial fibrillation Assessment and Plan This is a 82-year-old female patient with a medical history significant for Eliquis, hypertension, hyperlipidemia, peripheral artery disease status post left femoropopliteal bypass on January 06 who presented initially to [facility] and transferred to [facility]. Labs at [facility] were significant for white blood cell count of 17, left foot x-ray which showed a skin ulcer noted on the plantar aspect of the left foot with cortical irregularity and possibly possible osteomyelitis. 1. Sepsis Likely secondary to left foot infection. Present on admission with tachycardia and hypotension. Wound care consulted and following. ID consulted. Antibiotics as per ID. Currently on IV Zosyn, vancomycin and Diflucan Blood cultures negative to date. Positive at take a nuclear scan, possible bone biopsy. Podiatry following. Sepsis clinically resolving with resolving leukocytosis and resolved fever. 2. Peripheral arterial disease Vascular surgery consulted. The patient was seen today by Dr. Moran who recommends BKA. 3. Atrial fibrillation. Chronic atrial fibrillation. Rate controlled. Appreciate cardiology recommendations. Patient currently on chronic on the correlation with apixaban. This will need to be held prior to surgical procedure. 4. Shortness of breath. Likely due to fluid overload. There is peripheral edema. Discontinue IV fluids. Start IV Lasix. Monitor strict I's and O's, daily weights. Check 2D echocardiogram to assess ventricular function. 5. Poor appetite. I will start the patient on Marinol. 6. Hyperlipidemia. Continue statin. 7. Hypothyroidism Continue levothyroxine. Check TSH if not previously done. 8. Hypertension Patient previously severely hypertensive. Continue amlodipine 5 mg p.o. daily, metoprolol 25 minutes p.o. twice daily. Blood pressure seems to be stable. 9. Infected left foot wounds. Podiatry and vascular surgery following. BKA recommended and patient is in agreement with this. DVT prophylaxis: On apixaban. Discharge Planning Continue to monitor on the medical floor. Problem Qualifiers (1) Sepsis: Qualified Codes: A41.9 - Sepsis, unspecified organism (2) Osteomyelitis: Qualified Codes: M86.9 - Osteomyelitis, unspecified Thierno Holder MD January 22, 2018 19:48
--- NOTE | 2018-01-22 23:11 | HHI.PR ---
Subjective Remarks Patient seen bedside this evening. Patient reports improvement with SOB on lasix. Family is present bedside. Objective Vital Signs Date Time Temp Pulse Resp B/P (MAP) Pulse Ox O2 Delivery O2 Flow Rate FiO2 01/22/18 21:02 98.9 77 18 152/70 (97) 95 01/22/18 16:00 98.2 72 18 133/75 (94) 96 01/22/18 12:00 98.5 79 18 127/60 (82) 91 01/22/18 08:00 98.2 71 18 168/74 (105) 95 01/22/18 04:00 97.3 110 20 165/72 (103) 96 01/22/18 00:00 96.8 89 18 160/72 (101) 95 I/O 01/22/18 01/22/18 01/22/18 01/23/18 01/23/18 01/23/18 07:00 15:00 23:00 07:00 15:00 23:00 Intake Total 580 ml 667.5 ml 1060 ml Output Total 1100 ml 4250 ml Balance -520 ml 667.5 ml -3190 ml Intake Oral 480 ml 960 ml IV Total 100 ml 667.5 ml 100 ml Output Urine Total 1100 ml 4250 ml # Bowel Movements 0 0 Result Diagram: 01/22/18 0455 01/22/18 0455 Imaging Last Impressions Ankle X-Ray 01/21/18 0000 Signed Impressions: Service Date/Time: Sunday, January 21, 2018 21:46 - CONCLUSION: Chronic bony change with surgical hardware as described above. A new acute bony abnormality is not clearly seen. There is mild soft tissue swelling. Adonay Cabrera MD Upper Extremity Ultrasound 01/20/18 0000 Signed Impressions: Service Date/Time: Saturday, January 20, 2018 10:42 - CONCLUSION: No DVT. Adonay Cabrera MD Tumor Localization 01/20/18 0000 Signed Impressions: Service Date/Time: Saturday, January 20, 2018 11:45 - CONCLUSION: 1. Intense focal uptake at the site of fracture in the distal posterior tibia. Remainder of the uptake is mild and may represent a mild cellulitis, without definite evidence for osteomyelitis. Tray Garcia MD Lower Extremity Ultrasound 01/20/18 0000 Signed Impressions: Service Date/Time: Saturday, January 20, 2018 10:28 - CONCLUSION: No DVT. Adonay Cabrera MD Chest X-Ray 01/20/18 0000 Signed Impressions: Service Date/Time: Saturday, January 20, 2018 13:03 - CONCLUSION: Mild compensated cardiomegaly. Pacemaker on the left. Gallo Armas MD FACR Lower Extremity CT 01/18/18 0000 Signed Impressions: Service Date/Time: Thursday, January 18, 2018 20:51 - CONCLUSION: 1. Diffuse soft tissue swelling. 2. No acute fracture or dislocation. 3. Scattered areas of osteopenia are noted throughout the foot and are nonspecific. Bone scan, white blood cell scan and/or MRI with contrast would be more sensitive to rule out osteomyelitis if clinically indicated. 4. Plantar and Achilles calcaneal spurring. 5. Old healing posterior malleolar fracture. Wilmer Estes MD Other Results Microbiology Date/Time Source Procedure Growth Status 01/17/18 21:50 Blood Peripheral Aerobic Blood Culture - Final NO GROWTH IN 5 DAYS Complete 01/17/18 21:50 Blood Peripheral Anaerobic Blood Culture - Final NO GROWTH IN 5 DAYS Complete 01/19/18 08:45 Stool Stool Stool Occult Blood (DEEPIKA) - Final HEMOCCULT NEGATIVE Complete 01/20/18 14:00 Wound Groin Gram Stain - Final Resulted 01/20/18 14:00 Wound Culture - Preliminary S. Aureus Mrsa Resulted Objective Remarks Lower extremity physical exam: Vascular: Dorsalis pedis nonpalpable, posterior tibial nonpalpable secondary to edema. Capillary refill time within normal limits to digits 5 bilateral foot. Edema present left foot and ankle Neuro: Gross sensation intact to bilateral lower extremity. Pinpoint sensation decreased. No hyperalgesia noted to bilateral lower extremity Dermatology: Multiple areas of eschar noted to left foot including anterior ankle, heel, plantar sub-met one, lateral fifth metatarsal head. No associated erythema or drainage noted to eschars. New draining sinus noted to lateral aspect of ankle at incision line with minimal purulent drainage upon compression , less than 1cc. Mild increase in erythema to area, improvement. +Malodor noted to left LE which was not present before. + edema. Musculoskeletal: Tender to palpation to left foot and ankle as well as areas of necrosis. NO ROM noted to right ankle. Medications and IVs Current Medications Medications (Trade) Dose Ordered Sig/Temitope Route Start Time Stop Time Status Last Admin Pharmacy Profile Note 0 ml @ 0 mls/hr UNSCH OTHER 01/17/18 21:30 Piperacillin Sod/ Tazobactam Sod 100 ml @ 200 mls/hr Q6H IV 01/17/18 22:00 01/22/18 20:57 (NS Flush) 2 ml UNSCH PRN IV FLUSH 01/17/18 21:30 01/22/18 17:50 (NS Flush) 2 ml BID IV FLUSH 01/18/18 09:00 01/22/18 20:58 (Zofran Inj) 4 mg Q6H PRN IVP 01/17/18 21:30 (Tylenol) 650 mg Q6H PRN PO 01/17/18 21:30 01/18/18 08:26 ([place] 5-325 Mg) 1 tab Q4H PRN PO 01/17/18 21:30 01/22/18 20:55 (Nirali-Colace) 1 tab BID PO 01/18/18 09:00 01/22/18 20:57 (Milk Of Magnesia Liq) 30 ml Q12H PRN PO 01/17/18 21:30 (Senokot) 17.2 mg Q12H PRN PO 01/17/18 21:30 01/18/18 10:40 (Dulcolax Supp) 10 mg DAILY PRN RECTAL 01/17/18 21:30 (Lactulose Liq) 30 ml DAILY PRN PO 01/17/18 21:30 (Pravachol) 20 mg DAILY PO 01/18/18 09:00 01/22/18 09:06 (Morphine Inj) 2 mg Q3H PRN IV PUSH 01/17/18 22:30 01/21/18 21:22 (Eliquis) 5 mg BID PO 01/18/18 09:00 01/22/18 20:57 (Synthroid) 150 mcg DAILY@0600 PO 01/19/18 06:00 01/22/18 04:42 (Santyl Oint) 1 applic DAILY TOPICAL 01/19/18 09:00 01/22/18 11:00 (Lactinex) 1 tab Q12HR PO 01/20/18 21:00 01/22/18 20:57 Fluconazole/ Sodium Chloride 50 ml @ 50 mls/hr Q24H IV 01/20/18 15:00 01/22/18 13:34 (Lopressor) 25 mg BID PO 01/20/18 21:00 01/22/18 20:57 (Norvasc) 5 mg DAILY PO 01/21/18 12:15 01/22/18 09:06 (Ferrous Sulfate) 325 mg BID@12,17 PO 01/21/18 17:00 01/22/18 16:24 Vancomycin HCl 2000 mg/Sodium Chloride 520 ml @ 257.5 mls/ hr Q24H IV 01/23/18 06:00 ([facility] Ordered Lab Info) SPECIFIC LAB TO BE DRAWN:VANCOMYCIN TROUGH DATE TO... ONCE ONCE .XX 01/25/18 05:45 01/25/18 05:46 (Lasix Inj) 40 mg DAILY IV PUSH 01/22/18 17:00 01/22/18 17:49 (Marinol) 5 mg BID@11,16 PO 01/23/18 11:00 Assessment and Plan Assessment and Plan 82-year-old female with the left foot and eschars and necrosis with no definitive OM on bone scan Patient examined evaluated with all questions answered Spoke in great detail with family about options Spoke with Dr. Moran and discussed patient at this time BKA planned for early next week Spoke in great detail to family/patient once again concerning bone scan results. Patient understands no definitive OM was noted. Discussed limb salvage versus amputation below the knee with patient as infection is progressing with new draining sinus noted to lateral ankle at site of hardware. Discussed surgical options with patient and family bedside. Santyl and moist to dry dressing to be applied to left foot to all areas of necrosis daily - breakdown of eschars noted Lavern Cifuentes DPWojciech January 22, 2018 23:11
[2018-01-23] VITALS (8 sets, daily range): BP systolic 117–178; BP diastolic 60–76; PULSE 49–85; RESP 16–18; TEMP 97.8–100.1; O2SAT 89–98
[2018-01-23] MEDS: PIPERACIL-TAZO 4.5 GM PREMIX 100 ML IV SCH ×4 (04:54→23:15)
[2018-01-23] MEDS: LEVOTHYROXINE SODIUM 150 MCG TAB PO SCH (04:54)
[2018-01-23] MEDS: VANCOMYCIN INJ 2,000 MG in SODIUM CHLORID 0.9% 500 ML INJ 500 ML IV SCH ×2 (05:43→09:45)
[2018-01-23] MEDS: METOPROLOL TARTRATE 25 MG TAB PO SCH (08:49)
[2018-01-23] MEDS: LACTOBACILLUS ACIDOPHILUS TAB PO SCH ×2 (08:49→23:14)
[2018-01-23] MEDS: DOCUSATE SODIUM 50 MG/SENNA 8.6 MG TAB PO SCH ×2 (08:49→23:14)
[2018-01-23] MEDS: amLODIPine BESYLATE 5 MG TAB PO SCH (08:49)
[2018-01-23] MEDS: APIXABAN 5 MG TABLET PO SCH ×2 (08:50→23:14)
[2018-01-23] MEDS: SODIUM CHLORIDE 0.9% FLUSH 10 ML FLUSH IV FLUSH SCH ×2 (08:50→23:15)
[2018-01-23] MEDS: PRAVASTATIN SOD 20 MG TAB PO SCH (08:50)
[2018-01-23] MEDS: FUROSEMIDE 40 MG/4 ML VIAL IV PUSH SCH (08:50)
[2018-01-23] MEDS: COLLAGENASE OINT 30 GM TUBE TOPICAL SCH (09:13)
--- NOTE | 2018-01-23 09:55 | PD.VS.PN ---
Subjective Subjective/Hospital Course Pt w/o complaints this am Pt reported improved SOB Pt denied CP Pt denied L LE discomfort Dressing to L LE I/C/D Objective Vitals/I&O Date Time Temp Pulse Resp B/P (MAP) Pulse Ox O2 Delivery O2 Flow Rate FiO2 01/23/18 08:00 98.0 85 17 176/76 (109) 94 01/23/18 06:28 160/72 (101) 01/23/18 04:00 70 01/23/18 04:00 97.9 49 18 178/74 (108) 94 01/23/18 00:00 85 01/23/18 00:00 98.2 66 18 141/71 (94) 96 01/22/18 21:02 98.9 77 18 152/70 (97) 95 01/22/18 20:00 107 01/22/18 16:00 98.2 72 18 133/75 (94) 96 01/22/18 12:00 98.5 79 18 127/60 (82) 91 01/23/18 01/23/18 01/23/18 07:00 15:00 23:00 Intake Total 100 ml Output Total 900 ml 800 ml Balance -800 ml -800 ml Physical Exam GENERAL: A&OX3 SKIN: Warm and dry. Edema to L LE improved Laboratory Date/Time Source Procedure Growth Status 01/17/18 21:50 Blood Peripheral Aerobic Blood Culture - Final NO GROWTH IN 5 DAYS Complete 01/17/18 21:50 Blood Peripheral Anaerobic Blood Culture - Final NO GROWTH IN 5 DAYS Complete 01/19/18 08:45 Stool Stool Stool Occult Blood (DEEPIKA) - Final HEMOCCULT NEGATIVE Complete 01/20/18 14:00 Wound Groin Gram Stain - Final Resulted 01/20/18 14:00 Wound Culture - Preliminary S. Aureus Mrsa Resulted Assessment and Plan Assessment: (1) PAD (peripheral artery disease) Plan 82/F with significant tissue loss to her L LE Discussed with pt wound healing options slim and the potential for a L BKA Pt reported she spoke with her family and is ready for a surgical intervention ( L BKA) Plan Discussed L BKA surgical intervention w/ pt Questions answered Pt scheduled for Saturday next week w/ Dr. Moran (01/28/18) Ashley Starr NP [facility] [phone] Discharge Planning Later next week post BKA to [facility] Ashley Starr January 23, 2018 09:55
[2018-01-23] MEDS ORDERED: METOPROLOL TARTRATE 25 MG TAB PO ONE (10:30)
[2018-01-23] MEDS: FERROUS SULFATE 325 MG (65 MG ELEMENTAL IRON) TAB PO SCH ×2 (11:25→16:14)
[2018-01-23] MEDS: DRONABINOL 5 MG CAP PO SCH ×2 (11:25→16:14)
[2018-01-23] MEDS: ACETAMINOPHEN/HYDROcodone 325 MG/5 MG TAB PO PRN ×2 (12:41→23:17)
--- NOTE | 2018-01-23 12:48 | HHI.IDPN ---
Subjective Subjective Remarks ID [id number] This is a 82-year-old female with a past medical history significant for A. fib on Eliquis, CAD s/p cardiac stent, bradycardia status post pacemaker implantation, hypertension, hyperlipidemia and hypothyroidism who fell at home resulting in an open compound fracture of the left tib-fib and underwent ORIF in [place]. Postoperatively, patient was evaluated 2 weeks following her surgery in the surgeon's office and was noted to have significant necrosis of the left foot/ankle with concern for possible osteomyelitis. Patient was scheduled to see plastic surgeon as an outpatient but prior to that appointment she was reevaluated in the surgeon's office was found to have worsening necrosis of the foot and patient's family brought her to [facility] where she was admitted on 12/25/17. Patient was seen in consultation by Dr. Cifuentes who in turn consulted vascular surgery due to concern for arterial disease. Patient was found to have severe PAD and underwent a left femoropopliteal bypass 01/06/[address] Moran. During that hospitalization, patient developed twitching and speech changes and was seen in consultation by neurology for TIA vs over medicated hypoxia. Patient was discharged on 2017 to rehab facility. While at the rehab facility patient was treated for urinary tract infection. Patient continued to be followed by Dr. Cifuentes and underwent debridement in her office. While at the rehab facility two days ago, patient developed altered mental status with difficulty recalling words and gait instability and was sent to [facility] where patient was found to be septic and imaging left foot was done showing cortical irregularity possible osteomyelitis. CT the head obtained at that time showed no acute findings. Patient was transferred to [facility] ED and was admitted with sepsis and left foot infection and started on IV vancomycin and Zosyn. Patient has been seen by Dr. Moran and Dr. Cifuentes. Patient is not able to have an MRI done secondary to pacemaker (per [employer], patient device is not MRI compatible). She has undergone a CT of the foot which shows diffuse soft tissue swelling, scattered areas of osteopenia, no acute fracture dislocation and old healing posterior malleolus fracture. MRI or white blood cell scan has been recommended for further evaluation of possible osteomyelitis. Infectious disease consultation has been requested for evaluation and management of possible osteomyelitis left foot. Patient seen and examined. Patient reports exertional shortness of breath. She denies any fever or chills. She denies any nausea, vomiting or abdominal pain. She denies any hematuria, dysuria or diarrhea. She does states she has problems with constipation but had a good bowel movement this morning. Her daughter is at the bedside who assists with history. Per herself and the daughter, patient's mentation has returned to baseline. Notes reviewed Temps ok No rash or itching NO diarrhea Constipated but states she is not eating much Plans for amputation noted - scheduled for next week Cultures reviewed Antibiotics IV Vancomycin IV Zosyn Current Medications Medications (Trade) Dose Ordered Sig/Temitope Route Start Time Stop Time Status Last Admin Pharmacy Profile Note 0 ml @ 0 mls/hr UNSCH OTHER 01/17/18 21:30 Piperacillin Sod/ Tazobactam Sod 100 ml @ 200 mls/hr Q6H IV 01/17/18 22:00 01/23/18 08:50 (NS Flush) 2 ml UNSCH PRN IV FLUSH 01/17/18 21:30 01/22/18 17:50 (NS Flush) 2 ml BID IV FLUSH 01/18/18 09:00 01/23/18 08:50 (Zofran Inj) 4 mg Q6H PRN IVP 01/17/18 21:30 (Tylenol) 650 mg Q6H PRN PO 01/17/18 21:30 01/18/18 08:26 ([place] 5-325 Mg) 1 tab Q4H PRN PO 01/17/18 21:30 01/22/18 20:55 (Nirali-Colace) 1 tab BID PO 01/18/18 09:00 01/23/18 08:49 (Milk Of Magnesia Liq) 30 ml Q12H PRN PO 01/17/18 21:30 (Senokot) 17.2 mg Q12H PRN PO 01/17/18 21:30 01/18/18 10:40 (Dulcolax Supp) 10 mg DAILY PRN RECTAL 01/17/18 21:30 (Lactulose Liq) 30 ml DAILY PRN PO 01/17/18 21:30 (Pravachol) 20 mg DAILY PO 01/18/18 09:00 01/23/18 08:50 (Morphine Inj) 2 mg Q3H PRN IV PUSH 01/17/18 22:30 5/8/18 21:22 (Eliquis) 5 mg BID PO 01/18/18 09:00 01/23/18 08:50 (Synthroid) 150 mcg DAILY@0600 PO 01/19/18 06:00 01/23/18 04:54 (Santyl Oint) 1 applic DAILY TOPICAL 01/19/18 09:00 01/23/18 09:13 (Lactinex) 1 tab Q12HR PO 01/20/18 21:00 01/23/18 08:49 Fluconazole/ Sodium Chloride 50 ml @ 50 mls/hr Q24H IV 01/20/18 15:00 01/22/18 13:34 (Norvasc) 5 mg DAILY PO 01/21/18 12:15 01/23/18 08:49 (Ferrous Sulfate) 325 mg BID@12,17 PO 01/21/18 17:00 01/23/18 11:25 Vancomycin HCl 2000 mg/Sodium Chloride 520 ml @ 257.5 mls/ hr Q24H IV 01/23/18 06:00 01/23/18 09:45 (Lasix Inj) 40 mg DAILY IV PUSH 01/22/18 17:00 01/23/18 08:50 (Marinol) 5 mg BID@11,16 PO 01/23/18 11:00 01/23/18 11:25 ([facility] Ordered Lab Info) SPECIFIC LAB TO BE DRAWN:VANCOMYCIN TROUGH DATE TO... ONCE ONCE .XX 01/25/18 08:45 01/25/18 08:46 (Lopressor) 50 mg BID PO 01/23/18 21:00 (Duoneb Neb) 1 ampule Q4HR WHILE AWAKE NEB NEB 01/23/18 12:00 Lines PIV with no e/o infection Past Medical History PAD s/p Left Fem-Pop Bypass 01/06/[address] Moran Atrial fibrillation anticoagulated on Eliquis Hypertension Hyperlipidemia Hypothyroidism CAD s/p cardiac stent Mild to moderate CHF Allergies: Coded Allergies: tetracycline (Verified Allergy, Intermediate, ulcerations to palm and hands, 01/06/18) Tetracyclic Antidepressants (Verified Allergy, Unknown, Hives, 12/25/17) MRI PRECAUTION (Verified Adverse Reaction, Severe, IMPLANTED DEVICE, ) Silverpop Model #[id number] Serial # [id number] [place] 1) Serial #[id number] Model # 5076-45 [place] 2) Serial #[id number] Model # 5076-52 Implant Date 05/28/16 Objective . Vital Signs Date Time Temp Pulse Resp B/P (MAP) Pulse Ox O2 Delivery O2 Flow Rate FiO2 01/23/18 12:00 97.8 81 16 117/68 (84) 98 01/23/18 08:00 98.0 85 17 176/76 (109) 94 01/23/18 06:28 160/72 (101) 01/23/18 04:00 70 01/23/18 04:00 97.9 49 18 178/74 (108) 94 01/23/18 00:00 85 01/23/18 00:00 98.2 66 18 141/71 (94) 96 01/22/18 21:02 98.9 77 18 152/70 (97) 95 01/22/18 20:00 107 01/22/18 16:00 98.2 72 18 133/75 (94) 96 01/23/18 01/23/18 01/24/18 15:00 23:00 07:00 Output Total 800 ml Balance -800 ml Output Urine Total 800 ml . Laboratory Tests Test 01/22/18 04:55 White Blood Count 10.9 TH/MM3 Red Blood Count 3.40 MIL/MM3 Hemoglobin 8.1 GM/DL Hematocrit 25.8 % Mean Corpuscular Volume 75.8 FL Mean Corpuscular Hemoglobin 23.8 PG Mean Corpuscular Hemoglobin Concent 31.4 % Red Cell Distribution Width 18.5 % Platelet Count 423 TH/MM3 Mean Platelet Volume 8.2 FL Neutrophils (%) (Auto) 76.5 % Lymphocytes (%) (Auto) 12.0 % Monocytes (%) (Auto) 6.5 % Eosinophils (%) (Auto) 3.9 % Basophils (%) (Auto) 1.1 % Neutrophils # (Auto) 8.3 TH/MM3 Lymphocytes # (Auto) 1.3 TH/MM3 Monocytes # (Auto) 0.7 TH/MM3 Eosinophils # (Auto) 0.4 TH/MM3 Basophils # (Auto) 0.1 TH/MM3 CBC Comment DIFF FINAL Differential Comment Laboratory Tests Test 01/22/18 04:55 Blood Urea Nitrogen 8 MG/DL Creatinine 0.54 MG/DL Random Glucose 118 MG/DL Calcium Level 9.1 MG/DL Sodium Level 138 MEQ/L Potassium Level 3.6 MEQ/L Chloride Level 101 MEQ/L Carbon Dioxide Level 30.2 MEQ/L Anion Gap 7 MEQ/L Estimat Glomerular Filtration Rate 108 ML/MIN Microbiology Date/Time Source Procedure Growth Status 01/20/18 14:00 Wound Groin Gram Stain - Final Complete 01/20/18 14:00 Wound Culture - Final S. Aureus Mrsa Bacteroides Sp B. Frag Group Complete Imaging Last Impressions Lower Extremity CT 01/18/18 0000 Signed Impressions: Service Date/Time: Thursday, January 18, 2018 20:51 - CONCLUSION: 1. Diffuse soft tissue swelling. 2. No acute fracture or dislocation. 3. Scattered areas of osteopenia are noted throughout the foot and are nonspecific. Bone scan, white blood cell scan and/or MRI with contrast would be more sensitive to rule out osteomyelitis if clinically indicated. 4. Plantar and Achilles calcaneal spurring. 5. Old healing posterior malleolar fracture. Wilmer Estes MD Physical Exam GENERAL: Awake and alert. Sitting up in bedside chair on 3LNC. NAD. Daughter is at the bedside. SKIN: Cool and dry. + surgical incision left groin with small opening and scant amount of yellowish drainage noted on dressing HEAD: Atraumatic. Normocephalic. No temporal or scalp tenderness. EYES: Pupils equal round and reactive. Extraocular motions intact. No scleral icterus. No injection or drainage. ENT: Nose without bleeding or purulent drainage. Throat without erythema, tonsillar hypertrophy or exudate. Uvula midline. Airway patent. MMM. NECK: Trachea midline. N CARDIOVASCULAR: Regular. +Murmur. s/p pacemaker insertion left anterior chest wall, site clear. RESPIRATORY: Clear to auscultation but diminished. Breath sounds equal bilaterally. No wheezes, rales, or rhonchi. GASTROINTESTINAL: Abdomen soft, non-tender, nondistended. No hepato-splenomegaly , or palpable masses. No guarding. MUSCULOSKELETAL: Extremities without clubbing or cyanosis. Diffuse nonpitting edema noted in BUEs. +Trace RLE edema. 1-2+pitting edema LLE. Left foot/ankle with dry and intact dressing. No calf tenderness. NEUROLOGICAL: Grossly nonfocal. Normal speech. PSYCHIATRIC: Appropriate mood and affect. Normal judgment and insight. PIV with no e/o infection Assessment & Plan Remarks Sepsis with temp 102.4, WBC 21.2 and source of left foot/ankle infection/ cellulitis, resolved -lactic acid WNL -blood cultures with no growth x 2 days Left foot/ankle cellulitis, concern for underlying osteomyelitis MRSA left groin wound infection at the site of prior [place] Hx of left tib/fib repair 12/04/18 in [place], hardware in place -CRP 14, ESR 140 -podiatry following Leukocytosis likely secondary to active infection/sepsis -white count trending down Acute metabolic encephalopathy suspect secondary to sepsis, possible TIA, improved -family believes she had a TIA but denies any slurred speech, facial droop, focal weakness PAD s/p left fem-pop bypass by Dr. Moran 01/06/18 -evaluated by Dr. Moran this admission - successful groin reconstruction and bypass Atrial fibrillation on Eliquis Hypertension Dyslipidemia CHF Anemia, hypochromic, microcytic -stool hemoccult pending Recs: Continue Zosyn IV Continue Vanco IV Plans for further surgery next week noted Tolerating Abx; monitor for side effects Mahnza Monae MD January 23, 2018 12:48
[2018-01-23] MEDS: RESP: ALBUTEROL 2.5 MG/IPRATROPIUM 0.5 MG NEB (SCH) NEB ×3 (13:18→19:24)
--- NOTE | 2018-01-23 14:41 | HHI.PR ---
Subjective Remarks Family at bedside PAtient states breathing is better. Patient states appetite is slightly improved. Denies cp Objective Vitals Vital Signs Date Time Temp Pulse Resp B/P (MAP) Pulse Ox O2 Delivery O2 Flow Rate FiO2 01/23/18 12:00 97.8 81 16 117/68 (84) 98 01/23/18 08:00 98.0 85 17 176/76 (109) 94 01/23/18 06:28 160/72 (101) 01/23/18 04:00 70 01/23/18 04:00 97.9 49 18 178/74 (108) 94 01/23/18 00:00 85 01/23/18 00:00 98.2 66 18 141/71 (94) 96 01/22/18 21:02 98.9 77 18 152/70 (97) 95 01/22/18 20:00 107 01/22/18 16:00 98.2 72 18 133/75 (94) 96 I/O 01/22/18 01/22/18 01/22/18 01/23/18 01/23/18 01/23/18 07:00 15:00 23:00 07:00 15:00 23:00 Intake Total 580 ml 667.5 ml 1160 ml 100 ml Output Total 1100 ml 4250 ml 900 ml 800 ml Balance -520 ml 667.5 ml -3090 ml -800 ml -800 ml Intake Oral 480 ml 960 ml IV Total 100 ml 667.5 ml 200 ml 100 ml Output Urine Total 1100 ml 4250 ml 900 ml 800 ml # Bowel Movements 0 0 Result Diagram: 01/22/18 0455 01/22/18 0455 Imaging Last 72 hours Impressions Ankle X-Ray 01/21/18 0000 Signed Impressions: Service Date/Time: Sunday, January 21, 2018 21:46 - CONCLUSION: Chronic bony change with surgical hardware as described above. A new acute bony abnormality is not clearly seen. There is mild soft tissue swelling. Adonay Cabrrea MD Objective Remarks awake and alert lungs- decreased breath sounds, no rales regular rhythm, telemetry- paced abdomen- soft left groin + wound + edema A/P Problem List: (1) Sepsis ICD Code: A41.9 - Sepsis, unspecified organism Status: Acute (2) Osteomyelitis ICD Code: M86.9 - Osteomyelitis, unspecified Status: Acute (3) Left foot infection ICD Code: L08.9 - Local infection of the skin and subcutaneous tissue, unspecified (4) PAD (peripheral artery disease) ICD Code: I73.9 - Peripheral vascular disease, unspecified (5) Afib ICD Code: I48.91 - Unspecified atrial fibrillation Assessment and Plan This is a 82-year-old female patient with a medical history significant for Eliquis, hypertension, hyperlipidemia, peripheral artery disease status post left femoropopliteal bypass on January 06 who presented initially to [facility] and transferred to [facility]. Labs at [facility] were significant for white blood cell count of 17, left foot x-ray which showed a skin ulcer noted on the plantar aspect of the left foot with cortical irregularity and possibly possible osteomyelitis. 1. Sepsis Likely secondary to left foot infection. Present on admission with tachycardia and hypotension. Wound care consulted and following. ID consulted. Antibiotics as per ID. Currently on IV Zosyn, vancomycin and Diflucan Blood cultures negative to date. Positive at take a nuclear scan, possible bone biopsy. Podiatry following. Sepsis clinically resolving with resolving leukocytosis and resolved fever. 2. Peripheral arterial disease Vascular surgery consulted. The patient was seen today by Dr. Moran who recommends BKA. 3. Atrial fibrillation. Chronic atrial fibrillation. Rate controlled. Appreciate cardiology recommendations. Patient currently on chronic on the correlation with apixaban. This will need to be held prior to surgical procedure. 4. Shortness of breath. Likely due to fluid overload. There is peripheral edema. IV fluids discontinued. Monitor strict I's and O's, daily weights. Check 2D echocardiogram to assess ventricular function. Continue IV lasix 5. Poor appetite. I will start the patient on Marinol. 6. Hyperlipidemia. Continue statin. 7. Hypothyroidism Continue levothyroxine. Check TSH if not previously done. 8. Hypertension Patient previously severely hypertensive. Continue amlodipine 5 mg p.o. daily, metoprolol 25 minutes p.o. twice daily. Blood pressure seems to be stable. 5/10 BP still elevated. increase metoprolol dose to 50 mg po 2 x daily. 9. Infected left foot wounds. Podiatry and vascular surgery following. BKA recommended and patient is in agreement with this. DVT prophylaxis: On apixaban. Discharge Planning Continue to monitor on the medical floor. Problem Qualifiers (1) Sepsis: Qualified Codes: A41.9 - Sepsis, unspecified organism (2) Osteomyelitis: Qualified Codes: M86.9 - Osteomyelitis, unspecified Thierno Holder MD January 23, 2018 14:41
[2018-01-23] MEDS: FLUCONAZOLE 100 MG PREMIX BAG 50 ML IV SCH (14:47)
--- NOTE | 2018-01-23 18:11 | PD.CARD.PN ---
Subjective Subjective Remarks Patient was seen earlier today, late entry note No events overnight Breathing better today Objective Medications Current Medications Medications (Trade) Dose Ordered Sig/Temitope Route Start Time Stop Time Status Last Admin Pharmacy Profile Note 0 ml @ 0 mls/hr UNSCH OTHER 01/17/18 21:30 Piperacillin Sod/ Tazobactam Sod 100 ml @ 200 mls/hr Q6H IV 01/17/18 22:00 01/23/18 16:15 (NS Flush) 2 ml UNSCH PRN IV FLUSH 01/17/18 21:30 01/22/18 17:50 (NS Flush) 2 ml BID IV FLUSH 01/18/18 09:00 01/23/18 08:50 (Zofran Inj) 4 mg Q6H PRN IVP 01/17/18 21:30 (Tylenol) 650 mg Q6H PRN PO 01/17/18 21:30 01/18/18 08:26 ([place] 5-325 Mg) 1 tab Q4H PRN PO 01/17/18 21:30 01/23/18 12:41 (Nirali-Colace) 1 tab BID PO 01/18/18 09:00 01/23/18 08:49 (Milk Of Magnesia Liq) 30 ml Q12H PRN PO 01/17/18 21:30 (Senokot) 17.2 mg Q12H PRN PO 01/17/18 21:30 01/18/18 10:40 (Dulcolax Supp) 10 mg DAILY PRN RECTAL 01/17/18 21:30 (Lactulose Liq) 30 ml DAILY PRN PO 01/17/18 21:30 (Pravachol) 20 mg DAILY PO 01/18/18 09:00 01/23/18 08:50 (Morphine Inj) 2 mg Q3H PRN IV PUSH 01/17/18 22:30 01/21/18 21:22 (Eliquis) 5 mg BID PO 01/18/18 09:00 01/23/18 08:50 (Synthroid) 150 mcg DAILY@0600 PO 01/19/18 06:00 01/23/18 04:54 (Santyl Oint) 1 applic DAILY TOPICAL 01/19/18 09:00 01/23/18 09:13 (Lactinex) 1 tab Q12HR PO 01/20/18 21:00 01/23/18 08:49 Fluconazole/ Sodium Chloride 50 ml @ 50 mls/hr Q24H IV 01/20/18 15:00 01/23/18 14:47 (Norvasc) 5 mg DAILY PO 01/21/18 12:15 01/23/18 08:49 (Ferrous Sulfate) 325 mg BID@12,17 PO 01/21/18 17:00 01/23/18 16:14 Vancomycin HCl 2000 mg/Sodium Chloride 520 ml @ 257.5 mls/ hr Q24H IV 01/23/18 06:00 01/23/18 09:45 (Lasix Inj) 40 mg DAILY IV PUSH 01/22/18 17:00 01/23/18 08:50 (Marinol) 5 mg BID@11,16 PO 01/23/18 11:00 01/23/18 16:14 ([facility] Ordered Lab Info) SPECIFIC LAB TO BE DRAWN:VANCOMYCIN TROUGH DATE TO... ONCE ONCE .XX 01/25/18 08:45 01/25/18 08:46 (Lopressor) 50 mg BID PO 01/23/18 21:00 (Duoneb Neb) 1 ampule Q4HR WHILE AWAKE NEB NEB 01/23/18 12:00 01/23/18 17:15 Vital Signs / I&O Vital Signs Date Time Temp Pulse Resp B/P (MAP) Pulse Ox O2 Delivery O2 Flow Rate FiO2 01/23/18 16:00 98.2 65 16 127/60 (82) 89 01/23/18 12:00 97.8 81 16 117/68 (84) 98 01/23/18 08:00 98.0 85 17 176/76 (109) 94 01/23/18 06:28 160/72 (101) 01/23/18 04:00 70 01/23/18 04:00 97.9 49 18 178/74 (108) 94 01/23/18 00:00 85 01/23/18 00:00 98.2 66 18 141/71 (94) 96 01/22/18 21:02 98.9 77 18 152/70 (97) 95 01/22/18 20:00 107 I/O 01/22/18 01/22/18 01/22/18 01/23/18 01/23/18 01/23/18 07:00 15:00 23:00 07:00 15:00 23:00 Intake Total 580 ml 667.5 ml 1160 ml 100 ml 520 ml 50 ml Output Total 1100 ml 4250 ml 900 ml 800 ml Balance -520 ml 667.5 ml -3090 ml -800 ml -280 ml 50 ml Intake Oral 480 ml 960 ml IV Total 100 ml 667.5 ml 200 ml 100 ml 520 ml 50 ml Output Urine Total 1100 ml 4250 ml 900 ml 800 ml # Bowel Movements 0 0 Physical Exam GENERAL: NAD, AAOx3 SKIN: Warm and dry. HEAD: Atraumatic. Normocephalic. EYES: Pupils equal and round. No scleral icterus. No injection or drainage. ENT: No nasal bleeding or discharge. Mucous membranes pink and moist. NECK: Trachea midline. No JVD. CARDIOVASCULAR: Regular rate and rhythm. RESPIRATORY: No accessory muscle use. Decreased breath sounds bilaterally GASTROINTESTINAL: Abdomen soft, non-tender, nondistended. Hepatic and splenic margins not palpable. MUSCULOSKELETAL: Left leg wrapped, decreased warmth compared to yesterday NEUROLOGICAL: Awake and alert. No obvious cranial nerve deficits. Motor grossly within normal limits. Five out of 5 muscle strength in the arms and legs. Normal speech. PSYCHIATRIC: Appropriate mood and affect; insight and judgment normal. Assessment and Plan Problem List: (1) Left foot infection ICD Codes: L08.9 - Local infection of the skin and subcutaneous tissue, unspecified (2) Afib ICD Codes: I48.91 - Unspecified atrial fibrillation (3) PAD (peripheral artery disease) ICD Codes: I73.9 - Peripheral vascular disease, unspecified (4) Osteomyelitis ICD Codes: M86.9 - Osteomyelitis, unspecified Status: Acute (5) Sepsis ICD Codes: A41.9 - Sepsis, unspecified organism Status: Acute (6) Pacemaker ICD Codes: Z95.0 - Presence of cardiac pacemaker Status: Chronic (7) Hypoxia ICD Codes: R09.02 - Hypoxemia Status: Acute (8) Acute CHF ICD Codes: I50.9 - Heart failure, unspecified Assessment and Plan 1) Sepsis secondary to foot Possible left BKA by Dr. Moran Agree with optimization of her cardiovascular status beforehand Needs further diuresis due to heart failure 2) Afib Controlled Eliquis 5mg BID 3) Discussed her worry over the PPM not being check as scheduled last week No dysfunction noted, can be done over the next few weeks outpatient 4) 2D echo pending By exam, appears to have mild to moderate Should be evaluated by echo to help with planning of surgery CHF most likely due to fluids given for sepsis as well as holding her diuretic Problem Qualifiers (1) Osteomyelitis: Qualified Codes: M86.9 - Osteomyelitis, unspecified (2) Sepsis: Qualified Codes: A41.9 - Sepsis, unspecified organism Danie Powers DO January 23, 2018 18:11
--- NOTE | 2018-01-23 19:14 | ECHRPT ---
Indication: SEPSIS, ENDOCARDITIS CONCLUSIONS Mildly dilated left ventricle. The left ventricular systolic function is normal with an estimated ejection fraction in the range of 55-60%. Wall thickness is measured at the upper limits of normal. A pacemaker wire is noted. The left atrial size is moderately dilated. The right atrial size is moderately dilated. There is a pacemaker wire present in the right atrial cavity. Mild mitral valve regurgitation. Aortic valve sclerosis is present. Trace aortic valve regurgitation. There is mild tricuspid valve regurgitation. The estimated pulmonary arterial pressure is 41.8 mmHg. Trivial pulmonary valve regurgitation. A right sided pleural effusion is present. BP: 135 / 85 HR: 52 Rhythm: Sinus, Other MEASUREMENTS (Male / Female) Normal Values Technical Quality:Fair 2D ECHO LV Diastolic Diameter PLAX 6.0 cm 4.2 - 5.9 / 3.9 - 5.3 cm LV Systolic Diameter PLAX 4.6 cm IVS Diastolic Thickness 1.0 cm 0.6 - 1.0 / 0.6 - 0.9 cm LVPW Diastolic Thickness 1.0 cm 0.6 - 1.0 / 0.6 - 0.9 cm LV Relative Wall Thickness 0.3 RV Internal Dim ED PLAX 2.5 cm LVOT Diameter 1.9 cm Aortic Root Diameter 2.7 cm LA Systolic Diameter LX 4.2 cm 3.0 - 4.0 / 2.7 - 3.8 cm DOPPLER AV Peak Velocity 182.5 cm/s AV Peak Gradient 13.3 mmHg AV Mean Gradient 7.0 mmHg AV Velocity Time Integral 31.7 cm LVOT Peak Velocity 97.0 cm/s LVOT Peak Gradient 3.8 mmHg LVOT Velocity Time Integral 17.7 cm AV Area Cont Eq vti 1.6 cm AV Area Cont Eq pk 1.5 cm Mitral E Point Velocity 91.0 cm/s TR Peak Velocity 282.0 cm/s TR Peak Gradient 31.8 mmHg Right Atrial Pressure 10.0 mmHg Pulmonary Artery Systolic Pressu 41.8 mmHg Right Ventricular Systolic Press 41.8 mmHg PV Peak Velocity 88.0 cm/s PV Peak Gradient 3.1 mmHg FINDINGS LEFT VENTRICLE Mildly dilated left ventricle. The left ventricular systolic function is normal with an estimated ejection fraction in the range of 55-60%. Wall thickness is measured at the upper limits of normal. RIGHT VENTRICLE Normal right ventricular size and systolic function. A pacemaker wire is noted. LEFT ATRIUM The left atrial size is moderately dilated. RIGHT ATRIUM The right atrial size is moderately dilated. There is a pacemaker wire present in the right atrial cavity. ATRIAL SEPTUM No atrial level shunt is demonstrated by color flow Doppler interrogation. AORTA The aortic root and proximal ascending aorta are normal in size on limited imaging. MITRAL VALVE [id number] mitral valve regurgitation. AORTIC VALVE Aortic valve sclerosis is present. Trace aortic valve regurgitation. TRICUSPID VALVE There is mild tricuspid valve regurgitation. The estimated pulmonary arterial pressure is 41.8 mmHg. PULMONARY VALVE Trivial pulmonary valve regurgitation. VESSELS The inferior vena cava is normal in size. PERICARDIUM A right sided pleural effusion is present. No pericardial effusion. Isidro Herr MD, FACC, FSCAI (Electronically Signed) Final Date:23 Jan 2018 19:12
[2018-01-23] MEDS: METOPROLOL TARTRATE 50 MG TAB PO SCH (23:14)
[2018-01-24] VITALS (8 sets, daily range): BP systolic 114–169; BP diastolic 56–81; PULSE 64–78; RESP 16–22; TEMP 97.9–99.6; O2SAT 91–97
[2018-01-24] MEDS: PIPERACIL-TAZO 4.5 GM PREMIX 100 ML IV SCH ×4 (04:35→19:57)
[2018-01-24] MEDS: LEVOTHYROXINE SODIUM 150 MCG TAB PO SCH (04:35)
[2018-01-24 06:41] LABS: CREATININE 0.81 MG/DL (0.50-1.00)
[2018-01-24] MEDS: PRAVASTATIN SOD 20 MG TAB PO SCH (07:43)
[2018-01-24] MEDS: APIXABAN 5 MG TABLET PO SCH ×2 (07:44→19:55)
[2018-01-24] MEDS: LACTOBACILLUS ACIDOPHILUS TAB PO SCH ×2 (07:44→19:55)
[2018-01-24] MEDS: FUROSEMIDE 40 MG/4 ML VIAL IV PUSH SCH (07:44)
[2018-01-24] MEDS: VANCOMYCIN INJ 2,000 MG in SODIUM CHLORID 0.9% 500 ML INJ 500 ML IV SCH (07:44)
[2018-01-24] MEDS: METOPROLOL TARTRATE 50 MG TAB PO SCH ×2 (07:44→19:55)
[2018-01-24] MEDS: amLODIPine BESYLATE 5 MG TAB PO SCH (07:44)
[2018-01-24] MEDS: DOCUSATE SODIUM 50 MG/SENNA 8.6 MG TAB PO SCH ×2 (07:44→19:55)
[2018-01-24] MEDS: SODIUM CHLORIDE 0.9% FLUSH 10 ML FLUSH IV FLUSH SCH ×2 (07:45→20:02)
[2018-01-24] MEDS: COLLAGENASE OINT 30 GM TUBE TOPICAL SCH (07:45)
[2018-01-24] MEDS: RESP: ALBUTEROL 2.5 MG/IPRATROPIUM 0.5 MG NEB (SCH) NEB ×4 (10:20→20:24)
[2018-01-24] MEDS: FERROUS SULFATE 325 MG (65 MG ELEMENTAL IRON) TAB PO SCH ×2 (11:30→16:56)
[2018-01-24] MEDS: DRONABINOL 5 MG CAP PO SCH ×2 (11:30→16:56)
--- NOTE | 2018-01-24 12:35 | HHI.PR ---
Subjective Remarks Patient states breathing is ok but not as good as yesterday Appetite is also not as good as yesterday but she ate this am Objective Vitals Vital Signs Date Time Temp Pulse Resp B/P (MAP) Pulse Ox O2 Delivery O2 Flow Rate FiO2 01/24/18 08:00 98.1 67 18 160/81 (107) 94 01/24/18 04:47 98.5 73 18 166/76 (106) 94 01/24/18 00:00 99.6 71 17 169/73 (105) 94 01/23/18 20:00 100.1 84 17 129/61 (83) 93 01/23/18 19:25 96 01/23/18 16:00 98.2 65 16 127/60 (82) 89 I/O 01/23/18 01/23/18 01/23/18 01/24/18 01/24/18 01/24/18 07:00 15:00 23:00 07:00 15:00 23:00 Intake Total 100 ml 520 ml 650 ml 340 ml Output Total 900 ml 800 ml 2200 ml 700 ml 2000 ml Balance -800 ml -280 ml -1550 ml -360 ml -2000 ml Intake Oral 600 ml 240 ml IV Total 100 ml 520 ml 50 ml 100 ml Output Urine Total 900 ml 800 ml 2200 ml 700 ml 2000 ml # Bowel Movements 0 Result Diagram: 01/22/18 0455 01/24/18 0420 Imaging Last Impressions Ankle X-Ray 01/21/18 0000 Signed Impressions: Service Date/Time: Sunday, January 21, 2018 21:46 - CONCLUSION: Chronic bony change with surgical hardware as described above. A new acute bony abnormality is not clearly seen. There is mild soft tissue swelling. Adonay Cabrera MD Upper Extremity Ultrasound 01/20/18 0000 Signed Impressions: Service Date/Time: Saturday, January 20, 2018 10:42 - CONCLUSION: No DVT. Adonay Cabrera MD Tumor Localization 01/20/18 0000 Signed Impressions: Service Date/Time: Saturday, January 20, 2018 11:45 - CONCLUSION: 1. Intense focal uptake at the site of fracture in the distal posterior tibia. Remainder of the uptake is mild and may represent a mild cellulitis, without definite evidence for osteomyelitis. Tray Garcia MD Lower Extremity Ultrasound 01/20/18 0000 Signed Impressions: Service Date/Time: Saturday, January 20, 2018 10:28 - CONCLUSION: No DVT. Adonay Cabrera MD Chest X-Ray 01/20/18 0000 Signed Impressions: Service Date/Time: Saturday, January 20, 2018 13:03 - CONCLUSION: Mild compensated cardiomegaly. Pacemaker on the left. Gallo Armas MD FACR Lower Extremity CT 01/18/18 0000 Signed Impressions: Service Date/Time: Thursday, January 18, 2018 20:51 - CONCLUSION: 1. Diffuse soft tissue swelling. 2. No acute fracture or dislocation. 3. Scattered areas of osteopenia are noted throughout the foot and are nonspecific. Bone scan, white blood cell scan and/or MRI with contrast would be more sensitive to rule out osteomyelitis if clinically indicated. 4. Plantar and Achilles calcaneal spurring. 5. Old healing posterior malleolar fracture. Wilmer Estes MD Objective Remarks awake and alert lungs- decreased breath sounds, no rales regular rhythm, telemetry- paced abdomen- soft left groin + wound + edema A/P Problem List: (1) Sepsis ICD Code: A41.9 - Sepsis, unspecified organism Status: Resolved (2) Osteomyelitis ICD Code: M86.9 - Osteomyelitis, unspecified Status: Acute (3) Left foot infection ICD Code: L08.9 - Local infection of the skin and subcutaneous tissue, unspecified (4) PAD (peripheral artery disease) ICD Code: I73.9 - Peripheral vascular disease, unspecified (5) Afib ICD Code: I48.91 - Unspecified atrial fibrillation Assessment and Plan This is a 82-year-old female patient with a medical history significant for Eliquis, hypertension, hyperlipidemia, peripheral artery disease status post left femoropopliteal bypass on January 06 who presented initially to [facility] and transferred to [facility]. Labs at [facility] were significant for white blood cell count of 17, left foot x-ray which showed a skin ulcer noted on the plantar aspect of the left foot with cortical irregularity and possibly possible osteomyelitis. 1. Sepsis Likely secondary to left foot infection. Present on admission with tachycardia and hypotension. Wound care consulted and following. ID consulted. Antibiotics as per ID. Currently on IV Zosyn, vancomycin and Diflucan Blood cultures negative to date. Positive at take a nuclear scan, possible bone biopsy. Podiatry following. Sepsis clinically resolving with resolving leukocytosis and resolved fever. 2. Peripheral arterial disease Vascular surgery consulted. The patient was seen today by Dr. Moran who recommends BKA. 3. Atrial fibrillation. Chronic atrial fibrillation. Rate controlled. Appreciate cardiology recommendations. Patient currently on chronic on the correlation with apixaban. This will need to be held prior to surgical procedure. 4. Shortness of breath. Likely due to fluid overload. There is peripheral edema. IV fluids discontinued. Monitor strict I's and O's, daily weights. Check 2D echocardiogram to assess ventricular function. Continue IV lasix 5. Poor appetite. I will start the patient on Marinol. 6. Hyperlipidemia. Continue statin. 7. Hypothyroidism Continue levothyroxine. Check TSH if not previously done. 8. Hypertension Patient previously severely hypertensive. Continue amlodipine 5 mg p.o. daily, metoprolol 25 minutes p.o. twice daily. Blood pressure seems to be stable. 10 BP still elevated. increase metoprolol dose to 50 mg po 2 x daily. 01/24 BP better. continue metoprolol, amlodipine and monitor vital signs. 9. Infected left foot wounds. Podiatry and vascular surgery following. BKA recommended and patient is in agreement with this. DVT prophylaxis: On apixaban. Discharge Planning Continue to monitor on the medical floor. Problem Qualifiers (1) Sepsis: Qualified Codes: A41.9 - Sepsis, unspecified organism (2) Osteomyelitis: Qualified Codes: M86.9 - Osteomyelitis, unspecified Thierno Holder MD January 24, 2018 12:35
--- NOTE | 2018-01-24 13:22 | PD.CARD.PN ---
Subjective Subjective Remarks No events overnight Breathing better today Objective Medications Current Medications Medications (Trade) Dose Ordered Sig/Temitope Route Start Time Stop Time Status Last Admin Pharmacy Profile Note 0 ml @ 0 mls/hr UNSCH OTHER 01/17/18 21:30 Piperacillin Sod/ Tazobactam Sod 100 ml @ 200 mls/hr Q6H IV 01/17/18 22:00 01/24/18 12:29 (NS Flush) 2 ml UNSCH PRN IV FLUSH 01/17/18 21:30 01/22/18 17:50 (NS Flush) 2 ml BID IV FLUSH 01/18/18 09:00 01/24/18 07:45 (Zofran Inj) 4 mg Q6H PRN IVP 01/17/18 21:30 (Tylenol) 650 mg Q6H PRN PO 01/17/18 21:30 01/18/18 08:26 ([place] 5-325 Mg) 1 tab Q4H PRN PO 01/17/18 21:30 01/23/18 23:17 (Nirali-Colace) 1 tab BID PO 01/18/18 09:00 01/24/18 07:44 (Milk Of Magnesia Liq) 30 ml Q12H PRN PO 01/17/18 21:30 (Senokot) 17.2 mg Q12H PRN PO 01/17/18 21:30 01/18/18 10:40 (Dulcolax Supp) 10 mg DAILY PRN RECTAL 01/17/18 21:30 (Lactulose Liq) 30 ml DAILY PRN PO 01/17/18 21:30 (Pravachol) 20 mg DAILY PO 01/18/18 09:00 01/24/18 07:43 (Morphine Inj) 2 mg Q3H PRN IV PUSH 01/17/18 22:30 01/21/18 21:22 (Eliquis) 5 mg BID PO 01/18/18 09:00 01/24/18 07:44 (Synthroid) 150 mcg DAILY@0600 PO 01/19/18 06:00 01/24/18 04:35 (Santyl Oint) 1 applic DAILY TOPICAL 01/19/18 09:00 01/24/18 07:45 (Lactinex) 1 tab Q12HR PO 01/20/18 21:00 01/24/18 07:44 Fluconazole/ Sodium Chloride 50 ml @ 50 mls/hr Q24H IV 01/20/18 15:00 01/23/18 14:47 (Norvasc) 5 mg DAILY PO 01/21/18 12:15 01/24/18 07:44 (Ferrous Sulfate) 325 mg BID@12,17 PO 01/21/18 17:00 01/24/18 11:30 Vancomycin HCl 2000 mg/Sodium Chloride 520 ml @ 257.5 mls/ hr Q24H IV 01/23/18 06:00 01/24/18 07:44 (Lasix Inj) 40 mg DAILY IV PUSH 01/22/18 17:00 01/24/18 07:44 (Marinol) 5 mg BID@11,16 PO 01/23/18 11:00 01/24/18 11:30 ([facility] Ordered Lab Info) SPECIFIC LAB TO BE DRAWN:VANCOMYCIN TROUGH DATE TO... ONCE ONCE .XX 01/25/18 08:45 01/25/18 08:46 (Lopressor) 50 mg BID PO 01/23/18 21:00 01/24/18 07:44 (Duoneb Neb) 1 ampule Q4HR WHILE AWAKE NEB NEB 01/23/18 12:00 01/24/18 10:20 Vital Signs / I&O Vital Signs Date Time Temp Pulse Resp B/P (MAP) Pulse Ox O2 Delivery O2 Flow Rate FiO2 01/24/18 12:00 97.9 71 16 125/67 (86) 96 01/24/18 08:00 98.1 67 18 160/81 (107) 94 01/24/18 04:47 98.5 73 18 166/76 (106) 94 01/24/18 00:00 99.6 71 17 169/73 (105) 94 01/23/18 20:00 100.1 84 17 129/61 (83) 93 01/23/18 19:25 96 01/23/18 16:00 98.2 65 16 127/60 (82) 89 I/O 01/23/18 01/23/18 01/23/18 01/24/18 01/24/18 01/24/18 07:00 15:00 23:00 07:00 15:00 23:00 Intake Total 100 ml 520 ml 650 ml 340 ml Output Total 900 ml 800 ml 2200 ml 700 ml 2000 ml Balance -800 ml -280 ml -1550 ml -360 ml -2000 ml Intake Oral 600 ml 240 ml IV Total 100 ml 520 ml 50 ml 100 ml Output Urine Total 900 ml 800 ml 2200 ml 700 ml 2000 ml # Bowel Movements 0 Physical Exam GENERAL: NAD, AAOx3 SKIN: Warm and dry. HEAD: Atraumatic. Normocephalic. EYES: Pupils equal and round. No scleral icterus. No injection or drainage. ENT: No nasal bleeding or discharge. Mucous membranes pink and moist. NECK: Trachea midline. No JVD. CARDIOVASCULAR: Regular rate and rhythm. RESPIRATORY: No accessory muscle use. Decreased breath sounds bilaterally GASTROINTESTINAL: Abdomen soft, non-tender, nondistended. Hepatic and splenic margins not palpable. MUSCULOSKELETAL: Left leg wrapped, decreased warmth compared to yesterday NEUROLOGICAL: Awake and alert. No obvious cranial nerve deficits. Motor grossly within normal limits. Five out of 5 muscle strength in the arms and legs. Normal speech. PSYCHIATRIC: Appropriate mood and affect; insight and judgment normal. Laboratory Laboratory Tests Test 01/24/18 04:20 Creatinine 0.81 MG/DL Estimat Glomerular Filtration Rate 68 ML/MIN Assessment and Plan Problem List: (1) Left foot infection ICD Codes: L08.9 - Local infection of the skin and subcutaneous tissue, unspecified (2) Afib ICD Codes: I48.91 - Unspecified atrial fibrillation (3) PAD (peripheral artery disease) ICD Codes: I73.9 - Peripheral vascular disease, unspecified (4) Osteomyelitis ICD Codes: M86.9 - Osteomyelitis, unspecified Status: Acute (5) Sepsis ICD Codes: A41.9 - Sepsis, unspecified organism Status: Acute (6) Pacemaker ICD Codes: Z95.0 - Presence of cardiac pacemaker Status: Chronic (7) Hypoxia ICD Codes: R09.02 - Hypoxemia Status: Acute (8) Acute CHF ICD Codes: I50.9 - Heart failure, unspecified Assessment and Plan 1) Sepsis secondary to foot Possible left BKA by Dr. Moran Agree with optimization of her cardiovascular status beforehand Needs further diuresis due to heart failure 2) Afib Controlled Eliquis 5mg BID 3) Discussed her worry over the PPM not being check as scheduled last week No dysfunction noted, can be done over the next few weeks outpatient 4) EF 55-60%, aortic valve sclerosis, no aortic stenosis Problem Qualifiers (1) Osteomyelitis: Qualified Codes: M86.9 - Osteomyelitis, unspecified (2) Sepsis: Qualified Codes: A41.9 - Sepsis, unspecified organism Danie Powers DO January 24, 2018 13:22
[2018-01-24] MEDS: FLUCONAZOLE 100 MG PREMIX BAG 50 ML IV SCH (14:49)
[2018-01-24] MEDS: ACETAMINOPHEN/HYDROcodone 325 MG/5 MG TAB PO PRN (18:40)
[2018-01-24] MEDS: SENNOSIDES 8.6 MG TAB PO PRN (20:02)
[2018-01-25] VITALS (9 sets, daily range): BP systolic 106–175; BP diastolic 56–77; PULSE 64–81; RESP 17–20; TEMP 97.7–99.8; O2SAT 93–97
[2018-01-25] MEDS: PIPERACIL-TAZO 4.5 GM PREMIX 100 ML IV SCH ×4 (04:04→20:43)
[2018-01-25] MEDS: LEVOTHYROXINE SODIUM 150 MCG TAB PO SCH (04:04)
[2018-01-25 04:49] LABS: HEMATOCRIT 24.6 % (35.0-46.0); HEMOGLOBIN 7.7 GM/DL (11.6-15.3); MEAN CELL VOLUME 75.1 FL (80.0-100.0); MEAN CORPUSCULAR HEMOGLOBIN 23.5 PG (27.0-34.0); MEAN CORPUSCULAR HGB CONC 31.3 % (32.0-36.0); MEAN PLATELET VOLUME 8.1 FL (7.0-11.0); PLATELET COUNT 433 TH/MM3 (150-450); RED BLOOD COUNT 3.27 MIL/MM3 (4.00-5.30); RED CELL DISTRIBUTION WIDTH 18.8 % (11.6-17.2); WHITE BLOOD COUNT 8.4 TH/MM3 (4.0-11.0)
[2018-01-25 05:13] LABS: BICARBONATE 32.6 MEQ/L (21.0-32.0); CALCIUM 8.8 MG/DL (8.5-10.1); CREATININE 0.92 MG/DL (0.50-1.00)
[2018-01-25 05:15] LABS: PHOSPHORUS 4.2 MG/DL (2.5-4.9)
[2018-01-25] MEDS ORDERED: PHARMACY ORDERED LAB ONE ×2 (05:45→08:45)
[2018-01-25] MEDS: RESP: ALBUTEROL 2.5 MG/IPRATROPIUM 0.5 MG NEB (SCH) NEB ×4 (08:00→19:26)
[2018-01-25] MEDS: SODIUM CHLORIDE 0.9% FLUSH 10 ML FLUSH IV FLUSH SCH ×2 (08:58→20:43)
[2018-01-25] MEDS: VANCOMYCIN INJ 2,000 MG in SODIUM CHLORID 0.9% 500 ML INJ 500 ML IV SCH (08:58)
[2018-01-25] MEDS: FUROSEMIDE 40 MG/4 ML VIAL IV PUSH SCH (08:59)
[2018-01-25] MEDS: METOPROLOL TARTRATE 50 MG TAB PO SCH ×2 (09:00→20:43)
[2018-01-25] MEDS: APIXABAN 5 MG TABLET PO SCH ×2 (09:00→20:43)
[2018-01-25] MEDS: LACTOBACILLUS ACIDOPHILUS TAB PO SCH ×2 (09:00→20:43)
[2018-01-25] MEDS: DOCUSATE SODIUM 50 MG/SENNA 8.6 MG TAB PO SCH ×2 (09:01→20:43)
[2018-01-25] MEDS: PRAVASTATIN SOD 20 MG TAB PO SCH (09:01)
[2018-01-25] MEDS: amLODIPine BESYLATE 5 MG TAB PO SCH (09:01)
[2018-01-25] MEDS: COLLAGENASE OINT 30 GM TUBE TOPICAL SCH (09:02)
--- NOTE | 2018-01-25 12:05 | HHI.PR ---
Subjective Remarks The patient is sitting in the chair. The patient denies chest pain, states shortness of breath is much better. Patient denies fevers or chills. Appetite is slowly improving. Objective Vitals Vital Signs Date Time Temp Pulse Resp B/P (MAP) Pulse Ox O2 Delivery O2 Flow Rate FiO2 01/25/18 08:00 98.3 70 17 175/77 (109) 95 01/25/18 05:03 71 01/25/18 04:00 98.1 75 20 162/69 (100) 96 01/25/18 00:00 97.7 73 20 153/70 (97) 96 01/24/18 20:25 97 Nasal Cannula 2.00 01/24/18 20:00 98.7 78 22 123/60 (81) 96 01/24/18 16:00 98.5 64 16 114/56 (75) 95 I/O 01/24/18 01/24/18 01/24/18 01/25/18 01/25/18 01/25/18 07:00 15:00 23:00 07:00 15:00 23:00 Intake Total 340 ml 100 ml 1050 ml 240 ml Output Total 700 ml 2000 ml 28 ml 1250 ml Balance -360 ml -1900 ml 1022 ml -1010 ml Intake Oral 240 ml 900 ml 240 ml IV Total 100 ml 100 ml 150 ml Output Urine Total 700 ml 2000 ml 28 ml 1250 ml # Bowel Movements 1 0 Result Diagram: 01/25/187 01/25/18 0337 Imaging Last Impressions Ankle X-Ray 01/21/18 0000 Signed Impressions: Service Date/Time: Sunday, January 21, 2018 21:46 - CONCLUSION: Chronic bony change with surgical hardware as described above. A new acute bony abnormality is not clearly seen. There is mild soft tissue swelling. Adonay Cabrera MD Upper Extremity Ultrasound 01/20/18 0000 Signed Impressions: Service Date/Time: Saturday, January 20, 2018 10:42 - CONCLUSION: No DVT. Adonay Cabrera MD Tumor Localization 01/20/18 0000 Signed Impressions: Service Date/Time: Saturday, January 20, 2018 11:45 - CONCLUSION: 1. Intense focal uptake at the site of fracture in the distal posterior tibia. Remainder of the uptake is mild and may represent a mild cellulitis, without definite evidence for osteomyelitis. Tray Garcia MD Lower Extremity Ultrasound 01/20/18 0000 Signed Impressions: Service Date/Time: Saturday, January 20, 2018 10:28 - CONCLUSION: No DVT. Adonay Cabrera MD Chest X-Ray 01/20/18 0000 Signed Impressions: Service Date/Time: Saturday, January 20, 2018 13:03 - CONCLUSION: Mild compensated cardiomegaly. Pacemaker on the left. Gallo Armas MD FACR Lower Extremity CT 01/18/18 Signed Impressions: Service Date/Time: Thursday, January 18, 2018 20:51 - CONCLUSION: 1. Diffuse soft tissue swelling. 2. No acute fracture or dislocation. 3. Scattered areas of osteopenia are noted throughout the foot and are nonspecific. Bone scan, white blood cell scan and/or MRI with contrast would be more sensitive to rule out osteomyelitis if clinically indicated. 4. Plantar and Achilles calcaneal spurring. 5. Old healing posterior malleolar fracture. Wilmer Estes MD Objective Remarks awake and alert lungs- decreased breath sounds, no rales regular rhythm, telemetry- paced abdomen- soft left groin + wound + edema A/P Problem List: (1) Sepsis ICD Code: A41.9 - Sepsis, unspecified organism Status: Resolved (2) Osteomyelitis ICD Code: M86.9 - Osteomyelitis, unspecified Status: Acute (3) Left foot infection ICD Code: L08.9 - Local infection of the skin and subcutaneous tissue, unspecified (4) PAD (peripheral artery disease) ICD Code: I73.9 - Peripheral vascular disease, unspecified (5) Afib ICD Code: I48.91 - Unspecified atrial fibrillation Assessment and Plan This is a 82-year-old female patient with a medical history significant for Eliquis, hypertension, hyperlipidemia, peripheral artery disease status post left femoropopliteal bypass on January 06 who presented initially to [facility] and transferred to [facility]. Labs at [facility] were significant for white blood cell count of 17, left foot x-ray which showed a skin ulcer noted on the plantar aspect of the left foot with cortical irregularity and possibly possible osteomyelitis. 1. Sepsis Likely secondary to left foot infection. Present on admission with tachycardia and hypotension. Wound care consulted and following. ID consulted. Antibiotics as per ID. Currently on IV Zosyn, vancomycin and Diflucan Blood cultures negative to date. Positive at take a nuclear scan, possible bone biopsy. Podiatry following. Sepsis clinically resolving with resolving leukocytosis and resolved fever. 2. Peripheral arterial disease Vascular surgery consulted. The patient was seen today by Dr. Moran who recommends BKA. BKA planned for January 28. 3. Atrial fibrillation. Chronic atrial fibrillation. Rate controlled. Appreciate cardiology recommendations. Patient currently on chronic on the correlation with apixaban. This will need to be held prior to surgical procedure. 4. Shortness of breath. Likely due to fluid overload. There is peripheral edema. IV fluids discontinued. Monitor strict I's and O's, daily weights. Check 2D echocardiogram to assess ventricular function. Continue IV lasix 5. Poor appetite. Appetite improving. Continue Marinol. 6. Hyperlipidemia. Continue statin. 7. Hypothyroidism Continue levothyroxine. Check TSH if not previously done. 8. Hypertension Patient previously severely hypertensive. Continue amlodipine 5 mg p.o. daily, metoprolol 25 minutes p.o. twice daily. Blood pressure seems to be stable. 01/23 BP still elevated. increase metoprolol dose to 50 mg po 2 x daily. 01/24 BP better. continue metoprolol, amlodipine and monitor vital signs. 01/25 BP slightly elevated overnight. Continue amlodipine and metoprolol at same dose. 9. Infected left foot wounds. Podiatry and vascular surgery following. BKA recommended and patient is in agreement with this. DVT prophylaxis: On apixaban. Discharge Planning Continue to monitor on the medical floor. Problem Qualifiers (1) Sepsis: Qualified Codes: A41.9 - Sepsis, unspecified organism (2) Osteomyelitis: Qualified Codes: M86.9 - Osteomyelitis, unspecified Thierno Holder MD January 25, 2018 12:05
[2018-01-25] MEDS: DRONABINOL 5 MG CAP PO SCH ×2 (12:35→16:23)
[2018-01-25] MEDS: FERROUS SULFATE 325 MG (65 MG ELEMENTAL IRON) TAB PO SCH ×2 (12:35→16:23)
--- NOTE | 2018-01-25 15:19 | OTSOAPIP ---
TIME SESSION COMPLETED: PM TREATMENT TIME: 0 MINS. CHART REVIEWED. ATTEMPTED TO SEE FOR OT ASSESSMENT, HOWEVER RECEIVING NURSING CARE. WILL FOLLOW. Therapist: KEITH JEFFREY OT/[place] Signature on file
[2018-01-25] MEDS: ACETAMINOPHEN/HYDROcodone 325 MG/5 MG TAB PO PRN (16:22)
[2018-01-25] MEDS: FLUCONAZOLE 100 MG PREMIX BAG 50 ML IV SCH (16:23)
[2018-01-26] VITALS (8 sets, daily range): BP systolic 125–164; BP diastolic 57–82; PULSE 62–80; RESP 17–21; TEMP 98.3–100.1; O2SAT 90–98
[2018-01-26] MEDS: PIPERACIL-TAZO 4.5 GM PREMIX 100 ML IV SCH ×4 (02:21→21:46)
[2018-01-26] MEDS: LEVOTHYROXINE SODIUM 150 MCG TAB PO SCH (05:43)
[2018-01-26 07:45] LABS: CREATININE 0.73 MG/DL (0.50-1.00)
[2018-01-26] MEDS: VANCOMYCIN INJ 2,000 MG in SODIUM CHLORID 0.9% 500 ML INJ 500 ML IV SCH (08:23)
[2018-01-26] MEDS: SODIUM CHLORIDE 0.9% FLUSH 10 ML FLUSH IV FLUSH SCH ×2 (08:24→21:45)
[2018-01-26] MEDS: FUROSEMIDE 40 MG/4 ML VIAL IV PUSH SCH (08:24)
[2018-01-26] MEDS: LACTOBACILLUS ACIDOPHILUS TAB PO SCH ×2 (08:25→21:45)
[2018-01-26] MEDS: DOCUSATE SODIUM 50 MG/SENNA 8.6 MG TAB PO SCH ×2 (08:25→21:46)
[2018-01-26] MEDS: PRAVASTATIN SOD 20 MG TAB PO SCH (08:26)
[2018-01-26] MEDS: METOPROLOL TARTRATE 50 MG TAB PO SCH ×2 (08:26→21:45)
[2018-01-26] MEDS: COLLAGENASE OINT 30 GM TUBE TOPICAL SCH (08:27)
[2018-01-26] MEDS ORDERED: amLODIPine BESYLATE 5 MG TAB PO SCH ×2 (09:00)
[2018-01-26] MEDS: RESP: ALBUTEROL 2.5 MG/IPRATROPIUM 0.5 MG NEB (SCH) NEB ×4 (09:56→20:15)
[2018-01-26] MEDS: FERROUS SULFATE 325 MG (65 MG ELEMENTAL IRON) TAB PO SCH ×2 (11:00→15:30)
[2018-01-26] MEDS: DRONABINOL 5 MG CAP PO SCH ×2 (11:00→16:38)
[2018-01-26] MEDS: ACETAMINOPHEN/HYDROcodone 325 MG/5 MG TAB PO PRN (14:20)
[2018-01-26] MEDS: FLUCONAZOLE 100 MG PREMIX BAG 50 ML IV SCH (14:20)
--- NOTE | 2018-01-26 14:35 | HHI.PR ---
Subjective Remarks Patient states she feels much better appetite is improving. Objective Vitals Vital Signs Date Time Temp Pulse Resp B/P (MAP) Pulse Ox O2 Delivery O2 Flow Rate FiO2 01/26/18 12:00 98.9 72 19 128/67 (87) 98 01/26/18 08:00 98.9 80 17 137/68 (91) 90 01/26/18 04:58 98.4 62 18 164/72 (102) 96 01/26/18 00:33 98.3 68 21 151/82 (105) 97 01/25/18 20:00 64 01/25/18 20:00 99.4 77 18 131/61 (84) 96 01/25/18 16:02 93 Nasal Cannula 2.00 01/25/18 16:00 99.8 69 19 142/65 (90) 95 I/O 01/25/18 01/25/18 01/25/18 01/26/18 01/26/18 01/26/18 07:00 15:00 23:00 07:00 15:00 23:00 Intake Total 240 ml 100 ml 1175 ml 580 ml Output Total 1250 ml 2775 ml 1000 ml Balance -1010 ml 100 ml -1600 ml -420 ml Intake Oral 240 ml 925 ml 580 ml IV Total 100 ml 250 ml Output Urine Total 1250 ml 2775 ml 1000 ml # Bowel Movements 0 0 Result Diagram: 01/25/18 0337 01/26/18 0620 Objective Remarks awake and alert lungs- decreased breath sounds, no rales regular rhythm, telemetry- paced abdomen- soft left groin + wound + edema A/P Problem List: (1) Sepsis ICD Code: A41.9 - Sepsis, unspecified organism Status: Resolved (2) Osteomyelitis ICD Code: M86.9 - Osteomyelitis, unspecified Status: Acute (3) Left foot infection ICD Code: L08.9 - Local infection of the skin and subcutaneous tissue, unspecified (4) PAD (peripheral artery disease) ICD Code: I73.9 - Peripheral vascular disease, unspecified (5) Afib ICD Code: I48.91 - Unspecified atrial fibrillation Assessment and Plan This is a 82-year-old female patient with a medical history significant for Eliquis, hypertension, hyperlipidemia, peripheral artery disease status post left femoropopliteal bypass on January 06 who presented initially to [facility] and transferred to [facility]. Labs at [facility] were significant for white blood cell count of 17, left foot x-ray which showed a skin ulcer noted on the plantar aspect of the left foot with cortical irregularity and possibly possible osteomyelitis. 1. Sepsis Likely secondary to left foot infection. Present on admission with tachycardia and hypotension. Wound care consulted and following. ID consulted. Antibiotics as per ID. Currently on IV Zosyn, vancomycin and Diflucan Blood cultures negative to date. Positive at take a nuclear scan, possible bone biopsy. Podiatry following. Sepsis clinically resolving with resolving leukocytosis and resolved fever. 2. Peripheral arterial disease Vascular surgery consulted. The patient was seen today by Dr. Moran who recommends BKA. BKA planned for January 28. 3. Atrial fibrillation. Chronic atrial fibrillation. Rate controlled. Appreciate cardiology recommendations. Patient currently on chronic on the correlation with apixaban. This will need to be held prior to surgical procedure. 4. Shortness of breath. Likely due to fluid overload. There is peripheral edema. IV fluids discontinued. Monitor strict I's and O's, daily weights. Check 2D echocardiogram to assess ventricular function. Continue IV lasix 5. Poor appetite. Appetite improving. Continue Marinol. 6. Hyperlipidemia. Continue statin. 7. Hypothyroidism Continue levothyroxine. Check TSH if not previously done. 8. Hypertension Patient previously severely hypertensive. Continue amlodipine 5 mg p.o. daily, metoprolol 25 minutes p.o. twice daily. Blood pressure seems to be stable. 01/23 BP still elevated. increase metoprolol dose to 50 mg po 2 x daily. 01/24 BP better. continue metoprolol, amlodipine and monitor vital signs. 01/25 BP slightly elevated overnight. Continue amlodipine and metoprolol at same dose. 01/26 BP labile. Increase amlodipine up to 10 mg po daily. 9. Infected left foot wounds. Podiatry and vascular surgery following. BKA recommended and patient is in agreement with this. DVT prophylaxis: On apixaban. Discharge Planning Continue to monitor on the medical floor. Problem Qualifiers (1) Sepsis: Qualified Codes: A41.9 - Sepsis, unspecified organism (2) Osteomyelitis: Qualified Codes: M86.9 - Osteomyelitis, unspecified Thierno Holder MD January 26, 2018 14:35
[2018-01-26] MEDS: ACETAMINOPHEN 325 MG TAB PO PRN (16:39)
[2018-01-27] VITALS (8 sets, daily range): BP systolic 98–163; BP diastolic 57–71; PULSE 60–82; RESP 16–20; TEMP 97.6–98.8; O2SAT 93–98
[2018-01-27] MEDS: LEVOTHYROXINE SODIUM 150 MCG TAB PO SCH (04:20)
[2018-01-27] MEDS: PIPERACIL-TAZO 4.5 GM PREMIX 100 ML IV SCH ×4 (04:20→22:12)
[2018-01-27] MEDS ORDERED: PHARMACY ORDERED LAB ONE ×2 (05:45→06:00)
[2018-01-27] MEDS: COLLAGENASE OINT 30 GM TUBE TOPICAL SCH (09:00)
[2018-01-27] MEDS: SODIUM CHLORIDE 0.9% FLUSH 10 ML FLUSH IV FLUSH SCH ×2 (09:00→22:15)
[2018-01-27] MEDS ORDERED: amLODIPine BESYLATE 5 MG TAB PO SCH (09:00)
[2018-01-27] MEDS: RESP: ALBUTEROL 2.5 MG/IPRATROPIUM 0.5 MG NEB (SCH) NEB (09:09)
[2018-01-27] MEDS: LACTOBACILLUS ACIDOPHILUS TAB PO SCH ×2 (09:52→22:10)
[2018-01-27] MEDS: METOPROLOL TARTRATE 50 MG TAB PO SCH (09:52)
[2018-01-27] MEDS: PRAVASTATIN SOD 20 MG TAB PO SCH (09:52)
[2018-01-27] MEDS: FUROSEMIDE 40 MG/4 ML VIAL IV PUSH SCH (09:52)
[2018-01-27] MEDS: DOCUSATE SODIUM 50 MG/SENNA 8.6 MG TAB PO SCH ×2 (09:53→21:00)
--- NOTE | 2018-01-27 10:17 | PD.VS.PN ---
Subjective Subjective/Hospital Course Pt w/o complaints Denied F/C Denied CP/SOB Pt w/o L LE discomfort Dressing to L LE I/C/D Objective Vitals/I&O Date Time Temp Pulse Resp B/P (MAP) Pulse Ox O2 Delivery O2 Flow Rate FiO2 01/27/18 09:12 97 Nasal Cannula 1.00 01/27/18 08:00 98.0 82 17 163/70 (101) 96 01/27/18 04:00 98.1 70 18 158/71 (100) 97 01/27/18 00:27 98.1 75 20 144/63 (90) 98 01/26/18 20:16 98 Nasal Cannula 2.00 01/26/18 20:00 77 01/26/18 20:00 99.4 68 20 125/57 (79) 96 01/26/18 18:33 99.0 01/26/18 16:00 100.1 70 17 157/69 (98) 96 01/26/18 12:00 98.9 72 19 128/67 (87) 98 01/27/18 01/27/18 01/27/18 07:00 15:00 23:00 Intake Total 780 ml Output Total 1000 ml Balance -220 ml Physical Exam GENERAL: A&OX3,NAD,GCS 15 SKIN: Left groin incision with mild separation medial aspect of incision White exudate noted no odor Incision to L LE intact w/o R/D/S/O Multiple Left foot wounds with eschar to heel/anterior ankle, lateral aspect of foot. LE Warm and dry w/ motor intact NECK: Supple, No JVD CARDIOVASCULAR: RRR/+S1,S2 RESPIRATORY: BS CTA/ No accessory muscle use. GASTROINTESTINAL: Abdomen S/NT Laboratory Date/Time Source Procedure Growth Status 01/17/18 21:50 Blood Peripheral Aerobic Blood Culture - Final NO GROWTH IN 5 DAYS Complete 01/17/18 21:50 Blood Peripheral Anaerobic Blood Culture - Final NO GROWTH IN 5 DAYS Complete 01/19/18 08:45 Stool Stool Stool Occult Blood (DEEPIKA) - Final HEMOCCULT NEGATIVE Complete 01/20/18 14:00 Wound Groin Gram Stain - Final Complete 01/20/18 14:00 Wound Culture - Final S. Aureus Mrsa Bacteroides Sp B. Frag Group Complete Assessment and Plan Assessment: (1) PAD (peripheral artery disease) Plan Afebrile 82/F with significant tissue loss to her L LE L BKA planning for tomorrow Plan Discussed L BKA surgical intervention w/ pt and daughter Questions answered and consent signed and placed in the chart Pt scheduled for Tomorrow w/ Dr. Moran (01/28/18) NPO after midnight in prep for surgery tomorrow Ashley Starr NP [facility] [phone] Discharge Planning D/C planning post BKA to [facility] Ashley Starr January 27, 2018 10:17
[2018-01-27] MEDS: DRONABINOL 5 MG CAP PO SCH ×2 (11:00→16:00)
[2018-01-27] MEDS: VANCOMYCIN INJ 2,000 MG in SODIUM CHLORID 0.9% 500 ML INJ 500 ML IV SCH (11:00)
[2018-01-27 11:07] LABS: BASOPHIL # 0.1 TH/MM3 (0-0.2); BASOPHIL % 1.5 % (0.0-2.0); EOSINOPHIL # 0.4 TH/MM3 (0-0.4); HEMATOCRIT 26.1 % (35.0-46.0); HEMOGLOBIN 8.2 GM/DL (11.6-15.3); LYMPH % 13.8 % (9.0-44.0); LYMPHOCYTE # 1.1 TH/MM3 (1.0-4.8); MEAN CELL VOLUME 74.2 FL (80.0-100.0); MEAN CORPUSCULAR HEMOGLOBIN 23.2 PG (27.0-34.0); MEAN CORPUSCULAR HGB CONC 31.3 % (32.0-36.0); MEAN PLATELET VOLUME 8.2 FL (7.0-11.0); MONO % 5.9 % (0.0-8.0); MONOCYTE # 0.5 TH/MM3 (0-0.9); NEUT % 73.8 % (16.0-70.0); PLATELET COUNT 398 TH/MM3 (150-450); RED BLOOD COUNT 3.52 MIL/MM3 (4.00-5.30); RED CELL DISTRIBUTION WIDTH 19.2 % (11.6-17.2); WHITE BLOOD COUNT 8.2 TH/MM3 (4.0-11.0)
[2018-01-27 11:22] LABS: ALBUMIN 2.2 GM/DL (3.4-5.0); ALT (GPT) 16 U/L (10-53); AST (GOT) 20 U/L (15-37); BICARBONATE 25.7 MEQ/L (21.0-32.0); BLOOD UREA NITROGEN 16 MG/DL (7-18); CALCIUM 8.8 MG/DL (8.5-10.1); CHLORIDE 103 MEQ/L (98-107); GLOMERULAR FILTRATION RATE 60 ML/MIN (>89); GLUCOSE,RANDOM 179 MG/DL (74-106); SODIUM (NA) 140 MEQ/L (136-145)
[2018-01-27 11:25] LABS: ALKALINE PHOSPHATASE 79 U/L (45-117); TOTAL BILIRUBIN ADULT 0.3 MG/DL (0.2-1.0); TOTAL PROTEIN 6.8 GM/DL (6.4-8.2)
[2018-01-27] MEDS: FERROUS SULFATE 325 MG (65 MG ELEMENTAL IRON) TAB PO SCH ×2 (12:00→17:05)
--- NOTE | 2018-01-27 12:38 | PD.CARD.PN ---
Subjective Subjective Remarks Doing well Breathing much better Objective Medications Current Medications Medications (Trade) Dose Ordered Sig/Temitope Route Start Time Stop Time Status Last Admin Pharmacy Profile Note 0 ml @ 0 mls/hr UNSCH OTHER 01/17/18 21:30 Piperacillin Sod/ Tazobactam Sod 100 ml @ 200 mls/hr Q6H IV 01/17/18 22:00 01/27/18 09:53 (NS Flush) 2 ml UNSCH PRN IV FLUSH 01/17/18 21:30 01/22/18 17:50 (NS Flush) 2 ml BID IV FLUSH 01/18/18 09:00 01/27/18 09:00 (Zofran Inj) 4 mg Q6H PRN IVP 01/17/18 21:30 (Tylenol) 650 mg Q6H PRN PO 01/17/18 21:30 01/26/18 16:39 ([place] 5-325 Mg) 1 tab Q4H PRN PO 01/17/18 21:30 01/26/18 14:20 (Nirali-Colace) 1 tab BID PO 01/18/18 09:00 01/27/18 09:53 (Milk Of Magnesia Liq) 30 ml Q12H PRN PO 01/17/18 21:30 (Senokot) 17.2 mg Q12H PRN PO 01/17/18 21:30 01/24/18 20:02 (Dulcolax Supp) 10 mg DAILY PRN RECTAL 01/17/18 21:30 (Lactulose Liq) 30 ml DAILY PRN PO 01/17/18 21:30 (Pravachol) 20 mg DAILY PO 01/18/18 09:00 01/27/18 09:52 (Morphine Inj) 2 mg Q3H PRN IV PUSH 01/17/18 22:30 01/21/18 21:22 (Synthroid) 150 mcg DAILY@0600 PO 01/19/18 06:00 01/27/18 04:20 (Santyl Oint) 1 applic DAILY TOPICAL 01/19/18 09:00 01/27/18 09:00 (Lactinex) 1 tab Q12HR PO 01/20/18 21:00 01/27/18 09:52 Fluconazole/ Sodium Chloride 50 ml @ 50 mls/hr Q24H IV 01/20/18 15:00 01/26/18 14:20 (Ferrous Sulfate) 325 mg BID@12,17 PO 01/21/18 17:00 01/27/18 12:00 Vancomycin HCl 2000 mg/Sodium Chloride 520 ml @ 257.5 mls/ hr Q24H IV 01/23/18 06:00 01/27/18 11:00 (Lasix Inj) 40 mg DAILY IV PUSH 01/22/18 17:00 01/27/18 09:52 (Marinol) 5 mg BID@11,16 PO 01/23/18 11:00 01/27/18 11:00 (Lopressor) 50 mg BID PO 01/23/18 21:00 01/27/18 09:52 (Norvasc) 10 mg DAILY PO 01/27/18 09:00 01/27/18 09:52 Vital Signs / I&O Vital Signs Date Time Temp Pulse Resp B/P (MAP) Pulse Ox O2 Delivery O2 Flow Rate FiO2 01/27/18 10:33 97 Nasal Cannula 1.00 01/27/18 09:12 97 Nasal Cannula 1.00 01/27/18 08:00 98.0 82 17 163/70 (101) 96 01/27/18 04:00 98.1 70 18 158/71 (100) 97 01/27/18 00:27 98.1 75 20 144/63 (90) 98 01/26/18 20:16 98 Nasal Cannula 2.00 01/26/18 20:00 77 01/26/18 20:00 99.4 68 20 125/57 (79) 96 01/26/18 18:33 99.0 01/26/18 16:00 100.1 70 17 157/69 (98) 96 I/O 01/26/18 01/26/18 01/26/18 01/27/18 01/27/18 01/27/18 07:00 15:00 23:00 07:00 15:00 23:00 Intake Total 580 ml 100 ml 930 ml 780 ml 75 ml Output Total 1000 ml 1600 ml 1000 ml Balance -420 ml 100 ml -670 ml -220 ml 75 ml Intake Oral 580 ml 680 ml 680 ml IV Total 100 ml 250 ml 100 ml 75 ml Output Urine Total 1000 ml 1600 ml 1000 ml # Bowel Movements 2 Physical Exam GENERAL: NAD, AAOx3 SKIN: Warm and dry. HEAD: Atraumatic. Normocephalic. EYES: Pupils equal and round. No scleral icterus. No injection or drainage. ENT: No nasal bleeding or discharge. Mucous membranes pink and moist. NECK: Trachea midline. No JVD. CARDIOVASCULAR: Regular rate and rhythm. RESPIRATORY: No accessory muscle use. Clear to auscultation GASTROINTESTINAL: Abdomen soft, non-tender, nondistended. Hepatic and splenic margins not palpable. MUSCULOSKELETAL: Left leg wrapped, decreased warmth compared to yesterday NEUROLOGICAL: Awake and alert. No obvious cranial nerve deficits. Motor grossly within normal limits. Five out of 5 muscle strength in the arms and legs. Normal speech. PSYCHIATRIC: Appropriate mood and affect; insight and judgment normal. Laboratory Laboratory Tests Test 01/27/18 10:25 White Blood Count 8.2 TH/MM3 Red Blood Count 3.52 MIL/MM3 Hemoglobin 8.2 GM/DL Hematocrit 26.1 % Mean Corpuscular Volume 74.2 FL Mean Corpuscular Hemoglobin 23.2 PG Mean Corpuscular Hemoglobin Concent 31.3 % Red Cell Distribution Width 19.2 % Platelet Count 398 TH/MM3 Mean Platelet Volume 8.2 FL Neutrophils (%) (Auto) 73.8 % Lymphocytes (%) (Auto) 13.8 % Monocytes (%) (Auto) 5.9 % Eosinophils (%) (Auto) 5.0 % Basophils (%) (Auto) 1.5 % Neutrophils # (Auto) 6.0 TH/MM3 Lymphocytes # (Auto) 1.1 TH/MM3 Monocytes # (Auto) 0.5 TH/MM3 Eosinophils # (Auto) 0.4 TH/MM3 Basophils # (Auto) 0.1 TH/MM3 CBC Comment DIFF FINAL Differential Comment Blood Urea Nitrogen 16 MG/DL Creatinine 0.90 MG/DL Random Glucose 179 MG/DL Total Protein 6.8 GM/DL Albumin 2.2 GM/DL Calcium Level 8.8 MG/DL Alkaline Phosphatase 79 U/L Aspartate Amino Transf (AST/SGOT) 20 U/L Alanine Aminotransferase (ALT/SGPT) 16 U/L Total Bilirubin 0.3 MG/DL Sodium Level 140 MEQ/L Potassium Level 3.0 MEQ/L Chloride Level 103 MEQ/L Carbon Dioxide Level 25.7 MEQ/L Anion Gap 11 MEQ/L Estimat Glomerular Filtration Rate 60 ML/MIN Vancomycin Level Trough 17.7 MCG/ML Assessment and Plan Problem List: (1) Left foot infection ICD Codes: L08.9 - Local infection of the skin and subcutaneous tissue, unspecified (2) Afib ICD Codes: I48.91 - Unspecified atrial fibrillation (3) PAD (peripheral artery disease) ICD Codes: I73.9 - Peripheral vascular disease, unspecified (4) Osteomyelitis ICD Codes: M86.9 - Osteomyelitis, unspecified Status: Acute (5) Sepsis ICD Codes: A41.9 - Sepsis, unspecified organism Status: Resolved (6) Pacemaker ICD Codes: Z95.0 - Presence of cardiac pacemaker Status: Chronic (7) Hypoxia ICD Codes: R09.02 - Hypoxemia Status: Acute (8) Acute CHF ICD Codes: I50.9 - Heart failure, unspecified Assessment and Plan 1) Sepsis secondary to foot Possible left BKA by Dr. Moran tomorrow Agree with optimization of her cardiovascular status beforehand Diuresed well May proceed as an elevated risk, but unable to decrease risk further 2) Afib Controlled Eliquis 5mg BID, will need restarted after surgery 3) Discussed her worry over the PPM not being check as scheduled last week No dysfunction noted, can be done over the next few weeks outpatient 4) EF 55-60%, aortic valve sclerosis, no aortic stenosis Problem Qualifiers (1) Osteomyelitis: Qualified Codes: M86.9 - Osteomyelitis, unspecified (2) Sepsis: Qualified Codes: A41.9 - Sepsis, unspecified organism Danie Powers DO January 27, 2018 12:38
--- NOTE | 2018-01-27 12:42 | HHI.PR ---
Subjective Remarks Denies chest pain or shortness of breath. Denies fevers or chills BP noted to be low in the high 90s systolic. Denies fevers or chills Appetite is improving. Objective Vitals Vital Signs Date Time Temp Pulse Resp B/P (MAP) Pulse Ox O2 Delivery O2 Flow Rate FiO2 01/27/18 10:33 97 Nasal Cannula 1.00 01/27/18 09:12 97 Nasal Cannula 1.00 01/27/18 08:00 98.0 82 17 163/70 (101) 96 01/27/18 04:00 98.1 70 18 158/71 (100) 97 01/27/18 00:27 98.1 75 20 144/63 (90) 98 01/26/18 20:16 98 Nasal Cannula 2.00 01/26/18 20:00 77 01/26/18 20:00 99.4 68 20 125/57 (79) 96 01/26/18 18:33 99.0 01/26/18 16:00 100.1 70 17 157/69 (98) 96 I/O 01/26/18 01/26/18 01/26/18 01/27/18 01/27/18 01/27/18 07:00 15:00 23:00 07:00 15:00 23:00 Intake Total 580 ml 100 ml 930 ml 780 ml 75 ml Output Total 1000 ml 1600 ml 1000 ml Balance -420 ml 100 ml -670 ml -220 ml 75 ml Intake Oral 580 ml 680 ml 680 ml IV Total 100 ml 250 ml 100 ml 75 ml Output Urine Total 1000 ml 1600 ml 1000 ml # Bowel Movements 2 Result Diagram: 01/27/18 1025 01/27/18 1025 Imaging Last Impressions Ankle X-Ray 01/21/18 0000 Signed Impressions: Service Date/Time: Sunday, January 21, 2018 21:46 - CONCLUSION: Chronic bony change with surgical hardware as described above. A new acute bony abnormality is not clearly seen. There is mild soft tissue swelling. Adonay Cabrera MD Upper Extremity Ultrasound 01/20/18 0000 Signed Impressions: Service Date/Time: Saturday, January 20, 2018 10:42 - CONCLUSION: No DVT. Adonay Cabrera MD Tumor Localization 01/20/18 0000 Signed Impressions: Service Date/Time: Saturday, January 20, 2018 11:45 - CONCLUSION: 1. Intense focal uptake at the site of fracture in the distal posterior tibia. Remainder of the uptake is mild and may represent a mild cellulitis, without definite evidence for osteomyelitis. Tray Garcia MD Lower Extremity Ultrasound 01/20/18 0000 Signed Impressions: Service Date/Time: Saturday, January 20, 2018 10:28 - CONCLUSION: No DVT. Adonay Cabrera MD Chest X-Ray 01/20/18 0000 Signed Impressions: Service Date/Time: Saturday, January 20, 2018 13:03 - CONCLUSION: Mild compensated cardiomegaly. Pacemaker on the left. Gallo Armas MD FACR Lower Extremity CT 01/18/18 0000 Signed Impressions: Service Date/Time: Thursday, January 18, 2018 20:51 - CONCLUSION: 1. Diffuse soft tissue swelling. 2. No acute fracture or dislocation. 3. Scattered areas of osteopenia are noted throughout the foot and are nonspecific. Bone scan, white blood cell scan and/or MRI with contrast would be more sensitive to rule out osteomyelitis if clinically indicated. 4. Plantar and Achilles calcaneal spurring. 5. Old healing posterior malleolar fracture. Wilmer Estes MD Objective Remarks awake and alert lungs- decreased breath sounds, no rales regular rhythm, telemetry- paced abdomen- soft left groin + wound + edema A/P Problem List: (1) Sepsis ICD Code: A41.9 - Sepsis, unspecified organism Status: Resolved (2) Osteomyelitis ICD Code: M86.9 - Osteomyelitis, unspecified Status: Acute (3) Left foot infection ICD Code: L08.9 - Local infection of the skin and subcutaneous tissue, unspecified (4) PAD (peripheral artery disease) ICD Code: I73.9 - Peripheral vascular disease, unspecified (5) Afib ICD Code: I48.91 - Unspecified atrial fibrillation (6) Acute diastolic heart failure ICD Code: I50.31 - Acute diastolic (congestive) heart failure Assessment and Plan This is a 82-year-old female patient with a medical history significant for Eliquis, hypertension, hyperlipidemia, peripheral artery disease status post left femoropopliteal bypass on January 06 who presented initially to [facility] and transferred to [facility]. Labs at [facility] were significant for white blood cell count of 17, left foot x-ray which showed a skin ulcer noted on the plantar aspect of the left foot with cortical irregularity and possibly possible osteomyelitis. 1. Sepsis Likely secondary to left foot infection. Present on admission with tachycardia and hypotension. Wound care consulted and following. ID consulted. Antibiotics as per ID. Currently on IV Zosyn, vancomycin and Diflucan Blood cultures negative to date. Positive at take a nuclear scan, possible bone biopsy. Podiatry following. Sepsis clinically resolving with resolving leukocytosis and resolved fever. 2. Peripheral arterial disease without claudication or gangrene. Vascular surgery consulted. The patient was seen today by Dr. Moran who recommends BKA. BKA planned for January 28. 3. Atrial fibrillation. Chronic atrial fibrillation. Rate controlled. Appreciate cardiology recommendations. Patient currently on chronic on the correlation with apixaban. This will need to be held prior to surgical procedure. 4. Shortness of breath. Likely due to fluid overload. There is peripheral edema. IV fluids discontinued. Monitor strict I's and O's, daily weights. Check 2D echocardiogram to assess ventricular function. Continue IV lasix 5. Poor appetite. Appetite improving. Continue Marinol. 6. Hyperlipidemia. Continue statin. 7. Hypothyroidism Continue levothyroxine. Check TSH if not previously done. 8. Hypertension Patient previously severely hypertensive. Continue amlodipine 5 mg p.o. daily, metoprolol 25 minutes p.o. twice daily. Blood pressure seems to be stable. 01/23 BP still elevated. increase metoprolol dose to 50 mg po 2 x daily. 01/24 BP better. continue metoprolol, amlodipine and monitor vital signs. 01/25 BP slightly elevated overnight. Continue amlodipine and metoprolol at same dose. 01/26 BP labile. Increase amlodipine up to 10 mg po daily. 01/27 BP on the lower side with a systolic blood pressure in the high 90s. Patient is symptomatic. Decrease metoprolol tartrate 25 mg p.o. twice daily and amlodipine down to 5 mg p.o. daily. 9. Infected left foot wounds. Podiatry and vascular surgery following. BKA recommended and patient is in agreement with this. 10. Acute diastolic heart failure. Patient had shortness of breath along with oxygen saturation down into the 90s. Likely due to acute diastolic heart failure which is being treated with IV Lasix. Shortness of breath is much improved. IV Lasix discontinued today by cardiology who transitioned to oral Lasix. Continue. DVT prophylaxis: On apixaban. Discharge Planning Continue to monitor on the medical floor. Problem Qualifiers (1) Sepsis: Qualified Codes: A41.9 - Sepsis, unspecified organism (2) Osteomyelitis: Qualified Codes: M86.9 - Osteomyelitis, unspecified Thierno Holder MD January 27, 2018 12:42
--- NOTE | 2018-01-27 14:59 | HHI.IDPN ---
Subjective Subjective Remarks This is a 82-year-old female with a past medical history significant for A. fib on Eliquis, CAD s/p cardiac stent, bradycardia status post pacemaker implantation, hypertension, hyperlipidemia and hypothyroidism who fell at home resulting in an open compound fracture of the left tib-fib and underwent ORIF in [place]. Postoperatively, patient was evaluated 2 weeks following her surgery in the surgeon's office and was noted to have significant necrosis of the left foot/ankle with concern for possible osteomyelitis. Patient was scheduled to see plastic surgeon as an outpatient but prior to that appointment she was reevaluated in the surgeon's office was found to have worsening necrosis of the foot and patient's family brought her to [facility] where she was admitted on 12/25/17. Patient was seen in consultation by Dr. Cifuentes who in turn consulted vascular surgery due to concern for arterial disease. Patient was found to have severe PAD and underwent a left femoropopliteal bypass 01/06/[address] Moran. During that hospitalization, patient developed twitching and speech changes and was seen in consultation by neurology for TIA vs over medicated hypoxia. Patient was discharged on 2017 to rehab facility. While at the rehab facility patient was treated for urinary tract infection. Patient continued to be followed by Dr. Cifuentes and underwent debridement in her office. While at the rehab facility two days ago, patient developed altered mental status with difficulty recalling words and gait instability and was sent to [facility] where patient was found to be septic and imaging left foot was done showing cortical irregularity possible osteomyelitis. CT the head obtained at that time showed no acute findings. Patient was transferred to [facility] ED and was admitted with sepsis and left foot infection and started on IV vancomycin and Zosyn. Patient has been seen by Dr. Moran and Dr. Cifuentes. Patient is not able to have an MRI done secondary to pacemaker (per [employer], patient device is not MRI compatible). She has undergone a CT of the foot which shows diffuse soft tissue swelling, scattered areas of osteopenia, no acute fracture dislocation and old healing posterior malleolus fracture. MRI or white blood cell scan has been recommended for further evaluation of possible osteomyelitis. Infectious disease consultation has been requested for evaluation and management of possible osteomyelitis left foot. Patient seen and examined. Patient reports exertional shortness of breath. She denies any fever or chills. She denies any nausea, vomiting or abdominal pain. She denies any hematuria, dysuria or diarrhea. She does states she has problems with constipation but had a good bowel movement this morning. Her daughter is at the bedside who assists with history. Per herself and the daughter, patient's mentation has returned to baseline. Notes reviewed Temps ok No rash or itching No diarrhea Plans for amputation noted - scheduled for tomorrow. Recommend leaving belcher in for now Antibiotics IV Vancomycin IV Zosyn Current Medications Medications (Trade) Dose Ordered Sig/Temitope Route Start Time Stop Time Status Last Admin Pharmacy Profile Note 0 ml @ 0 mls/hr UNSCH OTHER 01/17/18 21:30 Piperacillin Sod/ Tazobactam Sod 100 ml @ 200 mls/hr Q6H IV 01/17/18 22:00 01/23/18 08:50 (NS Flush) 2 ml UNSCH PRN IV FLUSH 01/17/18 21:30 01/22/18 17:50 (NS Flush) 2 ml BID IV FLUSH 01/18/18 09:00 01/23/18 08:50 (Zofran Inj) 4 mg Q6H PRN IVP 01/17/18 21:30 (Tylenol) 650 mg Q6H PRN PO 01/17/18 21:30 01/18/18 08:26 ([place] 5-325 Mg) 1 tab Q4H PRN PO 01/17/18 21:30 01/22/18 20:55 (Nirali-Colace) 1 tab BID PO 01/18/18 09:00 01/23/18 08:49 (Milk Of Magnesia Liq) 30 ml Q12H PRN PO 01/17/18 21:30 (Senokot) 17.2 mg Q12H PRN PO 01/17/18 21:30 01/18/18 10:40 (Dulcolax Supp) 10 mg DAILY PRN RECTAL 01/17/18 21:30 (Lactulose Liq) 30 ml DAILY PRN PO 01/17/18 21:30 (Pravachol) 20 mg DAILY PO 01/18/18 09:00 01/23/18 08:50 (Morphine Inj) 2 mg Q3H PRN IV PUSH 01/17/18 22:30 01/21/18 21:22 (Eliquis) 5 mg BID PO 01/18/18 09:00 01/23/18 08:50 (Synthroid) 150 mcg DAILY@0600 PO 01/19/18 06:00 01/23/18 04:54 (Santyl Oint) 1 applic DAILY TOPICAL 01/19/18 09:00 01/23/18 09:13 (Lactinex) 1 tab Q12HR PO 01/20/18 21:00 01/23/18 08:49 Fluconazole/ Sodium Chloride 50 ml @ 50 mls/hr Q24H IV 01/20/18 15:00 01/22/18 13:34 (Norvasc) 5 mg DAILY PO 01/21/18 12:15 01/23/18 08:49 (Ferrous Sulfate) 325 mg BID@12,17 PO 01/21/18 17:00 01/23/18 11:25 Vancomycin HCl 2000 mg/Sodium Chloride 520 ml @ 257.5 mls/ hr Q24H IV 01/23/18 06:00 01/23/18 09:45 (Lasix Inj) 40 mg DAILY IV PUSH 01/22/18 17:00 01/23/18 08:50 (Marinol) 5 mg BID@11,16 PO 01/23/18 11:00 01/23/18 11:25 ([facility] Ordered Lab Info) SPECIFIC LAB TO BE DRAWN:VANCOMYCIN TROUGH DATE TO... ONCE ONCE .XX 01/25/18 08:45 01/25/18 08:46 (Lopressor) 50 mg BID PO 01/23/18 21:00 (Duoneb Neb) 1 ampule Q4HR WHILE AWAKE HAKEEM NEB 01/23/18 12:00 Lines PIV with no e/o infection Past Medical History PAD s/p Left Fem-Pop Bypass 01/06/[address] Moran Atrial fibrillation anticoagulated on Eliquis Hypertension Hyperlipidemia Hypothyroidism CAD s/p cardiac stent Mild to moderate CHF Allergies: Coded Allergies: tetracycline (Verified Allergy, Intermediate, ulcerations to palm and hands, 01/06/18) Tetracyclic Antidepressants (Verified Allergy, Unknown, Hives, 12/25/17) MRI PRECAUTION (Verified Adverse Reaction, Severe, IMPLANTED DEVICE, ) Material [place] Model #[id number] Serial # [id number] Neche 1) Serial #[id number] Model # 5076-45 Neche 2) Serial #[id number] Model # 5076-52 Implant Date 05/28/16 Objective . Vital Signs Date Time Temp Pulse Resp B/P (MAP) Pulse Ox O2 Delivery O2 Flow Rate FiO2 01/27/18 12:00 97.6 66 16 98/57 (71) 97 01/27/18 10:33 97 Nasal Cannula 1.00 01/27/18 09:12 97 Nasal Cannula 1.00 01/27/18 08:00 98.0 82 17 163/70 (101) 96 01/27/18 04:00 98.1 70 18 158/71 (100) 97 01/27/18 00:27 98.1 75 20 144/63 (90) 98 01/26/18 20:16 98 Nasal Cannula 2.00 01/26/18 20:00 77 01/26/18 20:00 99.4 68 20 125/57 (79) 96 01/26/18 18:33 99.0 01/26/18 16:00 100.1 70 17 157/69 (98) 96 01/27/18 01/27/18 01/28/18 15:00 23:00 07:00 Intake Total 75 ml Balance 75 ml IV Total 75 ml . Laboratory Tests Test 01/27/18 10:25 White Blood Count 8.2 TH/MM3 Red Blood Count 3.52 MIL/MM3 Hemoglobin 8.2 GM/DL Hematocrit 26.1 % Mean Corpuscular Volume 74.2 FL Mean Corpuscular Hemoglobin 23.2 PG Mean Corpuscular Hemoglobin Concent 31.3 % Red Cell Distribution Width 19.2 % Platelet Count 398 TH/MM3 Mean Platelet Volume 8.2 FL Neutrophils (%) (Auto) 73.8 % Lymphocytes (%) (Auto) 13.8 % Monocytes (%) (Auto) 5.9 % Eosinophils (%) (Auto) 5.0 % Basophils (%) (Auto) 1.5 % Neutrophils # (Auto) 6.0 TH/MM3 Lymphocytes # (Auto) 1.1 TH/MM3 Monocytes # (Auto) 0.5 TH/MM3 Eosinophils # (Auto) 0.4 TH/MM3 Basophils # (Auto) 0.1 TH/MM3 CBC Comment DIFF FINAL Differential Comment Laboratory Tests Test 01/26/18 06:20 5/14/18 10:25 Creatinine 0.73 MG/DL 0.90 MG/DL Estimat Glomerular Filtration Rate 77 ML/MIN 60 ML/MIN Blood Urea Nitrogen 16 MG/DL Random Glucose 179 MG/DL Total Protein 6.8 GM/DL Albumin 2.2 GM/DL Calcium Level 8.8 MG/DL Alkaline Phosphatase 79 U/L Aspartate Amino Transf (AST/SGOT) 20 U/L Alanine Aminotransferase (ALT/SGPT) 16 U/L Total Bilirubin 0.3 MG/DL Sodium Level 140 MEQ/L Potassium Level 3.0 MEQ/L Chloride Level 103 MEQ/L Carbon Dioxide Level 25.7 MEQ/L Anion Gap 11 MEQ/L Imaging Last Impressions Lower Extremity CT 01/18/18 0000 Signed Impressions: Service Date/Time: Thursday, January 18, 2018 20:51 - CONCLUSION: 1. Diffuse soft tissue swelling. 2. No acute fracture or dislocation. 3. Scattered areas of osteopenia are noted throughout the foot and are nonspecific. Bone scan, white blood cell scan and/or MRI with contrast would be more sensitive to rule out osteomyelitis if clinically indicated. 4. Plantar and Achilles calcaneal spurring. 5. Old healing posterior malleolar fracture. Wilmer Estes MD Physical Exam GENERAL: Awake and alert. Sitting up in bedside chair on 3LNC. NAD. Daughter is at the bedside. SKIN: Cool and dry. + surgical incision left groin with small opening and scant amount of yellowish drainage noted on dressing HEAD: Atraumatic. Normocephalic. No temporal or scalp tenderness. EYES: Pupils equal round and reactive. Extraocular motions intact. No scleral icterus. No injection or drainage. ENT: Nose without bleeding or purulent drainage. Throat without erythema, tonsillar hypertrophy or exudate. Uvula midline. Airway patent. MMM. NECK: Trachea midline. N CARDIOVASCULAR: Regular. +Murmur. s/p pacemaker insertion left anterior chest wall, site clear. RESPIRATORY: Clear to auscultation but diminished. Breath sounds equal bilaterally. No wheezes, rales, or rhonchi. GASTROINTESTINAL: Abdomen soft, non-tender, nondistended. No hepato-splenomegaly , or palpable masses. No guarding. MUSCULOSKELETAL: Extremities without clubbing or cyanosis. Diffuse nonpitting edema noted in BUEs. +Trace RLE edema. 1-2+pitting edema LLE. Left foot/ankle with dry and intact dressing. No calf tenderness. NEUROLOGICAL: Grossly nonfocal. Normal speech. PSYCHIATRIC: Appropriate mood and affect. Normal judgment and insight. PIV with no e/o infection Assessment & Plan Remarks Sepsis with temp 102.4, WBC 21.2 and source of left foot/ankle infection/ cellulitis, resolved -lactic acid WNL -blood cultures with no growth x 2 days Left foot/ankle cellulitis, concern for underlying osteomyelitis MRSA left groin wound infection at the site of prior Access/ Hx of left tib/fib repair 12/04/18 in [place], hardware in place -CRP 14, ESR 140 -podiatry following Leukocytosis likely secondary to active infection/sepsis -white count trending down Acute metabolic encephalopathy suspect secondary to sepsis, possible TIA, improved -family believes she had a TIA but denies any slurred speech, facial droop, focal weakness PAD s/p left fem-pop bypass by Dr. Moran 01/06/18 -evaluated by Dr. Moran this admission - successful groin reconstruction and bypass Atrial fibrillation on Eliquis Hypertension Dyslipidemia CHF Anemia, hypochromic, microcytic -stool hemoccult pending Recs: Continue Zosyn IV DC Vanco IV (RN reports patient has burning with vanco IV, would like to avoid picc line) Will switch to oral zyvox/IV zyvox if in OR Plans for surgery in am, Ok to leave belcher in and reassess need post surgery. Will assess need for antibiotics based on right groin wound site and post op BKA site description. dw Daughter and patient. Tati Britton MD January 27, 2018 14:59
[2018-01-27] MEDS: FLUCONAZOLE 100 MG PREMIX BAG 50 ML IV SCH (15:00)
[2018-01-27] MEDS: LINEZOLID 600 MG TAB PO SCH (16:00)
[2018-01-27] MEDS ORDERED: LINEZOLID 600 MG PREMIX 300 ML IV PRN (16:00)
[2018-01-27] MEDS: METOPROLOL TARTRATE 25 MG TAB PO SCH (22:11)
[2018-01-28] VITALS: BP 128/68; PULSE 83; RESP 16; TEMP 98; O2SAT 92
[2018-01-28] MEDS ORDERED: INSULIN HUMAN REGULAR 1,000 UNITS/10 ML VIAL SQ PRN (02:00)
[2018-01-28] MEDS ORDERED: SODIUM CHLORID 0.9% 500 ML IV PRN (02:00)
[2018-01-28] MEDS ORDERED: METOPROLOL TARTRATE 25 MG TAB PO PRN (02:00)
[2018-01-28] MEDS ORDERED: LACTATED RINGER'S 1000 ML IV PRN (02:00)
[2018-01-28] MEDS ORDERED: CHLORHEXIDINE GLUCONATE 2 % 1 PACK (2 CLOTHS) TOPICAL PRN (02:00)
[2018-01-28] MEDS ORDERED: POVIDONE IODINE 5% (ANTISEPSIS KIT) 4 APPLICATIONS EACH NARE PRN (02:00)
[2018-01-28 04:00] VITALS: BP 166/78; PULSE 72; RESP 16; TEMP 98; O2SAT 93
[2018-01-28] MEDS: LEVOTHYROXINE SODIUM 150 MCG TAB PO SCH (05:03)
[2018-01-28] MEDS: PIPERACIL-TAZO 4.5 GM PREMIX 100 ML IV SCH ×4 (05:03→20:54)
[2018-01-28] MEDS: LINEZOLID 600 MG TAB PO SCH ×2 (05:03→16:57)
[2018-01-28 05:35] LABS: CREATININE 0.87 MG/DL (0.50-1.00)
[2018-01-28 05:37] LABS: RANDOM VANCOMYCIN 16.1 COMMENT
[2018-01-28 08:00] VITALS: BP 168/75; PULSE 73; RESP 18; TEMP 97.8; O2SAT 93
[2018-01-28] MEDS: METOPROLOL TARTRATE 25 MG TAB PO SCH ×2 (08:23→20:38)
[2018-01-28] MEDS: DOCUSATE SODIUM 50 MG/SENNA 8.6 MG TAB PO SCH ×2 (08:23→20:42)
[2018-01-28] MEDS: amLODIPine BESYLATE 5 MG TAB PO SCH (08:23)
[2018-01-28] MEDS: FUROSEMIDE 40 MG TAB PO SCH (08:23)
[2018-01-28] MEDS: SODIUM CHLORIDE 0.9% FLUSH 10 ML FLUSH IV FLUSH SCH ×2 (08:23→20:54)
[2018-01-28] MEDS: LACTOBACILLUS ACIDOPHILUS TAB PO SCH ×2 (08:23→20:37)
[2018-01-28] MEDS: COLLAGENASE OINT 30 GM TUBE TOPICAL SCH (08:24)
[2018-01-28] MEDS: PRAVASTATIN SOD 20 MG TAB PO SCH (08:24)
[2018-01-28] MEDS: DRONABINOL 5 MG CAP PO SCH ×2 (11:00→15:23)
--- NOTE | 2018-01-28 11:06 | PD.CARD.PN ---
Subjective Subjective Remarks Doing well Breathing much better, off oxygen Objective Medications Current Medications Medications (Trade) Dose Ordered Sig/Temitope Route Start Time Stop Time Status Last Admin Piperacillin Sod/ Tazobactam Sod 100 ml @ 200 mls/hr Q6H IV 01/17/18 22:00 01/28/18 09:16 (NS Flush) 2 ml UNSCH PRN IV FLUSH 01/17/18 21:30 01/22/18 17:50 (NS Flush) 2 ml BID IV FLUSH 01/18/18 09:00 01/28/18 08:23 (Zofran Inj) 4 mg Q6H PRN IVP 01/17/18 21:30 (Tylenol) 650 mg Q6H PRN PO 01/17/18 21:30 01/26/18 16:39 ([place] 5-325 Mg) 1 tab Q4H PRN PO 01/17/18 21:30 01/26/18 14:20 (Nirali-Colace) 1 tab BID PO 01/18/18 09:00 01/27/18 09:53 (Milk Of Magnesia Liq) 30 ml Q12H PRN PO 01/17/18 21:30 (Senokot) 17.2 mg Q12H PRN PO 01/17/18 21:30 01/24/18 20:02 (Dulcolax Supp) 10 mg DAILY PRN RECTAL 01/17/18 21:30 (Lactulose Liq) 30 ml DAILY PRN PO 01/17/18 21:30 (Pravachol) 20 mg DAILY PO 01/18/18 09:00 01/28/18 08:24 (Morphine Inj) 2 mg Q3H PRN IV PUSH 01/17/18 22:30 01/21/18 21:22 (Synthroid) 150 mcg DAILY@0600 PO 01/19/18 06:00 01/28/18 05:03 (Santyl Oint) 1 applic DAILY TOPICAL 01/19/18 09:00 01/28/18 08:24 (Lactinex) 1 tab Q12HR PO 01/20/18 21:00 01/28/18 08:23 Fluconazole/ Sodium Chloride 50 ml @ 50 mls/hr Q24H IV 01/20/18 15:00 01/27/18 15:00 (Ferrous Sulfate) 325 mg BID@12,17 PO 01/21/18 17:00 01/27/18 17:05 (Marinol) 5 mg BID@11,16 PO 01/23/18 11:00 01/27/18 16:00 (Lasix) 40 mg DAILY PO 01/28/18 09:00 01/28/18 08:23 (Norvasc) 5 mg DAILY PO 01/28/18 09:00 01/28/18 08:23 (Lopressor) 25 mg BID PO 01/27/18 21:00 01/28/18 08:23 Linezolid 300 ml @ 300 mls/hr Q12H PRN IV 01/27/18 16:00 (Zyvox) 600 mg Q12H PO 01/27/18 16:00 01/28/18 05:03 Lactated Ringer's 1,000 ml @ 30 mls/hr Q24H PRN IV 01/28/18 02:00 01/31/18 01:59 Sodium Chloride 500 ml @ 30 mls/hr [id number] PRN IV 01/28/18 02:00 01/31/18 01:59 (Lopressor) 25 mg CLIENT RENEWAL SPECIALIST PRN PO 01/28/18 02:00 01/31/18 01:59 (Betadine 5% Antisepsis Kit) 1 applic CLIENT RENEWAL SPECIALIST PRN EACH NARE 01/28/18 02:00 01/31/18 01:59 (Chlorhexidine 2% Cloth) 3 pack CLIENT RENEWAL SPECIALIST PRN TOPICAL 01/28/18 02:00 01/31/18 01:59 (NovoLIN R INJ) See Protocol Table ... CLIENT RENEWAL SPECIALIST PRN SQ 01/28/18 02:00 01/31/18 01:59 Vital Signs / I&O Vital Signs Date Time Temp Pulse Resp B/P (MAP) Pulse Ox O2 Delivery O2 Flow Rate FiO2 01/28/18 08:00 97.8 73 18 168/75 (106) 93 01/28/18 04:00 98.0 72 16 166/78 (107) 93 01/28/18 00:00 98.0 83 16 128/68 (88) 92 01/27/18 20:00 98.8 65 18 116/61 (79) 93 01/27/18 16:00 98.4 60 16 131/62 (85) 97 01/27/18 12:00 97.6 66 16 98/57 (71) 97 I/O 01/27/18 01/27/18 01/27/18 01/28/18 01/28/18 01/28/18 07:00 15:00 23:00 07:00 15:00 23:00 Intake Total 780 ml 75 ml 1300 ml 440 ml 0 ml Output Total 1000 ml 2200 ml 650 ml Balance -220 ml 75 ml -900 ml -210 ml 0 ml Intake Oral 680 ml 800 ml 240 ml IV Total 100 ml 75 ml 500 ml 200 ml 0 ml Output Urine Total 1000 ml 2200 ml 650 ml # Bowel Movements 2 Physical Exam GENERAL: NAD, AAOx3 SKIN: Warm and dry. HEAD: Atraumatic. Normocephalic. EYES: Pupils equal and round. No scleral icterus. No injection or drainage. ENT: No nasal bleeding or discharge. Mucous membranes pink and moist. NECK: Trachea midline. No JVD. CARDIOVASCULAR: Regular rate and rhythm. RESPIRATORY: No accessory muscle use. Clear to auscultation GASTROINTESTINAL: Abdomen soft, non-tender, nondistended. Hepatic and splenic margins not palpable. MUSCULOSKELETAL: Left leg wrapped, decreased warmth compared to yesterday NEUROLOGICAL: Awake and alert. No obvious cranial nerve deficits. Motor grossly within normal limits. Five out of 5 muscle strength in the arms and legs. Normal speech. PSYCHIATRIC: Appropriate mood and affect; insight and judgment normal. Laboratory Laboratory Tests Test 01/28/18 04:25 Creatinine 0.87 MG/DL Estimat Glomerular Filtration Rate 62 ML/MIN Random Vancomycin Level 16.1 COMMENT Assessment and Plan Problem List: (1) Left foot infection ICD Codes: L08.9 - Local infection of the skin and subcutaneous tissue, unspecified (2) Afib ICD Codes: I48.91 - Unspecified atrial fibrillation (3) PAD (peripheral artery disease) ICD Codes: I73.9 - Peripheral vascular disease, unspecified (4) Osteomyelitis ICD Codes: M86.9 - Osteomyelitis, unspecified Status: Acute (5) Sepsis ICD Codes: A41.9 - Sepsis, unspecified organism Status: Resolved (6) Pacemaker ICD Codes: Z95.0 - Presence of cardiac pacemaker Status: Chronic (7) Hypoxia ICD Codes: R09.02 - Hypoxemia Status: Acute (8) Acute CHF ICD Codes: I50.9 - Heart failure, unspecified Assessment and Plan 1) Sepsis secondary to foot Possible left BKA by Dr. Moran tomorrow Overall lungs clear, no clinical CHF, off oxygen May proceed as an elevated risk, but unable to decrease risk further 2) Afib Controlled Eliquis 5mg BID, will need restarted after surgery 3) Discussed her worry over the PPM not being check as scheduled last week No dysfunction noted, can be done over the next few weeks outpatient 4) EF 55-60%, aortic valve sclerosis, no aortic stenosis Problem Qualifiers (1) Osteomyelitis: Qualified Codes: M86.9 - Osteomyelitis, unspecified (2) Sepsis: Qualified Codes: A41.9 - Sepsis, unspecified organism Danie Powers DO January 28, 2018 11:06
[2018-01-28] MEDS: FERROUS SULFATE 325 MG (65 MG ELEMENTAL IRON) TAB PO SCH ×2 (11:12→17:00)
[2018-01-28] MEDS: SODIUM CHLORIDE 0.9% FLUSH 10 ML FLUSH IV FLUSH PRN (11:33)
[2018-01-28 11:52] LABS: BICARBONATE 25.1 MEQ/L (21.0-32.0); CALCIUM 9.2 MG/DL (8.5-10.1); CREATININE 0.84 MG/DL (0.50-1.00)
[2018-01-28 12:00] VITALS: BP 137/62; PULSE 67; RESP 19; TEMP 97.8; O2SAT 92
[2018-01-28] MEDS ORDERED: LACTATED RINGER'S 1000 ML INJ 1,000 ML IV ONE (12:00)
[2018-01-28] MEDS ORDERED: LIDOCAINE HCL 1% PF 5 ML SYRINGE OTHER ONE (12:00)
[2018-01-28] MEDS ORDERED: ePHEDrine/NS 25 MG/5 ML SYRINGE IV ONE (12:00)
[2018-01-28] MEDS ORDERED: ONDANSETRON HCL 4 MG/2 ML VIAL IV ONE (12:00)
[2018-01-28] MEDS ORDERED: DEXAMETHASONE SOD PHOS 4 MG/ML VIAL IV ONE (12:00)
[2018-01-28] MEDS ORDERED: PHENYLEPH/NS 1000 MCG/10 ML SYR IV ONE (12:00)
[2018-01-28] MEDS ORDERED: PROPOFOL 200 MG/20 ML AMP IV ONE (12:00)
--- NOTE | 2018-01-28 13:39 | HHI.PR ---
cc: Wilmer Moran MD; Lavern Cifuentes DPM Immediate Post Op Note Procedure Date: January 28, 2018 Pre Op Diagnosis: nonhealing LEFT foot, patent bypass Post Op Diagnosis: nonhealing LEFT foot, patent bypass Surgeon: Wilmer Moran Director Zone(s): Wilmer Brower Procedure: L BKA Findings: well perfused tissue no infection Complications: none Specimen(s) removed: LEFT leg Estimated blood loss: 200mL Anesthesia: LMA Drains: None Fluids: 800mL IVF Urinary Output (mLs): 900 Patient to: PACU Patient Condition: Good Date/Time of Procedure: SEE SURGICAL CARE RECORD Wilmer Moran MD January 28, 2018 13:39
[2018-01-28] MEDS ORDERED: *morphine SULFATE 8 MG/ML PERIprocedure ONLY ONE (13:58)
[2018-01-28] MEDS ORDERED: MORPHINE SULFATE 4 MG/ML INJ ONE (14:06)
[2018-01-28] MEDS: FLUCONAZOLE 100 MG PREMIX BAG 50 ML IV SCH (15:00)
[2018-01-28] MEDS ORDERED: DO NOT ADM ANY ANTICOAGULANT DRUGS PRN (15:15)
[2018-01-28] MEDS: MORPHINE SULFATE 4 MG/ML INJ IV PUSH PRN ×3 (15:40→23:05)
[2018-01-28 16:00] VITALS: BP 119/75; PULSE 91; RESP 19; TEMP 97.8; O2SAT 100
[2018-01-28] MEDS ORDERED: POTASSIUM CHLOR 20 MEQ PREMIX 100 ML IV ONE (16:15)
[2018-01-28] MEDS ORDERED: POTASSIUM CHLORIDE 10 MEQ CONTROLLED RELEASE TAB PO ONE (16:15)
--- NOTE | 2018-01-28 16:19 | HHI.PR ---
Subjective Remarks sp left BKA patient c/o pain at surgical site. Denies cp/sob. Afebrile K low at 3.1 Objective Vitals Vital Signs Date Time Temp Pulse Resp B/P (MAP) Pulse Ox O2 Delivery O2 Flow Rate FiO2 01/28/18 14:00 59 15 143/68 (93) 96 Nasal Cannula 2 01/28/18 13:45 65 15 151/70 (97) 100 Nasal Cannula 3 01/28/18 13:43 97.7 77 16 163/70 (101) 98 Nasal Cannula 3 01/28/18 12:00 97.8 67 19 137/62 (87) 92 01/28/18 08:00 97.8 73 18 168/75 (106) 93 01/28/18 04:00 98.0 72 16 166/78 (107) 93 01/28/18 00:00 98.0 83 16 128/68 (88) 92 01/27/18 20:00 98.8 65 18 116/61 (79) 93 I/O 01/27/18 01/27/18 01/27/18 01/28/18 01/28/18 01/28/18 07:00 15:00 23:00 07:00 15:00 23:00 Intake Total 780 ml 75 ml 1300 ml 440 ml 800 ml Output Total 1000 ml 2200 ml 650 ml 1200 ml Balance -220 ml 75 ml -900 ml -210 ml -400 ml Intake Oral 680 ml 800 ml 240 ml IV Total 100 ml 75 ml 500 ml 200 ml 0 ml Other 800 ml Output Urine Total 1000 ml 2200 ml 650 ml 1000 ml Estimated Blood Loss 200 ml # Bowel Movements 2 Result Diagram: 01/27/18 1025 01/28/18 0425 Imaging Last Impressions Ankle X-Ray 01/21/18 0000 Signed Impressions: Service Date/Time: Sunday, January 21, 2018 21:46 - CONCLUSION: Chronic bony change with surgical hardware as described above. A new acute bony abnormality is not clearly seen. There is mild soft tissue swelling. Adonay Cabrera MD Upper Extremity Ultrasound 01/20/18 0000 Signed Impressions: Service Date/Time: Saturday, January 20, 2018 10:42 - CONCLUSION: No DVT. Adonay Cabrera MD Tumor Localization 01/20/18 0000 Signed Impressions: Service Date/Time: Saturday, January 20, 2018 11:45 - CONCLUSION: 1. Intense focal uptake at the site of fracture in the distal posterior tibia. Remainder of the uptake is mild and may represent a mild cellulitis, without definite evidence for osteomyelitis. Tray Garcia MD Lower Extremity Ultrasound 01/20/18 0000 Signed Impressions: Service Date/Time: Saturday, January 20, 2018 10:28 - CONCLUSION: No DVT. Adonay Cabrera MD Chest X-Ray 01/20/18 0000 Signed Impressions: Service Date/Time: Saturday, January 20, 2018 13:03 - CONCLUSION: Mild compensated cardiomegaly. Pacemaker on the left. Gallo Armas MD FACR Lower Extremity CT 01/18/18 0000 Signed Impressions: Service Date/Time: Thursday, January 18, 2018 20:51 - CONCLUSION: 1. Diffuse soft tissue swelling. 2. No acute fracture or dislocation. 3. Scattered areas of osteopenia are noted throughout the foot and are nonspecific. Bone scan, white blood cell scan and/or MRI with contrast would be more sensitive to rule out osteomyelitis if clinically indicated. 4. Plantar and Achilles calcaneal spurring. 5. Old healing posterior malleolar fracture. Wilmer Estes MD Objective Remarks awake and alert lungs- decreased breath sounds, no rales regular rhythm, telemetry- paced abdomen- soft left groin + wound. Left BKA with covered by dressing C/D/I A/P Problem List: (1) Sepsis ICD Code: A41.9 - Sepsis, unspecified organism Status: Resolved (2) Osteomyelitis ICD Code: M86.9 - Osteomyelitis, unspecified Status: Acute (3) Left foot infection ICD Code: L08.9 - Local infection of the skin and subcutaneous tissue, unspecified (4) PAD (peripheral artery disease) ICD Code: I73.9 - Peripheral vascular disease, unspecified (5) Afib ICD Code: I48.91 - Unspecified atrial fibrillation (6) Acute diastolic heart failure ICD Code: I50.31 - Acute diastolic (congestive) heart failure Assessment and Plan This is a 82-year-old female patient with a medical history significant for Eliquis, hypertension, hyperlipidemia, peripheral artery disease status post left femoropopliteal bypass on January 06 who presented initially to [facility] and transferred to [facility]. Labs at [facility] were significant for white blood cell count of 17, left foot x-ray which showed a skin ulcer noted on the plantar aspect of the left foot with cortical irregularity and possibly possible osteomyelitis. 1. Sepsis Likely secondary to left foot infection. Present on admission with tachycardia and hypotension. Wound care consulted and following. ID consulted. Antibiotics as per ID. Currently on IV Zosyn, vancomycin and Diflucan Blood cultures negative to date. Positive at take a nuclear scan, possible bone biopsy. Podiatry following. Sepsis clinically resolving with resolving leukocytosis and resolved fever. 2. Peripheral arterial disease without claudication or gangrene. Vascular surgery consulted. The patient was seen today by Dr. Moran who recommends BKA. 01/28 status post left below the knee amputation. Continue pain control as per vascular surgery. Continue pain control with oxycodone, morphine and IV Dilaudid. 3. Atrial fibrillation. Chronic atrial fibrillation. Rate controlled. Appreciate cardiology recommendations. 01/28 patient on chronic articulation with apixaban. Held prior to procedure. Resume once cleared by vascular surgery. 4. Shortness of breath. Likely due to fluid overload. There is peripheral edema. IV fluids discontinued. Monitor strict I's and O's, daily weights. Check 2D echocardiogram to assess ventricular function. 01/28 shortness of breath likely due to acute diastolic heart failure treated with IV Lasix. Continue 5. Poor appetite. Much improved. Continue Marinol. 6. Hyperlipidemia. Continue statin. 7. Hypothyroidism Continue levothyroxine. Check TSH if not previously done. 8. Hypertension Patient previously severely hypertensive. Continue amlodipine 5 mg p.o. daily, metoprolol 25 minutes p.o. twice daily. Blood pressure seems to be stable. 01/23 BP still elevated. increase metoprolol dose to 50 mg po 2 x daily. 01/24 BP better. continue metoprolol, amlodipine and monitor vital signs. 01/25 BP slightly elevated overnight. Continue amlodipine and metoprolol at same dose. 01/26 BP labile. Increase amlodipine up to 10 mg po daily. 01/27 BP on the lower side with a systolic blood pressure in the high 90s. Patient is symptomatic. Decrease metoprolol tartrate 25 mg p.o. twice daily and amlodipine down to 5 mg p.o. daily. 01/28 blood pressure with improved control. Continue amlodipine 5 mg p.o. daily , metoprolol tartrate 25 mg twice a day. 9. Infected left foot wounds. Podiatry and vascular surgery following. 01/28 Sp Left BKA. Continue antibiotics as per ID. 10. Acute diastolic heart failure. Patient had shortness of breath along with oxygen saturation down into the 90s. Likely due to acute diastolic heart failure which is being treated with IV Lasix. Shortness of breath is much improved. IV Lasix discontinued today by cardiology who transitioned to oral Lasix. Continue. 11 hypokalemia Likely due to diuretic use. We will replace with IV and p.o. potassium chloride. I will also start on standing potassium chloride as well 20 mEq p.o. twice daily. Continue to monitor BMP and replace as needed. DVT prophylaxis: On apixaban. Discharge Planning Continue to monitor on the medical floor. Problem Qualifiers (1) Sepsis: Qualified Codes: A41.9 - Sepsis, unspecified organism (2) Osteomyelitis: Qualified Codes: M86.9 - Osteomyelitis, unspecified Thierno Holder MD January 28, 2018 16:19
[2018-01-28] MEDS: HYDROmorphone HCL 2 MG TAB PO PRN ×2 (16:58→20:49)
--- NOTE | 2018-01-28 18:43 | MP ---
cc: Wilmer Moran MD DATE OF OPERATION: PREOPERATIVE DIAGNOSES: 1. Significant tissue loss left foot. 2. Peripheral arterial occlusive disease. POSTOPERATIVE DIAGNOSES: 1. Significant tissue loss left foot. 2. Peripheral arterial occlusive disease. PROCEDURE PERFORMED: Left below knee amputation. ATTENDING SURGEON: Wilmer Moran MD AVIATION ORDNANCE OFFICER SURGEON: Wilmer Brower. ANESTHESIA: General. INDICATIONS: Ms. Costello is an 82-year-old lady with peripheral arterial occlusive disease and cast trauma to her left foot. She has extensive tissue loss and despite a successful revascularization, after a thorough discussion with the patient and her family, she was offered below-knee amputation. She was taken to the operating room for this. DESCRIPTION OF PROCEDURE: Informed consent was obtained from the patient. She was taken to the operating room and placed supine on the operating table. An appropriate timeout was taken to ensure the patient's identity, the operative site and planned procedure. The administration of antibiotics was not necessary as the patient is on systemic and therapeutic antibiotics and actually had a supratherapeutic vancomycin trough recently. She will be continued on these at the discretion of the primary service. The patient's left leg was prepped and draped and a #10 blade was used to create an incision a hand's breadth below the tibial tuberosity, carried down through the subcutaneous tissue with electrocautery. A long posterior flap was then made with a 10 blade and the muscle was divided with electrocautery. The tibia was transected with the oscillating saw and the fibula was transected 1 centimeter cephalad to this. The posterior muscle was divided, leaving sufficient posterior flap. The specimen was then passed off the table. The wound was irrigated and made hemostatic with a silk suture. The anterior border of the tibia was then bevelled with the oscillating saw and the wound was closed with 2-0 Polysorb and skin pratibha. The sponge and needle counts were correct at the end of the case. I was present, scrubbed, and performed the entire procedure. Wilmer Moran MD RJF/DELON , 05:55 PM , 06:42 PM
[2018-01-28 20:00] VITALS: BP 126/75; PULSE 50; RESP 18; TEMP 97.8; O2SAT 97
[2018-01-28] MEDS: POTASSIUM CHLORIDE 20 MEQ CONTROLLED RELEASE TAB PO SCH (20:39)
[2018-01-29] VITALS (7 sets, daily range): BP systolic 95–129; BP diastolic 46–69; PULSE 59–78; RESP 17–18; TEMP 97.1–98.4; O2SAT 92–98
[2018-01-29] MEDS: HYDROmorphone HCL 2 MG TAB PO PRN ×5 (01:03→21:36)
[2018-01-29] MEDS: LINEZOLID 600 MG TAB PO SCH ×2 (03:43→16:11)
[2018-01-29] MEDS: PIPERACIL-TAZO 4.5 GM PREMIX 100 ML IV SCH ×4 (03:43→21:37)
[2018-01-29] MEDS: MORPHINE SULFATE 4 MG/ML INJ IV PUSH PRN ×4 (03:44→19:36)
[2018-01-29] MEDS: LEVOTHYROXINE SODIUM 150 MCG TAB PO SCH (06:40)
--- NOTE | 2018-01-29 08:06 | PD.VS.PN ---
Subjective POD #: 1 Procedure(s): L BKA Subjective/Hospital Course looks great slept well pain well controlled Objective Vitals/I&O Date Time Temp Pulse Resp B/P (MAP) Pulse Ox O2 Delivery O2 Flow Rate FiO2 01/29/18 00:00 97.1 62 17 129/69 (89) 98 01/28/18 20:00 97.8 50 18 126/75 (92) 97 01/28/18 16:00 97.8 91 19 119/75 (90) 100 01/28/18 14:25 97.6 60 16 133/66 (88) 97 Nasal Cannula 2 01/28/18 14:15 60 15 137/62 (87) 96 Nasal Cannula 2 01/28/18 14:00 59 15 143/68 (93) 96 Nasal Cannula 2 01/28/18 13:45 65 15 151/70 (97) 100 Nasal Cannula 3 01/28/18 13:43 97.7 77 16 163/70 (101) 98 Nasal Cannula 3 01/28/18 12:00 97.8 67 19 137/62 (87) 92 01/29/18 01/29/18 01/29/18 07:00 15:00 23:00 Intake Total 800 ml Output Total 500 ml Balance 300 ml Exam: LEFT BKA with GOMEZ wrap in place able to fully extend knee Laboratory Date/Time Source Procedure Growth Status 01/17/18 21:50 Blood Peripheral Aerobic Blood Culture - Final NO GROWTH IN 5 DAYS Complete 01/17/18 21:50 Blood Peripheral Anaerobic Blood Culture - Final NO GROWTH IN 5 DAYS Complete 01/19/18 08:45 Stool Stool Stool Occult Blood (DEEPIKA) - Final HEMOCCULT NEGATIVE Complete 01/20/18 14:00 Wound Groin Gram Stain - Final Complete 01/20/18 14:00 Wound Culture - Final S. Aureus Mrsa Bacteroides Sp B. Frag Group Complete Assessment and Plan Assessment: (1) PAD (peripheral artery disease) Plan POD#1 s/p L BKA looks great; pain controlled; able to fully extend knee 1. Continue PT, knee straightening 2. f/u CBC this morning 3. will leave GOMEZ wrap in place until Saturday Discharge Planning D/C planning post BKA to [facility], likely / Wilmer Moran MD January 29, 2018 08:06
[2018-01-29 08:26] LABS: HEMATOCRIT 24.8 % (35.0-46.0); HEMOGLOBIN 7.5 GM/DL (11.6-15.3); MEAN CELL VOLUME 75.7 FL (80.0-100.0); MEAN CORPUSCULAR HEMOGLOBIN 22.8 PG (27.0-34.0); MEAN CORPUSCULAR HGB CONC 30.1 % (32.0-36.0); MEAN PLATELET VOLUME 8.1 FL (7.0-11.0); PLATELET COUNT 366 TH/MM3 (150-450); RED BLOOD COUNT 3.27 MIL/MM3 (4.00-5.30); RED CELL DISTRIBUTION WIDTH 18.8 % (11.6-17.2); WHITE BLOOD COUNT 13.9 TH/MM3 (4.0-11.0)
[2018-01-29] MEDS: COLLAGENASE OINT 30 GM TUBE TOPICAL SCH (08:48)
[2018-01-29] MEDS: amLODIPine BESYLATE 5 MG TAB PO SCH (08:49)
[2018-01-29] MEDS: PRAVASTATIN SOD 20 MG TAB PO SCH (08:49)
[2018-01-29] MEDS: METOPROLOL TARTRATE 25 MG TAB PO SCH ×2 (08:49→21:35)
[2018-01-29] MEDS: LACTOBACILLUS ACIDOPHILUS TAB PO SCH ×2 (08:50→21:35)
[2018-01-29] MEDS: POTASSIUM CHLORIDE 20 MEQ CONTROLLED RELEASE TAB PO SCH ×2 (08:50→21:36)
[2018-01-29] MEDS: FUROSEMIDE 40 MG TAB PO SCH (08:50)
[2018-01-29] MEDS: SODIUM CHLORIDE 0.9% FLUSH 10 ML FLUSH IV FLUSH SCH ×2 (08:50→19:39)
[2018-01-29] MEDS: DOCUSATE SODIUM 50 MG/SENNA 8.6 MG TAB PO SCH ×2 (08:51→21:37)
[2018-01-29 09:15] LABS: BICARBONATE 28.5 MEQ/L (21.0-32.0); CALCIUM 8.9 MG/DL (8.5-10.1); CREATININE 0.77 MG/DL (0.50-1.00); PHOSPHORUS 3.4 MG/DL (2.5-4.9)
--- NOTE | 2018-01-29 10:41 | PD.CARD.PN ---
Subjective Subjective Remarks Did well with surgery, no complaints this morning Breathing well Objective Medications Current Medications Medications (Trade) Dose Ordered Sig/Temitope Route Start Time Stop Time Status Last Admin Piperacillin Sod/ Tazobactam Sod 100 ml @ 200 mls/hr Q6H IV 01/17/18 22:00 01/29/18 08:47 (NS Flush) 2 ml UNSCH PRN IV FLUSH 01/17/18 21:30 01/28/18 11:33 (NS Flush) 2 ml BID IV FLUSH 01/18/18 09:00 01/29/18 08:50 (Zofran Inj) 4 mg Q6H PRN IVP 01/17/18 21:30 (Tylenol) 650 mg Q6H PRN PO 01/17/18 21:30 01/26/18 16:39 ([place]ard 5-325 Mg) 1 tab Q4H PRN PO 01/17/18 21:30 01/26/18 14:20 (Nirali-Colace) 1 tab BID PO 01/18/18 09:00 01/29/18 08:51 (Milk Of Magnesia Liq) 30 ml Q12H PRN PO 01/17/18 21:30 (Senokot) 17.2 mg Q12H PRN PO 01/17/18 21:30 01/24/18 20:02 (Dulcolax Supp) 10 mg DAILY PRN RECTAL 01/17/18 21:30 (Lactulose Liq) 30 ml DAILY PRN PO 01/17/18 21:30 (Pravachol) 20 mg DAILY PO 01/18/18 09:00 01/29/18 08:49 (Morphine Inj) 2 mg Q3H PRN IV PUSH 01/17/18 22:30 01/29/18 08:52 (Synthroid) 150 mcg DAILY@0600 PO 01/19/18 06:00 01/29/18 06:40 (Santyl Oint) 1 applic DAILY TOPICAL 01/19/18 09:00 01/29/18 08:48 (Lactinex) 1 tab Q12HR PO 01/20/18 21:00 01/29/18 08:50 Fluconazole/ Sodium Chloride 50 ml @ 50 mls/hr Q24H IV 01/20/18 15:00 01/28/18 15:00 (Ferrous Sulfate) 325 mg BID@12,17 PO 01/21/18 17:00 01/27/18 17:05 (Marinol) 5 mg BID@11,16 PO 01/23/18 11:00 01/27/18 16:00 (Lasix) 40 mg DAILY PO 01/28/18 09:00 01/29/18 08:50 (Norvasc) 5 mg DAILY PO 01/28/18 09:00 01/29/18 08:49 (Lopressor) 25 mg BID PO 01/27/18 21:00 01/29/18 08:49 Linezolid 300 ml @ 300 mls/hr Q12H PRN IV 01/27/18 16:00 (Zyvox) 600 mg Q12H PO 01/27/18 16:00 01/29/18 03:43 Lactated Ringer's 1,000 ml @ 30 mls/hr Q24H PRN IV 01/28/18 02:00 01/31/18 01:59 01/28/18 11:33 Sodium Chloride 500 ml @ 30 mls/hr [id number] PRN IV 01/28/18 02:00 01/31/18 01:59 (Lopressor) 25 mg CEMENT BASED MATERIALS PUMP TENDER PRN PO 01/28/18 02:00 01/31/18 01:59 (Betadine 5% Antisepsis Kit) 1 applic CEMENT BASED MATERIALS PUMP TENDER PRN EACH NARE 01/28/18 02:00 01/31/18 01:59 (Chlorhexidine 2% Cloth) 3 pack CEMENT BASED MATERIALS PUMP TENDER PRN TOPICAL 01/28/18 02:00 01/31/18 01:59 (NovoLIN R INJ) See Protocol Table ... CEMENT BASED MATERIALS PUMP TENDER PRN SQ 01/28/18 02:00 01/31/18 01:59 (Roxicodone) 5 mg Q4H PRN PO 01/28/18 13:45 (Dilaudid) 2 mg Q4H PRN PO 01/28/18 13:45 01/29/18 06:41 (Morphine Inj) 2 mg Q1H PRN IV PUSH 01/28/18 13:45 01/29/18 03:44 ([facility] Nursing Information) ALL NURSING DEPARTME... UNSCH PRN .XX 01/28/18 15:15 01/29/18 15:14 (KCl) 20 meq Q12HR PO 01/28/18 21:00 01/29/18 08:50 Vital Signs / I&O Vital Signs Date Time Temp Pulse Resp B/P (MAP) Pulse Ox O2 Delivery O2 Flow Rate FiO2 01/29/18 08:00 97.8 78 17 123/58 (79) 97 01/29/18 00:00 97.1 62 17 129/69 (89) 98 01/28/18 20:00 97.8 50 18 126/75 (92) 97 01/28/18 16:00 97.8 91 19 119/75 (90) 100 01/28/18 14:25 97.6 60 16 133/66 (88) 97 Nasal Cannula 2 01/28/18 14:15 60 15 137/62 (87) 96 Nasal Cannula 2 01/28/18 14:00 59 15 143/68 (93) 96 Nasal Cannula 2 01/28/18 13:45 65 15 151/70 (97) 100 Nasal Cannula 3 01/28/18 13:43 97.7 77 16 163/70 (101) 98 Nasal Cannula 3 01/28/18 12:00 97.8 67 19 137/62 (87) 92 I/O 01/28/18 01/28/18 01/28/18 01/29/18 01/29/18 01/29/18 07:00 15:00 23:00 07:00 15:00 23:00 Intake Total 440 ml 800 ml 360 ml 800 ml 100 ml Output Total 650 ml 1200 ml 1100 ml 500 ml Balance -210 ml -400 ml -740 ml 300 ml 100 ml Intake Oral 240 ml 360 ml 700 ml IV Total 200 ml 0 ml 100 ml 100 ml Other 800 ml Output Urine Total 650 ml 1000 ml 1100 ml 500 ml Estimated Blood Loss 200 ml Physical Exam GENERAL: NAD, AAOx3 SKIN: Warm and dry. HEAD: Atraumatic. Normocephalic. EYES: Pupils equal and round. No scleral icterus. No injection or drainage. ENT: No nasal bleeding or discharge. Mucous membranes pink and moist. NECK: Trachea midline. No JVD. CARDIOVASCULAR: Regular rate and rhythm. RESPIRATORY: No accessory muscle use. Clear to auscultation GASTROINTESTINAL: Abdomen soft, non-tender, nondistended. Hepatic and splenic margins not palpable. MUSCULOSKELETAL: Left leg wrapped, decreased warmth compared to yesterday NEUROLOGICAL: Awake and alert. No obvious cranial nerve deficits. Motor grossly within normal limits. Five out of 5 muscle strength in the arms and legs. Normal speech. PSYCHIATRIC: Appropriate mood and affect; insight and judgment normal. Laboratory Laboratory Tests Test 01/29/18 08:15 White Blood Count 13.9 TH/MM3 Red Blood Count 3.27 MIL/MM3 Hemoglobin 7.5 GM/DL Hematocrit 24.8 % Mean Corpuscular Volume 75.7 FL Mean Corpuscular Hemoglobin 22.8 PG Mean Corpuscular Hemoglobin Concent 30.1 % Red Cell Distribution Width 18.8 % Platelet Count 366 TH/MM3 Mean Platelet Volume 8.1 FL Blood Urea Nitrogen 15 MG/DL Creatinine 0.77 MG/DL Random Glucose 130 MG/DL Calcium Level 8.9 MG/DL Phosphorus Level 3.4 MG/DL Magnesium Level 2.0 MG/DL Sodium Level 140 MEQ/L Potassium Level 4.1 MEQ/L Chloride Level 103 MEQ/L Carbon Dioxide Level 28.5 MEQ/L Anion Gap 9 MEQ/L Estimat Glomerular Filtration Rate 72 ML/MIN Assessment and Plan Problem List: (1) Left foot infection ICD Codes: L08.9 - Local infection of the skin and subcutaneous tissue, unspecified (2) Afib ICD Codes: I48.91 - Unspecified atrial fibrillation (3) PAD (peripheral artery disease) ICD Codes: I73.9 - Peripheral vascular disease, unspecified (4) Osteomyelitis ICD Codes: M86.9 - Osteomyelitis, unspecified Status: Acute (5) Sepsis ICD Codes: A41.9 - Sepsis, unspecified organism Status: Resolved (6) Pacemaker ICD Codes: Z95.0 - Presence of cardiac pacemaker Status: Chronic (7) Hypoxia ICD Codes: R09.02 - Hypoxemia Status: Acute (8) Acute CHF ICD Codes: I50.9 - Heart failure, unspecified Assessment and Plan 1) Sepsis secondary to foot s/p left BKA POD #1 2) Afib Controlled Eliquis 5mg BID, will need restarted after surgery Will discuss further with surgery 3) Discussed her worry over the PPM not being check as scheduled last week No dysfunction noted, can be done over the next few weeks outpatient 4) EF 55-60%, aortic valve sclerosis, no aortic stenosis Problem Qualifiers (1) Osteomyelitis: Qualified Codes: M86.9 - Osteomyelitis, unspecified (2) Sepsis: Qualified Codes: A41.9 - Sepsis, unspecified organism Danie Powers DO January 29, 2018 10:41
[2018-01-29] MEDS: FERROUS SULFATE 325 MG (65 MG ELEMENTAL IRON) TAB PO SCH ×2 (10:48→16:11)
[2018-01-29] MEDS: DRONABINOL 5 MG CAP PO SCH ×2 (10:48→16:48)
--- NOTE | 2018-01-29 14:27 | HHI.PR ---
Subjective Remarks Follow-up Domenico WRIGHT The patient states that she feels much better today. Pain is well controlled. Denies chest pain or dyspnea. Denies nausea or vomiting. Objective Vitals Vital Signs Date Time Temp Pulse Resp B/P (MAP) Pulse Ox O2 Delivery O2 Flow Rate FiO2 01/29/18 12:00 97.8 77 17 95/46 (62) 92 01/29/18 08:00 97.8 78 17 123/58 (79) 97 01/29/18 07:55 59 01/29/18 00:00 97.1 62 17 129/69 (89) 98 01/28/18 20:00 97.8 50 18 126/75 (92) 97 01/28/18 16:00 97.8 91 19 119/75 (90) 100 01/28/18 14:25 97.6 60 16 133/66 (88) 97 Nasal Cannula 2 I/O 01/28/18 01/28/18 01/28/18 01/29/18 01/29/18 01/29/18 07:00 15:00 23:00 07:00 15:00 23:00 Intake Total 440 ml 800 ml 360 ml 800 ml 100 ml Output Total 650 ml 1200 ml 1100 ml 500 ml Balance -210 ml -400 ml -740 ml 300 ml 100 ml Intake Oral 240 ml 360 ml 700 ml IV Total 200 ml 0 ml 100 ml 100 ml Other 800 ml Output Urine Total 650 ml 1000 ml 1100 ml 500 ml Estimated Blood Loss 200 ml Result Diagram: 01/29/18 0815 01/29/18 0815 Imaging Last Impressions Ankle X-Ray 01/21/18 0000 Signed Impressions: Service Date/Time: Sunday, January 21, 2018 21:46 - CONCLUSION: Chronic bony change with surgical hardware as described above. A new acute bony abnormality is not clearly seen. There is mild soft tissue swelling. Adonay Cabrera MD Upper Extremity Ultrasound 01/20/18 0000 Signed Impressions: Service Date/Time: Saturday, January 20, 2018 10:42 - CONCLUSION: No DVT. Adonay Cabrera MD Tumor Localization 01/20/18 0000 Signed Impressions: Service Date/Time: Saturday, January 20, 2018 11:45 - CONCLUSION: 1. Intense focal uptake at the site of fracture in the distal posterior tibia. Remainder of the uptake is mild and may represent a mild cellulitis, without definite evidence for osteomyelitis. Tray Garcia MD Lower Extremity Ultrasound 01/20/18 0000 Signed Impressions: Service Date/Time: Saturday, January 20, 2018 10:28 - CONCLUSION: No DVT. Adonay Cabrera MD Chest X-Ray 01/20/18 0000 Signed Impressions: Service Date/Time: Saturday, January 20, 2018 13:03 - CONCLUSION: Mild compensated cardiomegaly. Pacemaker on the left. Gallo Armas MD FACR Lower Extremity CT 01/18/18 0000 Signed Impressions: Service Date/Time: Thursday, January 18, 2018 20:51 - CONCLUSION: 1. Diffuse soft tissue swelling. 2. No acute fracture or dislocation. 3. Scattered areas of osteopenia are noted throughout the foot and are nonspecific. Bone scan, white blood cell scan and/or MRI with contrast would be more sensitive to rule out osteomyelitis if clinically indicated. 4. Plantar and Achilles calcaneal spurring. 5. Old healing posterior malleolar fracture. Wilmer Estes MD Objective Remarks General: No acute distress. Heart: Regular rate and rhythm. No murmur. Lungs: Clear to auscultation bilaterally. No wheezes, rales, or rhonchi. Breathing is nonlabored. Abdomen: Soft, nontender, nondistended. Extremities: No right lower extremity edema. Left BKA. Psych: Alert and oriented. Neuro: Normal speech. No focal deficits noted. Procedures 01/28/18 left below-knee amputation Urinary Catheter: Yes Assessment to: Continue Reynolds insert reason: Obstruction/Retention Vascular Central Line Catheter: No A/P Problem List: (1) Sepsis ICD Code: A41.9 - Sepsis, unspecified organism Status: Resolved (2) Osteomyelitis ICD Code: M86.9 - Osteomyelitis, unspecified Status: Acute (3) Left foot infection ICD Code: L08.9 - Local infection of the skin and subcutaneous tissue, unspecified (4) PAD (peripheral artery disease) ICD Code: I73.9 - Peripheral vascular disease, unspecified (5) Afib ICD Code: I48.91 - Unspecified atrial fibrillation (6) Acute diastolic heart failure ICD Code: I50.31 - Acute diastolic (congestive) heart failure Assessment and Plan 1. Sepsis, present on admission: Resolved. Secondary to left foot infection. Patient presented with tachycardia, hypotension. Blood cultures remain negative. Appreciate infectious disease recommendations. Continue antibiotics. 2. Peripheral arterial disease: Appreciate vascular surgery recommendations. 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 3. Atrial fibrillation: Chronic. Rate controlled. Restart apixaban once okay with vascular surgery. Discussed with cardiology, Dr. Powers. 4. Acute diastolic congestive heart failure: Symptoms are improved following diuresis with IV Lasix. Continue oral Lasix. 5. Hyperlipidemia: Continue statin. 6. Hypertension: Continue amlodipine, metoprolol. 7. Hypothyroidism: Continue Synthroid. 8. Left foot wounds: Status post left BKA. Antibiotics per infectious disease. 9. Hypokalemia: Likely secondary to diuretics. Continue supplementation. Monitor labs. 10. DVT prophylaxis: Resume Eliquis when okay with vascular surgery. Discharge Planning Plan for discharge to inpatient rehab when cleared by vascular surgery, infectious disease. Problem Qualifiers (1) Sepsis: Qualified Codes: A41.9 - Sepsis, unspecified organism (2) Osteomyelitis: Qualified Codes: M86.9 - Osteomyelitis, unspecified Hunter Lopez MD January 29, 2018 14:27
[2018-01-29] MEDS: FLUCONAZOLE 100 MG PREMIX BAG 50 ML IV SCH (16:11)
[2018-01-30] VITALS (7 sets, daily range): BP systolic 104–141; BP diastolic 53–76; PULSE 58–68; RESP 17–20; TEMP 97.8–99.6; O2SAT 90–97
[2018-01-30] MEDS: HYDROmorphone HCL 2 MG TAB PO PRN ×5 (01:23→21:42)
[2018-01-30] MEDS: LINEZOLID 600 MG TAB PO SCH ×2 (05:41→14:39)
[2018-01-30] MEDS: LEVOTHYROXINE SODIUM 150 MCG TAB PO SCH (05:41)
[2018-01-30] MEDS: PIPERACIL-TAZO 4.5 GM PREMIX 100 ML IV SCH ×3 (05:42→14:40)
[2018-01-30] MEDS: COLLAGENASE OINT 30 GM TUBE TOPICAL SCH (06:54)
[2018-01-30 08:34] LABS: AUTOMATED NEUTROPHIL # 8.7 TH/MM3 (1.8-7.7); BASOPHIL # 0.1 TH/MM3 (0-0.2); BASOPHIL % 0.7 % (0.0-2.0); EOSINOPHIL # 0.2 TH/MM3 (0-0.4); EOSINOPHIL % 1.6 % (0.0-4.0); HEMATOCRIT 23.4 % (35.0-46.0); HEMOGLOBIN 7.1 GM/DL (11.6-15.3); LYMPHOCYTE # 2.2 TH/MM3 (1.0-4.8); MEAN CELL VOLUME 75.9 FL (80.0-100.0); MEAN CORPUSCULAR HGB CONC 30.3 % (32.0-36.0); MEAN PLATELET VOLUME 8.5 FL (7.0-11.0); MONO % 6.9 % (0.0-8.0); MONOCYTE # 0.8 TH/MM3 (0-0.9); NEUT % 72.8 % (16.0-70.0); PLATELET COUNT 331 TH/MM3 (150-450); RED BLOOD COUNT 3.08 MIL/MM3 (4.00-5.30)
--- NOTE | 2018-01-30 08:34 | HHI.IDPN ---
Subjective Subjective Remarks Patient seen and examined on behalf of Dr. Britton This is a 82-year-old female with a past medical history significant for A. fib on Eliquis, CAD s/p cardiac stent, bradycardia status post pacemaker implantation, hypertension, hyperlipidemia and hypothyroidism who fell at home resulting in an open compound fracture of the left tib-fib and underwent ORIF in [place]. Postoperatively, patient was evaluated 2 weeks following her surgery in the surgeon's office and was noted to have significant necrosis of the left foot/ankle with concern for possible osteomyelitis. Patient was scheduled to see plastic surgeon as an outpatient but prior to that appointment she was reevaluated in the surgeon's office was found to have worsening necrosis of the foot and patient's family brought her to [facility] where she was admitted on 12/25/17. Patient was seen in consultation by Dr. Cifuentes who in turn consulted vascular surgery due to concern for arterial disease. Patient was found to have severe PAD and underwent a left femoropopliteal bypass 01/06/[address] Moran. During that hospitalization, patient developed twitching and speech changes and was seen in consultation by neurology for TIA vs over medicated hypoxia. Patient was discharged on 2017 to rehab facility. While at the rehab facility patient was treated for urinary tract infection. Patient continued to be followed by Dr. Cifuentes and underwent debridement in her office. While at the rehab facility two days ago, patient developed altered mental status with difficulty recalling words and gait instability and was sent to [facility] where patient was found to be septic and imaging left foot was done showing cortical irregularity possible osteomyelitis. CT the head obtained at that time showed no acute findings. Patient was transferred to [facility] ED and was admitted with sepsis and left foot infection and started on IV vancomycin and Zosyn. Patient has been seen by Dr. Moran and Dr. Cifuentes. Patient is not able to have an MRI done secondary to pacemaker (per [employer], patient device is not MRI compatible). She has undergone a CT of the foot which shows diffuse soft tissue swelling, scattered areas of osteopenia, no acute fracture dislocation and old healing posterior malleolus fracture. MRI or white blood cell scan has been recommended for further evaluation of possible osteomyelitis. Infectious disease consultation has been requested for evaluation and management of possible osteomyelitis left foot. Patient seen and examined. Patient reports exertional shortness of breath. She denies any fever or chills. She denies any nausea, vomiting or abdominal pain. She denies any hematuria, dysuria or diarrhea. She does states she has problems with constipation but had a good bowel movement this morning. Her daughter is at the bedside who assists with history. Per herself and the daughter, patient's mentation has returned to baseline. Notes reviewed s/p left BKA states she slept well c/o left leg pain with movement no fevers or chills no rash no N/V no diarrhea afebrile Path pending WBC 13.9 01/29 H/H 7.5/24.8 Left groin wound cx + MRSA and Bacteroides SP B frag Antibiotics IV Zyvox IV Zosyn Lines PIV with no e/o infection Past Medical History PAD s/p Left Fem-Pop Bypass 01/06/[address] Moran Atrial fibrillation anticoagulated on Eliquis Hypertension Hyperlipidemia Hypothyroidism CAD s/p cardiac stent Mild to moderate CHF (Azeb Belle) Allergies: Coded Allergies: tetracycline (Verified Allergy, Intermediate, ulcerations to palm and hands, 01/06/18) Tetracyclic Antidepressants (Verified Allergy, Unknown, Hives, 12/25/17) MRI PRECAUTION (Verified Adverse Reaction, Severe, IMPLANTED DEVICE, ) [employer] Model #[id number] Serial # [id number] [place] 1) Serial #[id number] Model # 5076-45 [place] 2) Serial #[id number] Model # 5076-52 Implant Date 05/28/16 Objective . Vital Signs Date Time Temp Pulse Resp B/P (MAP) Pulse Ox O2 Delivery O2 Flow Rate FiO2 01/30/18 04:23 97.8 65 18 126/76 (93) 94 01/30/18 00:11 98.9 68 17 104/53 (70) 97 01/29/18 20:00 98.4 72 18 105/53 (70) 96 01/29/18 16:00 98.3 72 17 126/54 (78) 96 01/29/18 14:18 96 21 01/29/18 12:00 97.8 77 17 95/46 (62) 92 01/30/18 01/30/18 01/31/18 15:00 23:00 07:00 Intake Total 100 ml Balance 100 ml IV Total 100 ml . Laboratory Tests Test 01/29/18 08:15 White Blood Count 13.9 TH/MM3 Red Blood Count 3.27 MIL/MM3 Hemoglobin 7.5 GM/DL Hematocrit 24.8 % Mean Corpuscular Volume 75.7 FL Mean Corpuscular Hemoglobin 22.8 PG Mean Corpuscular Hemoglobin Concent 30.1 % Red Cell Distribution Width 18.8 % Platelet Count 366 TH/MM3 Mean Platelet Volume 8.1 FL Laboratory Tests Test 01/29/18 08:15 Blood Urea Nitrogen 15 MG/DL Creatinine 0.77 MG/DL Random Glucose 130 MG/DL Calcium Level 8.9 MG/DL Phosphorus Level 3.4 MG/DL Magnesium Level 2.0 MG/DL Sodium Level 140 MEQ/L Potassium Level 4.1 MEQ/L Chloride Level 103 MEQ/L Carbon Dioxide Level 28.5 MEQ/L Anion Gap 9 MEQ/L Estimat Glomerular Filtration Rate 72 ML/MIN Imaging Last Impressions Ankle X-Ray 01/21/18 0000 Signed Impressions: Service Date/Time: Sunday, January 21, 2018 21:46 - CONCLUSION: Chronic bony change with surgical hardware as described above. A new acute bony abnormality is not clearly seen. There is mild soft tissue swelling. Adonay Cabrera MD Upper Extremity Ultrasound 01/20/18 0000 Signed Impressions: Service Date/Time: Saturday, January 20, 2018 10:42 - CONCLUSION: No DVT. Adonay Cabrera MD Tumor Localization 01/20/18 0000 Signed Impressions: Service Date/Time: Saturday, January 20, 2018 11:45 - CONCLUSION: 1. Intense focal uptake at the site of fracture in the distal posterior tibia. Remainder of the uptake is mild and may represent a mild cellulitis, without definite evidence for osteomyelitis. Tray Garcia MD Lower Extremity Ultrasound 01/20/18 0000 Signed Impressions: Service Date/Time: Saturday, January 20, 2018 10:28 - CONCLUSION: No DVT. Adonay Cabrera MD Chest X-Ray 01/20/18 0000 Signed Impressions: Service Date/Time: Saturday, January 20, 2018 13:03 - CONCLUSION: Mild compensated cardiomegaly. Pacemaker on the left. Gallo Armas MD FACR Lower Extremity CT 01/18/18 0000 Signed Impressions: Service Date/Time: Thursday, January 18, 2018 20:51 - CONCLUSION: 1. Diffuse soft tissue swelling. 2. No acute fracture or dislocation. 3. Scattered areas of osteopenia are noted throughout the foot and are nonspecific. Bone scan, white blood cell scan and/or MRI with contrast would be more sensitive to rule out osteomyelitis if clinically indicated. 4. Plantar and Achilles calcaneal spurring. 5. Old healing posterior malleolar fracture. Wilmer Estes MD Physical Exam GENERAL: Well developed well nourished female, INAD. Awake and alert. Lying in bed. Appears comfortable on RA. SKIN: Cool and dry. Left groin surgical incision with whitish granulation tissue in wound bed without any surrounding erythema. HEAD: Atraumatic. Normocephalic. No temporal or scalp tenderness. EYES: Pupils equal round and reactive. Extraocular motions intact. No scleral icterus. No injection or drainage. ENT: Nose without bleeding or purulent drainage. Throat without erythema, tonsillar hypertrophy or exudate. Uvula midline. Airway patent. MMM. NECK: Trachea midline. CARDIOVASCULAR: Regular. +Murmur. s/p pacemaker insertion left anterior chest wall, site clear. RESPIRATORY: Clear to auscultation but diminished. Breath sounds equal bilaterally. No wheezes, rales, or rhonchi. GASTROINTESTINAL: Abdomen soft, non-tender, nondistended. No hepato-splenomegaly , or palpable masses. No guarding. MUSCULOSKELETAL: Extremities without clubbing or cyanosis. Diffuse nonpitting edema noted in BUEs. s/p Left BKA, postop dressing C/D/I. No calf tenderness on RLE. NEUROLOGICAL: Grossly nonfocal. Normal speech. PSYCHIATRIC: Appropriate mood and affect. Normal judgment and insight. PIV with no e/o infection (Azeb Belle) Assessment & Plan Remarks Sepsis Left foot/ankle cellulitis, concern for underlying osteomyelitis MRSA left groin wound infection at the site of prior access Hx of left tib/fib repair 12/04/18 in [place], hardware in place -CRP 14, ESR 140 -podiatry following. Draining sinus noted to lateral ankle at site of hardware. Leukocytosis likely secondary to active infection/sepsis Acute metabolic encephalopathy suspect secondary to sepsis, possible TIA, improved -family believes she had a TIA but denies any slurred speech, facial droop, focal weakness PAD s/p left fem-pop bypass by Dr. Moran 01/06/18 -evaluated by Dr. Moran this admission - successful groin reconstruction and bypass Atrial fibrillation on Eliquis Hypertension Dyslipidemia CHF, compensated Anemia, hypochromic, microcytic, suspect anemia of acute blood loss -stool hemoccult negative Recs: Discontinue Zosyn IV and IV Zyvox Monitor off of IV abx Wound care left groin - stressed to patient and family importance of keeping left inguinal area dry Follow up on pathology results Monitor for clinical improvement Monitor for fevers Monitor white count Further recommendations to follow (Azeb Belle) Remarks The exam, history, and the medical decision-making described in the above note were completed with the assistance of the mid-level provider. I reviewed and agree with the findings presented. I attest that I had a [id number] encounter with the patient on the same day, and personally performed and documented my assessment and findings in the medical record. DC Zosyn IV DC IV Zyvox Monitor off of IV abx Wound care left groin Dry towels to groin please to avoid moisture. dw Patients daughter in room. Will sign off please call back if any change in clinical condition or questions (Tati Britton MD) Azeb Belle January 30, 2018 08:34 Tati Britton MD January 30, 2018 17:13
[2018-01-30] MEDS: MORPHINE SULFATE 4 MG/ML INJ IV PUSH PRN ×2 (08:39→12:13)
[2018-01-30] MEDS: FUROSEMIDE 40 MG TAB PO SCH (08:42)
[2018-01-30] MEDS: PRAVASTATIN SOD 20 MG TAB PO SCH (08:42)
[2018-01-30] MEDS: METOPROLOL TARTRATE 25 MG TAB PO SCH ×2 (08:42→20:59)
[2018-01-30] MEDS: amLODIPine BESYLATE 5 MG TAB PO SCH (08:42)
[2018-01-30] MEDS: DOCUSATE SODIUM 50 MG/SENNA 8.6 MG TAB PO SCH ×2 (08:42→21:00)
[2018-01-30] MEDS: LACTOBACILLUS ACIDOPHILUS TAB PO SCH ×2 (08:42→21:00)
[2018-01-30] MEDS: POTASSIUM CHLORIDE 20 MEQ CONTROLLED RELEASE TAB PO SCH ×2 (08:42→20:59)
[2018-01-30] MEDS: SODIUM CHLORIDE 0.9% FLUSH 10 ML FLUSH IV FLUSH SCH ×2 (08:46→21:00)
[2018-01-30 08:59] LABS: BICARBONATE 26.1 MEQ/L (21.0-32.0); CALCIUM 8.8 MG/DL (8.5-10.1); CREATININE 0.86 MG/DL (0.50-1.00)
[2018-01-30] MEDS: DRONABINOL 5 MG CAP PO SCH ×2 (10:32→17:22)
--- NOTE | 2018-01-30 11:44 | PD.VS.PN ---
Subjective POD #: 2 Procedure(s): L BKA Subjective/Hospital Course Pain controlled Pt looks great Dressing removed Incision intact w/o R/D/S/O D/C planning to [facility] tomorrow Objective Vitals/I&O Date Time Temp Pulse Resp B/P (MAP) Pulse Ox O2 Delivery O2 Flow Rate FiO2 01/30/18 08:50 21 01/30/18 08:10 59 01/30/18 04:23 97.8 65 18 126/76 (93) 94 01/30/18 00:11 98.9 68 17 104/53 (70) 97 01/29/18 20:00 98.4 72 18 105/53 (70) 96 01/29/18 16:00 98.3 72 17 126/54 (78) 96 01/29/18 14:18 96 21 01/29/18 12:00 97.8 77 17 95/46 (62) 92 01/30/18 01/30/18 01/30/18 07:00 15:00 23:00 Intake Total 480 ml 100 ml Output Total 1200 ml Balance -720 ml 100 ml Exam: GENERAL: A&OX3, GCS 15 SKIN: Warm and dry. L BKA incision intact w/o R/D/S Ednny intact CARDIOVASCULAR: Regular rate and rhythm without murmurs, gallops, or rubs. RESPIRATORY: Breath sounds equal bilaterally. No accessory muscle use. GASTROINTESTINAL: Abdomen soft, non-tender, nondistended. MUSCULOSKELETAL: No cyanosis, or edema. Laboratory Laboratory Tests Test 01/30/18 07:04 White Blood Count 12.0 Red Blood Count 3.08 Hemoglobin 7.1 Hematocrit 23.4 Mean Corpuscular Volume 75.9 Mean Corpuscular Hemoglobin 23.0 Mean Corpuscular Hemoglobin Concent 30.3 Red Cell Distribution Width 19.0 Platelet Count 331 Mean Platelet Volume 8.5 Neutrophils (%) (Auto) 72.8 Lymphocytes (%) (Auto) 18.0 Monocytes (%) (Auto) 6.9 Eosinophils (%) (Auto) 1.6 Basophils (%) (Auto) 0.7 Neutrophils # (Auto) 8.7 Lymphocytes # (Auto) 2.2 Monocytes # (Auto) 0.8 Eosinophils # (Auto) 0.2 Basophils # (Auto) 0.1 CBC Comment DIFF FINAL Differential Comment Blood Urea Nitrogen 21 Creatinine 0.86 Random Glucose 101 Calcium Level 8.8 Sodium Level 139 Potassium Level 4.1 Chloride Level 100 Carbon Dioxide Level 26.1 Anion Gap 13 Estimat Glomerular Filtration Rate 63 Date/Time Source Procedure Growth Status 01/17/18 21:50 Blood Peripheral Aerobic Blood Culture - Final NO GROWTH IN 5 DAYS Complete 01/17/18 21:50 Blood Peripheral Anaerobic Blood Culture - Final NO GROWTH IN 5 DAYS Complete 01/19/18 08:45 Stool Stool Stool Occult Blood (DEEPIKA) - Final HEMOCCULT NEGATIVE Complete 01/20/18 14:00 Wound Groin Gram Stain - Final Complete 01/20/18 14:00 Wound Culture - Final S. Aureus Mrsa Bacteroides Sp B. Frag Group Complete Assessment and Plan Assessment: (1) PAD (peripheral artery disease) Plan POD#2 s/p L BKA Pt looks great Pain controlled Pt continues to fully extend knee w/o difficulty Dressing removed Plan Pt clear for D/C to [facility] tomorrow (01/31/18) Continue PT, knee straightening Continue pain control Apply a sterile dry dressing to L BKA site (change daily) for 5 days Ashley Starr NP [facility] [phone] Discharge Planning D/C planning post BKA to [facility] tomorrow (Saturday-01/31/18) Ashley Starr January 30, 2018 11:44
[2018-01-30] MEDS: FERROUS SULFATE 325 MG (65 MG ELEMENTAL IRON) TAB PO SCH ×2 (12:13→17:22)
--- NOTE | 2018-01-30 12:26 | PD.CARD.PN ---
Subjective Subjective Remarks Did well with surgery, no complaints this morning Breathing well Objective Medications Current Medications Medications (Trade) Dose Ordered Sig/Temitope Route Start Time Stop Time Status Last Admin Piperacillin Sod/ Tazobactam Sod 100 ml @ 200 mls/hr Q6H IV 01/17/18 22:00 01/30/18 08:42 (NS Flush) 2 ml UNSCH PRN IV FLUSH 01/17/18 21:30 01/28/18 11:33 (NS Flush) 2 ml BID IV FLUSH 01/18/18 09:00 01/29/18 19:39 (Zofran Inj) 4 mg Q6H PRN IVP 01/17/18 21:30 (Tylenol) 650 mg Q6H PRN PO 01/17/18 21:30 01/26/18 16:39 ([place] 5-325 Mg) 1 tab Q4H PRN PO 01/17/18 21:30 01/26/18 14:20 (Nirali-Colace) 1 tab BID PO 01/18/18 09:00 01/30/18 08:42 (Milk Of Magnesia Liq) 30 ml Q12H PRN PO 01/17/18 21:30 (Senokot) 17.2 mg Q12H PRN PO 01/17/18 21:30 01/24/18 20:02 (Dulcolax Supp) 10 mg DAILY PRN RECTAL 01/17/18 21:30 (Lactulose Liq) 30 ml DAILY PRN PO 01/17/18 21:30 (Pravachol) 20 mg DAILY PO 01/18/18 09:00 01/30/18 08:42 (Morphine Inj) 2 mg Q3H PRN IV PUSH 01/17/18 22:30 01/29/18 08:52 (Synthroid) 150 mcg DAILY@0600 PO 01/19/18 06:00 01/30/18 05:41 (Santyl Oint) 1 applic DAILY TOPICAL 01/19/18 09:00 01/29/18 08:48 (Lactinex) 1 tab Q12HR PO 01/20/18 21:00 01/30/18 08:42 Fluconazole/ Sodium Chloride 50 ml @ 50 mls/hr Q24H IV 01/20/18 15:00 01/29/18 16:11 (Ferrous Sulfate) 325 mg BID@12,17 PO 01/21/18 17:00 01/30/18 12:13 (Marinol) 5 mg BID@11,16 PO 01/23/18 11:00 01/30/18 10:32 (Lasix) 40 mg DAILY PO 01/28/18 09:00 01/30/18 08:42 (Norvasc) 5 mg DAILY PO 01/28/18 09:00 01/30/18 08:42 (Lopressor) 25 mg BID PO 01/27/18 21:00 01/30/18 08:42 Linezolid 300 ml @ 300 mls/hr Q12H PRN IV 01/27/18 16:00 (Zyvox) 600 mg Q12H PO 01/27/18 16:00 01/30/18 05:41 Lactated Ringer's 1,000 ml @ 30 mls/hr Q24H PRN IV 01/28/18 02:00 01/31/18 01:59 01/28/18 11:33 Sodium Chloride 500 ml @ 30 mls/hr [id number] PRN IV 01/28/18 02:00 01/31/18 01:59 (Lopressor) 25 mg [employer]ISTANT DIST[employer]BUTION MANAGER PRN PO 01/28/18 02:00 01/31/18 01:59 (Betadine 5% Antisepsis Kit) 1 applic ASSISTANT DISTRIBUTION MANAGER PRN EACH NARE 01/28/18 02:00 01/31/18 01:59 (Chlorhexidine 2% Cloth) 3 pack ASSISTANT [employer]RIBUTION MANAGER PRN TOPICAL 01/28/18 02:00 01/31/18 01:59 (NovoLIN R INJ) See Protocol Table ... ASSISTANT DISTRIBUTION MANAGER PRN SQ 01/28/18 02:00 01/31/18 01:59 (Roxicodone) 5 mg Q4H PRN PO 01/28/18 13:45 (Dilaudid) 2 mg Q4H PRN PO 01/28/18 13:45 01/30/18 09:40 (Morphine Inj) 2 mg Q1H PRN IV PUSH 01/28/18 13:45 01/30/18 12:13 (KCl) 20 meq Q12HR PO 01/28/18 21:00 01/30/18 08:42 Vital Signs / I&O Vital Signs Date Time Temp Pulse Resp B/P (MAP) Pulse Ox O2 Delivery O2 Flow Rate FiO2 01/30/18 08:50 21 01/30/18 08:10 59 01/30/18 04:23 97.8 65 18 126/76 (93) 94 01/30/18 00:11 98.9 68 17 104/53 (70) 97 01/29/18 20:00 98.4 72 18 105/53 (70) 96 01/29/18 16:00 98.3 72 17 126/54 (78) 96 01/29/18 14:18 96 21 I/O 01/29/18 01/29/18 01/29/18 01/30/18 01/30/18 01/30/18 07:00 15:00 23:00 07:00 15:00 23:00 Intake Total 800 ml 100 ml 1110 ml 480 ml 100 ml Output Total 500 ml 300 ml 1200 ml Balance 300 ml 100 ml 810 ml -720 ml 100 ml Intake Oral 700 ml 960 ml 380 ml IV Total 100 ml 100 ml 150 ml 100 ml 100 ml Output Urine Total 500 ml 300 ml 1200 ml # Bowel Movements 0 Physical Exam GENERAL: NAD, AAOx3 SKIN: Warm and dry. HEAD: Atraumatic. Normocephalic. EYES: Pupils equal and round. No scleral icterus. No injection or drainage. ENT: No nasal bleeding or discharge. Mucous membranes pink and moist. NECK: Trachea midline. No JVD. CARDIOVASCULAR: Regular rate and rhythm. RESPIRATORY: No accessory muscle use. Clear to auscultation GASTROINTESTINAL: Abdomen soft, non-tender, nondistended. Hepatic and splenic margins not palpable. MUSCULOSKELETAL: Left leg wrapped, decreased warmth compared to yesterday NEUROLOGICAL: Awake and alert. No obvious cranial nerve deficits. Motor grossly within normal limits. Five out of 5 muscle strength in the arms and legs. Normal speech. PSYCHIATRIC: Appropriate mood and affect; insight and judgment normal. Laboratory Laboratory Tests Test 01/30/18 07:04 White Blood Count 12.0 TH/MM3 Red Blood Count 3.08 MIL/MM3 Hemoglobin 7.1 GM/DL Hematocrit 23.4 % Mean Corpuscular Volume 75.9 FL Mean Corpuscular Hemoglobin 23.0 PG Mean Corpuscular Hemoglobin Concent 30.3 % Red Cell Distribution Width 19.0 % Platelet Count 331 TH/MM3 Mean Platelet Volume 8.5 FL Neutrophils (%) (Auto) 72.8 % Lymphocytes (%) (Auto) 18.0 % Monocytes (%) (Auto) 6.9 % Eosinophils (%) (Auto) 1.6 % Basophils (%) (Auto) 0.7 % Neutrophils # (Auto) 8.7 TH/MM3 Lymphocytes # (Auto) 2.2 TH/MM3 Monocytes # (Auto) 0.8 TH/MM3 Eosinophils # (Auto) 0.2 TH/MM3 Basophils # (Auto) 0.1 TH/MM3 CBC Comment DIFF FINAL Differential Comment Blood Urea Nitrogen 21 MG/DL Creatinine 0.86 MG/DL Random Glucose 101 MG/DL Calcium Level 8.8 MG/DL Sodium Level 139 MEQ/L Potassium Level 4.1 MEQ/L Chloride Level 100 MEQ/L Carbon Dioxide Level 26.1 MEQ/L Anion Gap 13 MEQ/L Estimat Glomerular Filtration Rate 63 ML/MIN Assessment and Plan Problem List: (1) Left foot infection ICD Codes: L08.9 - Local infection of the skin and subcutaneous tissue, unspecified (2) Afib ICD Codes: I48.91 - Unspecified atrial fibrillation (3) PAD (peripheral artery disease) ICD Codes: I73.9 - Peripheral vascular disease, unspecified (4) Osteomyelitis ICD Codes: M86.9 - Osteomyelitis, unspecified Status: Acute (5) Sepsis ICD Codes: A41.9 - Sepsis, unspecified organism Status: Resolved (6) Pacemaker ICD Codes: Z95.0 - Presence of cardiac pacemaker Status: Chronic (7) Hypoxia ICD Codes: R09.02 - Hypoxemia Status: Acute (8) Acute CHF ICD Codes: I50.9 - Heart failure, unspecified Assessment and Plan 1) Sepsis secondary to foot s/p left BKA POD #2 2) Afib Controlled Restart Eliquis 3) Discussed her worry over the PPM not being check as scheduled last week No dysfunction noted, can be done over the next few weeks outpatient 4) EF 55-60%, aortic valve sclerosis, no aortic stenosis 5) Change diuretic back to Torsemide Problem Qualifiers (1) Osteomyelitis: Qualified Codes: M86.9 - Osteomyelitis, unspecified (2) Sepsis: Qualified Codes: A41.9 - Sepsis, unspecified organism Danie Powers DO January 30, 2018 12:26
--- NOTE | 2018-01-30 13:57 | HHI.PR ---
Subjective Remarks Follow-up Domenico WRIGHT fib, CHF. The patient has no complaints at this time. BKA bandage removed today. Pain is well controlled. No shortness of breath or chest pain. Objective Vitals Vital Signs Date Time Temp Pulse Resp B/P (MAP) Pulse Ox O2 Delivery O2 Flow Rate FiO2 01/30/18 08:50 21 01/30/18 08:10 59 01/30/18 04:23 97.8 65 18 126/76 (93) 94 01/30/18 00:11 98.9 68 17 104/53 (70) 97 01/29/18 20:00 98.4 72 18 105/53 (70) 96 01/29/18 16:00 98.3 72 17 126/54 (78) 96 01/29/18 14:18 96 21 I/O 01/29/18 01/29/18 01/29/18 01/30/18 01/30/18 01/30/18 07:00 15:00 23:00 07:00 15:00 23:00 Intake Total 800 ml 100 ml 1110 ml 480 ml 100 ml Output Total 500 ml 300 ml 1200 ml Balance 300 ml 100 ml 810 ml -720 ml 100 ml Intake Oral 700 ml 960 ml 380 ml IV Total 100 ml 100 ml 150 ml 100 ml 100 ml Output Urine Total 500 ml 300 ml 1200 ml # Bowel Movements 0 Result Diagram: 01/30/18 0704 01/30/18 07 Imaging Last Impressions Ankle X-Ray 01/21/18 0000 Signed Impressions: Service Date/Time: Sunday, January 21, 2018 21:46 - CONCLUSION: Chronic bony change with surgical hardware as described above. A new acute bony abnormality is not clearly seen. There is mild soft tissue swelling. Adonay Cabrera MD Upper Extremity Ultrasound 01/20/18 0000 Signed Impressions: Service Date/Time: Saturday, January 20, 2018 10:42 - CONCLUSION: No DVT. Adonay Cabrera MD Tumor Localization 01/20/18 0000 Signed Impressions: Service Date/Time: Saturday, January 20, 2018 11:45 - CONCLUSION: 1. Intense focal uptake at the site of fracture in the distal posterior tibia. Remainder of the uptake is mild and may represent a mild cellulitis, without definite evidence for osteomyelitis. Tray Garcia MD Lower Extremity Ultrasound 01/20/18 0000 Signed Impressions: Service Date/Time: Saturday, January 20, 2018 10:28 - CONCLUSION: No DVT. Adonay Cabrera MD Chest X-Ray 01/20/18 0000 Signed Impressions: Service Date/Time: Saturday, January 20, 2018 13:03 - CONCLUSION: Mild compensated cardiomegaly. Pacemaker on the left. Gallo Armas MD FACR Lower Extremity CT 01/18/18 0000 Signed Impressions: Service Date/Time: Thursday, January 18, 2018 20:51 - CONCLUSION: 1. Diffuse soft tissue swelling. 2. No acute fracture or dislocation. 3. Scattered areas of osteopenia are noted throughout the foot and are nonspecific. Bone scan, white blood cell scan and/or MRI with contrast would be more sensitive to rule out osteomyelitis if clinically indicated. 4. Plantar and Achilles calcaneal spurring. 5. Old healing posterior malleolar fracture. Wilmer Estes MD Objective Remarks General: No acute distress. Heart: Regular rate and rhythm. No murmur. Lungs: Clear to auscultation bilaterally. No wheezes, rales, or rhonchi. Breathing is nonlabored. Abdomen: Soft, nontender, nondistended. Extremities: No right lower extremity edema. Left BKA, stump bandaged. Psych: Alert and oriented. Neuro: Normal speech. No focal deficits noted. Procedures 01/28/18 left below-knee amputation Urinary Catheter: No Vascular Central Line Catheter: No A/P Problem List: (1) Sepsis ICD Code: A41.9 - Sepsis, unspecified organism Status: Resolved (2) Osteomyelitis ICD Code: M86.9 - Osteomyelitis, unspecified Status: Acute (3) Left foot infection ICD Code: L08.9 - Local infection of the skin and subcutaneous tissue, unspecified (4) PAD (peripheral artery disease) ICD Code: I73.9 - Peripheral vascular disease, unspecified (5) Afib ICD Code: I48.91 - Unspecified atrial fibrillation (6) Acute diastolic heart failure ICD Code: I50.31 - Acute diastolic (congestive) heart failure Assessment and Plan 1. Sepsis, present on admission: Resolved. Secondary to left foot infection. Patient presented with tachycardia, hypotension. Blood cultures remain negative. Appreciate infectious disease recommendations. Continue antibiotics. 2. Peripheral arterial disease: Appreciate vascular surgery recommendations. 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 3. Atrial fibrillation: Chronic. Rate controlled. Continue Eliquis, metoprolol. 4. Acute diastolic congestive heart failure: Symptoms are improved following diuresis with IV Lasix. Continue torsemide. 5. Hyperlipidemia: Continue statin. 6. Hypertension: Continue amlodipine, metoprolol. 7. Hypothyroidism: Continue Synthroid. 8. Left foot wounds: Status post left BKA. Antibiotics per infectious disease. 9. Hypokalemia: Likely secondary to diuretics. Continue supplementation. Monitor labs. 10. DVT prophylaxis: Eliquis. Discharge Planning Plan for discharge to inpatient rehab when cleared by vascular surgery, infectious disease. Problem Qualifiers (1) Sepsis: Qualified Codes: A41.9 - Sepsis, unspecified organism (2) Osteomyelitis: Qualified Codes: M86.9 - Osteomyelitis, unspecified Hunter Lopez MD January 30, 2018 13:57
[2018-01-30] MEDS: FLUCONAZOLE 100 MG PREMIX BAG 50 ML IV SCH (14:40)
[2018-01-30] MEDS: APIXABAN 5 MG TABLET PO SCH (20:59)
[2018-01-31 00:33] VITALS: BP 118/56; PULSE 62; RESP 18; TEMP 99.3; O2SAT 97
[2018-01-31 04:07] VITALS: BP 150/65; PULSE 61; RESP 17; TEMP 98.1; O2SAT 96
[2018-01-31 06:11] LABS: AUTOMATED NEUTROPHIL # 5.8 TH/MM3 (1.8-7.7); BASOPHIL # 0.1 TH/MM3 (0-0.2); EOSINOPHIL # 0.2 TH/MM3 (0-0.4); EOSINOPHIL % 2.8 % (0.0-4.0); HEMATOCRIT 22.6 % (35.0-46.0); LYMPH % 19.5 % (9.0-44.0); LYMPHOCYTE # 1.7 TH/MM3 (1.0-4.8); MEAN CORPUSCULAR HEMOGLOBIN 23.2 PG (27.0-34.0); MEAN PLATELET VOLUME 8.6 FL (7.0-11.0); MONO % 8.8 % (0.0-8.0); MONOCYTE # 0.8 TH/MM3 (0-0.9); NEUT % 67.9 % (16.0-70.0); PLATELET COUNT 309 TH/MM3 (150-450); RED BLOOD COUNT 3.01 MIL/MM3 (4.00-5.30); RED CELL DISTRIBUTION WIDTH 19.4 % (11.6-17.2); WHITE BLOOD COUNT 8.5 TH/MM3 (4.0-11.0)
[2018-01-31] MEDS: LEVOTHYROXINE SODIUM 150 MCG TAB PO SCH (06:27)
[2018-01-31 08:00] VITALS: PULSE 72; RESP 17; TEMP 98.2; O2SAT 92
[2018-01-31] MEDS ORDERED: TORSEMIDE 20 MG TAB PO SCH (09:00)
[2018-01-31] MEDS: COLLAGENASE OINT 30 GM TUBE TOPICAL SCH (09:00)
[2018-01-31] MEDS: METOPROLOL TARTRATE 25 MG TAB PO SCH (09:14)
[2018-01-31] MEDS: DOCUSATE SODIUM 50 MG/SENNA 8.6 MG TAB PO SCH (09:15)
[2018-01-31] MEDS: PRAVASTATIN SOD 20 MG TAB PO SCH (09:15)
[2018-01-31] MEDS: amLODIPine BESYLATE 5 MG TAB PO SCH (09:15)
[2018-01-31] MEDS: POTASSIUM CHLORIDE 20 MEQ CONTROLLED RELEASE TAB PO SCH (09:15)
[2018-01-31] MEDS: LACTOBACILLUS ACIDOPHILUS TAB PO SCH (09:15)
[2018-01-31] MEDS: APIXABAN 5 MG TABLET PO SCH (09:15)
--- NOTE | 2018-01-31 09:15 | PD.VS.PN ---
Subjective POD #: 3 Procedure(s): L BKA Subjective/Hospital Course Pain controlled Pt looks great Incision intact w/o R/D/S/O Objective Vitals/I&O Date Time Temp Pulse Resp B/P (MAP) Pulse Ox O2 Delivery O2 Flow Rate FiO2 01/31/18 08:00 98.2 72 17 92 01/31/18 04:07 98.1 61 17 150/65 (93) 96 01/31/18 00:33 99.3 62 18 118/56 (76) 97 01/30/18 20:00 99.6 60 17 127/60 (82) 96 01/30/18 18:34 21 01/30/18 16:00 99.2 58 18 141/60 (87) 90 01/30/18 12:00 98.6 60 20 114/55 (74) 93 01/31/18 01/31/18 01/31/18 07:00 15:00 23:00 Intake Total 580 ml Balance 580 ml Exam: GENERAL: A&OX3, GCS 15 SKIN: Warm and dry. L BKA incision intact w/o R/D/S [place] intact CARDIOVASCULAR: Regular rate and rhythm without murmurs, gallops, or rubs. RESPIRATORY: Breath sounds equal bilaterally. No accessory muscle use. GASTROINTESTINAL: Abdomen soft, non-tender, nondistended. MUSCULOSKELETAL: No cyanosis, or edema. Laboratory Laboratory Tests Test 01/31/18 04:48 White Blood Count 8.5 Red Blood Count 3.01 Hemoglobin 7.0 Hematocrit 22.6 Mean Corpuscular Volume 75.0 Mean Corpuscular Hemoglobin 23.2 Mean Corpuscular Hemoglobin Concent 31.0 Red Cell Distribution Width 19.4 Platelet Count 309 Mean Platelet Volume 8.6 Neutrophils (%) (Auto) 67.9 Lymphocytes (%) (Auto) 19.5 Monocytes (%) (Auto) 8.8 Eosinophils (%) (Auto) 2.8 Basophils (%) (Auto) 1.0 Neutrophils # (Auto) 5.8 Lymphocytes # (Auto) 1.7 Monocytes # (Auto) 0.8 Eosinophils # (Auto) 0.2 Basophils # (Auto) 0.1 CBC Comment DIFF FINAL Differential Comment Date/Time Source Procedure Growth Status 01/17/18 21:50 Blood Peripheral Aerobic Blood Culture - Final NO GROWTH IN 5 DAYS Complete 01/17/18 21:50 Blood Peripheral Anaerobic Blood Culture - Final NO GROWTH IN 5 DAYS Complete 01/19/18 08:45 Stool Stool Stool Occult Blood (DEEPIKA) - Final HEMOCCULT NEGATIVE Complete 01/20/18 14:00 Wound Groin Gram Stain - Final Complete 01/20/18 14:00 Wound Culture - Final S. Aureus Mrsa Bacteroides Sp B. Frag Group Complete Assessment and Plan Assessment: (1) PAD (peripheral artery disease) Plan POD#3 S/p L BKA Pt looks great Minimal Pain per pt Pt continues to fully extend knee w/o difficulty Plan Pt clear for D/C to [facility] Continue PT, knee straightening Continue pain control Apply a sterile dry dressing to L BKA site (change daily) for 5 days Ashley Starr [email or web address] [phone] Discharge Planning Pt clear for D/C to [facility] rehab Arranged out pt f/u Ashley Starr January 31, 2018 09:15
[2018-01-31] MEDS: SODIUM CHLORIDE 0.9% FLUSH 10 ML FLUSH IV FLUSH SCH (09:16)
[2018-01-31] MEDS ORDERED: FERR325T20 PO (10:32)
[2018-01-31] MEDS ORDERED: COLL30T TOPICAL (10:32)
[2018-01-31] MEDS ORDERED: METO25TA3 PO (10:32)
[2018-01-31] MEDS ORDERED: POTA20TA5 PO (10:32)
[2018-01-31] MEDS ORDERED: AMLO5 PO (10:32)
--- NOTE | 2018-01-31 10:33 | HHI.DCPOC ---
Discharge Care Plan Diagnosis: (1) Acute diastolic heart failure (2) Sepsis (3) Left foot infection (4) Afib (5) PAD (peripheral artery disease) (6) Osteomyelitis (7) S/P BKA (below knee amputation) unilateral Goals to Promote Your Health * To prevent worsening of your condition and complications * To maintain your health at the optimal level Directions to Meet Your Goals Take your medications as prescribed Follow your dietary instruction Follow activity as directed Keep your appointments as scheduled Take your immunizations and boosters as scheduled If your symptoms worsen call your PCP, if no PCP go to Urgent Care Center or Emergency Room Smoking is Dangerous to Your Health. Avoid second hand smoke Call the 24-hour hour crisis hotline for domestic abuse at Hunter Lopez MD January 31, 2018 10:33
--- NOTE | 2018-01-31 10:39 | HHI.DS ---
Discharge Summary Admission Date January 17, 2018 at 21:22 Discharge Date: January 31, 2018 Admitting Diagnosis acute osteomyelitis left foot, sepsis, recent arterial surgery (1) Sepsis ICD Code: A41.9 - Sepsis, unspecified organism Status: Resolved (2) Osteomyelitis ICD Code: M86.9 - Osteomyelitis, unspecified Status: Acute (3) Left foot infection ICD Code: L08.9 - Local infection of the skin and subcutaneous tissue, unspecified (4) PAD (peripheral artery disease) ICD Code: I73.9 - Peripheral vascular disease, unspecified (5) Afib ICD Code: I48.91 - Unspecified atrial fibrillation (6) Acute diastolic heart failure ICD Code: I50.31 - Acute diastolic (congestive) heart failure Procedures 01/28/18 left below-knee amputation Brief History - From Admission This is an 82-year-old female with a PMH of A. fib on Eliquis, HTN, Hyperlipidemia, PAD s/p Left Fem-Pop Bypass 01/06/[address] Moran, Previous Left Tib-Fib Repair 12/04/17 in [place], w/ significant tissue injury after splint removal, has been following w/ Dr. Cifuentes as outpatient. Per patient she was seen in office today by Dr. Cifuentes, had debridement of eschar in office and states she was ordered "debridement cream". Upon pt's return to SNF, she was noted to have AMS and was sent to [facility], [facility] from ER to ER. Labs from w/ WBC 17, Left Foot X-ray w/ skin ulcer noted at plantar aspect of left foot w/ cortical irregularity, possibly osteomyelitiss. CT Head w/ no acute findings, s/p Vanc 1gm and Zosyn 4.5gm prior to arrival, all imaging/ reports/labs reviewed by me. Dr. Moran consulted by ER physician upon arrival to [facility], will evaluate in am. Pt now back to baseline mental status w/ no persistent AMS. Repeat labs pending, MRI Foot pending. CBC/BMP: 01/31/18 0448 01/30/18 0704 Significant Findings Laboratory Tests Test 01/29/18 08:15 01/30/18 07:04 01/31/18 04:48 White Blood Count 13.9 TH/MM3 (4.0-11.0) 12.0 TH/MM3 (4.0-11.0) Red Blood Count 3.27 MIL/MM3 (4.00-5.30) 3.08 MIL/MM3 (4.00-5.30) 3.01 MIL/MM3 (4.00-5.30) Hemoglobin 7.5 GM/DL (11.6-15.3) 7.1 GM/DL (11.6-15.3) 7.0 GM/DL (11.6-15.3) Hematocrit 24.8 % (35.0-46.0) 23.4 % (35.0-46.0) 22.6 % (35.0-46.0) Mean Corpuscular Volume 75.7 FL (80.0-100.0) 75.9 FL (80.0-100.0) 75.0 FL (80.0-100.0) Mean Corpuscular Hemoglobin 22.8 PG (27.0-34.0) 23.0 PG (27.0-34.0) 23.2 PG (27.0-34.0) Mean Corpuscular Hemoglobin Concent 30.1 % (32.0-36.0) 30.3 % (32.0-36.0) 31.0 % (32.0-36.0) Red Cell Distribution Width 18.8 % (11.6-17.2) 19.0 % (11.6-17.2) 19.4 % (11.6-17.2) Random Glucose 130 MG/DL (74-106) Estimat Glomerular Filtration Rate 72 ML/MIN (>89) 63 ML/MIN (>89) Neutrophils (%) (Auto) 72.8 % (16.0-70.0) Neutrophils # (Auto) 8.7 TH/MM3 (1.8-7.7) Blood Urea Nitrogen 21 MG/DL (7-18) Monocytes (%) (Auto) 8.8 % (0.0-8.0) Imaging Last Impressions Ankle X-Ray 01/21/18 0000 Signed Impressions: Service Date/Time: Sunday, January 21, 2018 21:46 - CONCLUSION: Chronic bony change with surgical hardware as described above. A new acute bony abnormality is not clearly seen. There is mild soft tissue swelling. Adonay Cabrera MD Upper Extremity Ultrasound 01/20/18 Signed Impressions: Service Date/Time: Saturday, January 20, 2018 10:42 - CONCLUSION: No DVT. Adonay Cabrera MD Tumor Localization 01/20/18 Signed Impressions: Service Date/Time: Saturday, January 20, 2018 11:45 - CONCLUSION: 1. Intense focal uptake at the site of fracture in the distal posterior tibia. Remainder of the uptake is mild and may represent a mild cellulitis, without definite evidence for osteomyelitis. Tray Garcia MD Lower Extremity Ultrasound 01/20/18 Signed Impressions: Service Date/Time: Saturday, January 20, 2018 10:28 - CONCLUSION: No DVT. Adonay Cabrera MD Chest X-Ray 01/20/18 Signed Impressions: Service Date/Time: Saturday, January 20, 2018 13:03 - CONCLUSION: Mild compensated cardiomegaly. Pacemaker on the left. Gallo Armas MD FACR Lower Extremity CT 01/18/18 Signed Impressions: Service Date/Time: Thursday, January 18, 2018 20:51 - CONCLUSION: 1. Diffuse soft tissue swelling. 2. No acute fracture or dislocation. 3. Scattered areas of osteopenia are noted throughout the foot and are nonspecific. Bone scan, white blood cell scan and/or MRI with contrast would be more sensitive to rule out osteomyelitis if clinically indicated. 4. Plantar and Achilles calcaneal spurring. 5. Old healing posterior malleolar fracture. Wilmer Estes MD PE at Discharge General: No acute distress. Heart: Regular rate and rhythm. No murmur. Lungs: Clear to auscultation bilaterally. No wheezes, rales, or rhonchi. Breathing is nonlabored. Abdomen: Soft, nontender, nondistended. Extremities: No right lower extremity edema. Left BKA, stump bandaged. Psych: Alert and oriented. Neuro: Normal speech. No focal deficits noted. Pt update on day of discharge No complaints at this time. Pain is well controlled. Patient denies dyspnea, chest pain, nausea, vomiting. Hospital Course The patient was admitted for management of sepsis secondary to left foot infection, osteomyelitis. Podiatry and vascular surgery were consulted. Infectious disease was consulted as well. She was continued on IV antibiotics. The patient developed acute congestive heart failure symptoms. Cardiology was consulted. The patient was continued on diuretics. Her symptoms improved. Left below-knee amputation was done on 01/28/18. The patient did well the patient did well postoperatively. Antibiotics were discontinued and infectious disease signed off. She was cleared for discharge to inpatient rehab by vascular surgery. Pt Condition on Discharge: Stable Discharge Disposition: Rehab Inpatient Discharge Time: > 30 minutes Discharge Instructions DIET: Follow Instructions for: As Tolerated, No Restrictions Activities you can perform: Non Weight Bearing Other Activity Instructions: LLE non-weight bearing Follow up Referrals: Cardiology - 2 Weeks with Danie Powers DO PCP Follow-up - 2 Weeks Vascular Surgery - 1 Month @ Vascular Surgery with Wilmer Moran MD Your post-op f/u appointment is on 03/05/18 at 3:00 New Medications: Amlodipine (Norvasc) 5 Mg Tab 5 MG PO DAILY for Blood Pressure Management, #30 TAB Collagenase (Santyl) 250 Unit/Gram Oin 1 APPLIC TOPICAL DAILY for wound, #1 TUBE Ferrous Sulfate (Ferosul) 325 Mg (65 Mg Iron) Tablet 325 MG PO BID@12,17 for Nutritional Supplement, #60 TAB Metoprolol Tartrate (Metoprolol Tartrate) 25 Mg Tab 25 MG PO BID for Blood Pressure Management, #60 TAB Potassium Chloride Microencaps (Potassium Chloride Microencaps) 20 Meq Tab 20 MEQ PO Q12HR for Electrolyte Replacement, #60 TAB Continued Medications: Apixaban (Eliquis) 5 Mg Tab 5 MG PO BID for Blood Clot Prevention, #60 TAB [address] (Aspirin EC) 81 Mg Tabdr 81 MG PO DAILY, TAB 0 Refills Docusate Sodium (Colace) 100 Mg Capsule 100 MG PO HS for Prevent Constipation, #30 CAP 0 Refills Hydrocodone/Acetaminophen (Hydrocodone-Acetamin 7.5-325) 7.5 Mg-325 Mg Tablet 1 TAB PO Q4H PRN for pain 6-10, #20 TAB Levothyroxine (Levothyroxine) 150 Mcg Tab 150 MCG PO DAILY for Thyroid, #30 TAB 0 Refills Magnesium Hydroxide Liq (Milk of Magnesia Liq) 400 Mg/5 Ml Susp 30 ML PO Q6H PRN for CONSTIPATION, BOTTLE 0 Refills Pravastatin (Pravastatin) 20 Mg Tab 20 MG PO DAILY for Cholesterol Management, #30 TAB 0 Refills Torsemide (Torsemide) 20 Mg Tab 20 MG PO DAILY, #30 TAB 0 Refills Discontinued Medications: Amlodipine (Amlodipine) 10 Mg Tab 10 MG PO DAILY for Blood Pressure Management, #30 TAB 0 Refills Gabapentin (Gabapentin) 300 Mg Cap 300 MG PO DAILY, #60 CAP 0 Refills Gabapentin (Gabapentin) 600 Mg Tab 600 MG PO HS, #30 TAB 0 Refills Lisinopril (Lisinopril) 40 Mg Tab 40 MG PO BID for Blood Pressure Management, TAB 0 Refills Metoprolol Tartrate (Metoprolol Tartrate) 50 Mg Tab 50 MG PO BID, #60 TAB 0 Refills Potassium Chloride ER (Potassium Chloride ER) 10 Meq Tab 10 MEQ PO DAILY for Electrolyte Replacement, #30 TAB 0 Refills Hunter Lopez MD January 31, 2018 10:39
[2018-01-31] MEDS: FERROUS SULFATE 325 MG (65 MG ELEMENTAL IRON) TAB PO SCH (11:24)
[2018-01-31] MEDS: DRONABINOL 5 MG CAP PO SCH (11:25)
[2018-01-31 12:07] VITALS: BP 142/77; PULSE 59; RESP 17; TEMP 97.9; O2SAT 94
[2018-01-31] MEDS: HYDROmorphone HCL 2 MG TAB PO PRN (14:10)
--- NOTE | 2018-01-31 18:40 | PD.CARD.PN ---
Subjective Subjective Remarks Patient was seen earlier today, no complaints Off to rehab Breathing well Objective Vital Signs / I&O Vital Signs Date Time Temp Pulse Resp B/P (MAP) Pulse Ox O2 Delivery O2 Flow Rate FiO2 01/31/18 12:07 97.9 59 17 142/77 (98) 94 01/31/18 08:00 98.2 72 17 92 01/31/18 04:07 98.1 61 17 150/65 (93) 96 01/31/18 00:33 99.3 62 18 118/56 (76) 97 01/30/18 20:00 99.6 60 17 127/60 (82) 96 I/O 01/30/18 01/30/18 01/30/18 01/31/18 01/31/18 01/31/18 06:59 14:59 22:59 06:59 14:59 22:59 Intake Total 480 ml 200 ml 740 ml 580 ml Output Total 1200 ml 300 ml 1000 ml Balance -720 ml 200 ml 440 ml 580 ml -1000 ml Intake Oral 380 ml 640 ml 580 ml IV Total 100 ml 200 ml 100 ml Output Urine Total 1200 ml 300 ml 1000 ml # Voids 2 6 # Bowel Movements 0 Physical Exam GENERAL: NAD, AAOx3 SKIN: Warm and dry. HEAD: Atraumatic. Normocephalic. EYES: Pupils equal and round. No scleral icterus. No injection or drainage. ENT: No nasal bleeding or discharge. Mucous membranes pink and moist. NECK: Trachea midline. No JVD. CARDIOVASCULAR: Regular rate and rhythm. RESPIRATORY: No accessory muscle use. Clear to auscultation GASTROINTESTINAL: Abdomen soft, non-tender, nondistended. Hepatic and splenic margins not palpable. MUSCULOSKELETAL: Left leg wrapped, decreased warmth compared to yesterday NEUROLOGICAL: Awake and alert. No obvious cranial nerve deficits. Motor grossly within normal limits. Five out of 5 muscle strength in the arms and legs. Normal speech. PSYCHIATRIC: Appropriate mood and affect; insight and judgment normal. Laboratory Laboratory Tests Test 01/31/18 04:48 White Blood Count 8.5 TH/MM3 Red Blood Count 3.01 MIL/MM3 Hemoglobin 7.0 GM/DL Hematocrit 22.6 % Mean Corpuscular Volume 75.0 FL Mean Corpuscular Hemoglobin 23.2 PG Mean Corpuscular Hemoglobin Concent 31.0 % Red Cell Distribution Width 19.4 % Platelet Count 309 TH/MM3 Mean Platelet Volume 8.6 FL Neutrophils (%) (Auto) 67.9 % Lymphocytes (%) (Auto) 19.5 % Monocytes (%) (Auto) 8.8 % Eosinophils (%) (Auto) 2.8 % Basophils (%) (Auto) 1.0 % Neutrophils # (Auto) 5.8 TH/MM3 Lymphocytes # (Auto) 1.7 TH/MM3 Monocytes # (Auto) 0.8 TH/MM3 Eosinophils # (Auto) 0.2 TH/MM3 Basophils # (Auto) 0.1 TH/MM3 CBC Comment DIFF FINAL Differential Comment Assessment and Plan Problem List: (1) Left foot infection ICD Codes: L08.9 - Local infection of the skin and subcutaneous tissue, unspecified (2) Afib ICD Codes: I48.91 - Unspecified atrial fibrillation Status: Chronic (3) PAD (peripheral artery disease) ICD Codes: I73.9 - Peripheral vascular disease, unspecified Status: Chronic (4) Osteomyelitis ICD Codes: M86.9 - Osteomyelitis, unspecified Status: Acute (5) Sepsis ICD Codes: A41.9 - Sepsis, unspecified organism Status: Resolved (6) Pacemaker ICD Codes: Z95.0 - Presence of cardiac pacemaker Status: Chronic (7) Hypoxia ICD Codes: R09.02 - Hypoxemia Status: Acute (8) Acute CHF ICD Codes: I50.9 - Heart failure, unspecified Assessment and Plan 1) Sepsis secondary to foot s/p left BKA POD #3 2) Afib Controlled Restart Eliquis 3) Discussed her worry over the PPM not being check as scheduled last week No dysfunction noted, can be done over the next few weeks outpatient 4) EF 55-60%, aortic valve sclerosis, no aortic stenosis 5) Change diuretic back to Torsemide 6) To rehab, will see PRN, call with questions Problem Qualifiers (1) Osteomyelitis: Qualified Codes: M86.9 - Osteomyelitis, unspecified (2) Sepsis: Qualified Codes: A41.9 - Sepsis, unspecified organism Danie Powers DO January 31, 2018 18:40
== END 2018-01-31 14:43 | DRG 853 ==
LOC: NEPC 20:40 → NEDA 21:22 → N07B 22:36
PROVIDERS: ADMIT Family Medicine; ATTEND Family Medicine
PROC: 0Y6J0Z3 Detachment at Left Lower Leg, Low, Open Approach (ICD-10-PCS; principal; 2018-01-28 12:32)
DX: A41.9 Sepsis, unspecified organism (principal); I50.33 Acute on chronic diastolic (congestive) heart failure; G93.41 Metabolic encephalopathy; I95.9 Hypotension, unspecified; L03.116 Cellulitis of left lower limb; I70.262 Atherosclerosis of native arteries of extremities with gangrene, left leg; M86.172 Other acute osteomyelitis, left ankle and foot; G62.9 Polyneuropathy, unspecified; I11.0 Hypertensive heart disease with heart failure; T81.4XXA Infection following a procedure, initial encounter; I48.2 Chronic atrial fibrillation; L97.529 Non-pressure chronic ulcer of other part of left foot with unspecified severity; E03.9 Hypothyroidism, unspecified; E78.5 Hyperlipidemia, unspecified; Z96.652 Presence of left artificial knee joint; I25.10 Atherosclerotic heart disease of native coronary artery without angina pectoris; K21.9 Gastro-esophageal reflux disease without esophagitis; R09.02 Hypoxemia; M85.80 Other specified disorders of bone density and structure, unspecified site; K59.00 Constipation, unspecified; D50.9 Iron deficiency anemia, unspecified; I35.0 Nonrheumatic aortic (valve) stenosis; E87.6 Hypokalemia; T50.2X5A Adverse effect of carbonic-anhydrase inhibitors, benzothiadiazides and other diuretics, initial encounter; R00.0 Tachycardia, unspecified; R09.82 Postnasal drip; R68.81 Early satiety; B95.62 Methicillin resistant Staphylococcus aureus infection as the cause of diseases classified elsewhere; Z95.828 Presence of other vascular implants and grafts; Z95.5 Presence of coronary angioplasty implant and graft; Z95.0 Presence of cardiac pacemaker; Z79.01 Long term (current) use of anticoagulants; Z86.73 Personal history of transient ischemic attack (TIA), and cerebral infarction without residual deficits; Z87.891 Personal history of nicotine dependence
CPT/HCPCS: 71045; 73610; 73701; 76937; 78807; 78999; 80048; 80053; 80202; 82272; 82565; 82728; 83540; 83550; 83605; 83735; 83880; 84100; 85025; 85027; 85652; 86140; 86403; 86850; 86900; 86901; 87040; 87070; 87076; 87147; 87185; 87186; 87205; 88307; 88311; 93005; 93306; 93970; 93971; 94150; 94640; 94664; A9569; J1100; J1450; J1940; J2270; J2370; J2405; J2543; J3010; J3370; J3480; J7030; J7040; J7120; Q9967